=== PATIENT | male | born 1960 | race Caucasian/White ===

== ENCOUNTER → 2016-05-20 | Outpatient (CLI) | payer OTHER ==
[~2016-05-20] MED LIST: ACET-1175 PO; ALUMSUS2 PO; ASEN1SUB SL; CALC625T PO; CETI10TA10 PO; CHOL1000 PO; CHOL100010 PO; CLC100X PO; DEXTSYP41 PO; DIVA250T PO; DIVA500T3 PO; DOCU100C31 PO; EMOL-63 TOP; ERYOPO1 OP; ESCI1TAB10 PO; EZET10TA44 PO; HALO0.5T9 PO; HYDR2.5C37 TOP; LEVO50TA PO; LITH600C PO; LOPE-5 PO; LTH300C PO; METF-384 PO; MOML PO; MULTCHW PO; NEOMOIN76 TOP; OMEG10007 PO; PRLSR20 PO; RBTDMUDL5 PO; RISP2TAB3 PO; SPHSL5 PO; SPHSL5 SL; TRIA0.1C55 TOP; TRMCR515 TOP
[2016-05-20 10:14] LABS: COMPLETE YES; EOS % 2.3 %; HEMATOCRIT 42.2 % (42-52); IG% 0.4 %; LYMPH % 30.5 %; LYMPH ABS # 1.56 K/uL (1.2-3.4); MEAN CELL VOLUME 94.2 fL (80-100); MEAN CORPUSCULAR HEMOGLOBIN 31.7 pg (25-34); MEAN CORPUSCULAR HGB CONC 33.6 g/dl (32-36); MEAN PLATELET VOLUME 9.6 fL (7.4-10.4); MONO % 8.4 %; NEUT % 58.4 %; PLATELET COUNT 166 K/uL (130-400); RED BLOOD COUNT 4.48 M/uL (4.7-6.1); WHITE BLOOD COUNT 5.11 K/uL (4.8-10.8)
[2016-05-20 10:50] LABS: ALT/SGPT 22 U/L (12-78); BLOOD UREA NITROGEN 12 mg/dl (7-18); BUN/CREATININE RATIO 16.6 (10-20); CALCIUM 9.5 mg/dl (8.5-10.1); CARBON DIOXIDE 31 mmol/L (21-32); CHLORIDE 107 mmol/L (98-107); GLUCOSE 98 mg/dl (70-99); POTASSIUM 4.4 mmol/L (3.5-5.1); SODIUM 144 mmol/L (136-145)
[2016-05-20 11:01] LABS: ALB/GLOB RATIO 1.7 (0.9-2); ALKALINE PHOSPHATASE 77 U/L (45-117); AST/SGOT 10 U/L (15-37)
== END | disposition home or self-care (01) ==
LOC: C.LAB 09:36
PROVIDERS: ATTEND Psychiatry & Neurology Psychiatry
DX: F20.5 Residual schizophrenia (principal)

== ENCOUNTER → 2016-09-03 | Outpatient (CLI) | payer OTHER ==
[2016-09-03 10:13] LABS: COMPLETE YES; EOS % 2.5 %; HEMATOCRIT 44.5 % (42-52); IG% 0.2 %; LYMPH % 26.5 %; MEAN CELL VOLUME 95.7 fL (80-100); MEAN CORPUSCULAR HEMOGLOBIN 30.8 pg (25-34); MEAN CORPUSCULAR HGB CONC 32.1 g/dl (32-36); MEAN PLATELET VOLUME 9.8 fL (7.4-10.4); MONO % 6.6 %; NEUT % 64.2 %; PLATELET COUNT 171 K/uL (130-400); RED BLOOD COUNT 4.65 M/uL (4.7-6.1); WHITE BLOOD COUNT 5.28 K/uL (4.8-10.8)
[2016-09-03 10:44] LABS: ALT/SGPT 27 U/L (12-78); AST/SGOT 10 U/L (15-37); BLOOD UREA NITROGEN 19 mg/dl (7-18); BUN/CREATININE RATIO 26.4 (10-20); CALCIUM 9.4 mg/dl (8.5-10.1); CARBON DIOXIDE 32 mmol/L (21-32); CHLORIDE 109 mmol/L (98-107); GLUCOSE 101 mg/dl (70-99); POTASSIUM 4.2 mmol/L (3.5-5.1); SODIUM 145 mmol/L (136-145)
[2016-09-03 10:52] LABS: LITHIUM 0.4 mMOL/L (0.6-1.2)
[2016-09-03 10:54] LABS: ALB/GLOB RATIO 1.6 (0.9-2); ALKALINE PHOSPHATASE 83 U/L (45-117)
== END | disposition home or self-care (01) ==
LOC: C.LAB 09:11
PROVIDERS: ATTEND Physician Assistant
DX: Z51.81 Encounter for therapeutic drug level monitoring (principal); Z79.899 Other long term (current) drug therapy

== ENCOUNTER 2016-11-08 10:28 | Emergency (ER) | payer OTHER ==
[~2016-11-08] VITALS: Ht 177.8 cm; Wt 101.0 kg
[~2016-11-08 10:28] MED LIST changes: -CHOL1000 PO; -DOCU100C31 PO; -LTH300C PO; -RBTDMUDL5 PO; -SPHSL5 PO; -SPHSL5 SL; -TRMCR515 TOP
[2016-11-08 10:34] VITALS: TEMP 36.5; Ht 177.8 cm; Wt 101.0 kg
[2016-11-08] MEDS ORDERED: FAMOTIDINE 20MG/102 ML D5W IV STA (10:46)
[2016-11-08] MEDS ORDERED: SODIUM CHLORIDE 0.9% 1000ML 1,000 ML IV STA ×2 (10:46→14:40)
[2016-11-08] MEDS ORDERED: ALBUT/IPRATROP 3MG/0.5MG NEB 3 ML VIAL INH STA (10:46)
[2016-11-08] MEDS ORDERED: ONDANSETRON INJ 2 MG/ML 2 ML VIAL IV STA (10:46)
--- NOTE | 2016-11-08 10:56 | EMERGENCY ROOM VISIT NOTE ---
History Report prepared by Robel: Haleigh Armstrong Under the Supervision of: Dr. Saud Kirkland M.D. First contact with patient: 10:41 Chief Complaint: CARDIAC ASSESSMENT Stated Complaint: CHEST PAIN Nursing Triage Summary: pt here via [facility] from [facility]. pt was on a day trip there, lives at [facility] and is MR. pt c/o left chest/axilla pain, upper abd pains since last pm after eating spicy foods. pain with palpation. History of Present Illness The patient is a 55 year old male who presents to the Emergency Room with complaints of persistent left sided chest pain that began around 0930 today. He currently rates his discomfort as a 5/10 in severity. The patient reports that he was at the [employer] today for a day program. He states that he developed left sided chest pain and left shoulder pain. The patient states that he is feeling short of breath and nauseated. Per the patient's staff, the patient grabbed his chest today as he walked out of the bathroom. She states that she could hear the patient wheeze. The patient reports pain with urination and diarrhea for the past several weeks. He denies any constipation. The patient denies any cough or congestion. He states that he ate spicy food last evening, noting abdominal pain since last evening. Source of History: patient Onset: 0930 this morning Position: chest (left) Symptom Intensity: 5/10 Timing: other (persistent) Associated Symptoms: + SOB, + nausea, + abdominal pain, + diarrhea, + urinary symptoms, No cough Note: Associated Symptoms: left shoulder pain Review of Systems See HPI for pertinent positives and negatives. A total of ten systems were reviewed and were otherwise negative. Past Medical & Surgical Medical Problems: (1) Anxiety (2) DM2 (diabetes mellitus, type 2) (3) Elevated d-dimer (4) GERD (gastroesophageal reflux disease) (5) HLD (hyperlipidemia) (6) Hypothyroidism (7) Mental retardation (8) Schizophrenia (9) Tachycardia Surgical Problems: (1) Monitor teeth extracted Family History Patient reports no known family medical history. Social History Smoking Status: Never Smoker Alcohol Use: none Drug Use: none Marital Status: single Housing Status: assisted living Occupation Status: other Current/Historical Medications Scheduled Asenapine Maleate (Saphris), 10 MG PO HS Asenapine Maleate (Saphris), 5 MG SL QAM Calcium Polycarbophil (Fibercon), 1,250 MG PO DAILY Cholecalciferol (Vitamin D3), 1,000 INTER.UNIT PO DAILY Divalproex Sodium (Depakote Er), 1,750 MG PO HS Docusate Sodium (Docusate Sodium), 100 MG PO BID Escitalopram Oxalate (Lexapro), 20 MG PO DAILY Ezetimibe/Simvastatin (Vytorin 10MG/80MG), 1 TAB PO QPM Fish Oil (Cameron-3), 1 CAP PO TID Haloperidol (Haldol), 0.75 MG PO HS Levothyroxine Sodium (Synthroid), 50 MCG PO DAILY Harlem Carbonate (Harlem Carbonate), 600 MG PO HS Loperamide Hcl (Imodium A-D), 2 TABS PO UD Metformin Hcl (Glucophage), 1,000 MG PO BIDM Multiple Vitamins W/ Minerals (Centrum Silver), 1 TAB PO DAILY Omeprazole (Prilosec), 20 MG PO QPM Risperidone (Risperdal), 6 MG PO HS Triamcinolone Acet (Triamcinolone Acetonide), 1 APPLN TOP BID Scheduled PRN Acetaminophen (Tylenol), 650 MG PO Q6H PRN for Pain or Fever Alum & Mag Hydrox-Simethicone (Maalox Max Susp), 30 ML PO BID PRN for Upset Stomach/Vomiting Dextromethorphan-Guaifenesin (Robitussin-Dm Syrup), 2 TSP PO DIRECTED PRN for COUGH/COLD/CONGESTION Emollient (Eucerin), 1 APPL TOP DAILY PRN for PRN Hydrocortisone 2.5% (Rectal) (Anusol-Hc 2.5%), 1 APPLN TOP BID PRN for Hemorrhoids Magnesium Hydroxide (Milk Of Magnesia), 30 ML PO UD PRN for Constipation Neomycin-Bacitracin Zn-Polymyx (Triple Antibiotic), 1 APPLN TOP UD PRN for Scrapes/Abrasions Allergies Coded Allergies: Clozapine (Verified Allergy, Intermediate, UNKNOWN, 01/04/16) Povidone Iodine (Verified Allergy, Intermediate, UNKNOWN, 01/04/16) Benztropine (Verified Allergy, Unknown, CONTRAINDICATED PER MD, 01/04/16) Pseudoephedrine (Verified Allergy, Unknown, PER MD, MOTHER SAYS NKA , 01/04/16) Terfenadine (Verified Allergy, Unknown, PER , MOTHER SAYS JAELYN 01-02-03, 01/04/16) Physical Exam Vital Signs Date Time Temp Pulse Resp B/P (MAP) Pulse Ox O2 Delivery O2 Flow Rate FiO2 11/08/16 18:05 62 15 139/90 92 11/08/16 17:00 62 19 133/87 92 Room Air 11/08/16 15:49 64 17 142/86 94 Room Air 11/08/16 14:35 70 16 127/70 91 Room Air 11/08/16 13:00 72 16 116/70 92 Room Air 11/08/16 12:42 71 11/08/16 11:39 62 16 110/81 98 11/08/16 11:33 97 Room Air 11/08/16 11:33 94 Room Air 11/08/16 10:38 77 11/08/16 10:34 36.5 86 16 135/87 94 Room Air Physical Exam GENERAL: Awake, alert, well-appearing, in no distress HENT: Normocephalic, atraumatic. Dry mucous membranes. EYES: Normal conjunctiva. Sclera non-icteric. NECK: Supple. No nuchal rigidity. FROM. No JVD. RESPIRATORY: Clear to auscultation. CARDIAC: Regular rate, normal rhythm. Extremities warm and well perfused. Pulses equal. ABDOMEN: Soft, non-distended. Tenderness in left upper quadrant,. No rebound or guarding. No masses. RECTAL: Deferred. MUSCULOSKELETAL: Reproducible pain on palpation of his left lateral chest and left shoulder, no peritoneal signs, equal pulses around. The back is symmetrical on inspection without obvious abnormality. There is no CVA tenderness to palpation. No joint edema. LOWER EXTREMITIES: Calves are equal size bilaterally and non-tender. No edema. No discoloration. NEURO: Normal sensorium. No sensory or motor deficits noted. SKIN: No rash or jaundice noted. Medical Decision & Procedures ER Provider Diagnostic Interpretation: Radiology results as stated below per my review and radiologist interpretation: CHEST ONE VIEW PORTABLE CLINICAL HISTORY: CHEST PAIN dyspnea COMPARISON STUDY: No previous studies for comparison. FINDINGS: The bones soft tissues and hemidiaphragms are normal. The cardiomediastinal silhouette is normal. The lungs are clear. The pulmonary vasculature is normal. IMPRESSION: Negative chest. The above report was generated using voice recognition software. It may contain grammatical, syntax or spelling errors. Electronically signed by: Leon Bowens M.D. 11/08/2016 11:17 AM Dictated Date/Time: 11/08/2016 11:13 AM ABDOMEN AND PELVIS CT WITH IV CONTRAST CT DOSE: 975.25 mGy.cm HISTORY: epigastric/LUQ pain TECHNIQUE: Multiaxial CT images of the abdomen and pelvis were performed following the use of intravenous contrast. A dose lowering technique was utilized adhering to the principles of ALARA. COMPARISON STUDY: Abdomen and pelvis CT 12/29/2005. FINDINGS: Mild dependent changes seen at the lung bases. No pneumoperitoneum. No pneumatosis. No suspicious lytic or blastic osseous lesions. The liver, spleen, adrenal glands, and pancreas are unremarkable. Mild bilateral perinephric edema which is likely chronic. No renal or ureteral stones. No hydronephrosis. Bladder is mildly distended. No bladder wall thickening. A 5 mm hypodense lesion within the left kidney is too small to characterize. The right kidney enhances normally. There are 2 punctate calcifications at the anterior wall of the gallbladder. No gallbladder wall thickening. No retroperitoneal or mesenteric lymphadenopathy. Tiny fat-containing umbilical hernia. No bowel wall thickening or obstruction. Normal appendix. IMPRESSION: 1. No bowel wall thickening or obstruction. 2. Normal appendix. 3. No renal or ureteral stones. No hydronephrosis. 4. Mild bilateral perinephric edema remains unchanged. 5. Punctate calcifications within the anterior wall of the gallbladder. 6. Mildly distended bladder. No bladder wall thickening. Electronically signed by: Ishmael Atwood M.D. 11/08/2016 1:46 PM Dictated Date/Time: 11/08/2016 1:36 PM Laboratory Results 11/08/16 11:07 Red Blood Count 4.59, Mean Corpuscular Volume 96.7, Mean Corpuscular Hemoglobin 31.6, Mean Corpuscular Hemoglobin Concent 32.7, Mean Platelet Volume 10.1, Neutrophils (%) (Auto) 64.1, Lymphocytes (%) (Auto) 26.2, Monocytes (%) (Auto) 7.3, Eosinophils (%) (Auto) 2.2, Basophils (%) (Auto) 0.0, Neutrophils # (Auto) 3.25, Lymphocytes # (Auto) 1.33, Monocytes # (Auto) 0.37, Eosinophils # (Auto) 0.11, Basophils # (Auto) 0.00 11/08/16 11:07 Test 11/08/16 11:07 11/08/16 17:12 White Blood Count 5.07 K/uL (4.8-10.8) Red Blood Count 4.59 M/uL (4.7-6.1) Hemoglobin 14.5 g/dL (14.0-18.0) Hematocrit 44.4 % (42-52) Mean Corpuscular Volume 96.7 fL (80-100) Mean Corpuscular Hemoglobin 31.6 pg (25-34) Mean Corpuscular Hemoglobin Concent 32.7 g/dl (32-36) Platelet Count 165 K/uL (130-400) Mean Platelet Volume 10.1 fL (7.4-10.4) Neutrophils (%) (Auto) 64.1 % Lymphocytes (%) (Auto) 26.2 % Monocytes (%) (Auto) 7.3 % Eosinophils (%) (Auto) 2.2 % Basophils (%) (Auto) 0.0 % Neutrophils # (Auto) 3.25 K/uL (1.4-6.5) Lymphocytes # (Auto) 1.33 K/uL (1.2-3.4) Monocytes # (Auto) 0.37 K/uL (0.11-0.59) Eosinophils # (Auto) 0.11 K/uL (0-0.5) Basophils # (Auto) 0.00 K/uL (0-0.2) RDW Standard Deviation 45.7 fL (36.4-46.3) RDW Coefficient of Variation 12.9 % (11.5-14.5) Immature Granulocyte % (Auto) 0.2 % Immature Granulocyte # (Auto) 0.01 K/uL (0.00-0.02) D-Dimer < 190 ug/L FEU (0-500) Anion Gap 4.0 mmol/L (3-11) Est Creatinine Clear Calc Drug Dose 153.5 ml/min Estimated GFR () 126.9 Estimated GFR (Non- 109.5 BUN/Creatinine Ratio 15.3 (10-20) Calcium Level 9.6 mg/dl (8.5-10.1) Total Bilirubin 0.8 mg/dl (0.2-1) Direct Bilirubin 0.2 mg/dl (0-0.2) Aspartate Amino Transf (AST/SGOT) 11 U/L (15-37) Alanine Aminotransferase (ALT/SGPT) 24 U/L (12-78) Alkaline Phosphatase 75 U/L (45-117) Total Protein 6.2 gm/dl (6.4-8.2) Albumin 3.8 gm/dl (3.4-5.0) Lipase 89 U/L (73-393) Valproic Acid (Depakene) Level 76 mcg/ml (50-100) Harlem Level 0.4 mMOL/L (0.6-1.2) Lactic Acid Level 1.2 mmol/L (0.4-2.0) Troponin I < 0.015 ng/ml (0-0.045) Laboratory results reviewed by me Medications Administered Medications (Trade) Dose Ordered Sig/Ruddy Route Start Time Stop Time Status Last Admin Dose Admin Sodium Chloride 1,000 ml @ 999 mls/hr Q1H1M STAT IV 11/08/16 10:46 11/08/16 11:46 DC 11/08/16 11:33 999 MLS/HR Ondansetron HCl (Zofran Inj) 4 mg NOW STAT IV 11/08/16 10:46 11/08/16 10:52 DC 11/08/16 11:32 4 MG Famotidine (Pepcid 20mg/100 ml) 20 mg ONE STAT IV 11/08/16 10:46 11/08/16 10:52 DC 11/08/16 11:33 20 MG Albuterol/ Ipratropium (Duoneb) 3 ml NOW STAT INH 11/08/16 10:46 11/08/16 10:52 DC 11/08/16 11:33 3 ML Sodium Chloride 1,000 ml @ 999 mls/hr Q1H1M STAT IV 11/08/16 14:40 11/08/16 15:40 DC 11/08/16 15:47 999 MLS/HR Al Hydroxide/Mg Hydroxide (Maalox Susp) 30 ml STK-MED ONCE .ROUTE 11/08/16 15:40 11/08/16 15:41 DC 11/08/16 15:47 30 ML Lidocaine HCl (Viscous Lidocaine 2% Soln) 20 ml STK-MED ONCE .ROUTE 11/08/16 15:40 11/08/16 15:41 DC 11/08/16 15:47 20 ML ECG Rate (beats per minute): 70 Rhythm: normal sinus Findings: PVC (occasional), no acute ischemic change, other (normal axis) ED Course 1043: The patient was evaluated in room B6. A complete history and physical exam was performed. 1046: Ordered DuoNeb 3 ml INH, Famotidine 20 mg IV, Zofran Inj 4 mg IV, Sodium Chloride 1000 ml @ 999 mls/hr IV. Medical Decision Triage Nursing notes reviewed. The patient's presentation and history were concerning for Gastritis, cholecystitis, diverticulitis, ACS, pneumonia, PE, musculoskeletal strain. I reviewed the patient's past medical history, medications, and the nursing notes as described above. Patient is a 55-year-old gentleman with a past medical history of developmental delay [facility] with vague complaints of left chest pain and left upper abdominal pain that came on acutely [place]. Arrival patient is in no acute distress, afebrile with stable vital signs. Exam the patient has reproducible pain to the left chest wall as well as epigastrium and left upper quadrant. EKG unremarkable. Troponin negative. Lactate elevated at 2.5 however the setting of the patient appearing clinically dry. Labs unremarkable. CT scan of the patient's abdomen negative for acute process. Otherwise, d-dimer also negative making PE unlikely. Giiven IV fluid hydration , Pepcid, GI cocktail with resolution of symptoms suggesting likely gastritis. Repeat lactate and troponin pending. If troponin negative and lactate cleared DC with PCP follow-up. Repeat lactate after IV fluids cleared and within normal limits. Delta four- hour troponin negative as well. Findings and plan for follow-up reviewed with patient and social group worker. Agreeable and d/c'd per discharge instructions. Medication Reconcilliation Current Medication List: was personally reviewed by me Impression Primary Impression: Acute gastritis Additional Impression: Dehydration Scribe Attestation The scribe's documentation has been prepared under my direction and personally reviewed by me in its entirety. I confirm that the note above accurately reflects all work, treatment, procedures, and medical decision making performed by me. Departure Information Referrals Akil Thorne III, M.D. (PCP) Patient Instructions ED Dehydration, ED Gastritis, My [facility] Additional Instructions Please follow up with your primary care physician in the next 1-3 days for re- evaluation. You likely have gastritis and were mildly dehydrated. Otherwise, your exam, EKG, chest xray, CT scan, and lab results did not show signs of an emergent condition at this time. Drink plenty of fluids to ensure hydration. Continue your home medications as prescribed. Return to the emergency department for worsening symptoms as described in the accompanying instructions. Problem Qualifiers
--- NOTE | 2016-11-08 11:18 | DIAGNOSTIC IMAGING REPORT ---
CHEST ONE VIEW PORTABLE CLINICAL HISTORY: CHEST PAIN dyspnea COMPARISON STUDY: No previous studies for comparison. FINDINGS: The bones soft tissues and hemidiaphragms are normal. The cardiomediastinal silhouette is normal. The lungs are clear. The pulmonary vasculature is normal. IMPRESSION: Negative chest. The above report was generated using voice recognition software. It may contain grammatical, syntax or spelling errors. Electronically signed by: Leon Bowens M.D. 11/08/2016 11:17 AM Dictated Date/Time: 11/08/2016 11:13 AM
[2016-11-08 11:23] LABS: COMPLETE YES; EOS % 2.2 %; HEMATOCRIT 44.4 % (42-52); IG% 0.2 %; LYMPH % 26.2 %; LYMPH ABS # 1.33 K/uL (1.2-3.4); MEAN CELL VOLUME 96.7 fL (80-100); MEAN CORPUSCULAR HEMOGLOBIN 31.6 pg (25-34); MEAN CORPUSCULAR HGB CONC 32.7 g/dl (32-36); MEAN PLATELET VOLUME 10.1 fL (7.4-10.4); MONO % 7.3 %; NEUT % 64.1 %; PLATELET COUNT 165 K/uL (130-400); RED BLOOD COUNT 4.59 M/uL (4.7-6.1); WHITE BLOOD COUNT 5.07 K/uL (4.8-10.8)
[2016-11-08 11:33] VITALS: O2SAT 97
[2016-11-08] MEDS ORDERED: LTH300C PO (11:36)
[2016-11-08] MEDS ORDERED: CHOL1000 PO (11:36)
[2016-11-08] MEDS ORDERED: SPHSL5 SL (11:36)
[2016-11-08] MEDS ORDERED: SPHSL5 PO (11:36)
[2016-11-08] MEDS ORDERED: TRMCR515 TOP (11:36)
[2016-11-08] MEDS ORDERED: DOCU100C31 PO (11:36)
[2016-11-08] MEDS ORDERED: RBTDMUDL5 PO (11:36)
[2016-11-08 11:42] LABS: ALT/SGPT 24 U/L (12-78); BLOOD UREA NITROGEN 10 mg/dl (7-18); BUN/CREATININE RATIO 15.3 (10-20); CALCIUM 9.6 mg/dl (8.5-10.1); CARBON DIOXIDE 30 mmol/L (21-32); CHLORIDE 110 mmol/L (98-107); CREATININE 0.64 mg/dl (0.60-1.40); GLUCOSE 103 mg/dl (70-99); POTASSIUM 4.4 mmol/L (3.5-5.1); SODIUM 144 mmol/L (136-145)
[2016-11-08 11:46] LABS: ALKALINE PHOSPHATASE 75 U/L (45-117); AST/SGOT 11 U/L (15-37)
[2016-11-08 12:01] LABS: LITHIUM 0.4 mMOL/L (0.6-1.2)
[2016-11-08] MEDS ORDERED: OPTIRAY 320 IV PRN (13:15)
--- NOTE | 2016-11-08 13:48 | DIAGNOSTIC IMAGING REPORT ---
ABDOMEN AND PELVIS CT WITH IV CONTRAST CT DOSE: 975.25 mGy.cm HISTORY: epigastric/LUQ pain TECHNIQUE: Multiaxial CT images of the abdomen and pelvis were performed following the use of intravenous contrast. A dose lowering technique was utilized adhering to the principles of ALARA. COMPARISON STUDY: Abdomen and pelvis CT 12/29/2005. FINDINGS: Mild dependent changes seen at the lung bases. No pneumoperitoneum. No pneumatosis. No suspicious lytic or blastic osseous lesions. The liver, spleen, adrenal glands, and pancreas are unremarkable. Mild bilateral perinephric edema which is likely chronic. No renal or ureteral stones. No hydronephrosis. Bladder is mildly distended. No bladder wall thickening. A 5 mm hypodense lesion within the left kidney is too small to characterize. The right kidney enhances normally. There are 2 punctate calcifications at the anterior wall of the gallbladder. No gallbladder wall thickening. No retroperitoneal or mesenteric lymphadenopathy. Tiny fat-containing umbilical hernia. No bowel wall thickening or obstruction. Normal appendix. IMPRESSION: 1. No bowel wall thickening or obstruction. 2. Normal appendix. 3. No renal or ureteral stones. No hydronephrosis. 4. Mild bilateral perinephric edema remains unchanged. 5. Punctate calcifications within the anterior wall of the gallbladder. 6. Mildly distended bladder. No bladder wall thickening. Electronically signed by: Ishmael Atwood M.D. 11/08/2016 1:46 PM Dictated Date/Time: 11/08/2016 1:36 PM
[2016-11-08] MEDS ORDERED: GI COCKTAIL PO STA (14:53)
[2016-11-08] MEDS ORDERED: LIDOCAINE HCL 2% VISC SOLN 20 ML UDC ONE (15:40)
[2016-11-08] MEDS ORDERED: ALUMINUM/MAGNESIUM SUSP 30 ML UDC ONE (15:40)
[2016-11-08 18:05] VITALS: BP 139/90; PULSE 62; O2SAT 92
== END 2016-11-08 18:05 | disposition home or self-care (01) ==
LOC: EDBD 10:28 → C.EDB 10:28
DX: K29.00 Acute gastritis without bleeding (principal); E86.0 Dehydration; E78.5 Hyperlipidemia, unspecified; E11.9 Type 2 diabetes mellitus without complications; E03.9 Hypothyroidism, unspecified; K21.9 Gastro-esophageal reflux disease without esophagitis; F41.9 Anxiety disorder, unspecified; F20.9 Schizophrenia, unspecified; F79 Unspecified intellectual disabilities; Z79.84 Long term (current) use of oral hypoglycemic drugs; Z79.899 Other long term (current) drug therapy; Z88.8 Allergy status to other drugs, medicaments and biological substances

== ENCOUNTER → 2017-07-07 | Outpatient (CLI) | payer OTHER ==
[~2017-07-07] MED LIST changes: -ASEN1SUB SL; -CETI10TA10 PO; +CHOL1000 PO; -CHOL100010 PO; -CLC100X PO; -DEXTSYP41 PO; -DIVA250T PO; +DOCU100C31 PO; -ERYOPO1 OP; -LITH600C PO; +LTH300C PO; +RBTDMUDL5 PO; +SPHSL5 PO; +SPHSL5 SL; -TRIA0.1C55 TOP; +TRMCR515 TOP
[2017-07-07 10:45] LABS: ALBUMIN 3.7 gm/dl (3.4-5.0); ALT/SGPT 31 U/L (12-78); AST/SGOT 12 U/L (15-37); BLOOD UREA NITROGEN 11 mg/dl (7-18); CALCIUM 9.1 mg/dl (8.5-10.1); CARBON DIOXIDE 29 mmol/L (21-32); CHOLESTEROL 102 mg/dl (0-200); CREATININE 0.78 mg/dl (0.60-1.40); GLUCOSE 139 mg/dl (70-99); POTASSIUM 4.1 mmol/L (3.5-5.1); SODIUM 143 mmol/L (136-145)
[2017-07-07 10:55] LABS: ALKALINE PHOSPHATASE 70 U/L (45-117); LDL CHOLESTEROL CALCULATED 36 mg/dl; TOTAL PROTEIN 6.2 gm/dl (6.4-8.2)
== END | disposition home or self-care (01) ==
LOC: C.LAB 08:29
PROVIDERS: ATTEND Family Medicine
DX: E88.81 Metabolic syndrome and other insulin resistance (principal); E78.5 Hyperlipidemia, unspecified; E03.9 Hypothyroidism, unspecified

== ENCOUNTER → 2017-10-08 | Outpatient (CLI) | payer OTHER ==
[2017-10-08 10:51] LABS: ALBUMIN 3.9 gm/dl (3.4-5.0); ALKALINE PHOSPHATASE 78 U/L (45-117); ALT/SGPT 31 U/L (12-78); AST/SGOT 12 U/L (15-37); BLOOD UREA NITROGEN 10 mg/dl (7-18); CALCIUM 9.2 mg/dl (8.5-10.1); CARBON DIOXIDE 32 mmol/L (21-32); CHOLESTEROL 106 mg/dl (0-200); CREATININE 0.68 mg/dl (0.60-1.40); GLUCOSE 92 mg/dl (70-99); LDL CHOLESTEROL CALCULATED 37 mg/dl; SODIUM 140 mmol/L (136-145); TOTAL PROTEIN 6.7 gm/dl (6.4-8.2)
== END | disposition home or self-care (01) ==
LOC: C.LAB 08:23
PROVIDERS: ATTEND Family Medicine
DX: E03.9 Hypothyroidism, unspecified (principal); E88.81 Metabolic syndrome and other insulin resistance; E78.5 Hyperlipidemia, unspecified

== ENCOUNTER 2021-08-22 07:40 | Inpatient (IN) ==
[2021-08-22] MEDS ORDERED: VANCOMYCIN CONSULT ACTIVE PRN (07:52)
[2021-08-22] MEDS ORDERED: VANCOMYCIN HCL 2,000 MG in SODIUM CHLORIDE 0.9% 500 ML IV STA (07:52)
[2021-08-22] MEDS ORDERED: CEFEPIME 2,000 MG/20 ML VIAL IV STA (07:52)
--- NOTE | 2021-08-22 07:59 | Emergency Department Note ---
History of Present Illness General Chief complaint: Fever Stated complaint: FALL, BACK & AB PAIN Time Seen by Provider: 08/22/21 07:44 History of Present Illness 60-year-old male presents to the ED with a chief complaint of a fall at a local [facility]. The patient is a poor historian. He has history of mental disability. When asked if anything bothers him, he just states that he is hungry. He reportedly fell at breakfast at the nursing facility where he resides. History is otherwise unreliable per the patient. He was found to have a fever when he came in today. He was also tachycardic. The [facility] reported that he did not strike his head when he fell. Home Medications Medication Instructions Recorded Confirmed Type acetaminophen 325 mg tablet 650 mg PO QID PRN 05/05/19 08/22/21 History asenapine maleate 10 mg sublingual 10 mg SUBLINGUAL HS 05/05/19 08/22/21 History tablet (Saphris) asenapine maleate 5 mg sublingual 5 mg SUBLINGUAL QAM 05/05/19 08/22/21 History tablet (Saphris) atorvastatin 40 mg tablet 40 mg PO QPM 05/05/19 08/22/21 History calcium polycarbophil 625 mg 1,250 mg PO DAILY 05/05/19 08/22/21 History tablet (Fiber-Lax) cetirizine 10 mg capsule 10 mg PO QAM 05/05/19 08/22/21 History cholecalciferol (vitamin D3) 25 1,000 unit PO QAM 05/05/19 08/22/21 History mcg (1,000 unit) chewable tablet (Vitamin D3) divalproex 250 mg tablet,delayed 250 mg PO PM 05/05/19 08/22/21 History release (Depakote) divalproex 500 mg tablet,delayed 1,500 mg PO PM 05/05/19 08/22/21 History release (Depakote) docusate sodium 100 mg capsule 100 mg PO BID 05/05/19 08/22/21 History (Colace) erythromycin 5 mg/gram (0.5 %) eye 1 applic OPHTHALMIC (EYE) HS PRN 05/05/19 08/22/21 History ointment escitalopram oxalate 20 mg tablet 20 mg PO QAM 05/05/19 08/22/21 History fish,flax,primrose,borag 1 cap PO TID 05/05/19 08/22/21 History oils-om3,6,9 no5 400 mg-400 mg-200 mg capsule ([place] 3-6-9 Fatty Acids) hydrocortisone 2.5 % topical cream 1 applic TOPICAL BID PRN 05/05/19 08/22/21 History ibuprofen 400 mg tablet 400 mg PO Q6H PRN 05/05/19 08/22/21 History lanolin alcohols-mineral 1 applic TOPICAL DAILY PRN 05/05/19 08/22/21 History oil-w.petrolatum-ceresin topical cream (Eucerin) lithium carbonate 300 mg capsule 600 mg PO HS 05/05/19 08/22/21 History loperamide 2 mg capsule 2 mg PO Q3H PRN 05/05/19 08/22/21 History magnesium hydroxide 400 mg/5 mL 30 ml PO DAILY PRN 05/05/19 08/22/21 History oral suspension (Milk of Magnesia) metformin 1,000 mg tablet 1,000 mg PO BID 05/05/19 08/22/21 History multivitamin 1 tab PO QAM 05/05/19 08/22/21 History omeprazole magnesium 20 mg 20 mg PO PM 05/05/19 08/22/21 History tablet,delayed release (Prilosec OTC) polyethylene glycol 400 0.25 % eye 0.3 % OPHTHALMIC (EYE) QID PRN 05/05/19 08/22/21 History drops pramoxine 1 %-benzalkonium 1 spray TOPICAL DAILY PRN 05/05/19 08/22/21 History chloride 0.13 % topical spray (Neosporin [place]) risperidone 3 mg tablet (Risperdal) 6 mg PO HS 05/05/19 08/22/21 History triamcinolone acetonide 0.1 % 1 applic TOPICAL DAILY PRN 05/05/19 08/22/21 History topical cream haloperidol 1 mg tablet 1 mg PO DAILY 08/22/21 08/22/21 History levothyroxine 88 mcg tablet 88 mcg PO DAILY 08/22/21 08/22/21 History Allergies Allergy/AdvReac Type Severity Reaction Status Date / Time clozapine Allergy Intermediate UNKNOWN Verified 09/21/19 11:30 povidone-iodine Allergy Intermediate UNKNOWN Verified 09/21/19 11:30 benztropine Allergy Unknown CONTRAINDICATED Verified 09/21/19 11:30 PER MD pseudoephedrine Allergy Unknown PER MD Verified 09/21/19 11:30 soap [From Betadine] Allergy Unknown Unknown Verified 09/21/19 11:30 terfenadine Allergy Unknown PER MD Verified 09/21/19 11:30 Past Med/Surg History Medical History (Updated 08/22/21 @ 10:05 by Kishore Pineda DO) Cellulitis of leg Dermatitis Diabetes mellitus Dyslipidemia Esophageal reflux Hemorrhoid WITHOUT COMPLICATION Hx pulmonary embolism NO OTHER DETAILS PROVIDED Hypothyroidism Mental and behavioral problem in adult Metabolic syndrome Moderate intellectual disabilities Myopia Obesity (BMI 30.0-34.9) WILVER (obstructive sleep apnea) SEVERE> NO DEVICE PER RECORDS Schizophrenia Surgical History History of colonoscopy History of right cataract surgery History of tooth extraction WISDOM TEETH Family History Other Family history non-contributory Social History Smoking Status: Never smoker Second Hand Exposure: No; Hx Alcohol Use: No Hx Substance Use: No Preferred Language: Scottish Communication Ability: Impaired [employer] Field Supervisor Required: No Beliefs That Will Affect Care: None Current Living Situation: Other Current Living Situation Comment: Lives at [facility] Feels Safe at Home: Yes Assistive Devices: None Review of Systems Unobtainable due to cognitive status Physical Exam Vital Signs Vital Signs - 24 hr 08/22/21 07:49 08/22/21 07:50 08/22/21 07:53 Temperature 38.3 C H Temperature Source Oral Pulse Rate 132 H 128 H Pulse Rate [Right Finger] 131 H Pulse Rate from SpO2 Sensor Pulse Rhythm Regular Pulse Strength Normal Pulse Strength [Right Finger] Normal Respiratory Rate 21 36 H 24 Respiratory Effort / Characteristics Non-Labored Spontaneous Non-Labored Spontaneous Respiratory Depth Normal Respiratory Pattern Regular Blood Pressure 158/82 H Blood Pressure [Right Arm] 158/82 H Blood Pressure Mean 107 Blood Pressure Mean [Right Arm] 107 Blood Pressure Position Lying Blood Pressure Position [Right Arm] Lying Pulse Oximetry 92 93 Oxygen Delivery Method Nasal Cannula Nasal Cannula Oxygen Flow Rate 2 2 Sepsis Recent Fever Within 48 Hours Yes Sepsis New/Unexplained Change in Mental Status No Sepsis Action Taken by Nursing Physician Notified 08/22/21 08:00 08/22/21 08:10 08/22/21 08:19 Temperature 38.3 C H Temperature Source Oral Pulse Rate 133 H 125 H 127 H Pulse Rate [Right Finger] 127 H Pulse Rate from SpO2 Sensor 133 H 126 H 128 H Pulse Rhythm Regular Pulse Strength Pulse Strength [Right Finger] Normal Respiratory Rate 32 H 15 Respiratory Effort / Characteristics Non-Labored Spontaneous Respiratory Depth Normal Respiratory Pattern Regular Blood Pressure 141/96 H Blood Pressure [Right Arm] 141/96 H Blood Pressure Mean 111 Blood Pressure Mean [Right Arm] 111 Blood Pressure Position Blood Pressure Position [Right Arm] Lying Pulse Oximetry 94 94 92 Oxygen Delivery Method Nasal Cannula Oxygen Flow Rate 2 Sepsis Recent Fever Within 48 Hours Sepsis New/Unexplained Change in Mental Status Sepsis Action Taken by Nursing 08/22/21 08:20 08/22/21 08:23 08/22/21 08:30 Temperature Temperature Source Pulse Rate 129 H 125 H Pulse Rate [Right Finger] Pulse Rate from SpO2 Sensor 131 H 125 H Pulse Rhythm Pulse Strength Pulse Strength [Right Finger] Respiratory Rate 25 H 22 24 Respiratory Effort / Characteristics Non-Labored Spontaneous Non-Labored Spontaneous Respiratory Depth Respiratory Pattern Blood Pressure 139/97 Blood Pressure [Right Arm] Blood Pressure Mean 111 Blood Pressure Mean [Right Arm] Blood Pressure Position Blood Pressure Position [Right Arm] Pulse Oximetry 93 93 92 Oxygen Delivery Method Nasal Cannula Nasal Cannula Oxygen Flow Rate 2 2 Sepsis Recent Fever Within 48 Hours Sepsis New/Unexplained Change in Mental Status Sepsis Action Taken by Nursing 08/22/21 08:45 08/22/21 08:48 08/22/21 08:50 Temperature Temperature Source Pulse Rate 123 H 121 H Pulse Rate [Right Finger] 120 H Pulse Rate from SpO2 Sensor 122 H 123 H 118 H Pulse Rhythm Pulse Strength Pulse Strength [Right Finger] Normal Respiratory Rate 30 H 26 H Respiratory Effort / Characteristics Non-Labored Spontaneous Respiratory Depth Normal Respiratory Pattern Regular Blood Pressure 144/77 H Blood Pressure [Right Arm] 144/75 H Blood Pressure Mean 99 Blood Pressure Mean [Right Arm] 98 Blood Pressure Position Blood Pressure Position [Right Arm] Lying Pulse Oximetry 96 94 94 Oxygen Delivery Method Nasal Cannula Oxygen Flow Rate 2 Sepsis Recent Fever Within 48 Hours Sepsis New/Unexplained Change in Mental Status Sepsis Action Taken by Nursing 08/22/21 09:00 08/22/21 09:10 08/22/21 09:15 Temperature Temperature Source Pulse Rate 118 H 115 H 122 H Pulse Rate [Right Finger] 119 H 120 H Pulse Rate from SpO2 Sensor 118 H 116 H 122 H Pulse Rhythm Pulse Strength Pulse Strength [Right Finger] Normal Normal Respiratory Rate 29 H 27 H 22 Respiratory Effort / Characteristics Non-Labored Spontaneous Non-Labored Spontaneous Respiratory Depth Normal Normal Respiratory Pattern Regular Blood Pressure 145/76 H 159/89 H Blood Pressure [Right Arm] 145/76 H 151/89 H Blood Pressure Mean 99 112 Blood Pressure Mean [Right Arm] 99 109 Blood Pressure Position Blood Pressure Position [Right Arm] Lying Pulse Oximetry 93 95 96 Oxygen Delivery Method Nasal Cannula Nasal Cannula Oxygen Flow Rate 2 2 Sepsis Recent Fever Within 48 Hours Sepsis New/Unexplained Change in Mental Status Sepsis Action Taken by Nursing 08/22/21 09:20 08/22/21 09:30 08/22/21 09:46 Temperature Temperature Source Pulse Rate 131 H 121 H Pulse Rate [Right Finger] 120 H Pulse Rate from SpO2 Sensor 131 H 122 H Pulse Rhythm Pulse Strength Pulse Strength [Right Finger] Normal Respiratory Rate 29 H 24 22 Respiratory Effort / Characteristics Non-Labored Spontaneous Non-Labored Spontaneous Respiratory Depth Normal Respiratory Pattern Regular Blood Pressure 164/92 H Blood Pressure [Right Arm] 151/88 H Blood Pressure Mean 116 Blood Pressure Mean [Right Arm] 109 Blood Pressure Position Blood Pressure Position [Right Arm] Lying Pulse Oximetry 100 95 93 Oxygen Delivery Method Nasal Cannula Nasal Cannula Oxygen Flow Rate 2 2 Sepsis Recent Fever Within 48 Hours Sepsis New/Unexplained Change in Mental Status Sepsis Action Taken by Nursing 08/22/21 10:00 08/22/21 10:01 Temperature Temperature Source Pulse Rate Pulse Rate [Right Finger] 119 H Pulse Rate from SpO2 Sensor Pulse Rhythm Pulse Strength Pulse Strength [Right Finger] Normal Respiratory Rate 22 22 Respiratory Effort / Characteristics Non-Labored Spontaneous Non-Labored Spontaneous Respiratory Depth Normal Respiratory Pattern Regular Blood Pressure Blood Pressure [Right Arm] 145/84 H Blood Pressure Mean Blood Pressure Mean [Right Arm] 104 Blood Pressure Position Blood Pressure Position [Right Arm] Lying Pulse Oximetry 95 95 Oxygen Delivery Method Nasal Cannula Nasal Cannula Oxygen Flow Rate 2 2 Sepsis Recent Fever Within 48 Hours Sepsis New/Unexplained Change in Mental Status Sepsis Action Taken by Nursing CONSTITUTIONAL/VITAL SIGNS: Reviewed / noted above. GENERAL: Non-toxic in appearance. INTEGUMENTARY: Warm, dry, and [place]. HEAD: Normocephalic. No obvious trauma. EYES: without scleral icterus or trauma. ENT/OROPHARYNX: clear and moist. LYMPHADENOPATHY/NECK: Is supple without lymphadenopathy or meningismus. RESPIRATORY: Clear to auscultation bilaterally. No increased work of breathing. CARDIOVASCULAR: Tachycardic rate and regular rhythm. GI/ABDOMEN: Soft and mildly tender diffusely. No organomegaly or pulsatile mass. EXTREMITIES: Warm and well perfused. BACK: No CVA tenderness. NEUROLOGICAL: Intact without focal deficits. PSYCHIATRIC: normal affect. MUSCULOSKELETAL: Normally developed with good muscle tone. Of note, the patient admits to pain everywhere he is palpated and therefore his exam was relatively unreliable. TRIAGE NURSING DOCUMENTATION REVIEWED. Course Administered Medications Vancomycin HCl 2,000 mg/ (Sodium Chloride) 540 mls @ 200 mls/hr IV NOW STA Stop: 08/22/21 10:21 Last Admin: 08/22/21 08:55 Dose: 200 mls/hr Documented by: [id number] Discontinued Medications Sodium Chloride (Nss 1000ml) 1,000 mls @ 999 mls/hr IV .Q1H1M SHERRY Stop: 08/22/21 08:53 Last Infusion: 08/22/21 09:40 Dose: 0 mls/hr Documented by: [id number] Admin: 08/22/21 08:27 Dose: 999 mls/hr Documented by: [id number] Sodium Chloride (Nss 1000ml) 1,000 mls @ 999 mls/hr IV .Q1H1M SHERRY Stop: 08/22/21 09:59 Last Admin: 08/22/21 09:48 Dose: 999 mls/hr Documented by: [id number] Cefepime HCl (Maxipime) 2,000 mg in 20 mls @ 5 mls/min IV NOW STA; Protocol Stop: 08/22/21 07:55 Last Admin: 08/22/21 08:21 Dose: 5 mls/min Documented by: [id number] Critical Care Time Critical Care Time: Yes Total Critical Care Time: 30 I have personally spent 30 minutes of critical care time in the direct management of this patient. This includes bedside care, interpretation of diagnostic studies, and testing, discussion with consultants, patient, and family members, and other required patient management activities. This 30 minutes is in excess of all separately billable procedures. Medical Decision Making Differential Diagnosis Differential includes viral illness, influenza, streptococcal pharyngitis, meningitis, pneumonia, sinusitis, UTI, pyelonephritis, otitis media, sepsis, septic shock, bacteremia, intra-abdominal infection Medical Records Attestation: I reviewed the patient's medical records. Home Medications Current Medication List: was personally reviewed by me Laboratory Data Attestation: I reviewed the patient's lab results. Result diagrams: 08/22/21 07:53 08/22/21 07:53 Lab Results 08/22/21 08/22/21 08/22/21 Range/Units 07:53 07:53 07:53 WBC 5.25 (4.8-10.8) K/uL RBC 4.63 L (4.7-6.1) M/uL Hgb 15.4 (14.0-18.0) g/dL Hct 46.3 (42-52) % MCV 100.0 (80-100) fL MCH 33.3 (25-34) pg MCHC 33.3 (32-36) g/dL RDW Std Deviation 47.5 H (36.4-46.3) fL RDW Coeff of Jose 13.0 (11.5-14.5) % Plt Count 161 (130-400) K/uL MPV 10.0 (7.4-10.4) fL Immature Gran % (Auto) 0.2 % Neut % (Auto) 83.4 % Lymph % (Auto) 11.6 % [place] % (Auto) 4.4 % Eos % (Auto) 0.4 % Baso % (Auto) 0.0 % Neut # (Auto) 4.38 (1.4-6.5) K/uL Lymph # (Auto) 0.61 L (1.2-3.4) K/uL [place] # (Auto) 0.23 (0.11-0.59) K/uL Eos # (Auto) 0.02 (0-0.5) K/uL Baso # (Auto) 0.00 (0-0.2) K/uL Immature Gran # (Auto) 0.01 (0.00-0.02) K/uL PT 10.4 (9.0-12.0) Seconds INR 1.0 (0.9-1.1) APTT 20.7 L (21.0-31.0) Seconds PTT Ratio 0.8 Sodium 139 (136-145) mmol/L Potassium 4.8 (3.5-5.1) mmol/L Chloride 105 (98-107) mmol/L Carbon Dioxide 29 (21-32) mmol/L Anion Gap 5 (3-11) BUN 19 (6-23) mg/dl Creatinine 1.07 (0.6-1.4) mg/dl Est Cr Clr Drug Dosing 79.6 ml/min Est GFR ( Amer) 86.4 ml/min Est GFR (Non-Af Amer) 74.5 ml/min BUN/Creatinine Ratio 17.8 (10-20) Glucose 136 H (70-99(Fasting)) mg/dl Lactate (0.4-2.0) mmol/L Calcium 10.2 H (8.5-10.1) mg/dl Magnesium 1.9 (1.7-2.4) mg/dl Total Bilirubin 0.9 (0.2-1.0) mg/dl AST 24 (13-39) U/L ALT 34 (7-52) U/L Alkaline Phosphatase 75 (34-104) U/L Troponin I High Sens 11.8 (0-20) pg/ml Total Protein 6.7 (6.0-8.3) gm/dl Albumin 4.2 (3.4-5.0) gm/dl Globulin 2.5 (2.5-4.0) gm/dl Albumin/Globulin Ratio 1.7 (0.9-2) Urine Color Urine Appearance (Clear) Urine pH (4.5-7.5) Ur Specific [place] (1.000-1.030) Urine Protein (Negative) Urine Glucose (UA) (Negative) Urine Ketones (Negative) Urine Blood (Negative) Urine Nitrite (Negative) Urine Bilirubin (Negative) Urine Urobilinogen (Negative) Ur Leukocyte Esterase (Negative) SARS-CoV-2 (PCR) (Negative) Influenza Type A (PCR) (Neg) Influenza Type B (PCR) (Neg) RSV (RT-PCR) (Neg) 08/22/21 08/22/21 08/22/21 Range/Units 08:10 08:47 09:20 WBC (4.8-10.8) K/uL RBC (4.7-6.1) M/uL Hgb (14.0-18.0) g/dL Hct (42-52) % MCV (80-100) fL MCH (25-34) pg MCHC (32-36) g/dL RDW Std Deviation (36.4-46.3) fL RDW Coeff of Jose (11.5-14.5) % Plt Count (130-400) K/uL MPV (7.4-10.4) fL Immature Gran % (Auto) % Neut % (Auto) % Lymph % (Auto) % [place] % (Auto) % Eos % (Auto) % Baso % (Auto) % Neut # (Auto) (1.4-6.5) K/uL Lymph # (Auto) (1.2-3.4) K/uL [place] # (Auto) (0.11-0.59) K/uL Eos # (Auto) (0-0.5) K/uL Baso # (Auto) (0-0.2) K/uL Immature Gran # (Auto) (0.00-0.02) K/uL PT (9.0-12.0) Seconds INR (0.9-1.1) APTT (21.0-31.0) Seconds PTT Ratio Sodium (136-145) mmol/L Potassium (3.5-5.1) mmol/L Chloride (98-107) mmol/L Carbon Dioxide (21-32) mmol/L Anion Gap (3-11) BUN (6-23) mg/dl Creatinine (0.6-1.4) mg/dl Est Cr Clr Drug Dosing ml/min Est GFR ( Amer) ml/min Est GFR (Non-Af Amer) ml/min BUN/Creatinine Ratio (10-20) Glucose (70-99(Fasting)) mg/dl Lactate 1.3 (0.4-2.0) mmol/L Calcium (8.5-10.1) mg/dl Magnesium (1.7-2.4) mg/dl Total Bilirubin (0.2-1.0) mg/dl AST (13-39) U/L ALT (7-52) U/L Alkaline Phosphatase (34-104) U/L Troponin I High Sens (0-20) pg/ml Total Protein (6.0-8.3) gm/dl Albumin (3.4-5.0) gm/dl Globulin (2.5-4.0) gm/dl Albumin/Globulin Ratio (0.9-2) Urine Color Yellow Urine Appearance Clear (Clear) Urine pH 8.0 H (4.5-7.5) Ur Specific [place] 1.014 (1.000-1.030) Urine Protein Negative (Negative) Urine Glucose (UA) Negative (Negative) Urine Ketones Negative (Negative) Urine Blood Negative (Negative) Urine Nitrite Negative (Negative) Urine Bilirubin Negative (Negative) Urine Urobilinogen Negative (Negative) Ur Leukocyte Esterase Negative (Negative) SARS-CoV-2 (PCR) POSITIVE A* (Negative) Influenza Type A (PCR) Negative (Neg) Influenza Type B (PCR) Negative (Neg) RSV (RT-PCR) Negative (Neg) Imaging Data Radiologist's Impression: Chest X-Ray 08/22/21 07:53 SINGLE VIEW CHEST CLINICAL HISTORY: Sepsis. FINDINGS: An AP, portable, upright chest radiograph is compared to study dated 11/08/2016 and correlated with chest CT dated 06/15/2015. The cardiomediastinal silhouette is unremarkable noting atherosclerotic calcification of the thoracic aorta. Dependent opacities are seen at both lung bases. No large pleural effusion or pneumothorax is seen. The bony thorax is grossly intact. IMPRESSION: Bibasilar opacities likely represent atelectasis. Clinical correlation will be required. ACT 112: Negative or not required by law. Electronically signed by: Magan Dejesus M.D. 08/22/2021 8:24 AM Abdomen/Pelvis CT 08/22/21 07:59 CT SCAN OF THE CHEST, ABDOMEN, AND PELVIS WITHOUT IV CONTRAST CLINICAL HISTORY: Fall. Atypical chest pain. Generalized abdominal pain. Back pain. COMPARISON STUDY: Chest CT dated 06/15/2015. Abdominal CT dated 11/08/2016. TECHNIQUE: Unenhanced CT scan of the chest, abdomen, and pelvis was performed from the thoracic inlet to the proximal femora. Images are reviewed in the axial, sagittal, and coronal planes. IV contrast was not administered for this examination. Note that the examinations were performed in suboptimal fashion without IV contrast. A dose lowering technique was utilized adhering to the principles of ALARA. CT DOSE: 676.17 mGy.cm FINDINGS: CHEST: Thyroid: Imaged portions of the thyroid gland are normal in size and attenuation. Thoracic aorta: There is mild atherosclerotic calcification of the thoracic aorta, which is normal in caliber and demonstrates standard 3-vessel arch anatomy. Heart: The heart is normal in size and without pericardial effusion. There are coronary artery calcifications. Lungs and pleural spaces: Evaluation of the lung parenchyma is degraded by motion artifact. There is no airspace consolidation typical for pneumonia or pleural effusion. Secretions are noted within the trachea. No pneumothorax is seen. Mediastinum: There is no mediastinal hematoma or lymphadenopathy. Ze[place]: Not well assessed but IV contrast. Axillae: There is no axillary lymphadenopathy. Bony thorax: The bony thorax appears intact. No lytic or blastic lesions are identified. ABDOMEN AND PELVIS: Liver: The unenhanced liver is enlarged, measuring 20.8 cm in length. The liver is otherwise normal in contour and attenuation. There is no intrahepatic biliary ductal dilatation. Gallbladder: Unremarkable. Spleen: The spleen is mildly enlarged measuring 13.4 cm in length. Pancreas: Unremarkable. Adrenal glands: Unremarkable. Kidneys: The unenhanced kidneys are normal in size and without hydronephrosis. No renal calculi are identified. There is no evidence of contour deforming mass lesion. Abdominal vasculature: The abdominal aorta is normal in course and caliber noting mild atherosclerotic calcification. Bowel: There is no bowel obstruction. [id number] fecal retention is seen throughout the colon. The appendix is well-visualized and normal. Peritoneum: There is no intraperitoneal free air or abdominal ascites. There is a fat-containing umbilical hernia. Lymphadenopathy: None. Pelvic viscera: The prostate gland is enlarged and heterogeneous. The bladder wall appears thickened and trabeculated suggesting chronic outlet obstruction. Skeletal structures: The lumbosacral spine, bony pelvis, and proximal femora appear intact. There is mild lumbosacral spondylosis. No lytic or blastic lesions are seen. IMPRESSION: 1. Suboptimal examinations without IV contrast. 2. There is no acute posttraumatic intrathoracic abnormality. 3. There is no airspace consolidation, pleural effusion, or pneumothorax. 4. There is no evidence of solid organ injury in the abdomen or pelvis on this unenhanced examination. 5. No acute infectious or inflammatory findings are seen in the abdomen or pelvis. 6. Mild hepatosplenomegaly. 7. Additional findings as above. ACT 112: Negative or not required by law. Electronically signed by: Magan Dejesus M.D. 08/22/2021 9:[address] 08/22/21 07:59 CT SCAN OF THE CHEST, ABDOMEN, AND PELVIS WITHOUT IV CONTRAST CLINICAL HISTORY: Fall. Atypical chest pain. Generalized abdominal pain. Back pain. COMPARISON STUDY: Chest CT dated 06/15/2015. Abdominal CT dated 11/08/2016. TECHNIQUE: Unenhanced CT scan of the chest, abdomen, and pelvis was performed from the thoracic inlet to the proximal femora. Images are reviewed in the axial, sagittal, and coronal planes. IV contrast was not administered for this examination. Note that the examinations were performed in suboptimal fashion without IV contrast. A dose lowering technique was utilized adhering to the principles of ALARA. CT DOSE: 676.17 mGy.cm FINDINGS: CHEST: Thyroid: Imaged portions of the thyroid gland are normal in size and attenuation. Thoracic aorta: There is mild atherosclerotic calcification of the thoracic aorta, which is normal in caliber and demonstrates standard 3-vessel arch anatomy. Heart: The heart is normal in size and without pericardial effusion. There are coronary artery calcifications. Lungs and pleural spaces: Evaluation of the lung parenchyma is degraded by motion artifact. There is no airspace consolidation typical for pneumonia or pleural effusion. Secretions are noted within the trachea. No pneumothorax is seen. Mediastinum: There is no mediastinal hematoma or lymphadenopathy. Zeina: Not well assessed but IV contrast. Axillae: There is no axillary lymphadenopathy. Bony thorax: The bony thorax appears intact. No lytic or blastic lesions are identified. ABDOMEN AND PELVIS: Liver: The unenhanced liver is enlarged, measuring 20.8 cm in length. The liver is otherwise normal in contour and attenuation. There is no intrahepatic biliary ductal dilatation. Gallbladder: Unremarkable. Spleen: The spleen is mildly enlarged measuring 13.4 cm in length. Pancreas: Unremarkable. Adrenal glands: Unremarkable. Kidneys: The unenhanced kidneys are normal in size and without hydronephrosis. No renal calculi are identified. There is no evidence of contour deforming mass lesion. Abdominal vasculature: The abdominal aorta is normal in course and caliber noting mild atherosclerotic calcification. Bowel: There is no bowel obstruction. [id number] fecal retention is seen throughout the colon. The appendix is well-visualized and normal. Peritoneum: There is no intraperitoneal free air or abdominal ascites. There is a fat-containing umbilical hernia. Lymphadenopathy: None. Pelvic viscera: The prostate gland is enlarged and heterogeneous. The bladder wall appears thickened and trabeculated suggesting chronic outlet obstruction. Skeletal structures: The lumbosacral spine, bony pelvis, and proximal femora appear intact. There is mild lumbosacral spondylosis. No lytic or blastic lesions are seen. IMPRESSION: 1. Suboptimal examinations without IV contrast. 2. There is no acute posttraumatic intrathoracic abnormality. 3. There is no airspace consolidation, pleural effusion, or pneumothorax. 4. There is no evidence of solid organ injury in the abdomen or pelvis on this unenhanced examination. 5. No acute infectious or inflammatory findings are seen in the abdomen or pelvis. 6. Mild hepatosplenomegaly. 7. Additional findings as above. ACT 112: Negative or not required by law. Electronically signed by: Magan Dejesus M.D. 08/22/2021 9:00 AM ECG Data Attestation: I personally reviewed and interpreted this ECG as follows: Additional Comments: Lead EKG: Per my interpretation shows a sinus tachycardia rate of 130. No ST elevation. No PVCs. Normal QTC. MDM Narrative 60-year-old male presents from local nursing facility with a fever and tachycardia and after a minor fall. History of diabetes, mental disability and schizophrenia. Poor historian. EKG shows a sinus tach at a rate of 130. CBC and chemistry panel was unremarkable. Troponin was negative. Chest x-ray was negative for acute disease. CT scan of the abdomen and pelvis was negative for acute disease. Urine did not show infection. COVID test was positive. The patient was treated with 30 cc/kg of IV fluids. He was empirically given some IV cefepime. He was also empirically given IV vancomycin. The patient will be seen by the hospitalist for further inpatient evaluation and care. Impression & Plan Sepsis, COVID-19 Discharge Plan Visit Data Chief Complaint: Fever Stated Complaint: FALL, BACK & AB PAIN ED Provider: Kishore Pineda Discharge Problem: Sepsis, COVID-19 Patient Disposition: Being Evaluated by Hospitalist Forms Stand Alone Forms: My [facility] [place] [employer] Prescriptions Prescriptions: No Action atorvastatin 40 mg Tablet 40 mg PO QPM RF: 0 triamcinolone acetonide 0.1 % Cream 1 applic TOPICAL DAILY PRN (Reason: Rash) RF: 0 metformin 1,000 mg Tablet 1,000 mg PO BID RF: 0 calcium polycarbophil [Fiber-Lax] 625 mg Tablet 1,250 mg PO DAILY RF: 0 docusate sodium [Colace] 100 mg Capsule 100 mg PO BID RF: 0 hydrocortisone 2.5 % Cream 1 applic TOPICAL BID PRN (Reason: Itching) RF: 0 omeprazole magnesium [Prilosec OTC] 20 mg Tablet,Delayed Release (Dr/Ec) 20 mg PO PM RF: 0 multivitamin Tablet 1 tab PO QAM RF: 0 acetaminophen 325 mg Tablet 650 mg PO QID PRN (Reason: Pain) RF: 0 divalproex [Depakote] 250 mg Tablet,Delayed Release (Dr/Ec) 250 mg PO PM RF: 0 loperamide 2 mg Capsule 2 mg PO Q3H PRN (Reason: Loose Stool) RF: 0 divalproex [Depakote] 500 mg Tablet,Delayed Release (Dr/Ec) 1,500 mg PO PM RF: 0 risperidone [Risperdal] 3 mg Tablet 6 mg PO HS RF: 0 magnesium hydroxide [Milk of Magnesia] 400 mg/5 mL Suspension 30 ml PO DAILY PRN (Reason: Heartburn) RF: 0 lithium carbonate 300 mg Capsule 600 mg PO HS RF: 0 erythromycin 5 mg/gram (0.5 %) Ointment 1 applic OPHTHALMIC (EYE) HS PRN (Reason: eye infection) RF: 0 ibuprofen 400 mg Tablet 400 mg PO Q6H PRN (Reason: Pain) RF: 0 escitalopram oxalate 20 mg Tablet 20 mg PO QAM RF: 0 Eucerin Cream 1 applic TOPICAL DAILY PRN (Reason: Dry Skin) RF: 0 asenapine maleate [Saphris] 5 mg Tablet, Sublingual 5 mg SUBLINGUAL QAM RF: 0 asenapine maleate [Saphris] 10 mg Tablet, Sublingual 10 mg SUBLINGUAL HS RF: 0 cholecalciferol (vitamin D3) [Vitamin D3] 25 mcg (1,000 unit) Tablet,Chewable 1,000 unit PO QAM RF: 0 cetirizine 10 mg Capsule 10 mg PO QAM RF: 0 [place] 3-6-9 Fatty Acids 400-400-200 mg Capsule 1 cap PO TID RF: 0 Neosporin [place] 1-0.13 % [place],Non-Aerosol 1 spray TOPICAL DAILY PRN (Reason: Rash) RF: 0 polyethylene glycol 400 0.25 % Drops 0.3 % OPHTHALMIC (EYE) QID PRN (Reason: Dry Eye(S)) RF: 0 haloperidol 1 mg tablet 1 mg PO DAILY RF: 0 levothyroxine 88 mcg tablet 88 mcg PO DAILY RF: 0 Referrals Referrals: Akil Thorne MD [Primary Care Provider] -
[2021-08-22] MEDS ORDERED: SODIUM CHLORIDE 0.9% 1000ML 1,000 ML IV SCH ×2 (08:00→09:00)
--- NOTE | 2021-08-22 08:26 | XRay Report ---
SINGLE VIEW CHEST CLINICAL HISTORY: Sepsis. FINDINGS: An AP, portable, upright chest radiograph is compared to study dated 11/08/2016 and correlat ed with chest CT dated 06/15/2015. The cardiomediastinal silhouette is unremarkable noting atheroscler otic calcification of the thoracic aorta. Dependent opacities are seen at both lung bases. No large p leural effusion or pneumothorax is seen. The bony thorax is grossly intact. IMPRESSION: Bibasilar opacities likely represent atelectasis. Clinical correlation will be required. ACT 112: Negative or not required by law. Electronically signed by: Magan Dejesus M.D. 08/22/2021 8:24 AM
[2021-08-22 08:32] LABS: Eosinophils # (auto) 0.02 K/uL (0-0.5); Eosinophils % (auto) 0.4 %; Hematocrit (blood only) 46.3 % (42-52); Hemoglobin 15.4 g/dL (14.0-18.0); Immature Granulocytes # (auto) 0.01 K/uL (0.00-0.02); Immature Granulocytes % (auto) 0.2 %; Lymphocytes # (auto) 0.61 K/uL (1.2-3.4); Lymphocytes % (auto) 11.6 %; Mean Corpuscular Hemoglobin 33.3 pg (25-34); Mean Corpuscular Hgb Conc 33.3 g/dL (32-36); Monocytes # (auto) 0.23 K/uL (0.11-0.59); Monocytes % (auto) 4.4 %; Neutrophils # (auto) 4.38 K/uL (1.4-6.5); Neutrophils % (auto) 83.4 %; Platelet Count 161 K/uL (130-400); RDW Standard Deviation 47.5 fL (36.4-46.3); Red Blood Count 4.63 M/uL (4.7-6.1); White Blood Count 5.25 K/uL (4.8-10.8)
[2021-08-22 08:46] LABS: Partial Thromboplastin Ratio 0.8; Partial Thromboplastin Time 20.7 Seconds (21.0-31.0); Prothrombin Time 10.4 Seconds (9.0-12.0)
[2021-08-22 08:49] LABS: Albumin Globulin Ratio 1.7 (0.9-2); Albumin Level 4.2 gm/dl (3.4-5.0); BUN Creatinine Ratio 17.8 (10-20); Bilirubin,Total 0.9 mg/dl (0.2-1.0); Calcium 10.2 mg/dl (8.5-10.1); Creatinine Clr Calc Pharmacy 79.6 ml/min; Est GFR (African American) 86.4 ml/min; Est GFR (Non-African American) 74.5 ml/min; Globulin 2.5 gm/dl (2.5-4.0); Magnesium 1.9 mg/dl (1.7-2.4); Potassium 4.8 mmol/L (3.5-5.1); Total Protein 6.7 gm/dl (6.0-8.3)
[2021-08-22 08:55] LABS: Troponin I High Sensitivity 11.8 pg/ml (0-20)
--- NOTE | 2021-08-22 09:02 | CT Scan Report ---
CT SCAN OF THE CHEST, ABDOMEN, AND PELVIS WITHOUT IV CONTRAST CLINICAL HISTORY: Fall. Atypical chest pain. Generalized abdominal pain. Back pain. COMPARISON STUDY: Chest CT dated 06/15/2015. Abdominal CT dated 11/08/2016. TECHNIQUE: Unenhanced CT scan of the chest, abdomen, and pelvis was performed from the thoracic inlet to the proximal femora. Images are reviewed in the axial, sagittal, and coronal planes. IV contrast was not administered for this examination. Note that the examinations were performed in [facility] without IV contrast. A dose lowering technique was utilized adhering to the principles of GENIR Ruthy. CT DOSE: 676.17 mGy.cm FINDINGS: CHEST: Thyroid: Imaged portions of the thyroid gland are normal in size and attenuation. Thoracic aorta: There is mild atherosclerotic calcification of the thoracic aorta, which is normal in caliber and demonstrates standard 3-vessel arch anatomy. Heart: The heart is normal in size and without pericardial effusion. There are coronary artery calcif ications. Lungs and pleural spaces: Evaluation of the lung parenchyma is degraded by motion artifact. There is no airspace consolidation typical for pneumonia or pleural effusion. Secretions are noted within the trachea. No pneumothorax is seen. Mediastinum: There is no mediastinal hematoma or lymphadenopathy. Zeina: Not well assessed but IV contrast. Axillae: There is no axillary lymphadenopathy. Bony thorax: The bony thorax appears intact. No lytic or blastic lesions are identified. ABDOMEN AND PELVIS: Liver: The unenhanced liver is enlarged, measuring 20.8 cm in length. The liver is otherwise normal i n contour and attenuation. There is no intrahepatic biliary ductal dilatation. Gallbladder: Unremarkable. Spleen: The spleen is mildly enlarged measuring 13.4 cm in length. Pancreas: Unremarkable. Adrenal glands: Unremarkable. Kidneys: The unenhanced kidneys are normal in size and without hydronephrosis. No renal calculi are i dentified. There is no evidence of contour deforming mass lesion. Abdominal vasculature: The abdominal aorta is normal in course and caliber noting mild atheroscleroti c calcification. Bowel: There is no bowel obstruction. [id number] fecal retention is seen throughout the colon. The appendix is well-visualized and normal. Peritoneum: There is no intraperitoneal free air or abdominal ascites. There is a fat-containing umbi lical hernia. Lymphadenopathy: None. Pelvic viscera: The prostate gland is enlarged and heterogeneous. The bladder wall appears thickened and trabeculated suggesting chronic outlet obstruction. Skeletal structures: The lumbosacral spine, bony pelvis, and proximal femora appear intact. There is mild lumbosacral spondylosis. No lytic or blastic lesions are seen. IMPRESSION: 1. Suboptimal examinations without IV contrast. 2. There is no acute posttraumatic intrathoracic abnormality. 3. There is no airspace consolidation, pleural effusion, or pneumothorax. 4. There is no evidence of solid organ injury in the abdomen or pelvis on this unenhanced examination . 5. No acute infectious or inflammatory findings are seen in the abdomen or pelvis. 6. Mild hepatosplenomegaly. 7. Additional findings as above. ACT 112: Negative or not required by law. Electronically signed by: Magan Dejesus M.D. 08/22/2021 9:00 AM
[2021-08-22 09:32] LABS: Appearance Urine Clear (Clear); Bilirubin Urine Negative (Negative); Blood Urine Negative (Negative); Color Urine Yellow; Glucose Urine UA Negative (Negative); Ketones Urine Negative (Negative); Leukocyte Esterase Urine Negative (Negative); Nitrite Urine Negative (Negative); Protein Urine Negative (Negative); Specific Gravity Urine 1.014 (1.000-1.030); Urobilinogen Urine Negative (Negative)
[2021-08-22 09:36] LABS: Influenza A virus by PCR Negative (Neg); Influenza B virus by PCR Negative (Neg); RSV by PCR Negative (Neg)
[2021-08-22 09:44] LABS: SARS CoV2 RNA(COVID-19) InHosp POSITIVE (Negative)
[2021-08-22] MEDS ORDERED: SODIUM CHLORIDE 0.9% 1000ML 500 ML IV SCH (10:00)
[2021-08-22] MEDS ORDERED: ACETAMINOPHEN 1,000 MG/100 ML VIAL IV STA (10:01)
--- NOTE | 2021-08-22 10:08 | Electrocardiogram Report ---
Test Reason : Blood Pressure : / mmHG Vent. Rate : 130 BPM Atrial Rate : 130 BPM P-R Int : 126 ms QRS Dur : 086 ms QT Int : 310 ms P-R-T Axes : 043 112 065 degrees QTc Int : 456 ms Poor data quality, interpretation may be adversely affected Sinus tachycardia Right axis deviation Abnormal ECG When compared with ECG of 07-SEP-2019 10:53, Vent. rate has increased BY 78 BPM Confirmed by Alexander Yen ([id number]) on 08/22/2021 10:08:14 AM Referred By: Confirmed By:Alexander Yen
--- NOTE | 2021-08-22 10:39 | History & Physical Report ---
Date of Service August 22, 2021 Assessment & Plan (1) COVID-19: (2) Sepsis: Plan: - COVID-19 positive - pt is vaccinated and boosted - Procalcitonin pending - was given dose of vanc in the ER, can stop antibiotics if negative procal. - Lymphocytes 0.61, neutrophils 4.38 - CXR reviewed: showing bibasilar opacities, concern for pneumonia - may consider repeating CXR tomorrow morning to see if more obvious on imaging - O2 sats 95% on 2 L, pt does not require O2 at baseline - WBC 5.25 - Consider decadron 6 mg IV daily. Currently does not meet criteria for remdesivir. - Tachycardic with HR in 130s, improved to 110s with 2.5 L of fluids - Febrile with tmax 38.3 (3) Mental retardation: (4) Schizophrenia: Plan: - Hx of such, continue on home medications including Saphris, depakote, haldol, lithium (5) GERD (gastroesophageal reflux disease): Plan: - Continue omeprazole (6) Hypothyroidism: Plan: - Cont levothyroxine 88 mcg daily - Check TSH and free T4 (7) HLD (hyperlipidemia): Plan: - Check lipid panel and A1C with am labs, pt is no longer on metformin - BMI of 25 DVT ppx: teds, heparin subq q8h CODE: Full - will discuss with sister pending her call back, left a voicemail this morning. Await return call back Dispo: From long-term, likely to be discharged within 2 days pending improvement. History of Present Illness Chief Complaint: Fever, fall Primary Care Provider: Akil Thorne MD This is a 60 yo M with PMhx of schitzophrenia, intellectual disability, GERD, HLD, hypothyroidism. Patient was exposed on Friday by another resident with COVID, in a long-term supported by skills where he resides. The patient was his normal self yesterday and Friday. Pt was saying some off the wall things, but staff was concerned that this was a minor flare of his schitzo and therefore staff did not think this was out of the normal, but was more behavioral in nature. He then later was unable to stand up easily and was having difficulty walking this morning, and then fell from standing. Denies any LOC or injury to the head. Normally he knows where he is, and is able to ask for basic things he needs. Caregiver thinks he doesn't seem like himself because she has known him since May 2020. Pt has not had prior to admission, but was 99 this morning. Pt has developed a cough today, had a runny nose, no sputum production. Denies any abdominal complaints, no nausea, vomiting. Pt reported his stomach fell this morning after he fell, there were concerns that he was partially blocked with constipation and this happens often - however nothing was seen on imaging to suggest this in the ER. He is on daily medications for constipation. Pt is more sleepy compared to normal, he had gotten up a few times last night to use the restroom which is normal, but he is very tired today. He took medications this morning after initially refusing and then changing his mind. He is asking for [employer] and a sweet tea while I'm on the phone with his caregiver. Pt is vaccinated and boosted for COVID, however is positive here on admission. He is tachycardic with HR in the 130s which is down into the 110s with 2.5 L NSS. Pt is found to have a fever of 38.3. Allergies Allergy/AdvReac Type Severity Reaction Status Date / Time clozapine Allergy Intermediate UNKNOWN Verified 09/21/19 11:30 povidone-iodine Allergy Intermediate UNKNOWN Verified 09/21/19 11:30 benztropine Allergy Unknown CONTRAINDICATED Verified 09/21/19 11:30 PER MD pseudoephedrine Allergy Unknown PER MD Verified 09/21/19 11:30 soap [From Betadine] Allergy Unknown Unknown Verified 09/21/19 11:30 terfenadine Allergy Unknown PER MD Verified 09/21/19 11:30 Home Medications Medication Instructions Recorded Confirmed Type acetaminophen 325 mg tablet 650 mg PO QID PRN 05/05/19 08/22/21 History asenapine maleate 10 mg sublingual 10 mg SUBLINGUAL HS 05/05/19 08/22/21 History tablet (Saphris) asenapine maleate 5 mg sublingual 5 mg SUBLINGUAL QAM 05/05/19 08/22/21 History tablet (Saphris) atorvastatin 40 mg tablet 40 mg PO QPM 05/05/19 08/22/21 History calcium polycarbophil 625 mg 1,250 mg PO DAILY 05/05/19 08/22/21 History tablet (Fiber-Lax) cetirizine 10 mg capsule 10 mg PO QAM 05/05/19 08/22/21 History cholecalciferol (vitamin D3) 25 1,000 unit PO QAM 05/05/19 08/22/21 History mcg (1,000 unit) chewable tablet (Vitamin D3) divalproex 250 mg tablet,delayed 250 mg PO HS 05/05/19 08/22/21 History release (Depakote) divalproex 500 mg tablet,delayed 1,500 mg PO PM 05/05/19 08/22/21 History release (Depakote) docusate sodium 100 mg capsule 100 mg PO BID 05/05/19 08/22/21 History (Colace) erythromycin 5 mg/gram (0.5 %) eye 1 applic OPHTHALMIC (EYE) HS PRN 05/05/19 08/22/21 History ointment escitalopram oxalate 20 mg tablet 20 mg PO QAM 05/05/19 08/22/21 History fish,flax,primrose,borag 1 cap PO TID 05/05/19 08/22/21 History oils-om3,6,9 no5 400 mg-400 mg-200 mg capsule (Merkel 3-6-9 Fatty Acids) hydrocortisone 2.5 % topical cream 1 applic TOPICAL BID PRN 05/05/19 08/22/21 History ibuprofen 400 mg tablet 400 mg PO Q6H PRN 05/05/19 08/22/21 History lanolin alcohols-mineral 1 applic TOPICAL DAILY PRN 05/05/19 08/22/21 History oil-w.petrolatum-ceresin topical cream (Eucerin) lithium carbonate 300 mg capsule 600 mg PO HS 05/05/19 08/22/21 History loperamide 2 mg capsule 2 mg PO Q3H PRN 05/05/19 08/22/21 History magnesium hydroxide 400 mg/5 mL 30 ml PO DAILY PRN 05/05/19 08/22/21 History oral suspension (Milk of Magnesia) multivitamin 1 tab PO QAM 05/05/19 08/22/21 History omeprazole magnesium 20 mg 20 mg PO PM 05/05/19 08/22/21 History tablet,delayed release (Prilosec OTC) polyethylene glycol 400 0.25 % eye 0.3 % OPHTHALMIC (EYE) QID PRN 05/05/19 08/22/21 History drops pramoxine 1 %-benzalkonium 1 spray TOPICAL DAILY PRN 05/05/19 08/22/21 History chloride 0.13 % topical spray (Neosporin [place] To Go) risperidone 3 mg tablet (Risperdal) 6 mg PO HS 05/05/19 08/22/21 History triamcinolone acetonide 0.1 % 1 applic TOPICAL DAILY PRN 05/05/19 08/22/21 History topical cream haloperidol 1 mg tablet 1 mg PO DAILY 08/22/21 08/22/21 History levothyroxine 88 mcg tablet 88 mcg PO DAILY 08/22/21 08/22/21 History Past Med/Surg History Medical History (Updated 08/22/21 @ 10:05 by Kishore Pineda DO) Cellulitis of leg Dermatitis Diabetes mellitus Dyslipidemia Esophageal reflux Hemorrhoid WITHOUT COMPLICATION Hx pulmonary embolism NO OTHER DETAILS PROVIDED Hypothyroidism Mental and behavioral problem in adult Metabolic syndrome Moderate intellectual disabilities Myopia Obesity (BMI 30.0-34.9) WILVER (obstructive sleep apnea) SEVERE> NO DEVICE PER RECORDS Schizophrenia Surgical History History of colonoscopy History of right cataract surgery History of tooth extraction WISDOM TEETH Family History Other Family history non-contributory Social History Smoking Status: Never smoker Second Hand Exposure: No; Hx Alcohol Use: No Hx Substance Use: No Preferred Language: Luxembourger Communication Ability: Impaired Cellular Equipment Installer Required: No Beliefs That Will Affect Care: None Current Living Situation: Other Current Living Situation Comment: Lives at [facility] Feels Safe at Home: Yes Assistive Devices: None Review of Systems Review of Systems: Constitutional: + fever, no sweats or chills, sleepy Eyes: No diplopia, no worsening or blurred vision ENT: normal hearing, no trouble swallowing Respiratory: +cough, no sputum, no dyspnea at rest or on exertion Cardiovascular: No chest pain, tightness or palpitations Abdomen: As per HPI, No pain, nausea, vomiting, diarrhea or constipation Musculoskeletal: No joint pain, calf pain, swelling Neurologic: No weakness, numbness/tingling, or balance problems Psychiatric: No anxiety or depression Skin: No rash or itch Physical Exam Physical Exam: Please refer to attending addendum as I did not see the patient in person due to being COVID-19 positive. Results & Data Results & Data ([facility]) Vital Signs (Past 12 Hours) Vital Signs Temp Pulse Pulse Resp BP BP Pulse Ox 08/22/21 10:01 119 H 22 145/84 H 95 08/22/21 10:00 22 95 08/22/21 09:46 120 H 22 151/88 H 93 08/22/21 09:30 121 H 24 164/92 H 95 08/22/21 09:20 131 H 29 H 100 08/22/21 09:15 122 H 120 H 22 159/89 H 151/89 H 96 08/22/21 09:10 115 H 27 H 95 08/22/21 09:00 118 H 119 H 29 H 145/76 H 145/76 H 93 08/22/21 08:50 121 H 120 H 26 H 144/75 H 94 08/22/21 08:48 123 H 30 H 144/77 H 94 08/22/21 08:45 96 08/22/21 08:30 125 H 24 139/97 92 08/22/21 08:23 22 93 08/22/21 08:20 129 H 25 H 93 08/22/21 08:19 38.3 C H 127 H 127 H 15 141/96 H 141/96 H 92 08/22/21 08:10 125 H 32 H 94 08/22/21 08:00 133 H 94 08/22/21 07:53 24 93 08/22/21 07:50 128 H 36 H 08/22/21 07:49 38.3 C H 132 H 131 H 21 158/82 H 158/82 H 92 Laboratory Results 08/22/21 08:10 Aerobic Blood Culture - Pending Blood Anaerobic Blood Culture - Pending 08/22/21 07:53 Aerobic Blood Culture - Pending Blood Anaerobic Blood Culture - Pending 08/22/21 08/22/21 08/22/21 09:20 08:47 08:10 WBC RBC Hgb Hct MCV MCH MCHC RDW Std Deviation RDW Coeff of Jose Plt Count MPV Immature Gran % (Auto) Neut % (Auto) Lymph % (Auto) Tyler % (Auto) Eos % (Auto) Baso % (Auto) Neut # (Auto) Lymph # (Auto) Tyler # (Auto) Eos # (Auto) Baso # (Auto) Immature Gran # (Auto) PT INR APTT PTT Ratio Sodium Potassium Chloride Carbon Dioxide Anion Gap BUN Creatinine Est Cr Clr Drug Dosing Est GFR ( Amer) Est GFR (Non-Af Amer) BUN/Creatinine Ratio Glucose Lactate 1.3 Calcium Magnesium Total Bilirubin AST ALT Alkaline Phosphatase Troponin I High Sens Total Protein Albumin Globulin Albumin/Globulin Ratio Urine Color Yellow Urine Appearance Clear Urine pH 8.0 H Ur Specific [place] 1.014 Urine Protein Negative Urine Glucose (UA) Negative Urine Ketones Negative Urine Blood Negative Urine Nitrite Negative Urine Bilirubin Negative Urine Urobilinogen Negative Ur Leukocyte Esterase Negative SARS-CoV-2 (PCR) POSITIVE A* Influenza Type A (PCR) Negative Influenza Type B (PCR) Negative RSV (RT-PCR) Negative 08/22/21 08/22/21 08/22/21 07:53 07:53 07:53 WBC 5.25 RBC 4.63 L Hgb 15.4 Hct 46.3 MCV 100.0 MCH 33.3 MCHC 33.3 RDW Std Deviation 47.5 H RDW Coeff of Jose 13.0 Plt Count 161 MPV 10.0 Immature Gran % (Auto) 0.2 Neut % (Auto) 83.4 Lymph % (Auto) 11.6 Tyler % (Auto) 4.4 Eos % (Auto) 0.4 Baso % (Auto) 0.0 Neut # (Auto) 4.38 Lymph # (Auto) 0.61 L Tyler # (Auto) 0.23 Eos # (Auto) 0.02 Baso # (Auto) 0.00 Immature Gran # (Auto) 0.01 PT 10.4 INR 1.0 APTT 20.7 L PTT Ratio 0.8 Sodium 139 Potassium 4.8 Chloride 105 Carbon Dioxide 29 Anion Gap 5 BUN 19 Creatinine 1.07 Est Cr Clr Drug Dosing 79.6 Est GFR ( Amer) 86.4 Est GFR (Non-Af Amer) 74.5 BUN/Creatinine Ratio 17.8 Glucose 136 H Lactate Calcium 10.2 H Magnesium 1.9 Total Bilirubin 0.9 AST 24 ALT 34 Alkaline Phosphatase 75 Troponin I High Sens 11.8 Total Protein 6.7 Albumin 4.2 Globulin 2.5 Albumin/Globulin Ratio 1.7 Urine Color Urine Appearance Urine pH Ur Specific [place] Urine Protein Urine Glucose (UA) Urine Ketones Urine Blood Urine Nitrite Urine Bilirubin Urine Urobilinogen Ur Leukocyte Esterase SARS-CoV-2 (PCR) Influenza Type A (PCR) Influenza Type B (PCR) RSV (RT-PCR) Diagnostic Findings Chest X-Ray 08/22/21 07:53 SINGLE VIEW CHEST CLINICAL HISTORY: Sepsis. FINDINGS: An AP, portable, upright chest radiograph is compared to study dated 11/08/2016 and correlated with chest CT dated 06/15/2015. The cardiomediastinal silhouette is unremarkable noting atherosclerotic calcification of the thoracic aorta. Dependent opacities are seen at both lung bases. No large pleural effusion or pneumothorax is seen. The bony thorax is grossly intact. IMPRESSION: Bibasilar opacities likely represent atelectasis. Clinical correlation will be required. ACT 112: Negative or not required by law. Electronically signed by: Magan Dejesus M.D. 08/22/2021 8:24 AM Abdomen/Pelvis CT 08/22/21 07:59 CT SCAN OF THE CHEST, ABDOMEN, AND PELVIS WITHOUT IV CONTRAST CLINICAL HISTORY: Fall. Atypical chest pain. Generalized abdominal pain. Back pain. COMPARISON STUDY: Chest CT dated 06/15/2015. Abdominal CT dated 11/08/2016. TECHNIQUE: Unenhanced CT scan of the chest, abdomen, and pelvis was performed from the thoracic inlet to the proximal femora. Images are reviewed in the axial, sagittal, and coronal planes. IV contrast was not administered for this examination. Note that the examinations were performed in suboptimal fashion without IV contrast. A dose lowering technique was utilized adhering to the principles of ALARA. CT DOSE: 676.17 mGy.cm FINDINGS: CHEST: Thyroid: Imaged portions of the thyroid gland are normal in size and attenuation. Thoracic aorta: There is mild atherosclerotic calcification of the thoracic ao rta, which is normal in caliber and demonstrates standard 3-vessel arch anatomy. Heart: The heart is normal in size and without pericardial effusion. There are coronary artery calcifications. Lungs and pleural spaces: Evaluation of the lung parenchyma is degraded by motion artifact. There is no airspace consolidation typical for pneumonia or pleural effusion. Secretions are noted within the trachea. No pneumothorax is seen. Mediastinum: There is no mediastinal hematoma or lymphadenopathy. Zeina: Not well assessed but IV contrast. Axillae: There is no axillary lymphadenopathy. Bony thorax: The bony thorax appears intact. No lytic or blastic lesions are identified. ABDOMEN AND PELVIS: Liver: The unenhanced liver is enlarged, measuring 20.8 cm in length. The liver is otherwise normal in contour and attenuation. There is no intrahepatic biliary ductal dilatation. Gallbladder: Unremarkable. Spleen: The spleen is mildly enlarged measuring 13.4 cm in length. Pancreas: Unremarkable. Adrenal glands: Unremarkable. Kidneys: The unenhanced kidneys are normal in size and without hydronephrosis. No renal calculi are identified. There is no evidence of contour deforming mass lesion. Abdominal vasculature: The abdominal aorta is normal in course and caliber noting mild atherosclerotic calcification. Bowel: There is no bowel obstruction. [id number] fecal retention is seen throughout the colon. The appendix is well-visualized and normal. Peritoneum: There is no intraperitoneal free air or abdominal ascites. There is a fat-containing umbilical hernia. Lymphadenopathy: None. Pelvic viscera: The prostate gland is enlarged and heterogeneous. The bladder wall appears thickened and trabeculated suggesting chronic outlet obstruction. Skeletal structures: The lumbosacral spine, bony pelvis, and proximal femora appear intact. There is mild lumbosacral spondylosis. No lytic or blastic lesions are seen. IMPRESSION: 1. Suboptimal examinations without IV contrast. 2. There is no acute posttraumatic intrathoracic abnormality. 3. There is no airspace consolidation, pleural effusion, or pneumothorax. 4. There is no evidence of solid organ injury in the abdomen or pelvis on this unenhanced examination. 5. No acute infectious or inflammatory findings are seen in the abdomen or pelvis. 6. Mild hepatosplenomegaly. 7. Additional findings as above. ACT 112: Negative or not required by law. Electronically signed by: Magan Dejesus M.D. 08/22/2021 9:[address] 08/22/21 07:59 CT SCAN OF THE CHEST, ABDOMEN, AND PELVIS WITHOUT IV CONTRAST CLINICAL HISTORY: Fall. Atypical chest pain. Generalized abdominal pain. Back pain. COMPARISON STUDY: Chest CT dated 06/15/2015. Abdominal CT dated 11/08/2016. TECHNIQUE: Unenhanced CT scan of the chest, abdomen, and pelvis was performed from the thoracic inlet to the proximal femora. Images are reviewed in the axial, sagittal, and coronal planes. IV contrast was not administered for this examination. Note that the examinations were performed in suboptimal fashion without IV contrast. A dose lowering technique was utilized adhering to the p rinciples of [facility]. CT DOSE: 676.17 mGy.cm FINDINGS: CHEST: Thyroid: Imaged portions of the thyroid gland are normal in size and attenuation. Thoracic aorta: There is mild atherosclerotic calcification of the thoracic aorta, which is normal in caliber and demonstrates standard 3-vessel arch anatomy. Heart: The heart is normal in size and without pericardial effusion. There are coronary artery calcifications. Lungs and pleural spaces: Evaluation of the lung parenchyma is degraded by motion artifact. There is no airspace consolidation typical for pneumonia or pleural effusion. Secretions are noted within the trachea. No pneumothorax is seen. Mediastinum: There is no mediastinal hematoma or lymphadenopathy. Zeina: Not well assessed but IV contrast. Axillae: There is no axillary lymphadenopathy. Bony thorax: The bony thorax appears intact. No lytic or blastic lesions are identified. ABDOMEN AND PELVIS: Liver: The unenhanced liver is enlarged, measuring 20.8 cm in length. The liver is otherwise normal in contour and attenuation. There is no intrahepatic biliary ductal dilatation. Gallbladder: Unremarkable. Spleen: The spleen is mildly enlarged measuring 13.4 cm in length. Pancreas: Unremarkable. Adrenal glands: Unremarkable. Kidneys: The unenhanced kidneys are normal in size and without hydronephrosis. No renal calculi are identified. There is no evidence of contour deforming mass lesion. Abdominal vasculature: The abdominal aorta is normal in course and caliber noting mild atherosclerotic calcification. Bowel: There is no bowel obstruction. [id number] fecal retention is seen throughout the colon. The appendix is well-visualized and normal. Peritoneum: There is no intraperitoneal free air or abdominal ascites. There is a fat-containing umbilical hernia. Lymphadenopathy: None. Pelvic viscera: The prostate gland is enlarged and heterogeneous. The bladder wall appears thickened and trabeculated suggesting chronic outlet obstruction. Skeletal structures: The lumbosacral spine, bony pelvis, and proximal femora appear intact. There is mild lumbosacral spondylosis. No lytic or blastic lesions are seen. IMPRESSION: 1. Suboptimal examinations without IV contrast. 2. There is no acute posttraumatic intrathoracic abnormality. 3. There is no airspace consolidation, pleural effusion, or pneumothorax. 4. There is no evidence of solid organ injury in the abdomen or pelvis on this unenhanced examination. 5. No acute infectious or inflammatory findings are seen in the abdomen or pelvis. 6. Mild hepatosplenomegaly. 7. Additional findings as above. ACT 112: Negative or not required by law. Electronically signed by: Magan Dejesus M.D. 08/22/2021 9:00 AM Code Status & VTE Plan Code Status Full code- discussed with the caregiver - deferred to sister, Vikki Cruz but was unable to reach her via phone. Will await call back. Supervising Physician Co-Signing Physician Notes I saw this patient with the physician furniture removalist's assistant, I participated in the history, physical, review of systems, and physical exam. I reviewed the medications with the patient and the physician furniture removalist's assistant and helped reconcile the medications. I helped take a detailed family and social history as well. I formulated the assessment and plan personally with the physician furniture removalist's assistant and went over it with the patient. ROS-Offers no reliable history Physical Exam Gen-AAO x 1, NAD, febrile Head-NCAT, EOMI, PERRLA, Anicteric Sclera, No Posterior Pharyngeal Erythema Neck-Supple, No JVD, No Thyromegaly, No Masses, No LAD, No Bruits Lungs-Clear to Auscultation Bilaterally, No Rales, No Rhonchi, No Wheezing, No Crepitus Chest-No S4, +S1, +S2, No S3, No Murmurs, No Rubs, No Gallops, No Ectopy Abdomen-Soft, Bowel Sounds Present, Non Tender, Non Distended, No Hepatomegaly, No Splenomegaly, No Palpable Masses, No Rebound, No Rigidity, No Guarding Musculoskeletal-Full Range of Motion Bilaterally, No CVAT Extremities-No Cyanosis, No Clubbing, No Edema Nuero-Cranial Nerves II-XII grossly intact, Motor WNL, DTRs WNL, Strength WNL, Non Focal Psych-Pleasant with
[2021-08-22] MEDS ORDERED: ONDANSETRON INJ 2 MG/ML 2 ML VIAL IV PRN (13:27)
[2021-08-22] MEDS ORDERED: ACETAMINOPHEN 325 MG TAB PO PRN (13:27)
[2021-08-22] MEDS ORDERED: ALBUTEROL HFA 8 GM INHALER INH SCH (13:27)
[2021-08-22] MEDS ORDERED: MAGNESIUM HYDROXIDE SUSP 30 ML UDC PO PRN (13:27)
[2021-08-22] MEDS ORDERED: LOPERAMIDE HCL 2 MG CAP PO PRN (13:27)
[2021-08-22] MEDS ORDERED: ALBUTEROL HFA 8 GM INHALER INH PRN (14:19)
[2021-08-22] MEDS: HEPARIN SOD 5,000 UNIT/0.5 ML VIAL SQ SCH ×2 (14:23→20:57)
[2021-08-22] MEDS: BENZONATATE 100 MG CAPSULE PO SCH ×2 (14:24→21:04)
[2021-08-22] MEDS: OMEGA-3 (PURIFIED FISH OIL) 1 GM CAP PO SCH ×2 (14:24→21:02)
[2021-08-22] MEDS: dexAMETHasone 6 MG in SYRINGE 0 ML IV SCH (14:31)
[2021-08-22] MEDS: ALBUTEROL HFA 8 GM INHALER INH SCH (20:01)
[2021-08-22] MEDS: DOCUSATE SODIUM 100 MG CAP PO SCH (20:58)
[2021-08-22] MEDS: PANTOprazole 40 MG TAB PO SCH (20:58)
[2021-08-22] MEDS: LITHIUM CARBONATE 300 MG TAB PO SCH (21:00)
[2021-08-22] MEDS: DIVALPROEX DELAY RELEASE 500 MG TAB PO SCH (21:01)
[2021-08-22] MEDS: DIVALPROEX DELAY RELEASE 250 MG TABEC PO SCH (21:01)
[2021-08-22] MEDS: guaiFENesin 600 MG TABCR PO SCH (21:02)
[2021-08-22] MEDS: risperiDONE 3 MG TABLET PO SCH (21:03)
[2021-08-22] MEDS: ATORVASTATIN 40 MG TAB PO SCH (21:04)
[2021-08-23] MEDS: HEPARIN SOD 5,000 UNIT/0.5 ML VIAL SQ SCH ×3 (04:55→22:45)
[2021-08-23] MEDS: LEVOTHYROXINE SODIUM 88 MCG TABLET PO SCH (04:55)
[2021-08-23] MEDS: ALBUTEROL HFA 8 GM INHALER INH SCH ×4 (07:24→19:31)
[2021-08-23 07:49] LABS: Hematocrit (blood only) 42.1 % (42-52); Hemoglobin 13.9 g/dL (14.0-18.0); Mean Corpuscular Hemoglobin 33.7 pg (25-34); Mean Corpuscular Volume 101.9 fL (80-100); Mean Platelet Volume 9.6 fL (7.4-10.4); Platelet Count 141 K/uL (130-400); RDW Coefficient of Variation 13.2 % (11.5-14.5); RDW Standard Deviation 49.7 fL (36.4-46.3); Red Blood Count 4.13 M/uL (4.7-6.1); White Blood Count 5.52 K/uL (4.8-10.8)
[2021-08-23 08:07] LABS: Albumin Globulin Ratio 1.5 (0.9-2); Albumin Level 3.7 gm/dl (3.4-5.0); BUN Creatinine Ratio 14.1 (10-20); Bilirubin,Total 0.9 mg/dl (0.2-1.0); Chol HDL Ratio 2.7 (0-5); Est GFR (African American) 94.9 ml/min; Est GFR (Non-African American) 81.9 ml/min; Globulin 2.4 gm/dl (2.5-4.0); Magnesium 1.9 mg/dl (1.7-2.4); Potassium 4.2 mmol/L (3.5-5.1); Total Protein 6.1 gm/dl (6.0-8.3)
[2021-08-23 08:44] LABS: Estimated Average Glucose 111 mg/dl; Hemoglobin A1C 5.5 % (4.5-5.6)
[2021-08-23] MEDS: BENZONATATE 100 MG CAPSULE PO SCH ×3 (08:59→20:04)
[2021-08-23] MEDS: CALCIUM POLYCARBOPHIL 625MG TAB PO SCH (09:00)
[2021-08-23] MEDS: CHOLECALCIFEROL 1,000 UNITS 25 MCG TAB PO SCH (09:00)
[2021-08-23] MEDS: CETIRIZINE HCL 10 MG TABLET PO SCH (09:00)
[2021-08-23] MEDS: OMEGA-3 (PURIFIED FISH OIL) 1 GM CAP PO SCH ×3 (09:01→20:04)
[2021-08-23] MEDS: ESCITALOPRAM OXALATE 20 MG TAB PO SCH (09:01)
[2021-08-23] MEDS: DOCUSATE SODIUM 100 MG CAP PO SCH ×2 (09:01→20:05)
[2021-08-23] MEDS: guaiFENesin 600 MG TABCR PO SCH ×2 (09:02→20:04)
[2021-08-23] MEDS: MULTIVITAMIN TAB PO SCH (09:02)
[2021-08-23] MEDS: haloperidoL 1 MG TAB PO SCH (09:02)
--- NOTE | 2021-08-23 09:14 | Electrocardiogram Report ---
Test Reason : Blood Pressure : / mmHG Vent. Rate : 100 BPM Atrial Rate : 100 BPM P-R Int : 134 ms QRS Dur : 094 ms QT Int : 344 ms P-R-T Axes : 014 -15 048 degrees QTc Int : 443 ms Normal sinus rhythm Normal ECG When compared with ECG of 22-AUG-2021 07:47, HR has decreased by 30 bpm Confirmed by Alexander Yen ([id number]) on 08/23/2021 9:13:46 AM Referred By: REFERRED SELF Confirmed By:Alexander Yen
[2021-08-23] MEDS: dexAMETHasone 6 MG in SYRINGE 0 ML IV SCH (09:25)
--- NOTE | 2021-08-23 14:08 | Hospitalist Progress Note ---
Date of Service August 23, 2021 Assessment & Plan (1) COVID-19: Plan: (1) COVID-19 virus infection: (2) Sepsis POA: Respiratory rate, temperature, pulse elevated at presentation. Lactate WNL. Received a dose of vancomycin and IV fluids in the ED. - COVID-19 positive - pt is vaccinated and boosted - Per sister bonifacio, pt has been in nursing home since age 12, not able to carry logical conversation and not oriented at baseline mostly. DNR/DNI per her. - Procalcitonin negative at presentation, BNP pending - Admitting CTAP and CT chest: No concern of airspace consolidation in the lungs, no evidence of solid organ injury in abdomen or pelvis. - Not on oxygen at baseline, patient requiring 2 L on and off, wean down oxygen as tolerated. - Continue with Decadron 08/23, temperature getting better controlled, monitor off of antibiotic. - Incentive spirometer (3) Mental retardation: (4) Schizophrenia: - Hx of such, continue on home medications including Saphris, depakote, haldol, lithium #. Other chronic medical conditions: GERD, hypothyroidism, HLD Continue with/resume home meds as and when appropriate. Patient is no longer on metformin. A1c this admission 5.5. #. DVT prophylaxis: heparin subcu CODE: DNR/DNI Dispo: From nursing home, likely to be discharged within 1-2 days if not deteriorating respiratorywise. 08/23: Talked with patient's Sister Bonifacio over the phone, updated her about patient's current status, answered all questions, discussed about CODE STATUS. Admission and Anticipated Discharge Date Admission Date: August 22, 2021 Subjective Patient seen and examined at bedside as a follow-up of COVID-19 virus infection and likely sepsis POA. Patient was lying in bed, on room air, NAD, alert and oriented x1, reports some sore throat, denies other pain or discomfort, ROS N/A due to cognition status. Upon chart review, temperature is getting better controlled. Per RN, no acute events overnight, patient is eating okay and moving bowels okay. Physical Exam Physical Exam: GENERAL: Alert and oriented x1. NAD, on RA. HEENT: No pallor, no icterus. Pupils equal, round and reactive to light. Oral mucosa moist. NECK: No JVD, no neck masses. HEART: S1 and S2 heard. Regular rate and rhythm. No murmur, no gallop. RESPIRATORY SYSTEM: Normal AP diameter. No accessory muscle use. No wheezing, no crackles. ABDOMEN: Soft, bowel sounds present, nontender, no distention. CENTRAL NERVOUS SYSTEM: No facial droop. Speech is clear. Obeys simple commands. Moves extremities. EXTREMITIES: No edema, no erythema seen. Results & Data Results & Data ([facility]) Vital Signs (Past 12 Hours) Vital Signs Temp Pulse Resp BP Pulse Ox 08/23/21 11:05 89 18 92 08/23/21 07:25 102 H 18 92 08/23/21 06:33 36.5 C 112 H 18 152/86 H 93 08/23/21 04:00 37.3 C 102 H 20 138/87 90
[2021-08-23 17:15] LABS: A calco-baum cmplx NotReported Not Detected (NotDetected); Bact fragilis Not Reported Not Detected (NotDetected); C auris Not Reported Not Detected (NotDetected); Calbicans Not Reported Not Detected (NotDetected); Candida glabrata Not Reported Not Detected (NotDetected); Candida krusei Not Reported Not Detected (NotDetected); Cneoformans/gatti Not Reported Not Detected (NotDetected); Cparapsilosis Not Reported Not Detected (NotDetected); Ctropicalis Not Reported Not Detected (NotDetected); E cloacae compx Not Reported Not Detected (NotDetected); Efaecalis Not Reported Not Detected (NotDetected); Efaecium Not Reported Not Detected (NotDetected); Enterobacterales Not Reported Not Detected (NotDetected); Escherichia coli Not Reported Not Detected (NotDetected); H influenzae Not Reported Not Detected (NotDetected); K aerogenes Not Reported Not Detected (NotDetected); Koxytoca Not Reported Not Detected (NotDetected); Kpneumoniae grp Not Reported Not Detected (NotDetected); Lmonocyt Not Reported Not Detected (NotDetected); N meningitidis Not Reported Not Detected (NotDetected); P aeruginosa Not Reported Not Detected (NotDetected); Proteus spp Not Reported Not Detected (NotDetected); Salmonella spp Not Reported Not Detected (NotDetected); Smarcescens Not Reported Not Detected (NotDetected); Staph lugdunensis Not Reported Not Detected (NotDetected); Staph spp. Not Reported DETECTED (NotDetected); Staphaureus Not Reported Not Detected (NotDetected); Staphepi Not Reported Not Detected (NotDetected); Stenmaltophilia Not Reported Not Detected (NotDetected); Strep agal(GrpB) Not Reported Not Detected (NotDetected); Strep pneum Not Reported Not Detected (NotDetected); Strep pyog (GrpA) Not Reported Not Detected (NotDetected); Strep spp Not Reported Not Detected (NotDetected)
[2021-08-23 17:35] LABS: Staphylococcus spp. DETECTED (NotDetected)
[2021-08-23] MEDS ORDERED: VANCOMYCIN CONSULT ACTIVE PRN (17:59)
[2021-08-23] MEDS ORDERED: VANCOMYCIN HCL 2,000 MG in SODIUM CHLORIDE 0.9% 500 ML IV ONE (18:15)
--- NOTE | 2021-08-23 18:53 | Pharmacy Report ---
Pharmacy PK ABX Note - Date of Service August 23, 2021 - Assessment and Plan Assessment 60 year old M receiving Vancomycin for treatment of possible bacteremia. * PMHx significant for T2DM. * 1/4 bottles from blood cultures growing gram positive cocci in clusters. * BCID2 panel shows Staph spp detected but no further identification so believe 24 hours of Vancomycin is acceptable in the case of a coag negative staph that is beta-lactam resistant. Plan Vancomycin * Loading dose: 2000 mg IV x 1 * Maintenance dose: 1000 mg IV every 12 hours * Regimen is predicted to achieve target AUC/VANDANA of 400-600 mg/L.hr * No level ordered as vancomycin can likely be discontinued tomorrow Pharmacy will continue to follow and will adjust dose/frequency as necessary. Thank you. Pharmacy has transitioned to AUC monitoring for vancomycin. AUC/VANDANA is the preferred PK/PD target and is associated with decreased risk of nephrotoxicity compared to traditional trough targets.
[2021-08-23] MEDS: LITHIUM CARBONATE 300 MG TAB PO SCH (20:03)
[2021-08-23] MEDS: PANTOprazole 40 MG TAB PO SCH (20:03)
[2021-08-23] MEDS: DIVALPROEX DELAY RELEASE 500 MG TAB PO SCH (20:04)
[2021-08-23] MEDS: ATORVASTATIN 40 MG TAB PO SCH (20:04)
[2021-08-23] MEDS: DIVALPROEX DELAY RELEASE 250 MG TABEC PO SCH (20:05)
[2021-08-23] MEDS: risperiDONE 3 MG TABLET PO SCH (20:05)
[2021-08-24] MEDS: HEPARIN SOD 5,000 UNIT/0.5 ML VIAL SQ SCH ×3 (06:04→22:04)
[2021-08-24] MEDS: LEVOTHYROXINE SODIUM 88 MCG TABLET PO SCH (06:04)
[2021-08-24 06:45] LABS: Hemoglobin 13.1 g/dL (14.0-18.0); Mean Corpuscular Hgb Conc 32.8 g/dL (32-36); Mean Corpuscular Volume 100.8 fL (80-100); Mean Platelet Volume 9.8 fL (7.4-10.4); Platelet Count 145 K/uL (130-400); RDW Standard Deviation 48.6 fL (36.4-46.3); Red Blood Count 3.97 M/uL (4.7-6.1); White Blood Count 4.82 K/uL (4.8-10.8)
[2021-08-24 07:17] LABS: Albumin Globulin Ratio 1.5 (0.9-2); Albumin Level 3.4 gm/dl (3.4-5.0); Bilirubin,Total 0.7 mg/dl (0.2-1.0); Calcium 8.8 mg/dl (8.5-10.1); Creatinine Clr Calc Pharmacy 96.8 ml/min; Est GFR (African American) 107.5 ml/min; Est GFR (Non-African American) 92.7 ml/min; Globulin 2.3 gm/dl (2.5-4.0); Potassium 4.6 mmol/L (3.5-5.1); Total Protein 5.7 gm/dl (6.0-8.3)
[2021-08-24] MEDS: ALBUTEROL HFA 8 GM INHALER INH SCH ×4 (07:26→19:41)
[2021-08-24] MEDS ORDERED: VANCOMYCIN HCL 1,000 MG in SODIUM CHLORIDE 0.9% 250 ML IV SCH (08:00)
[2021-08-24] MEDS: CETIRIZINE HCL 10 MG TABLET PO SCH (09:18)
[2021-08-24] MEDS: ESCITALOPRAM OXALATE 20 MG TAB PO SCH (09:18)
[2021-08-24] MEDS: dexAMETHasone 6 MG in SYRINGE 0 ML IV SCH (09:18)
[2021-08-24] MEDS: CHOLECALCIFEROL 1,000 UNITS 25 MCG TAB PO SCH (09:18)
[2021-08-24] MEDS: guaiFENesin 600 MG TABCR PO SCH ×2 (09:18→22:00)
[2021-08-24] MEDS: CALCIUM POLYCARBOPHIL 625MG TAB PO SCH (09:18)
[2021-08-24] MEDS: MULTIVITAMIN TAB PO SCH (09:18)
[2021-08-24] MEDS: haloperidoL 1 MG TAB PO SCH (09:18)
[2021-08-24] MEDS: BENZONATATE 100 MG CAPSULE PO SCH ×3 (09:18→21:58)
[2021-08-24] MEDS: DOCUSATE SODIUM 100 MG CAP PO SCH ×2 (09:18→22:00)
[2021-08-24] MEDS: OMEGA-3 (PURIFIED FISH OIL) 1 GM CAP PO SCH ×3 (09:18→22:01)
--- NOTE | 2021-08-24 17:02 | Hospitalist Progress Note ---
Date of Service August 24, 2021 Assessment & Plan (1) COVID-19: Plan: (1) COVID-19 virus infection: (2) Sepsis POA: Respiratory rate, temperature, pulse elevated at presentation. Lactate WNL. Received a dose of vancomycin and IV fluids in the ED. - COVID-19 positive - pt is vaccinated and boosted - Per sister bonifacio, pt has been in long-term since age 12, not able to carry logical conversation and not oriented at baseline mostly. DNR/DNI per her. - Procalcitonin negative at presentation, BNP pending - Admitting CTAP and CT chest: No concern of airspace consolidation in the lungs, no evidence of solid organ injury in abdomen or pelvis. - Not on oxygen at baseline, patient requiring 2 L on and off, wean down oxygen as tolerated. - Continue with Decadron 08/23, afebrile, monitor off of antibiotic. - Incentive spirometer - Admitting blood culture initially concern for GPC bacteremia, hence on vancomycin, later deemed contaminant. (3) Mental retardation: (4) Schizophrenia: - Hx of such, continue on home medications including Saphris, depakote, haldol, lithium #. Other chronic medical conditions: GERD, hypothyroidism, HLD Continue with/resume home meds as and when appropriate. Patient is no longer on metformin. A1c this admission 5.5. #. DVT prophylaxis: heparin subcu CODE: DNR/DNI Dispo: From long-term, likely to be discharged latoya if not deteriorating respiratory cruz. 08/23: Talked with patient's Sister Bonifacio over the phone, updated her about patient's current status, answered all questions, discussed about CODE STATUS. Admission and Anticipated Discharge Date Admission Date: August 22, 2021 Subjective Patient seen and examined at bedside as a follow-up of COVID-19 virus infection and likely sepsis POA. Patient was lying in bed, on room air, NAD, alert and oriented x1, denies pain or discomfort, ROS N/A due to cognition status. Afebrile last 1 day. Per RN, no acute events overnight, patient is eating okay and moving bowels okay. Physical Exam Physical Exam: GENERAL: Alert and oriented x1. NAD, on RA. HEENT: No pallor, no icterus. Pupils equal, round and reactive to light. Oral mucosa moist. NECK: No JVD, no neck masses. HEART: S1 and S2 heard. Regular rate and rhythm. No murmur, no gallop. RESPIRATORY SYSTEM: Normal AP diameter. No accessory muscle use. No wheezing, no crackles. ABDOMEN: Soft, bowel sounds present, nontender, no distention. CENTRAL NERVOUS SYSTEM: No facial droop. Speech is clear. Obeys simple commands. Moves extremities. EXTREMITIES: No edema, no erythema seen. Results & Data Results & Data ([facility]) Vital Signs (Past 12 Hours) Vital Signs Temp Pulse Pulse Resp BP Pulse Ox 08/24/21 15:14 80 20 92 08/24/21 12:14 36.9 C 79 16 124/78 93 08/24/21 09:31 134/82 08/24/21 08:00 59 L 08/24/21 07:37 70 20 94
[2021-08-24] MEDS: DIVALPROEX DELAY RELEASE 250 MG TABEC PO SCH (21:58)
[2021-08-24] MEDS: ATORVASTATIN 40 MG TAB PO SCH (21:59)
[2021-08-24] MEDS: DIVALPROEX DELAY RELEASE 500 MG TAB PO SCH (21:59)
[2021-08-24] MEDS: LITHIUM CARBONATE 300 MG TAB PO SCH (22:01)
[2021-08-24] MEDS: risperiDONE 3 MG TABLET PO SCH (22:02)
[2021-08-24] MEDS: PANTOprazole 40 MG TAB PO SCH (22:03)
[2021-08-25] MEDS: HEPARIN SOD 5,000 UNIT/0.5 ML VIAL SQ SCH ×2 (05:33→13:02)
[2021-08-25] MEDS: LEVOTHYROXINE SODIUM 88 MCG TABLET PO SCH (05:34)
[2021-08-25 06:38] LABS: Hematocrit (blood only) 41.6 % (42-52); Hemoglobin 13.5 g/dL (14.0-18.0); Mean Corpuscular Hemoglobin 32.6 pg (25-34); Mean Corpuscular Hgb Conc 32.5 g/dL (32-36); Mean Corpuscular Volume 100.5 fL (80-100); Mean Platelet Volume 9.9 fL (7.4-10.4); Platelet Count 136 K/uL (130-400); RDW Coefficient of Variation 12.8 % (11.5-14.5); RDW Standard Deviation 46.9 fL (36.4-46.3); Red Blood Count 4.14 M/uL (4.7-6.1); White Blood Count 4.49 K/uL (4.8-10.8)
[2021-08-25 07:11] LABS: BUN Creatinine Ratio 15.9 (10-20); Calcium 8.9 mg/dl (8.5-10.1); Creatinine Clr Calc Pharmacy 103.8 ml/min; Est GFR (African American) 110.6 ml/min; Est GFR (Non-African American) 95.4 ml/min; Magnesium 1.8 mg/dl (1.7-2.4); Potassium 3.5 mmol/L (3.5-5.1)
[2021-08-25] MEDS: OMEGA-3 (PURIFIED FISH OIL) 1 GM CAP PO SCH ×2 (07:32→13:02)
[2021-08-25] MEDS: CALCIUM POLYCARBOPHIL 625MG TAB PO SCH (07:32)
[2021-08-25] MEDS: CHOLECALCIFEROL 1,000 UNITS 25 MCG TAB PO SCH (07:32)
[2021-08-25] MEDS: MULTIVITAMIN TAB PO SCH (07:33)
[2021-08-25] MEDS: ESCITALOPRAM OXALATE 20 MG TAB PO SCH (07:33)
[2021-08-25] MEDS: haloperidoL 1 MG TAB PO SCH (07:33)
[2021-08-25] MEDS: guaiFENesin 600 MG TABCR PO SCH (07:33)
[2021-08-25] MEDS: CETIRIZINE HCL 10 MG TABLET PO SCH (07:33)
[2021-08-25] MEDS: dexAMETHasone 6 MG in SYRINGE 0 ML IV SCH (07:34)
[2021-08-25] MEDS: DOCUSATE SODIUM 100 MG CAP PO SCH (07:34)
[2021-08-25] MEDS: BENZONATATE 100 MG CAPSULE PO SCH ×2 (07:34→13:02)
[2021-08-25] MEDS ORDERED: POTASSIUM CHLORIDE CRTAB 20 MEQ TABCR PO STA (07:53)
--- NOTE | 2021-08-25 12:00 | Discharge Summary ---
Date of Service August 25, 2021 Admission HPI Per Admitting Provider This is a 60 yo M with PMhx of schitzophrenia, intellectual disability, GERD, HLD, hypothyroidism. Patient was exposed on Friday by another resident with COVID, in a halfway supported by skills where he resides. The patient was his normal self yesterday and Friday. Pt was saying some off the wall things, but staff was concerned that this was a minor flare of his schitzo and therefore staff did not think this was out of the normal, but was more behavioral in nature. He then later was unable to stand up easily and was having difficulty walking this morning, and then fell from standing. Denies any LOC or injury to the head. Normally he knows where he is, and is able to ask for basic things he needs. Caregiver thinks he doesn't seem like himself because she has known him since May 2020. Pt has not had prior to admission, but was 99 this morning. Pt has developed a cough today, had a runny nose, no sputum production. Denies any abdominal complaints, no nausea, vomiting. Pt reported his stomach fell this morning after he fell, there were concerns that he was partially blocked with constipation and this happens often - however nothing was seen on imaging to suggest this in the ER. He is on daily medications for constipation. Pt is more sleepy compared to normal, he had gotten up a few times last night to use the restroom which is normal, but he is very tired today. He took medications this morning after initially refusing and then changing his mind. He is asking for [employer] and a sweet tea while I'm on the phone with his caregiver. Pt is vaccinated and boosted for COVID, however is positive here on admission. He is tachycardic with HR in the 130s which is down into the 110s with 2.5 L NSS. Pt is found to have a fever of 38.3. Admission Exam Per Admitting Provider Gen-AAO x 1, NAD, febrile Head-NCAT, EOMI, PERRLA, Anicteric Sclera, No Posterior Pharyngeal Erythema Neck-Supple, No JVD, No Thyromegaly, No Masses, No LAD, No Bruits Lungs-Clear to Auscultation Bilaterally, No Rales, No Rhonchi, No Wheezing, No Crepitus Chest-No S4, +S1, +S2, No S3, No Murmurs, No Rubs, No Gallops, No Ectopy Abdomen-Soft, Bowel Sounds Present, Non Tender, Non Distended, No Hepatomegaly, No Splenomegaly, No Palpable Masses, No Rebound, No Rigidity, No Guarding Musculoskeletal-Full Range of Motion Bilaterally, No CVAT Extremities-No Cyanosis, No Clubbing, No Edema Nuero-Cranial Nerves II-XII grossly intact, Motor WNL, DTRs WNL, Strength WNL, Non Focal Psych-Pleasant with MR Principal Diagnosis COVID-19 virus infection History of schizophrenia custodial resident Discharge Exam GENERAL: Alert and oriented x1. NAD, on RA. HEENT: No pallor, no icterus. Pupils equal, round and reactive to light. Oral mucosa moist. NECK: No JVD, no neck masses. HEART: S1 and S2 heard. Regular rate and rhythm. No murmur, no gallop. RESPIRATORY SYSTEM: Normal AP diameter. No accessory muscle use. No wheezing, no crackles. ABDOMEN: Soft, bowel sounds present, nontender, no distention. CENTRAL NERVOUS SYSTEM: No facial droop. Speech is clear. Obeys simple commands. Moves extremities. EXTREMITIES: No edema, no erythema seen. Discharge Data Allergies Allergy/AdvReac Type Severity Reaction Status Date / Time clozapine Allergy Intermediate UNKNOWN Verified 09/21/19 11:30 povidone-iodine Allergy Intermediate UNKNOWN Verified 09/21/19 11:30 benztropine Allergy Unknown CONTRAINDICATED Verified 09/21/19 11:30 PER MD pseudoephedrine Allergy Unknown PER MD Verified 09/21/19 11:30 soap [From Betadine] Allergy Unknown Unknown Verified 09/21/19 11:30 terfenadine Allergy Unknown PER MD Verified 09/21/19 11:30 Ordered Studies 08/22/21 07:59 CT abd pelvis wo con Stat CT chest diagnostic wo con Stat Hospital Course (1) COVID-19: 60 yo M was managed for the following: (1) COVID-19 virus infection: (2) Sepsis POA: Respiratory rate, temperature, pulse elevated at presentation. Lactate WNL. - COVID-19 positive - pt is vaccinated and boosted. Started having symptoms few days before arrival - Per sister bonifacio, pt has been in halfway since age 12, not able to carry logical conversation and not oriented at baseline mostly. DNR/DNI per her. - Procalcitonin negative at presentation, BNP pending - Admitting CTAP and CT chest: No concern of airspace consolidation in the john gs, no evidence of solid organ injury in abdomen or pelvis. -Patient on room air, hemodynamically stable. Continue incentive spirometer for few days after discharge. - Admitting blood culture initially concern for GPC bacteremia, hence received vancomycin, later deemed contaminant. (3) Mental retardation: (4) Schizophrenia: - Hx of such, continue on home medications including Saphris, depakote, haldol, lithium #. Other chronic medical conditions: GERD, hypothyroidism, HLD Continue with/resume home meds as and when appropriate. Patient is no longer on metformin. A1c this admission 5.5. CODE: DNR/DNI Patient being discharged to halfway with following instruction at the point of discharge: Follow-up with your primary care physician within a week time. Get your blood work CBC and CMP done in a week time. Have the results forwarded to your primary care physician. Keep wearing mask around other people for 5 more days. Take your medications as prescribed. Total Time Total Time Spent Total Time Spent (In Minutes): 35 Discharge Plan Discharge Items Patient Disposition: Personal Detention Reason For Visit: COVID 19 Discharge Diagnosis: COVID-19 virus infection History of schizophrenia custodial resident Activity: Resume your previous activity Non-emergency contact: Primary Care Provider Call non-emergency contact if: you have any medication questions, your symptoms worsen and your temperature is above 101 Follow-up/Referrals: Akil Thorne MD [Primary Care Provider] - Diet: Heart Healthy Addtl Attending Provider Instructions: Follow-up with your primary care physician within a week time. Get your blood work CBC and CMP done in a week time. Have the results forwarded to your primary care physician. Keep wearing mask around other people for 5 more days. Take your medications as prescribed. Pending Studies at Discharge: Yes (08/22 final blood culture result) Stand-Alone Forms: [employer], Smoking Cessation Skilled Items Patient informed of condition?: Yes DNR: Yes Discharge Level of Care: Other Communicable Disease: Yes Discharge Prognosis: Stable Lines: None Urinary Catheter: No Medications and DC Order Prescriptions: Continued atorvastatin 40 mg Tablet 40 mg PO QPM RF: 0 triamcinolone acetonide 0.1 % Cream 1 applic TOPICAL DAILY PRN (Reason: Rash) RF: 0 calcium polycarbophil [Fiber-Lax] 625 mg Tablet 1,250 mg PO DAILY RF: 0 docusate sodium [Colace] 100 mg Capsule 100 mg PO BID RF: 0 hydrocortisone 2.5 % Cream 1 applic TOPICAL BID PRN (Reason: Itching) RF: 0 omeprazole magnesium [Prilosec OTC] 20 mg Tablet,Delayed Release (Dr/Ec) 20 mg PO PM RF: 0 multivitamin Tablet 1 tab PO QAM RF: 0 acetaminophen 325 mg Tablet 650 mg PO QID PRN (Reason: Pain) RF: 0 divalproex [Depakote] 250 mg Tablet,Delayed Release (Dr/Ec) 250 mg PO HS RF: 0 loperamide 2 mg Capsule 2 mg PO Q3H PRN (Reason: Loose Stool) RF: 0 divalproex [Depakote] 500 mg Tablet,Delayed Release (Dr/Ec) 1,500 mg PO PM RF: 0 risperidone [Risperdal] 3 mg Tablet 6 mg PO HS RF: 0 magnesium hydroxide [Milk of Magnesia] 400 mg/5 mL Suspension 30 ml PO DAILY PRN (Reason: Heartburn) RF: 0 lithium carbonate 300 mg Capsule 600 mg PO HS RF: 0 erythromycin 5 mg/gram (0.5 %) Ointment 1 applic OPHTHALMIC (EYE) HS PRN (Reason: eye infection) RF: 0 ibuprofen 400 mg Tablet 400 mg PO Q6H PRN (Reason: Pain) RF: 0 escitalopram oxalate 20 mg Tablet 20 mg PO QAM RF: 0 Eucerin Cream 1 applic TOPICAL DAILY PRN (Reason: Dry Skin) RF: 0 asenapine maleate [Saphris] 5 mg Tablet, Sublingual 5 mg SUBLINGUAL QAM RF: 0 asenapine maleate [Saphris] 10 mg Tablet, Sublingual 10 mg SUBLINGUAL HS RF: 0 cholecalciferol (vitamin D3) [Vitamin D3] 25 mcg (1,000 unit) Tablet,Chewable 1,000 unit PO QAM RF: 0 cetirizine 10 mg Capsule 10 mg PO QAM RF: 0 [place] 3-6-9 Fatty Acids 400-400-200 mg Capsule 1 cap PO TID RF: 0 Neosporin [place] 1-0.13 % [place],Non-Aerosol 1 spray TOPICAL DAILY PRN (Reason: Rash) RF: 0 polyethylene glycol 400 0.25 % Drops 0.3 % OPHTHALMIC (EYE) QID PRN (Reason: Dry Eye(S)) RF: 0 haloperidol 1 mg tablet 1 mg PO DAILY RF: 0 levothyroxine 88 mcg tablet 88 mcg PO DAILY RF: 0 Discharge Orders: Discharge Order (Routine); Ordered 08/25/21 Ordered By: Bryan Becerra Admission Data Admit Date/Time: 08/22/21 10:47 Attending Provider: Bryan Becerra Admit Provider: Jb Bishop Primary Care Provider: Akil Thorne
== END 2021-08-25 18:23 | disposition home or self-care (01) | DRG 871 ==
LOC: ED 07:40 → 2N 10:47 → SUATTDRO 10:47 → 2N 12:47

== ENCOUNTER 2022-01-16 13:04 | Inpatient (IN) ==
[2022-01-16] MEDS ORDERED: ONDANSETRON INJ 2 MG/ML 2 ML VIAL IV STA (13:28)
[2022-01-16] MEDS ORDERED: ACETAMINOPHEN 1,000 MG/100 ML VIAL IV STA (13:28)
--- NOTE | 2022-01-16 13:31 | Emergency Department Note ---
Impression & Plan Influenza A, Hypoxia, Sepsis ED Provider Note Name: JOELLEN CANADA Age: 61 Sex: M Arrives Via: Walk-In Informant: Patient (poor historian), [facility] ED Provider: Juan J Yousif MD Chief Complaint: Illness Impression: As per impressions above Medical Decision Makin-year-old gentleman with intellectual disability arrives from [facility] to a facility worsening weakness fevers fatigue. He arrives tachycardic hypoxic and febrile. Septic work-up initiated blood cultures lactic acid and given some fluids empirically. Labs are somewhat concerning and thus he was initially given empiric antibiotics ceftriaxone and azithromycin. Fortunately proca lcitonin looks okay. He was given some IV fluids. He is not persistently hypotensive nor is lactic acid significantly elevated. He was given 4 mg IV Zofran as well. His flu a testing ended up being positive and he was given Tamiflu p.o. In the setting of hypoxia will need hospitalization and ho spitalist in to evaluate further. Triage/Nursing Notes reviewed by Me Differentials:Viral syndrome, otitis, pharyngitis, pneumonia, influenza, meningitis, urinary tract infection, sepsis, bacteremia, as well as other pathologies. Vital Signs: reviewed and remarkable for fever tacky hypoxia Interventions: See Below Labs:Reviewed, see on chart Imaging:Bilateral congestion without lobar infiltrate on chest x-ray Consults:Hospitalist Plan: Disposition: Hospitalization Condition: Fair History of Present Illness:61-year-old gentleman with a history of dmii, hlp, hypothyroid, schizophrenia and intellectual disability amongst multiple other comorbidities arrives for evaluation of worsening illness. Patient was fine yesterday and was at his daily skills activities. This morning worsening fatigue, cough, runny nose. This afternoon noted to be quite altered and on interested in activities. Noticed to be tachycardic, febrile and having some breathing difficulty. Brought to the ER for further evaluation. Patient states he does not feel good. He denies any vomiting but may note that he has some nausea. He has no abdominal pain, back pain, headache or other complaints. No medications prior to arrival. Any exertion makes worse rest and laying back makes him feel better. Sick contacts but is daily around other people. ROS: See above HPI for pertinent positives & negatives. A total of 10 systems reviewed and were otherwise negative. Past Medical History:See Below Past Surgical History:See Below Family History:See Below Social History:See Below Home Medications:See Below Allergies:See Below Vitals:Blood Pressure: 152/87, Pulse 134, RR 26, T 38.6C, O2 92% on RA Physical Exam: GENERAL: Patient is ill appearing and in moderate distress. EYES: No scleral icterus, unremarkable pupils. ENT: Mucous membranes moist, +++ nasal congestion. NECK: No masses appreciated, nomeningismus, trachea is midline. RESPIRATORY: Moderate dyspnea with diffuse crackles and junky lung sounds throughout CARDIOVASCULAR: Tachy.No murmurs, rubs, gallops appreciated. GASTROINTESTINAL: Abdomen soft, non-tender, no peritonitis.Bowel sounds positive.No masses appreciated. BACK: No midline tenderness, no CVA tenderness EXTREMITIES: Normal motion all extremities, no cyanosis, no edema. NEUROLOGIC: Tired, responds in simple single word answers, no acute motor or sensory deficits, no focal weakness, cranial nerves grossly intact. SKIN: No rash, no jaundice, no diaphoresis. GCS: 15 ED Course: Times/Reassessments: Patient does appear much better after some IV fluids Tylenol and Zofran. He is breathing has improved and he is much more interactive. Juan J Yousif MD Past Med/Surg History Medical History (Updated 01/17/22 @ 15:44 by Juan J Yousif MD) Cellulitis of leg Dermatitis Diabetes mellitus Dyslipidemia Esophageal reflux Hemorrhoid WITHOUT COMPLICATION Hx pulmonary embolism NO OTHER DETAILS PROVIDED Hypothyroidism Mental and behavioral problem in adult Metabolic syndrome Moderate intellectual disabilities Myopia Obesity (BMI 30.0-34.9) WILVER (obstructive sleep apnea) SEVERE> NO DEVICE PER RECORDS Schizophrenia Surgical History History of colonoscopy History of right cataract surgery History of tooth extraction WISDOM TEETH Family History Other Family history non-contributory Social History Smoking Status: Unknown if ever smoked Second Hand Exposure: No; Do You Dip or Chew Tobacco: No; Tobacco Cessation Education Requested by Patient: No Hx Alcohol Use: No Hx Substance Use: No Preferred Language: German Communication Ability: Effective Barrel Cap Setter Required: No Beliefs That Will Affect Care: None marital status: Single Current Living Situation: Boarding Home Current Living Situation Comment: Lives at [facility] Other Information That Helps Us Care for You: No Feels Safe at Home: Yes Safety Concerns: Feels Safe At This Time Assistive Devices: None Allergies Allergies Allergy/AdvReac Type Severity Reaction Status Date / Time clozapine Allergy Intermediate UNKNOWN Verified 01/16/22 16:50 povidone-iodine Allergy Intermediate UNKNOWN Verified 01/16/22 16:50 benztropine Allergy Unknown CONTRAINDICATED Verified 01/16/22 16:50 PER MD Beta-Adrenergic Agents Allergy Unknown ON SKILLS Verified 01/16/22 16:50 MED LIST Iodinated Contrast Media Allergy Unknown ON SKILLS Verified 01/16/22 16:50 MED LIST iodine Allergy Unknown ON SKILLS Verified 01/16/22 16:50 MED LIST pseudoephedrine Allergy Unknown PER MD Verified 01/16/22 16:50 soap [From Betadine] Allergy Unknown Unknown Verified 01/16/22 16:50 terfenadine Allergy Unknown PER MD Verified 01/16/22 16:50 valproic acid Allergy Unknown ON SKILLS Verified 01/16/22 16:50 MED LIST SYMPATHOMIMETIC AGENTS Allergy Unknown ON SKILLS Uncoded 01/16/22 16:50 MED LIST Home Meds Home Medications Medication Instructions Recorded Confirmed acetaminophen 325 mg tablet 650 mg PO Q6H PRN Pain 05/05/19 01/16/22 asenapine maleate 10 mg sublingual 10 mg sublingual HS 05/05/19 01/16/22 tablet (Saphris) asenapine maleate 5 mg sublingual 5 mg sublingual QAM 05/05/19 01/16/22 tablet (Saphris) atorvastatin 40 mg tablet 40 mg PO QAM 05/05/19 01/16/22 calcium polycarbophil 625 mg 1,250 mg PO DAILY 05/05/19 01/16/22 tablet (Fiber-Lax) cholecalciferol (vitamin D3) 25 1,000 unit PO QAM 05/05/19 01/16/22 mcg (1,000 unit) chewable tablet (Vitamin D3) divalproex 250 mg tablet,delayed 250 mg PO HS 05/05/19 01/16/22 release (Depakote) divalproex 500 mg tablet,delayed 1,500 mg PO HS 05/05/19 01/16/22 release (Depakote) docusate sodium 100 mg capsule 100 mg PO BID 05/05/19 01/16/22 (Colace) erythromycin 5 mg/gram (0.5 %) eye 1 applic ophthalmic (eye) HS PRN 05/05/19 01/16/22 ointment eye infection escitalopram oxalate 20 mg tablet 20 mg PO QAM 05/05/19 01/16/22 lanolin alcohols-mineral 1 applic topical DAILY PRN Dry Skin 05/05/19 01/16/22 oil-w.petrolatum-ceresin topical cream (Eucerin topical cream) lithium carbonate 300 mg capsule 600 mg PO HS 05/05/19 01/16/22 loperamide 2 mg capsule 2 mg PO Q3H PRN Loose Stool 05/05/19 01/16/22 magnesium hydroxide 400 mg/5 mL 30 ml PO DAILY PRN Heartburn 05/05/19 01/16/22 oral suspension (Milk of Magnesia) omeprazole magnesium 20 mg 20 mg PO PM 05/05/19 01/16/22 tablet,delayed release (Prilosec OTC) risperidone 3 mg tablet (Risperdal) 6 mg PO HS 05/05/19 01/16/22 triamcinolone acetonide 0.1 % 1 applic topical DAILY PRN Rash 05/05/19 01/16/22 topical cream haloperidol 1 mg tablet 1 mg PO HS 08/22/21 01/16/22 levothyroxine 88 mcg tablet 88 mcg PO DAILY 08/22/21 01/16/22 aluminum-mag hydroxide-simethicone 15 ml PO BID PRN UPSET 01/16/22 01/16/22 400 mg-400 mg-40 mg/5 mL oral susp STOMACH/VOMITING (Antacid-Simethicone) dextromethorphan-guaifenesin 10 10 ml PO TID PRN Cough 01/16/22 01/16/22 mg-100 mg/5 mL oral liquid (Tussin DM) haloperidol 0.5 mg tablet 0.5 mg PO DAILY 01/16/22 01/16/22 levocetirizine 5 mg tablet (Xyzal) 2.5 mg PO PM 01/16/22 01/16/22 multivitamin-ferrous 1 tab PO DAILY 01/16/22 01/16/22 fumarate-folic acid 18 mg-400 mcg tablet (Certavite-Antioxidant) olopatadine 0.2 % eye drops 1 drp OPB BID PRN Eye Irritation 01/16/22 01/16/22 omega-3 fatty acids 1,000 mg 1,000 mg PO TID 01/16/22 01/16/22 capsule propylene glycol 0.6 % eye drops 1 drp OPB QID PRN Dry Eyes 01/16/22 01/16/22 (Systane Balance) Results & Data (ED) Vital Signs Vital Signs - 24 hr 01/16/22 15:50 Pulse Rate [Apical] 110 H Pulse Rhythm [Apical] Regular Pulse Strength [Apical] Normal Respiratory Rate 20 Respiratory Effort / Characteristics Non-Labored Spontaneous Respiratory Depth Normal Blood Pressure [Right Arm] 126/70 Blood Pressure Mean [Right Arm] 88 Pulse Oximetry 93 Oxygen Delivery Method Nasal Cannula Oxygen Flow Rate 2 Laboratory Data Result diagrams: 01/17/22 06:01 01/17/22 06:01 Lab Results 01/16/22 01/16/22 01/16/22 Range/Units 13:35 13:35 13:35 WBC 5.17 (4.8-10.8) K/ul RBC 4.60 L (4.63-6.08) M/uL Hgb 15.1 (14.0-18.0) g/dl Hct 44.3 (40.1-51.0) % MCV 96.3 (80.0-100.0) fL MCH 32.8 (25.0-34.0) pg MCHC 34.1 (32.0-36.0) g/dL RDW Std Deviation 44.0 (36.4-46.3) fL RDW Coeff of Jose 12.4 (11.5-14.5) % Plt Count 146 (130-400) K/uL MPV 9.9 (9.4-12.4) fL Immature Gran % (Auto) 0.4 % Neut % (Auto) 83.9 % Lymph % (Auto) 5.0 % [place] % (Auto) 10.3 % Eos % (Auto) 0.2 % Baso % (Auto) 0.2 % Neut # (Auto) 4.34 (1.4-6.5) K/uL Lymph # (Auto) 0.26 L (1.2-3.4) K/uL [place] # (Auto) 0.53 (0.24-0.82) K/uL Eos # (Auto) 0.01 (0-0.50) K/uL Baso # (Auto) 0.01 (0-0.2) K/uL Immature Gran # (Auto) 0.02 (0.00-0.02) K/uL Sodium 138 (136-145) mmol/L Potassium 4.7 (3.5-5.1) mmol/L Chloride 104 (98-107) mmol/L Carbon Dioxide 29 (21-32) mmol/L Anion Gap 5 (3-11) BUN 18 (6-23) mg/dl Creatinine 1.04 (0.6-1.4) mg/dl Est Cr Clr Drug Dosing Not Reportable Est GFR ( Amer) 88.8 ml/min Est GFR (Non-Af Amer) 76.6 ml/min BUN/Creatinine Ratio 17.3 (10-20) Glucose 109 H (70-99(Fasting)) mg/dl Lactate 1.1 (0.4-2.0) mmol/L Calcium 9.7 (8.5-10.1) mg/dl Magnesium 1.8 (1.7-2.4) mg/dl Total Bilirubin 1.1 H (0.2-1.0) mg/dl Direct Bilirubin 0.2 (0-0.2) mg/dl AST 27 (13-39) U/L ALT 28 (7-52) U/L Alkaline Phosphatase 87 (34-104) U/L Troponin I High Sens 4.1 D (0-20) pg/ml Total Protein 6.7 (6.0-8.3) gm/dl Albumin 4.2 (3.4-5.0) gm/dl Procalcitonin (0-0.5) ng/ml SARS-CoV-2 (PCR) (Negative) Influenza Type A (PCR) (Neg) Influenza Type B (PCR) (Neg) RSV (RT-PCR) (Neg) 01/16/22 01/16/22 Range/Units 13:35 13:35 WBC (4.8-10.8) K/ul RBC (4.63-6.08) M/uL Hgb (14.0-18.0) g/dl Hct (40.1-51.0) % MCV (80.0-100.0) fL MCH (25.0-34.0) pg MCHC (32.0-36.0) g/dL RDW Std Deviation (36.4-46.3) fL RDW Coeff of Jose (11.5-14.5) % Plt Count (130-400) K/uL MPV (9.4-12.4) fL Immature Gran % (Auto) % Neut % (Auto) % Lymph % (Auto) % [place] % (Auto) % Eos % (Auto) % Baso % (Auto) % Neut # (Auto) (1.4-6.5) K/uL Lymph # (Auto) (1.2-3.4) K/uL [place] # (Auto) (0.24-0.82) K/uL Eos # (Auto) (0-0.50) K/uL Baso # (Auto) (0-0.2) K/uL Immature Gran # (Auto) (0.00-0.02) K/uL Sodium (136-145) mmol/L Potassium (3.5-5.1) mmol/L Chloride (98-107) mmol/L Carbon Dioxide (21-32) mmol/L Anion Gap (3-11) BUN (6-23) mg/dl Creatinine (0.6-1.4) mg/dl Est Cr Clr Drug Dosing Est GFR ( Amer) ml/min Est GFR (Non-Af Amer) ml/min BUN/Creatinine Ratio (10-20) Glucose (70-99(Fasting)) mg/dl Lactate (0.4-2.0) mmol/L Calcium (8.5-10.1) mg/dl Magnesium (1.7-2.4) mg/dl Total Bilirubin (0.2-1.0) mg/dl Direct Bilirubin (0-0.2) mg/dl AST (13-39) U/L ALT (7-52) U/L Alkaline Phosphatase (34-104) U/L Troponin I High Sens (0-20) pg/ml Total Protein (6.0-8.3) gm/dl Albumin (3.4-5.0) gm/dl Procalcitonin < 0.05 (0-0.5) ng/ml SARS-CoV-2 (PCR) NEGATIVE (Negative) Influenza Type A (PCR) Positive A* (Neg) Influenza Type B (PCR) Negative (Neg) RSV (RT-PCR) Negative (Neg) Administered Medications Atorvastatin Calcium (Atorvastatin 40 Mg Tab) 40 mg PO QAM SHERRY Stop: 02/16/22 08:59 Last Admin: 01/17/22 07:43 Dose: 40 mg Documented By: RLB Calcium Polycarbophil (Calcium Polycarbophil 625mg Tab) 1,250 mg PO DAILY SHERRY Stop: 02/16/22 08:59 Last Admin: 01/17/22 07:43 Dose: 1,250 mg Documented By: RLJuvenal Cetirizine HCl (Cetirizine Hcl 10 Mg Tablet) 10 mg PO PM SHERRY Stop: 02/15/22 20:59 Last Admin: 01/16/22 21:32 Dose: 10 mg Documented By: HARRY Divalproex Sodium (Divalproex Delay Release 250 Mg Tabec) 250 mg PO HS [facility] Stop: 02/15/22 20:59 Last Admin: 01/16/22 21:32 Dose: 250 mg Documented By: HARRY Divalproex Sodium (Divalproex Delay Release 500 Mg Tab) 1,500 mg PO HS [facility] Stop: 02/15/22 20:59 Last Admin: 01/16/22 21:32 Dose: 1,500 mg Documented By: HARRY Docusate Sodium (Docusate Sodium 100 Mg Cap) 100 mg PO BID [facility] Stop: 02/15/22 20:59 Last Admin: 01/17/22 07:42 Dose: 100 mg Documented By: RLJuvenal Admin: 01/16/22 21:32 Dose: 100 mg Documented By: HARRY Doxycycline Hyclate (Doxycycline Hyclate 100 Mg Cap) 100 mg PO BID SHERRY Stop: 01/23/22 20:59 Last Admin: 01/17/22 07:42 Dose: 100 mg Documented By: Admin: 01/16/22 21:32 Dose: 100 mg Documented By: HARRY Enoxaparin Sodium (Enoxaparin Inj 40 Mg/0.4 Ml Syr) 40 mg SQ Q24H SHERRY Stop: 02/15/22 20:59 Last Admin: 01/16/22 21:29 Dose: 40 mg Documented By: HARRY Escitalopram Oxalate (Escitalopram Oxalate 20 Mg Tab) 20 mg PO QAM SHERRY Stop: 02/16/22 08:59 Last Admin: 01/17/22 07:41 Dose: 20 mg Documented By: YASMIN Haloperidol (Haloperidol 0.5 Mg Tab) 0.5 mg PO DAILY [facility] Stop: 02/16/22 08:59 Last Admin: 01/17/22 07:41 Dose: 0.5 mg Documented By: YASMIN Haloperidol (Haloperidol 1 Mg Tab) 1 mg PO HS [facility] Stop: 02/15/22 20:59 Last Admin: 01/16/22 21:33 Dose: 1 mg Documented By: HARRY [place] Carbonate ([place] Carbonate 300 Mg Tab) 600 mg PO HS [facility] Stop: 02/15/22 20:59 Last Admin: 01/16/22 21:31 Dose: 600 mg Documented By: HARRY Miscellaneous (Order Awaiting Action - Asenapine Maleate [Saphris] 5 Mg Tablet, Sublingual) 1 each N/A QS [facility] Stop: 02/16/22 00:00 Last Admin: 01/17/22 07:41 Dose: Not Given Documented By: Admin: 01/17/22 01:04 Dose: Not Given Documented By: HARRY Vargas (Order Awaiting Action - Asenapine Maleate [Saphris] 10 Mg Tablet, Sublingual) 1 each N/A QS [facility] Stop: 02/15/22 20:59 Last Admin: 01/17/22 07:41 Dose: Not Given Documented By: Admin: 01/17/22 01:04 Dose: Not Given Documented By: Admin: 01/16/22 21:33 Dose: Not Given Documented By: HARRY Oseltamivir Phosphate (Oseltamivir Phosphate 75 Mg Cap) 75 mg PO BID [facility]; Protocol Stop: 01/21/22 20:59 Last Admin: 01/17/22 07:42 Dose: 75 mg Documented By: Admin: 01/16/22 21:31 Dose: 75 mg Documented By: HARRY Pantoprazole Sodium (Pantoprazole 40 Mg Tab) 40 mg PO DAILY@1600 [facility] Stop: 02/15/22 20:59 Last Admin: 01/16/22 21:34 Dose: 40 mg Documented By: HARRY Risperidone (Risperidone 3 Mg Tablet) 6 mg PO HS [facility] Stop: 02/15/22 20:59 Last Admin: 01/16/22 21:33 Dose: 6 mg Documented By: HARRY Vitamin D (Cholecalciferol 1,000 Units 25 Mcg Tab) 1,000 units PO QAM SHERRY Stop: 02/16/22 08:59 Last Admin: 01/17/22 07:42 Dose: 1,000 units Documented By: YASMIN Discontinued Medications Sodium Chloride (Nss 1000ml) 1,000 mls @ 999 mls/hr IV .Q1H1M SHERRY Stop: 01/16/22 15:30 Last Infusion: 01/16/22 14:54 Dose: 0 mls/hr Documented By: Admin: 01/16/22 13:50 Dose: 999 mls/hr Documented By: Infusion: 01/16/22 13:50 Dose: 999 mls/hr Documented By: Admin: 01/16/22 13:44 Dose: 999 mls/hr Documented By: MARYANN Acetaminophen (Ofirmev) 1,000 mg in 100 mls @ 400 mls/hr IV NOW STA Stop: 01/16/22 13:42 Last Infusion: 01/16/22 14:02 Dose: 0 mls/hr Documented By: Admin: 01/16/22 13:44 Dose: 400 mls/hr Documented By: MARYANN Ceftriaxone Sodium (Rocephin) 2,000 mg in 70 mls @ 140 mls/hr IV NOW STA Stop: 01/16/22 15:25 Last Infusion: 01/16/22 15:51 Dose: 0 mls/hr Documented By: Admin: 01/16/22 15:12 Dose: 140 mls/hr Documented By: MARYANN Azithromycin 500 mg/ Dextrose 255 mls @ 125 mls/hr IV ONE ONE Stop: 01/16/22 16:58 Last Infusion: 01/16/22 18:01 Dose: 0 mls/hr Documented By: Admin: 01/16/22 15:51 Dose: 125 mls/hr Documented By: KYLE Sodium Chloride (Nss 1000ml) 1,000 mls @ 100 mls/hr IV .Q10H SHERRY Stop: 01/17/22 15:23 Last Infusion: 01/17/22 14:07 Dose: 0 mls/hr Documented By: Admin: 01/17/22 05:33 Dose: 100 mls/hr Documented By: Infusion: 01/17/22 05:33 Dose: 100 mls/hr Documented By: Admin: 01/16/22 19:45 Dose: 100 mls/hr Documented By: GROVER Levothyroxine Sodium (Levothyroxine Sodium 88 Mcg Tablet) 88 mcg PO DAILY SHERRY Stop: 02/16/22 08:59 Last Admin: 01/17/22 07:44 Dose: 88 mcg Documented By: YASMIN Ondansetron HCl (Ondansetron Inj 2 Mg/Ml 2 Ml Vial) 4 mg IV NOW STA Stop: 01/16/22 13:29 Last Admin: 01/16/22 13:44 Dose: 4 mg Documented By: MARYANN Oseltamivir Phosphate (Oseltamivir Phosphate 75 Mg Cap) 75 mg PO NOW STA; Protocol Stop: 01/16/22 14:58 Last Admin: 01/16/22 15:12 Dose: 75 mg Documented By: MARYANN Discharge Plan Visit Data Chief Complaint: Illness Stated Complaint: CHEST PAIN, WEAKNESS, FEVER ED Provider: Juan J Yousif Discharge Problem: Influenza A, Hypoxia, Sepsis Patient Disposition: Admitted As Inpatient Discharge Instructions Interventions: ED Discharge Assessment Last Done: 01/16/22 20:19
[2022-01-16] MEDS: SODIUM CHLORIDE 0.9% 1000ML 1,000 ML IV SCH ×3 (13:44→19:45)
[2022-01-16 13:53] LABS: Basophils # (auto) 0.01 K/uL (0-0.2); Basophils % (auto) 0.2 %; Eosinophils # (auto) 0.01 K/uL (0-0.50); Eosinophils % (auto) 0.2 %; Hematocrit (blood only) 44.3 % (40.1-51.0); Hemoglobin 15.1 g/dl (14.0-18.0); Immature Granulocytes # (auto) 0.02 K/uL (0.00-0.02); Immature Granulocytes % (auto) 0.4 %; Lymphocytes # (auto) 0.26 K/uL (1.2-3.4); Mean Corpuscular Hemoglobin 32.8 pg (25.0-34.0); Mean Corpuscular Hgb Conc 34.1 g/dL (32.0-36.0); Mean Corpuscular Volume 96.3 fL (80.0-100.0); Mean Platelet Volume 9.9 fL (9.4-12.4); Monocytes # (auto) 0.53 K/uL (0.24-0.82); Monocytes % (auto) 10.3 %; Neutrophils # (auto) 4.34 K/uL (1.4-6.5); Neutrophils % (auto) 83.9 %; Platelet Count 146 K/uL (130-400); RDW Coefficient of Variation 12.4 % (11.5-14.5); White Blood Count 5.17 K/ul (4.8-10.8)
[2022-01-16 14:12] LABS: Alanine Aminotransferase 28 U/L (7-52); Albumin Level 4.2 gm/dl (3.4-5.0); Alkaline Phosphatase 87 U/L (34-104); Anion Gap 5 (3-11); Aspartate Aminotransferase 27 U/L (13-39); BUN Creatinine Ratio 17.3 (10-20); Bilirubin Direct 0.2 mg/dl (0-0.2); Bilirubin,Total 1.1 mg/dl (0.2-1.0); Blood Urea Nitrogen 18 mg/dl (6-23); Calcium 9.7 mg/dl (8.5-10.1); Carbon Dioxide 29 mmol/L (21-32); Chloride 104 mmol/L (98-107); Est GFR (African American) 88.8 ml/min; Est GFR (Non-African American) 76.6 ml/min; Glucose 109 mg/dl (70-99(Fasting)); Magnesium 1.8 mg/dl (1.7-2.4); Potassium 4.7 mmol/L (3.5-5.1); Sodium 138 mmol/L (136-145); Total Protein 6.7 gm/dl (6.0-8.3)
[2022-01-16 14:16] LABS: Troponin I High Sensitivity 4.1 pg/ml (0-20)
[2022-01-16 14:49] LABS: Influenza B virus by PCR Negative (Neg); RSV by PCR Negative (Neg); SARS CoV2 RNA(COVID-19) Ceph NEGATIVE (Negative)
[2022-01-16] MEDS ORDERED: cefTRIAXone SODIUM 2,000 MG/70 ML BAG IV STA (14:56)
[2022-01-16] MEDS ORDERED: AZITHROMYCIN 500 MG in DEXTROSE 5% 250 ML IV ONE (14:56)
[2022-01-16] MEDS ORDERED: OSELTAMIVIR PHOSPHATE 75 MG CAP PO STA (14:57)
[2022-01-16 14:58] LABS: Influenza A virus by PCR Positive (Neg)
--- NOTE | 2022-01-16 15:05 | XRay Report ---
XR chest 1V portable HISTORY: 61 years-old Male Sepsis acute sepsis COMPARISON: Chest radiograph 08/22/2021 TECHNIQUE: AP view of the chest FINDINGS: Cardiac silhouette is upper limits of normal in size. Mild asymmetric right hilar prominence. Reticul ar nodular opacities with ill-defined right basilar predominant airspace opacities. No pneumothorax o r large pleural effusion. Degenerative changes of the shoulders and spine. IMPRESSION: Reticulonodular opacities with bibasilar densities. Findings are suspicious for an infect ious or inflammatory pneumonitis. ACT 112: Negative or not required by law. The above report was generated using voice recognition software. It may contain grammatical, syntax o r spelling errors. Electronically signed by: Ki Fan M.D. 01/16/2022 3:04 PM
--- NOTE | 2022-01-16 16:01 | History & Physical Report ---
Date of Service January 16, 2022 Assessment & Plan (1) Influenza A: (2) Hypoxia: Plan: Possible Pneumonia Patient is 61 y/o M with PMH intellectual disability, schizophrenia, GERD, HLD, hypothyroidism presented to ER with c/o chills, rigors today. In ER T: 38.6C, P: 145, R:22, BP: 162/77, reported to drop down to 87% on RA up to 98% on 2L via NC No leukocytosis, negative procalcitonin, lactate WNL. + Influenza A PCR, negative RSV and COVID-19 PCR CXR: Reticulonodular opacities with bibasilar densities. Findings are suspicious for an infectious or inflammatory pneumonitis In ER given Tamiflu, Rocephin, azithromycin Droplet precautions Tamiflu Rocephin, doxycycline IVF Xopenex prn CBC, BMP in am (3) Mental retardation: (4) Schizophrenia: Plan: Continue divalproex, escitalopram, haloperidol, risperidone, Saphris, lithium (5) Hypothyroidism: Plan: Continue levothyroxine (6) HLD (hyperlipidemia): Plan: Continue atorvastatin (7) GERD (gastroesophageal reflux disease): Plan: Continue PPI DVT Prophylaxis Lovenox SQ DNR/DNI as per prior discussion with pt's sister Follows with Dr Thorne for routine care Pt was seen and care coordinated with Dr Guadarrama. See addendum History of Present Illness Chief Complaint: SOB Primary Care Provider: Akil Thorne MD Patient is 61 y/o M with PMH intellectual disability, schizophrenia, GERD, HLD, hypothyroidism presented to ER with c/o chills. History is obtained from patient and patient's caregiver secondary to intellectual disability. Lives at [facility]. Patient states today he feels like his heart is racing and he has a cough. Caregiver states patient was in normal health yesterday and this morning. Reports he went to day camp today and there he started with chills, rigors, tactile fever. Also noted dry cough. Patient's only other complaint currently is that he feels hungry. Denies chest pain, abdominal pain, vomiting. Caregiver, staff has not noticed any vomiting, diarrhea. Denies known ill contacts. Patient states that his "roommate sneezed on him and he also thinks he may have caught a virus from a girl." In ER found to have influenza A. Allergies Allergy/AdvReac Type Severity Reaction Status Date / Time clozapine Allergy Intermediate UNKNOWN Verified 01/16/22 16:50 povidone-iodine Allergy Intermediate UNKNOWN Verified 01/16/22 16:50 benztropine Allergy Unknown CONTRAINDICATED Verified 01/16/22 16:50 PER MD Beta-Adrenergic Agents Allergy Unknown ON SKILLS Verified 01/16/22 16:50 MED LIST Iodinated Contrast Media Allergy Unknown ON [facility] Verified 01/16/22 16:50 MED LIST iodine Allergy Unknown ON [facility] Verified 01/16/22 16:50 MED LIST pseudoephedrine Allergy Unknown PER MD Verified 01/16/22 16:50 soap [From Betadine] Allergy Unknown Unknown Verified 01/16/22 16:50 terfenadine Allergy Unknown PER MD Verified 01/16/22 16:50 valproic acid Allergy Unknown ON [facility]ILL[facility] Verified 01/16/22 16:50 MED LIST SYMPATHOMIMETIC AGENTS Allergy Unknown ON [facility] Uncoded 01/16/22 16:50 MED LIST Home Medications Medication Instructions Recorded Confirmed Type acetaminophen 325 mg tablet 650 mg PO Q6H PRN Pain 05/05/19 01/16/22 History asenapine maleate 10 mg sublingual 10 mg sublingual HS 05/05/19 01/16/22 History tablet (Saphris) asenapine maleate 5 mg sublingual 5 mg sublingual QAM 05/05/19 01/16/22 History tablet (Saphris) atorvastatin 40 mg tablet 40 mg PO QAM 05/05/19 01/16/22 History calcium polycarbophil 625 mg 1,250 mg PO DAILY 05/05/19 01/16/22 History tablet (Fiber-Lax) cholecalciferol (vitamin D3) 25 1,000 unit PO QAM 05/05/19 01/16/22 History mcg (1,000 unit) chewable tablet (Vitamin D3) divalproex 250 mg tablet,delayed 250 mg PO HS 05/05/19 01/16/22 History release (Depakote) divalproex 500 mg tablet,delayed 1,500 mg PO HS 05/05/19 01/16/22 History release (Depakote) docusate sodium 100 mg capsule 100 mg PO BID 05/05/19 01/16/22 History (Colace) erythromycin 5 mg/gram (0.5 %) eye 1 applic ophthalmic (eye) HS PRN 05/05/19 01/16/22 History ointment eye infection escitalopram oxalate 20 mg tablet 20 mg PO QAM 05/05/19 01/16/22 History lanolin alcohols-mineral 1 applic topical DAILY PRN Dry Skin 05/05/19 01/16/22 History oil-w.petrolatum-ceresin topical cream (Eucerin topical cream) lithium carbonate 300 mg capsule 600 mg PO HS 05/05/19 01/16/22 History loperamide 2 mg capsule 2 mg PO Q3H PRN Loose Stool 05/05/19 01/16/22 History magnesium hydroxide 400 mg/5 mL 30 ml PO DAILY PRN Heartburn 05/05/19 01/16/22 History oral suspension (Milk of Magnesia) omeprazole magnesium 20 mg 20 mg PO PM 05/05/19 01/16/22 History tablet,delayed release (Prilosec OTC) risperidone 3 mg tablet (Risperdal) 6 mg PO HS 05/05/19 01/16/22 History triamcinolone acetonide 0.1 % 1 applic topical DAILY PRN Rash 05/05/19 01/16/22 History topical cream haloperidol 1 mg tablet 1 mg PO HS 08/22/21 01/16/22 History levothyroxine 88 mcg tablet 88 mcg PO DAILY 08/22/21 01/16/22 History aluminum-mag hydroxide-simethicone 15 ml PO BID PRN UPSET 01/16/22 01/16/22 History 400 mg-400 mg-40 mg/5 mL oral susp STOMACH/VOMITING (Antacid-Simethicone) dextromethorphan-guaifenesin 10 10 ml PO TID PRN Cough 01/16/22 01/16/22 History mg-100 mg/5 mL oral liquid (Tussin DM) haloperidol 0.5 mg tablet 0.5 mg PO DAILY 01/16/22 01/16/22 History levocetirizine 5 mg tablet (Xyzal) 2.5 mg PO PM 01/16/22 01/16/22 History multivitamin-ferrous 1 tab PO DAILY 01/16/22 01/16/22 History fumarate-folic acid 18 mg-400 mcg tablet (Certavite-Antioxidant) olopatadine 0.2 % eye drops 1 drp OPB BID PRN Eye Irritation 01/16/22 01/16/22 History omega-3 fatty acids 1,000 mg 1,000 mg PO TID 01/16/22 01/16/22 History capsule propylene glycol 0.6 % eye drops 1 drp OPB QID PRN Dry Eyes 01/16/22 01/16/22 History (Systane Balance) Past Med/Surg History Medical History (Updated 01/16/22 @ 18:26 by Celi Zhou PA-C) Cellulitis of leg Dermatitis Diabetes mellitus Dyslipidemia Esophageal reflux Hemorrhoid WITHOUT COMPLICATION Hx pulmonary embolism NO OTHER DETAILS PROVIDED Hypothyroidism Mental and behavioral problem in adult Metabolic syndrome Moderate intellectual disabilities Myopia Obesity (BMI 30.0-34.9) WILVER (obstructive sleep apnea) SEVERE> NO DEVICE PER RECORDS Schizophrenia Surgical History History of colonoscopy History of right cataract surgery History of tooth extraction WISDOM TEETH Family History Other Family history non-contributory Social History Smoking Status: Unknown if ever smoked Second Hand Exposure: No; Do You Dip or Chew Tobacco: No; Tobacco Cessation Education Requested by Patient: No Hx Alcohol Use: No Hx Substance Use: No Preferred Language: [place]ese Communication Ability: Effective Matrix Bath Operator Required: No Beliefs That Will Affect Care: None Current Living Situation: [facility] Current Living Situation Comment: Lives at [facility] Other Information That Helps Us Care for You: No Feels Safe at Home: Yes Safety Concerns: Feels Safe At This Time Assistive Devices: None Review of Systems Review of Systems: Unobtainable due to cognitive status Physical Exam Physical Exam: General: no acute distress, WDWN Head: normocephalic, atraumatic Eyes: PERRL, EOM's intact, conjunctiva non-injected, anicteric ENT: normal inspection external ears, nose, mucous membranes dry Neck: supple, trachea midline Lungs: no respiratory distress on current 2L via NC, sats 96%, diminished breath sounds, poor inspiratory effort, slight rales at bilateral bases CV: regular rhythm, +tachycardia, rate 112, no pretibial edema Abd: normal BS, soft, non-tender Ext: no cyanosis, no calf tenderness Neuro: Alert, oriented to person and place, no focal deficits noted, cooperative Skin: warm, dry Results & Data Results & Data ([facility]) Vital Signs (Past 12 Hours) Vital Signs Temp Pulse Pulse Resp BP BP Pulse Ox 01/16/22 15:50 110 H 20 126/70 93 01/16/22 15:00 87 L 01/16/22 15:14 115 H 20 123/84 98 01/16/22 13:47 123 H 26 H 148/80 H 92 01/16/22 13:24 134 H 26 H 152/87 H 92 01/16/22 13:09 38.6 C H 145 H 22 162/77 H 94 O2 Del Method O2 Flow Rate 01/16/22 15:50 Room Air 01/16/22 15:00 Room Air 01/16/22 15:14 Nasal Cannula 2 01/16/22 13:47 Room Air 01/16/22 13:24 Room Air 01/16/22 13:09 Room Air Laboratory Results Short CBC 01/16/22 Range/Units 13:35 WBC 5.17 (4.8-10.8) K/ul Hgb 15.1 (14.0-18.0) g/dl Hct 44.3 (40.1-51.0) % Plt Count 146 (130-400) K/uL BMP 01/16/22 13:35 Sodium 138 Potassium 4.7 Chloride 104 Carbon Dioxide 29 BUN 18 Creatinine 1.04 Glucose 109 H Calcium 9.7 Liver Function 01/16/22 Range/Units 13:35 Total Bilirubin 1.1 H (0.2-1.0) mg/dl Direct Bilirubin 0.2 (0-0.2) mg/dl AST 27 (13-39) U/L ALT 28 (7-52) U/L Alkaline Phosphatase 87 (34-104) U/L Albumin 4.2 (3.4-5.0) gm/dl Diagnostic Findings Chest X-Ray 01/16/22 13:28 XR chest 1V portable HISTORY: 61 years-old Male Sepsis acute sepsis COMPARISON: Chest radiograph 08/22/2021 TECHNIQUE: AP view of the chest FINDINGS: Cardiac silhouette is upper limits of normal in size. Mild asymmetric right hilar prominence. Reticular nodular opacities with ill-defined right basilar predominant airspace opacities. No pneumothorax or large pleural effusion. Degenerative changes of the shoulders and spine. IMPRESSION: Reticulonodular opacities with bibasilar densities. Findings are suspicious for an infectious or inflammatory pneumonitis. ACT 112: Negative or not required by law. The above report was generated using voice recognition software. It may contain grammatical, syntax or spelling errors. Electronically signed by: Ki Fan M.D. 01/16/2022 3:04 PM Supervising Physician Co-Signing Physician Notes Patient is a 61-year-old male with intellectual disability, schizophrenia and other medical problems presents with history of chills, palpitations, fever, rigors. Patient is a poor historian. History is also obtained from caregiver. Please review HPI for complete details of presentation. Patient is found to be hypoxic while in ED.Blood work and imaging studies reviewed. Procalcitonin normal. Serological studies positive for influenza A. Chest x-ray showed reticulonodular opacities with bibasilar densities.Blood cultures obtained. EKG showed sinus tachycardia with nonspecific ST changes. On exam patient is obese, no apparent distress, normocephalic atraumatic, EOMI, decreased breath sounds, clear to auscultation, S1-S2, no murmur, tachycardia, no pedal edema, abdomen soft, distended, nontender, normal bowel sounds, alert, awake, oriented to person and place, slow to respond, grossly no focal deficits. Patient is admitted for management of influenza A infection, hypoxia. Suspected pneumonitis. Empirically started on antibiotics, also started on Tamiflu. Nebs as needed. Continue supplemental oxygen to keep saturations above 92%. I personally reviewed the record. Patient is interviewed and examined at bedside. Patient's care is coordinated with Celi Zhou PA-C. Please refer to the documentation above for details of patient's presentation and for discussion of other issues.
[2022-01-16 19:00] LABS: Appearance Urine Clear (Clear); Bilirubin Urine Negative (Negative); Blood Urine Negative (Negative); Color Urine Yellow; Glucose Urine UA Negative (Negative); Ketones Urine Negative (Negative); Leukocyte Esterase Urine Negative (Negative); Nitrite Urine Negative (Negative); Protein Urine Negative (Negative); Specific Gravity Urine 1.006 (1.000-1.030); Urobilinogen Urine Negative (Negative); pH Urine 6.5 (4.5-7.5)
[2022-01-16] MEDS ORDERED: LEVALBUTEROL 1.25MG/0.5ML NEB NEB PRN (19:24)
[2022-01-16] MEDS ORDERED: MAGNESIUM HYDROXIDE SUSP 30 ML UDC PO PRN (19:24)
[2022-01-16] MEDS ORDERED: ONDANSETRON INJ 2 MG/ML 2 ML VIAL IV PRN (19:24)
[2022-01-16] MEDS ORDERED: LOPERAMIDE HCL 2 MG CAP PO PRN (19:24)
[2022-01-16] MEDS ORDERED: POLYETHYLENE (MIRALAX) 17 GM PACK PO PRN (19:24)
[2022-01-16] MEDS ORDERED: EUCERIN CR 120 GM JAR EXT PRN (20:44)
[2022-01-16] MEDS: ENOXAPARIN INJ 40 MG/0.4 ML SYR SQ SCH (21:29)
[2022-01-16] MEDS: OSELTAMIVIR PHOSPHATE 75 MG CAP PO SCH (21:31)
[2022-01-16] MEDS: LITHIUM CARBONATE 300 MG TAB PO SCH (21:31)
[2022-01-16] MEDS: DOCUSATE SODIUM 100 MG CAP PO SCH (21:32)
[2022-01-16] MEDS: DOXYCYCLINE HYCLATE 100 MG CAP PO SCH (21:32)
[2022-01-16] MEDS: CETIRIZINE HCL 10 MG TABLET PO SCH (21:32)
[2022-01-16] MEDS: DIVALPROEX DELAY RELEASE 250 MG TABEC PO SCH (21:32)
[2022-01-16] MEDS: DIVALPROEX DELAY RELEASE 500 MG TAB PO SCH (21:32)
[2022-01-16] MEDS: risperiDONE 3 MG TABLET PO SCH (21:33)
[2022-01-16] MEDS: haloperidoL 1 MG TAB PO SCH (21:33)
[2022-01-16] MEDS: PANTOprazole 40 MG TAB PO SCH (21:34)
[2022-01-17] MEDS: SODIUM CHLORIDE 0.9% 1000ML 1,000 ML IV SCH (05:33)
[2022-01-17 06:38] LABS: Hematocrit (blood only) 39.9 % (40.1-51.0); Hemoglobin 12.9 g/dl (14.0-18.0); Mean Corpuscular Hemoglobin 32.4 pg (25.0-34.0); Mean Corpuscular Hgb Conc 32.3 g/dL (32.0-36.0); Mean Corpuscular Volume 100.3 fL (80.0-100.0); Mean Platelet Volume 9.7 fL (9.4-12.4); Platelet Count 119 K/uL (130-400); RDW Coefficient of Variation 12.7 % (11.5-14.5); RDW Standard Deviation 47.3 fL (36.4-46.3); Red Blood Count 3.98 M/uL (4.63-6.08); White Blood Count 5.27 K/ul (4.8-10.8)
[2022-01-17 07:01] LABS: BUN Creatinine Ratio 14.1 (10-20); Calcium 8.4 mg/dl (8.5-10.1); Creatinine Clr Calc Pharmacy 103.5 ml/min; Est GFR (African American) 112.1 ml/min; Est GFR (Non-African American) 96.7 ml/min; Potassium 4.3 mmol/L (3.5-5.1)
--- NOTE | 2022-01-17 07:16 | Electrocardiogram Report ---
Test Reason : Blood Pressure : / mmHG Vent. Rate : 131 BPM Atrial Rate : 131 BPM P-R Int : 136 ms QRS Dur : 080 ms QT Int : 302 ms P-R-T Axes : 048 017 056 degrees QTc Int : 445 ms Sinus tachycardia When compared with ECG of 23-AUG-2021 04:45, No significant change was found Confirmed by Sae St ([id number]) on 01/17/2022 7:15:52 AM Referred By: REFERRED SELF Confirmed By:Sae St
[2022-01-17] MEDS: ESCITALOPRAM OXALATE 20 MG TAB PO SCH (07:41)
[2022-01-17] MEDS: haloperidoL 0.5 MG TAB PO SCH (07:41)
[2022-01-17] MEDS: CHOLECALCIFEROL 1,000 UNITS 25 MCG TAB PO SCH (07:42)
[2022-01-17] MEDS: DOCUSATE SODIUM 100 MG CAP PO SCH ×2 (07:42→20:18)
[2022-01-17] MEDS: OSELTAMIVIR PHOSPHATE 75 MG CAP PO SCH ×2 (07:42→20:19)
[2022-01-17] MEDS: DOXYCYCLINE HYCLATE 100 MG CAP PO SCH ×2 (07:42→20:19)
[2022-01-17] MEDS: ATORVASTATIN 40 MG TAB PO SCH (07:43)
[2022-01-17] MEDS: CALCIUM POLYCARBOPHIL 625MG TAB PO SCH (07:43)
[2022-01-17] MEDS ORDERED: LEVOTHYROXINE SODIUM 88 MCG TABLET PO SCH (09:00)
--- NOTE | 2022-01-17 12:01 | Hospitalist Progress Note ---
Date of Service January 17, 2022 Assessment & Plan (1) Influenza A: (2) Hypoxia: Plan: Pneumonia 61 y/o M with PMH intellectual disability, schizophrenia, GERD, HLD, hypothyroidism presented to ER with c/o chills, rigors In ER T: 38.6C, P: 145, R:22, BP: 162/77, reported to drop down to 87% on RA up to 98% on 2L via NC No leukocytosis, negative procalcitonin, lactate WNL. + Influenza A PCR, negative RSV and COVID-19 PCR CXR: Reticulonodular opacities with bibasilar densities. Findings are suspicious for an infectious or inflammatory pneumonitis Droplet precautions Continue tamiflu Currently on ceftriaxone, doxycycline Stop IVF Continue supportive are Wean off oxygen (3) Mental retardation: (4) Schizophrenia: Plan: Continue divalproex, escitalopram, haloperidol, risperidone, Saphris, lithium (5) Hypothyroidism: Plan: Continue levothyroxine (6) HLD (hyperlipidemia): Plan: Continue atorvastatin (7) GERD (gastroesophageal reflux disease): Plan: Continue PPI DVT Prophylaxis Lovenox SQ DNR/DNI Follows with Dr Thorne for routine care Per who spoke with sister today, at baseline patient ambulates without assistive devices, has shuffle step and drags feet, needs some assistance with bathing and dressing Will get PT/OT eval Admission and Anticipated Discharge Date Admission Date: January 16, 2022 Subjective Patient seen and examined He is alert and oriented to person and place Knows its Day. ROS is limited due to intellectual disability. Was able to answer 'yes' to having cough only. Answered 'no' or mumbled some incomprehensible response to other ROS Physical Exam Constitutional: + well hydrated; no acute distress Appears weak Eyes: PERRL, conjunctivae normal, anicteric sclerae Respiratory: normal respiratory effort; no respiratory distress Auscultation: + diminished lung sounds On nasal cannula Cardiovascular: Rate/Rhythm: regular rate and regular rhythm S1 S2 Gastrointestinal (Abdomen): normal bowel sounds, soft, nontender, no hepatosplenomegaly Musculoskeletal: No pedal edema Neurologic: PERRL, EOMI, accommodation nl, no face palsy, no dysarthria Results & Data Results & Data ([facility]) Vital Signs (Past 12 Hours) Vital Signs Temp Pulse Resp BP Pulse Ox O2 Del Method O2 Flow Rate 01/17/22 07:00 Nasal Cannula 2 01/17/22 08:55 36.5 C 84 16 143/73 H 95 Room Air 1 01/17/22 07:54 36.8 C 113 H 18 149/89 H 93 Nasal Cannula 2 Laboratory Results Abnormal lab results 01/16/22 01/16/22 01/17/22 Range/Units 13:35 13:35 06:01 RBC 3.98 L (4.63-6.08) M/uL Hgb 12.9 L (14.0-18.0) g/dl Hct 39.9 L (40.1-51.0) % MCV 100.3 H (80.0-100.0) fL RDW Std Deviation 47.3 H (36.4-46.3) fL Plt Count 119 L (130-400) K/uL Chloride (98-107) mmol/L Anion Gap (3-11) Glucose 109 H (70-99(Fasting)) mg/dl Calcium (8.5-10.1) mg/dl Total Bilirubin 1.1 H (0.2-1.0) mg/dl Influenza Type A (PCR) Positive A* (Neg) 01/17/22 Range/Units 06:01 RBC (4.63-6.08) M/uL Hgb (14.0-18.0) g/dl Hct (40.1-51.0) % MCV (80.0-100.0) fL RDW Std Deviation (36.4-46.3) fL Plt Count (130-400) K/uL Chloride 108 H (98-107) mmol/L Anion Gap 2 L (3-11) Glucose 101 H (70-99(Fasting)) mg/dl Calcium 8.4 L (8.5-10.1) mg/dl Total Bilirubin (0.2-1.0) mg/dl Influenza Type A (PCR) (Neg)
[2022-01-17] MEDS: PANTOprazole 40 MG TAB PO SCH (16:11)
[2022-01-17] MEDS: cefTRIAXone SODIUM 2,000 MG in DEXTROSE 5% 50 ML IV SCH (17:16)
[2022-01-17] MEDS: ACETAMINOPHEN 325 MG TAB PO PRN (17:16)
[2022-01-17] MEDS: risperiDONE 3 MG TABLET PO SCH (20:17)
[2022-01-17] MEDS: haloperidoL 1 MG TAB PO SCH (20:18)
[2022-01-17] MEDS: LITHIUM CARBONATE 300 MG TAB PO SCH (20:19)
[2022-01-17] MEDS: DIVALPROEX DELAY RELEASE 500 MG TAB PO SCH (20:19)
[2022-01-17] MEDS: DIVALPROEX DELAY RELEASE 250 MG TABEC PO SCH (20:19)
[2022-01-17] MEDS: CETIRIZINE HCL 10 MG TABLET PO SCH (20:20)
[2022-01-17] MEDS: ENOXAPARIN INJ 40 MG/0.4 ML SYR SQ SCH (20:20)
[2022-01-18] MEDS: LEVOTHYROXINE SODIUM 88 MCG TABLET PO SCH (05:41)
[2022-01-18 07:23] LABS: Hematocrit (blood only) 38.5 % (40.1-51.0); Hemoglobin 12.4 g/dl (14.0-18.0); Mean Corpuscular Hemoglobin 32.4 pg (25.0-34.0); Mean Corpuscular Hgb Conc 32.2 g/dL (32.0-36.0); Mean Corpuscular Volume 100.5 fL (80.0-100.0); Mean Platelet Volume 9.8 fL (9.4-12.4); Platelet Count 119 K/uL (130-400); RDW Coefficient of Variation 12.9 % (11.5-14.5); RDW Standard Deviation 47.8 fL (36.4-46.3); Red Blood Count 3.83 M/uL (4.63-6.08); White Blood Count 7.67 K/ul (4.8-10.8)
[2022-01-18 07:47] LABS: BUN Creatinine Ratio 15.8 (10-20); Calcium 8.8 mg/dl (8.5-10.1); Creatinine Clr Calc Pharmacy 79.9 ml/min; Est GFR (Non-African American) 79.3 ml/min; Potassium 4.3 mmol/L (3.5-5.1)
[2022-01-18] MEDS: OSELTAMIVIR PHOSPHATE 75 MG CAP PO SCH ×2 (08:14→20:32)
[2022-01-18] MEDS: DOCUSATE SODIUM 100 MG CAP PO SCH ×2 (08:14→20:33)
[2022-01-18] MEDS: CHOLECALCIFEROL 1,000 UNITS 25 MCG TAB PO SCH (08:15)
[2022-01-18] MEDS: ESCITALOPRAM OXALATE 20 MG TAB PO SCH (08:15)
[2022-01-18] MEDS: CALCIUM POLYCARBOPHIL 625MG TAB PO SCH (08:15)
[2022-01-18] MEDS: DOXYCYCLINE HYCLATE 100 MG CAP PO SCH ×2 (08:15→20:33)
[2022-01-18] MEDS: ATORVASTATIN 40 MG TAB PO SCH (08:15)
[2022-01-18] MEDS: haloperidoL 0.5 MG TAB PO SCH (08:15)
--- NOTE | 2022-01-18 12:11 | Hospitalist Progress Note ---
Date of Service January 18, 2022 Assessment & Plan (1) Influenza A: (2) Hypoxia: Plan: Pneumonia 61 y/o M with PMH intellectual disability, schizophrenia, GERD, HLD, hypothyroidism presented to ER with c/o chills, rigors In ER T: 38.6C, P: 145, R:22, BP: 162/77, reported to drop down to 87% on RA up to 98% on 2L via NC No leukocytosis, negative procalcitonin, lactate WNL. + Influenza A PCR, negative RSV and COVID-19 PCR CXR: Reticulonodular opacities with bibasilar densities. Findings are suspicious for an infectious or inflammatory pneumonitis Droplet precautions Continue tamiflu Currently on ceftriaxone, doxycycline Now off oxygen Continue supportive are Was febrile yesterday evening. Will continue current treatment (3) Intellectual disability: (4) Schizophrenia: Plan: Continue divalproex, escitalopram, haloperidol, risperidone, Saphris, lithium (5) Hypothyroidism: Plan: Continue levothyroxine (6) HLD (hyperlipidemia): Plan: Continue atorvastatin (7) GERD (gastroesophageal reflux disease): Plan: Continue PPI DVT Prophylaxis Lovenox SQ DNR/DNI Follows with Dr Thorne for routine care Awaiting PT/OT eval Admission and Anticipated Discharge Date Admission Date: January 16, 2022 Subjective Patient seen and examined Awake, alert and oriented to person and place sitting in bed Currently on room air. Acknowledges cough and weakness. Denied chest pain, shortness of breath Denied nausea, vomiting, abd pain, diarrhea Physical Exam Constitutional: + well hydrated; no acute distress Eyes: PERRL, conjunctivae normal, anicteric sclerae ENMT: external ear and nose normal, oropharynx normal Respiratory: normal respiratory effort; no respiratory distress Auscultation: + diminished lung sounds Cardiovascular: Rate/Rhythm: regular rate and regular rhythm S1 S2 Gastrointestinal (Abdomen): normal bowel sounds, soft, nontender, no hepatosplenomegaly Musculoskeletal: No pedal edema Neurologic: PERRL, EOMI, accommodation nl, no face palsy, no dysarthria Results & Data Results & Data ([facility]) Vital Signs (Past 12 Hours) Vital Signs Temp Pulse Resp BP Pulse Ox O2 Del Method O2 Flow Rate 01/18/22 09:00 Nasal Cannula 2 01/18/22 07:32 36.8 C 62 16 122/76 92 Nasal Cannula 1 Laboratory Results Abnormal lab results 01/18/22 01/18/22 Range/Units 06:48 06:48 RBC 3.83 L (4.63-6.08) M/uL Hgb 12.4 L (14.0-18.0) g/dl Hct 38.5 L (40.1-51.0) % MCV 100.5 H (80.0-100.0) fL RDW Std Deviation 47.8 H (36.4-46.3) fL Plt Count 119 L (130-400) K/uL Glucose 160 H (70-99(Fasting)) mg/dl
[2022-01-18] MEDS: cefTRIAXone SODIUM 2,000 MG in DEXTROSE 5% 50 ML IV SCH (14:41)
[2022-01-18] MEDS: PANTOprazole 40 MG TAB PO SCH (16:44)
[2022-01-18] MEDS: ACETAMINOPHEN 325 MG TAB PO PRN (20:00)
[2022-01-18] MEDS: risperiDONE 3 MG TABLET PO SCH (20:32)
[2022-01-18] MEDS: haloperidoL 1 MG TAB PO SCH (20:32)
[2022-01-18] MEDS: DIVALPROEX DELAY RELEASE 500 MG TAB PO SCH (20:32)
[2022-01-18] MEDS: CETIRIZINE HCL 10 MG TABLET PO SCH (20:32)
[2022-01-18] MEDS: LITHIUM CARBONATE 300 MG TAB PO SCH (20:32)
[2022-01-18] MEDS: DIVALPROEX DELAY RELEASE 250 MG TABEC PO SCH (20:32)
[2022-01-18] MEDS: ENOXAPARIN INJ 40 MG/0.4 ML SYR SQ SCH (20:33)
[2022-01-19] MEDS: LEVOTHYROXINE SODIUM 88 MCG TABLET PO SCH (06:00)
[2022-01-19 06:05] LABS: Hematocrit (blood only) 38.5 % (40.1-51.0); Hemoglobin 12.3 g/dl (14.0-18.0); Mean Corpuscular Hemoglobin 32.1 pg (25.0-34.0); Mean Corpuscular Hgb Conc 31.9 g/dL (32.0-36.0); Mean Corpuscular Volume 100.5 fL (80.0-100.0); Mean Platelet Volume 10.2 fL (9.4-12.4); Platelet Count 119 K/uL (130-400); RDW Coefficient of Variation 12.4 % (11.5-14.5); RDW Standard Deviation 46.5 fL (36.4-46.3); Red Blood Count 3.83 M/uL (4.63-6.08)
[2022-01-19 06:30] LABS: BUN Creatinine Ratio 21.2 (10-20); Calcium 8.9 mg/dl (8.5-10.1); Est GFR (African American) 108.2 ml/min; Est GFR (Non-African American) 93.4 ml/min; Potassium 4.6 mmol/L (3.5-5.1)
[2022-01-19] MEDS: CALCIUM POLYCARBOPHIL 625MG TAB PO SCH (08:53)
[2022-01-19] MEDS: OSELTAMIVIR PHOSPHATE 75 MG CAP PO SCH (08:53)
[2022-01-19] MEDS: haloperidoL 0.5 MG TAB PO SCH (08:53)
[2022-01-19] MEDS: ATORVASTATIN 40 MG TAB PO SCH (08:53)
[2022-01-19] MEDS: DOCUSATE SODIUM 100 MG CAP PO SCH (08:53)
[2022-01-19] MEDS: CHOLECALCIFEROL 1,000 UNITS 25 MCG TAB PO SCH (08:56)
[2022-01-19] MEDS: ESCITALOPRAM OXALATE 20 MG TAB PO SCH (08:56)
[2022-01-19] MEDS: DOXYCYCLINE HYCLATE 100 MG CAP PO SCH (08:56)
--- NOTE | 2022-01-19 12:53 | Discharge Summary ---
Discharge Summary Date of Service January 19, 2022 Notes For Next Care Provider Follow up recovery Medication Changes From Visit Discharged on tamiflu and doxycycline to complete treatment Admission HPI Per Admitting Provider Patient is 61 y/o M with PMH intellectual disability, schizophrenia, GERD, HLD, hypothyroidism presented to ER with c/o chills. History is obtained from patient and patient's caregiver secondary to intellectual disability. Lives [facility]. Patient states today he feels like his heart is racing and he has a cough. Caregiver states patient was in normal health yesterday and this morning. Reports he went to day camp today and there he started with chills, rigors, tactile fever. Also noted dry cough. Patient's only other complaint currently is that he feels hungry. Denies chest pain, abdominal pain, vomiting. Caregiver, staff has not noticed any vomiting, diarrhea. Denies known ill contacts. Patient states that his "roommate sneezed on him and he also thinks he may have caught a virus from a girl." In ER found to have influenza A. Admission Exam Per Admitting Provider General: no acute distress, WDWN Head: normocephalic, atraumatic Eyes: PERRL, EOM's intact, conjunctiva non-injected, anicteric ENT: normal inspection external ears, nose, mucous membranes dry Neck: supple, trachea midline Lungs: no respiratory distress on current 2L via NC, sats 96%, diminished breath sounds, poor inspiratory effort, slight rales at bilateral bases CV: regular rhythm, +tachycardia, rate 112, no pretibial edema Abd: normal BS, soft, non-tender Ext: no cyanosis, no calf tenderness Neuro: Alert, oriented to person and place, no focal deficits noted, cooperative Skin: warm, dry Principal Dx & Hospital Course #1 = Principal Diagnosis (1) Influenza A: (2) Hypoxia: Pneumonia 61 y/o M with PMH intellectual disability, schizophrenia, GERD, HLD, hypothyroidism presented to ER with c/o chills, rigors, cough In ER T: 38.6C, P: 145, R:22, BP: 162/77, reported to drop down to 87% on RA up to 98% on 2L via NC No leukocytosis, negative procalcitonin, lactate WNL. + Influenza A PCR, negative RSV and COVID-19 PCR CXR: Reticulonodular opacities with bibasilar densities. Findings are suspicious for an infectious or inflammatory pneumonitis Patient was started on tamiflu and IV antibiotics for flu and pneumonia Has been afebrile for over 24h Discharged on 2 more days of tamiflu and doxycycline to complete treatment. He required oxygen initially. This was successfully weaned off. Currently on room air (3) Intellectual disability: (4) Schizophrenia: Continue divalproex, escitalopram, haloperidol, risperidone, Saphris, lithium (5) Hypothyroidism: Continue levothyroxine (6) HLD (hyperlipidemia): Continue atorvastatin (7) GERD (gastroesophageal reflux disease): Continue PPI Discharge Exam Constitutional + well hydrated; no acute distress Eyes PERRL, conjunctivae normal, anicteric sclerae ENMT external ear and nose normal, oropharynx normal Respiratory normal respiratory effort; no respiratory distress Auscultation: + diminished lung sounds Cardiovascular Rate/Rhythm: regular rate and regular rhythm S1 S2 Gastrointestinal (Abdomen) normal bowel sounds, soft, nontender, no hepatosplenomegaly Musculoskeletal No pedal edema Neurologic PERRL, EOMI, accommodation nl, no face palsy, no dysarthria Alert and oriented to person and place Updated Medication List Medication Instructions Recorded Confirmed Type acetaminophen 325 mg tablet 650 mg PO Q6H PRN Pain 05/05/19 01/16/22 History asenapine maleate 10 mg sublingual 10 mg sublingual HS 05/05/19 01/16/22 History tablet (Saphris) asenapine maleate 5 mg sublingual 5 mg sublingual QAM 05/05/19 01/16/22 History tablet (Saphris) atorvastatin 40 mg tablet 40 mg PO QAM 05/05/19 01/16/22 History calcium polycarbophil 625 mg 1,250 mg PO DAILY 05/05/19 01/16/22 History tablet (Fiber-Lax) cholecalciferol (vitamin D3) 25 1,000 unit PO QAM 05/05/19 01/16/22 History mcg (1,000 unit) chewable tablet (Vitamin D3) divalproex 250 mg tablet,delayed 250 mg PO HS 05/05/19 01/16/22 History release (Depakote) divalproex 500 mg tablet,delayed 1,500 mg PO HS 05/05/19 01/16/22 History release (Depakote) docusate sodium 100 mg capsule 100 mg PO BID 05/05/19 01/16/22 History (Colace) erythromycin 5 mg/gram (0.5 %) eye 1 applic ophthalmic (eye) HS PRN 05/05/19 01/16/22 History ointment eye infection escitalopram oxalate 20 mg tablet 20 mg PO QAM 05/05/19 01/16/22 History lanolin alcohols-mineral 1 applic topical DAILY PRN Dry Skin 05/05/19 01/16/22 History oil-w.petrolatum-ceresin topical cream (Eucerin topical cream) lithium carbonate 300 mg capsule 600 mg PO HS 05/05/19 01/16/22 History loperamide 2 mg capsule 2 mg PO Q3H PRN Loose Stool 05/05/19 01/16/22 History magnesium hydroxide 400 mg/5 mL 30 ml PO DAILY PRN Heartburn 05/05/19 01/16/22 History oral suspension (Milk of Magnesia) omeprazole magnesium 20 mg 20 mg PO PM 05/05/19 01/16/22 History tablet,delayed release (Prilosec OTC) risperidone 3 mg tablet (Risperdal) 6 mg PO HS 05/05/19 01/16/22 History triamcinolone acetonide 0.1 % 1 applic topical DAILY PRN Rash 05/05/19 01/16/22 History topical cream haloperidol 1 mg tablet 1 mg PO HS 08/22/21 01/16/22 History levothyroxine 88 mcg tablet 88 mcg PO DAILY 08/22/21 01/16/22 History aluminum-mag hydroxide-simethicone 15 ml PO BID PRN UPSET 01/16/22 01/16/22 History 400 mg-400 mg-40 mg/5 mL oral susp STOMACH/VOMITING (Antacid-Simethicone) dextromethorphan-guaifenesin 10 10 ml PO TID PRN Cough 01/16/22 01/16/22 History mg-100 mg/5 mL oral liquid (Tussin DM) haloperidol 0.5 mg tablet 0.5 mg PO DAILY 01/16/22 01/16/22 History levocetirizine 5 mg tablet (Xyzal) 2.5 mg PO PM 01/16/22 01/16/22 History multivitamin-ferrous 1 tab PO DAILY 01/16/22 01/16/22 History fumarate-folic acid 18 mg-400 mcg tablet (Certavite-Antioxidant) olopatadine 0.2 % eye drops 1 drp OPB BID PRN Eye Irritation 01/16/22 01/16/22 History omega-3 fatty acids 1,000 mg 1,000 mg PO TID 01/16/22 01/16/22 History capsule propylene glycol 0.6 % eye drops 1 drp OPB QID PRN Dry Eyes 01/16/22 01/16/22 History (Systane Balance) doxycycline hyclate 100 mg capsule 100 mg PO BID 2 days #4 caps 01/19/22 Rx oseltamivir 75 mg capsule (Tamiflu) 75 mg PO BID 2 days #4 caps 01/19/22 Rx Hospital Stay Data Consultations 01/16/22 15:21 ED Decision to Admit Stat Pending Results Patient Have Any Pending Studies at Discharge: No Discharge Instructions Given to Patient (Per Discharging Provider) Mr Ervin Lee were brought to the hospital due to fever and cough. You were evaluated and treated for pneumonia and flu. You required oxygen briefly. Your symptoms are improving. You are being [facility] the [facility] to complete remaining days of tamiflu and antibiotics. It was a pleasure taking care of you. Total Time Total Time Spent Total Time Spent (In Minutes): 45 Total Time Includes: Examination of the Patient, Discharge Planning and Medication Reconciliation
== END 2022-01-19 15:30 | disposition home or self-care (01) | DRG 195 ==
LOC: ED 13:04 → SUATTDRO 16:10 → EDINP 16:10 → 3W 20:19

== ENCOUNTER 2023-02-07 09:52 | Inpatient (IN) ==
--- NOTE | 2023-02-07 10:56 | Emergency Department Note ---
Impression & Plan COVID-19, Generalized weakness, Acute hypoxemic respiratory failure ED Provider Note HISTORY OF PRESENT ILLNESS: Patient is a 62-year-old male presenting with shortness of breath and weakness. Patient is a poor historian secondary to his intellectual disabilities. History was obtained via EMS from the staff at his skilled facility. Patient was diagnosed with COVID yesterday. Staff at the facility are concerned that the patient is significantly weaker today than he normally is. Difficulties with him getting up and around like he normally does. He seemed more short of breath today and pulse ox at the facility showed his saturations were in the 80s. Patient does not normally require any oxygen at baseline. Patient is not on any anticoagulation. ROS: as above PHYSICAL EXAM: Constitutional: Patient appears in no acute distress. HENT: Head: Normocephalic and atraumatic. Eyes: EOMI, PERRL Mouth/Throat: Mucous membranes moist. Neck: Trachea midline. Neck supple. Cardiovascular: RRR, No murmurs, rubs or gallops. Intact distal pulses. Pulmonary/Chest: No respiratory distress. Breath sounds clear and equal bilaterally. No wheezes or rales. Abdominal: Abdomen soft, no tenderness, rebound or guarding. Musculoskeletal: No edema, tenderness or deformity noted. Skin: Warm and dry. No rash, erythema, pallor or cyanosis Psychiatric: Appropriate mood and affect for situation. Neurological: Alert and keenly responsive. CN II-XII grossly intact, moving all extremities equally and fully. MDM: - Vitals signs showed hypoxia to 88%. Patient was placed on 2 L nasal cannula. - History obtained via EMS, given patient's intellectual disability. Patient presents with shortness of breath and weakness. Patient reportedly was too weak to get up and go out around at his skilled facility today. His facility noted he was more short of breath and took his vitals and his saturations were in the 80s. He is not requiring oxygen at baseline. He was just diagnosed with COVID yesterday. - Chronic conditions affecting care: HLD; HTN; hypothyroidism; hx of PE; DM-2; intellectual disability - Differential diagnoses include, but are not limited to: UTI; pneumonia; viral syndrome; electrolyte abnormality; dehydration; ACS - Order placed for continuous cardiac monitoring. At this time, monitor showed rate of 90 bpm with regular rhythm, per my interpretation. - External medical records reviewed. EMS run sheet was reviewed. Patient was hypoxic on arrival and started on supplemental oxygen as well. - EKG interpreted by myself showed normal sinus rhythm. Rate 100 bpm. QTc 362. No acute ischemic changes. Noted to have an incomplete RBBB. - Laboratory workup interpreted by myself showed slight leukopenia (WBC 4.64); stable electrolytes; normal troponin - CXR negative for pneumonia, per my interpretation - Given patient's new oxygen requirement and weakness in setting of viral COVID infection, will admit to hospitalist service. - Discussion was had with healthcare prof about patient's case and need for admission - Hospitalist consulted for admission - Patient admitted to [facility] hospitalist service for further evaluation and management. ASSESSMENT AND PLAN: Diagnosis: COVID-19; weakness; acute hypoxic respiratory failure Plan: admit Past Med/Surg History Medical History (Updated 02/07/23 @ 12:07 by Debbie Menchaca MD) Esophageal reflux Myopia Moderate intellectual disabilities Diabetes mellitus Hx pulmonary embolism NO OTHER DETAILS PROVIDED Hypothyroidism Metabolic syndrome WILVER (obstructive sleep apnea) SEVERE> NO DEVICE PER RECORDS Dermatitis Cellulitis of leg Obesity (BMI 30.0-34.9) Dyslipidemia Schizophrenia Mental and behavioral problem in adult Hemorrhoid WITHOUT COMPLICATION Surgical History History of right cataract surgery History of tooth extraction WISDOM TEETH History of colonoscopy Family History Other Family history non-contributory Social History Smoking Status: Never smoker Second Hand Exposure: No; Do You Dip or Chew Tobacco: No; Hx Alcohol Use: No Hx Substance Use: No Preferred Language: [place]agu[place] Communication Ability: Effective Communication Ability Comment: sister to sign (verbal consent) through phone day of procedure Emt P Required: No Beliefs That Will Affect Care: None marital status: Single Current Living Situation: Boarding Home Current Living Situation Comment: Lives at [facility] Feels Safe at Home: Yes Assistive Devices: None Allergies Allergies Allergy/AdvReac Type Severity Reaction Status Date / Time clozapine Allergy Intermediate [facility] Verified 02/07/23 12:02 MED LIST benztropine Allergy Unknown CONTRAINDICATED Verified 03/22/22 18:10 PER MD Beta-Adrenergic Agents Allergy Unknown [facility] Verified 02/07/23 12:01 MED LIST Iodinated Contrast Media Allergy Unknown [facility] Verified 02/07/23 12:01 MED LIST iodine Allergy Unknown [facility] Verified 02/07/23 12:01 MED LIST povidone-iodine Allergy Unknown [facility] Verified 02/07/23 12:02 MED LIST pseudoephedrine Allergy Unknown PER MD Verified 02/07/23 12:01 soap [From Betadine] Allergy Unknown [facility] Verified 02/07/23 12:02 MED LIST terfenadine Allergy Unknown PER MD Verified 02/07/23 12:01 valproic acid Allergy Unknown [facility] Verified 02/07/23 12:01 MED LIST SYMPATHOMIMETIC AGENTS Allergy Unknown [facility] Uncoded 02/07/23 12:01 MED LIST Home Meds Home Medications Medication Instructions Recorded Confirmed acetaminophen 325 mg tablet 650 mg PO Q6H PRN Pain 05/05/19 03/22/22 atorvastatin 40 mg tablet 40 mg PO QAM 05/05/19 03/22/22 calcium polycarbophil 625 mg 1,250 mg PO DAILY 05/05/19 03/22/22 tablet (Fiber-Lax) cholecalciferol (vitamin D3) 25 1,000 unit PO QAM 05/05/19 03/22/22 mcg (1,000 unit) chewable tablet (Vitamin D3) divalproex 250 mg tablet,delayed 250 mg PO HS 05/05/19 03/22/22 release (Depakote) divalproex 500 mg tablet,delayed 1,500 mg PO HS 05/05/19 03/22/22 release (Depakote) docusate sodium 100 mg capsule 100 mg PO BID 05/05/19 03/22/22 (Colace) erythromycin 5 mg/gram (0.5 %) eye 1 applic ophthalmic (eye) HS PRN 05/05/19 03/22/22 ointment eye infection escitalopram oxalate 20 mg tablet 20 mg PO QAM 05/05/19 03/22/22 lanolin alcohols-mineral 1 applic topical DAILY PRN Dry Skin 05/05/19 03/22/22 oil-w.petrolatum-ceresin topical cream (Eucerin topical cream) lithium carbonate 300 mg capsule 600 mg PO HS 05/05/19 03/22/22 magnesium hydroxide 400 mg/5 mL 30 ml PO DAILY PRN Heartburn 05/05/19 03/22/22 oral suspension (Milk of Magnesia) omeprazole magnesium 20 mg 20 mg PO PM 05/05/19 03/22/22 tablet,delayed release (Prilosec OTC) risperidone 3 mg tablet (Risperdal) 6 mg PO HS 05/05/19 03/22/22 haloperidol 1 mg tablet 1 mg PO HS 08/22/21 03/22/22 levothyroxine 88 mcg tablet 88 mcg PO DAILY 08/22/21 03/22/22 aluminum-mag hydroxide-simethicone 15 ml PO BID PRN UPSET 01/16/22 03/22/22 400 mg-400 mg-40 mg/5 mL oral susp STOMACH/VOMITING (Antacid-Simethicone) dextromethorphan-guaifenesin 10 10 ml PO TID PRN Cough 01/16/22 03/22/22 mg-100 mg/5 mL oral liquid (Tussin DM) haloperidol 0.5 mg tablet 0.5 mg PO QAM 01/16/22 03/22/22 levocetirizine 5 mg tablet (Xyzal) 2.5 mg PO PM 01/16/22 03/22/22 multivitamin-ferrous 1 tab PO DAILY 01/16/22 03/22/22 fumarate-folic acid 18 mg-400 mcg tablet (Certavite-Antioxidant) olopatadine 0.2 % eye drops 1 drp OPB BID PRN Eye Irritation 01/16/22 03/22/22 omega-3 fatty acids 1,000 mg 1,000 mg PO TID 01/16/22 03/22/22 capsule propylene glycol 0.6 % eye drops 1 drp OPB QID PRN Dry Eyes 01/16/22 03/22/22 (Systane Balance) asenapine maleate 10 mg sublingual 10 mg sublingual HS 03/22/22 03/22/22 tablet (Saphris) asenapine maleate 5 mg sublingual 5 mg sublingual QAM 03/22/22 03/22/22 tablet (Saphris) metformin 500 mg tablet,extended 1,000 mg PO QDB 03/22/22 03/22/22 release 24 hr Results & Data (ED) Vital Signs Vital Signs - 24 hr 02/07/23 10:10 02/07/23 11:48 Temperature 36.7 C Temperature Source Temporal Artery Scan Pulse Rate 101 H 90 Pulse Rhythm Regular Pulse Strength Normal Respiratory Rate 20 Respiratory Effort / Characteristics Non-Labored Spontaneous Respiratory Depth Normal Respiratory Pattern Regular Blood Pressure 122/82 Blood Pressure Mean 95 Blood Pressure Position Sitting Pulse Oximetry 91 Oxygen Delivery Method Room Air Sepsis Recent Fever Within 48 Hours No Sepsis New/Unexplained Change in Mental Status No Sepsis Action Taken by Nursing No Action Required Laboratory Data 02/07/23 10:00 02/07/23 10:00 Lab Results 02/07/23 Range/Units 10:00 WBC 4.64 L (4.8-10.8) K/ul RBC 4.70 (4.70-6.10) M/uL Hgb 15.2 (14.0-18.0) g/dl Hct 45.8 (42.0-52.0) % MCV 97.4 (80.0-100.0) fL MCH 32.3 (25.0-34.0) pg MCHC 33.2 (32.0-36.0) g/dL RDW Std Deviation 46.6 H (36.4-46.3) fL RDW Coeff of Jose 12.9 (11.5-14.5) % Plt Count 138 (130-400) K/uL MPV 10.0 (9.4-12.4) fL Immature Gran % (Auto) 0.4 % Neut % (Auto) 73.1 % Lymph % (Auto) 14.4 % [place] % (Auto) 12.1 % Eos % (Auto) 0.0 % Baso % (Auto) 0.0 % Neut # (Auto) 3.39 (1.40-6.50) K/uL Lymph # (Auto) 0.67 L (1.20-3.40) K/uL [place] # (Auto) 0.56 (0.11-0.59) K/uL Eos # (Auto) 0.00 (0.00-0.50) K/uL Baso # (Auto) 0.00 (0.00-0.20) K/uL Immature Gran # (Auto) 0.02 (0.01-0.20) K/uL Sodium 142 (136-145) mmol/L Potassium 4.1 (3.5-5.1) mmol/L Chloride 109 H (98-107) mmol/L Carbon Dioxide 27 (21-32) mmol/L Anion Gap 6 (3-11) BUN 8 (6-23) mg/dl Creatinine 0.85 (0.6-1.4) mg/dl Est Cr Clr Drug Dosing Not Reportable Est GFR ( Amer) 107.5 ml/min Est GFR (Non-Af Amer) 92.7 ml/min BUN/Creatinine Ratio 9.4 L (10-20) Glucose 127 H (70-99(Fasting)) mg/dl Calcium 9.8 (8.6-10.3) mg/dl Total Bilirubin 1.0 (0.2-1.0) mg/dl AST 15 (13-39) U/L ALT 18 (7-52) U/L Alkaline Phosphatase 65 (34-104) U/L Troponin I High Sens 4.6 (0-20) pg/ml Total Protein 6.3 (6.0-8.3) gm/dl Albumin 3.9 (3.4-5.0) gm/dl Globulin 2.4 L (2.5-4.0) gm/dl Albumin/Globulin Ratio 1.6 (0.9-2) Imaging Data Radiologist's Impression: Chest X-Ray 02/07/23 10:53 SINGLE VIEW CHEST CLINICAL HISTORY: Dyspnea FINDINGS: An AP, portable, upright chest radiograph is compared to study dated 02/06/2023 and correlated with chest CT dated 08/22/2021. The patient's head partially obscures the apices. The heart is mildly enlarged. The pulmonary vasculature is noncongested. Chronic interstitial thickening is similar to previous. There is bibasilar scarring/atelectasis. No airspace consolidation or large pleural effusion is identified. No pneumothorax is seen. The skeletal structures are osteopenic. The bony thorax is grossly intact. IMPRESSION: Cardiomegaly with no active disease in the chest. ACT 112: Negative or not required by law. Electronically signed by: Magan Dejesus M.D. 02/07/2023 11:30 AM Discharge Plan Visit Data Chief Complaint: Illness Stated Complaint: SOB, COVID + ED Provider: Debbie Menchaca Discharge Problem: COVID-19, Generalized weakness, Acute hypoxemic respiratory failure Forms Stand Alone Forms: My [facility] Prescriptions Prescriptions: No Action atorvastatin 40 mg Tablet 40 mg PO QAM calcium polycarbophil [Fiber-Lax] 625 mg Tablet 1,250 mg PO DAILY docusate sodium [Colace] 100 mg Capsule 100 mg PO BID omeprazole magnesium [Prilosec OTC] 20 mg Tablet,Delayed Release (Dr/Ec) 20 mg PO PM Rx Instructions: TAKES AT 1600 acetaminophen 325 mg Tablet 650 mg PO Q6H MDD 3 GRAMS/24 HOURS PRN (Reason: Pain) divalproex [Depakote] 250 mg Tablet,Delayed Release (Dr/Ec) 250 mg PO HS Rx Instructions: WITH THREE 500MG TABS FOR TOTAL OF 1750MG divalproex [Depakote] 500 mg Tablet,Delayed Release (Dr/Ec) 1,500 mg PO HS Rx Instructions: TAKE WITH 250MG DOSE FOR TOTAL OF 1750MG risperidone [Risperdal] 3 mg Tablet 6 mg PO HS magnesium hydroxide [Milk of Magnesia] 400 mg/5 mL Suspension 30 ml PO DAILY PRN (Reason: Heartburn) lithium carbonate 300 mg Capsule 600 mg PO HS erythromycin 5 mg/gram (0.5 %) Ointment 1 applic OPHTHALMIC (EYE) HS PRN (Reason: eye infection) escitalopram oxalate 20 mg Tablet 20 mg PO QAM Eucerin Cream 1 applic TOPICAL DAILY PRN (Reason: Dry Skin) cholecalciferol (vitamin D3) [Vitamin D3] 25 mcg (1,000 unit) Tablet,Chewable 1,000 unit PO QAM haloperidol 1 mg tablet 1 mg PO HS levothyroxine 88 mcg tablet 88 mcg PO DAILY haloperidol 0.5 mg Tablet 0.5 mg PO QAM omega-3 fatty acids 1,000 mg Capsule 1,000 mg PO TID dextromethorphan-guaifenesin [Tussin DM] 10-100 mg/5 mL Liquid 10 ml PO TID PRN (Reason: Cough) alum-mag hydroxide-simeth [Antacid-Simethicone] 400-400-40 mg/5 mL Suspension 15 ml PO BID PRN (Reason: UPSET STOMACH/VOMITING) olopatadine 0.2 % Drops 1 drp OPB BID PRN (Reason: Eye Irritation) levocetirizine [Xyzal] 5 mg Tablet 2.5 mg PO PM Certavite-Antioxidant 18-400 mg-mcg Tablet 1 tab PO DAILY Systane Balance 0.6 % Drops 1 drp OPB QID PRN (Reason: Dry Eyes) metformin 500 mg tablet extended release 24 hr 1,000 mg PO QDB asenapine maleate [Saphris] 5 mg tablet, sublingual 5 mg SUBLINGUAL QAM asenapine maleate [Saphris] 10 mg tablet, sublingual 10 mg SUBLINGUAL HS Referrals Referrals: Akil Thorne MD [Primary Care Provider] -
[2023-02-07 11:27] LABS: Hematocrit (blood only) 45.8 % (42.0-52.0); Hemoglobin 15.2 g/dl (14.0-18.0); Immature Granulocytes # (auto) 0.02 K/uL (0.01-0.20); Immature Granulocytes % (auto) 0.4 %; Lymphocytes # (auto) 0.67 K/uL (1.20-3.40); Lymphocytes % (auto) 14.4 %; Mean Corpuscular Hemoglobin 32.3 pg (25.0-34.0); Mean Corpuscular Hgb Conc 33.2 g/dL (32.0-36.0); Mean Corpuscular Volume 97.4 fL (80.0-100.0); Monocytes # (auto) 0.56 K/uL (0.11-0.59); Monocytes % (auto) 12.1 %; Neutrophils # (auto) 3.39 K/uL (1.40-6.50); Neutrophils % (auto) 73.1 %; Platelet Count 138 K/uL (130-400); RDW Coefficient of Variation 12.9 % (11.5-14.5); RDW Standard Deviation 46.6 fL (36.4-46.3); White Blood Count 4.64 K/ul (4.8-10.8)
--- NOTE | 2023-02-07 11:31 | XRay Report ---
SINGLE VIEW CHEST CLINICAL HISTORY: Dyspnea FINDINGS: An AP, portable, upright chest radiograph is compared to study dated 02/06/2023 and correla marti with chest CT dated 08/22/2021. The patient's head partially obscures the apices. The heart is mil dly enlarged. The pulmonary vasculature is noncongested. Chronic interstitial thickening is similar t o previous. There is bibasilar scarring/atelectasis. No airspace consolidation or large pleural effus ion is identified. No pneumothorax is seen. The skeletal structures are osteopenic. The bony thorax i s grossly intact. IMPRESSION: Cardiomegaly with no active disease in the chest. ACT 112: Negative or not required by law. Electronically signed by: Magan Dejesus M.D. 02/07/2023 11:30 AM
[2023-02-07 11:37] LABS: Alanine Aminotransferase 18 U/L (7-52); Albumin Globulin Ratio 1.6 (0.9-2); Albumin Level 3.9 gm/dl (3.4-5.0); Alkaline Phosphatase 65 U/L (34-104); Anion Gap 6 (3-11); Aspartate Aminotransferase 15 U/L (13-39); BUN Creatinine Ratio 9.4 (10-20); Blood Urea Nitrogen 8 mg/dl (6-23); Calcium 9.8 mg/dl (8.6-10.3); Carbon Dioxide 27 mmol/L (21-32); Chloride 109 mmol/L (98-107); Est GFR (African American) 107.5 ml/min; Est GFR (Non-African American) 92.7 ml/min; Globulin 2.4 gm/dl (2.5-4.0); Glucose 127 mg/dl (70-99(Fasting)); Potassium 4.1 mmol/L (3.5-5.1); Sodium 142 mmol/L (136-145); Total Protein 6.3 gm/dl (6.0-8.3)
[2023-02-07 11:40] LABS: Troponin I High Sensitivity 4.6 pg/ml (0-20)
[2023-02-07] MEDS ORDERED: DEXAMETHASONE SOD INJ 4 MG/ML VIAL IV STA (12:19)
--- NOTE | 2023-02-07 14:03 | History & Physical Report ---
Date of Service February 07, 2023 Assessment & Plan (1) Hypoxia: (2) COVID-19: (3) Intellectual disability: (4) Generalized weakness: (5) Schizophrenia: (6) DM2 (diabetes mellitus, type 2): Plan Patient is a 62-year-old male who has a significant past medical history of in tellectual disability, T2DM, schizophrenia, GERD, hyperlipidemia, hypothyroidism who presents to ED with known COVID-19 infection for the past 3 days and increased generalized weakness. Hypoxia COVID-19 Admit to medical telemetry Continue supplemental oxygen as needed IV remdesivir per protocol IV dexamethasone 6 mg daily As needed nebulizers and antitussives Supportive care, covid precautions CBC, BMP, Mag in a.m. T2DM Last A1c 5.6 On metformin, hold metformin and obtain A1c today Suspect BSG to run high in setting of dexamethasone use Placed on novolog protocol, may need additional coverage if patient becomes hyperglycemic Schizophrenia Intellectual disability supportive care continue home meds Generalized weakness PT/OT HLD chronic, stable continue statin Hypothyroidism chronic, stable continue levothyroxine DVTppx: SQ Lovenox DNR/DNI - discussed with aide from facility at bedside Dispo: admit to med tele, pt/ot Pt was seen and examined in collaboration with Dr. Elise, please see addendum A total of 82 was spent coordinating, documenting, and providing care for this patient excluding time spent in the performance of separately billed services. This included personally viewing all current laboratories and imaging studies, medication reconciliation, outpatient chart review, and discussion with specialists. History of Present Illness Chief Complaint: Weakness x 3 days. Known COVID 19. Primary Care Provider: Akil Thorne MD Patient is a 62-year-old male who has a significant past medical history of intellectual disability, T2DM, schizophrenia, GERD, hyperlipidemia, hypothyroidism who presents to ED with known COVID-19 infection for the past 3 d ays and increased generalized weakness. 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 Patient is a poor historian otherwise history unreliable from him. Symptoms started approximately 3 days ago with sinus congestion and feeling unwell. Overall decreased appetite but he is he is still drinking fluids. Every time he gets a viral infection he gets very weak. He was hospitalized for influenza and COVID in the past. Typically he has unsteady gait at baseline but when staff was walking with him this morning he was very, "wobbly," and there was concern he was going to fall. He was seen and evaluated in the ED yesterday however he was not hypoxic, was not requiring any oxygen and therefore was not admitted. He did test positive for COVID-19 yesterday. Unfortunately staff knew he would return, but did not expect it to be that soon. In ED patient was hemodynamically stable although he was hypoxic on arrival at 88% requiring 2 L of supplemental oxygen. Per staff at bedside his oxygen was 88 and 90% at the facility. He has been taking his medications. In ED patient's CBC, CMP and troponin were reviewed. Otherwise unremarkable except mild hyperglycemia at 127. His chest x-ray was negative for acute abnormality. He was saturating normally on supplemental oxygen. Allergies Allergy/AdvReac Type Severity Reaction Status Date / Time clozapine Allergy Intermediate ON SKILLS Verified 02/07/23 12:02 MED LIST benztropine Allergy Unknown CONTRAINDICATED Verified 03/22/22 18:10 PER MD Beta-Adrenergic Agents Allergy Unknown ON SKILLS Verified 02/07/23 12:01 MED LIST Iodinated Contrast Media Allergy Unknown ON SKILLS Verified 02/07/23 12:01 MED LIST iodine Allergy Unknown ON SKILLS Verified 02/07/23 12:01 MED LIST povidone-iodine Allergy Unknown ON SKILLS Verified 02/07/23 12:02 MED LIST pseudoephedrine Allergy Unknown PER MD Verified 02/07/23 12:01 soap [From Betadine] Allergy Unknown ON SKILLS Verified 02/07/23 12:02 MED LIST terfenadine Allergy Unknown PER MD Verified 02/07/23 12:01 valproic acid Allergy Unknown ON SKILLS Verified 02/07/23 12:01 MED LIST SYMPATHOMIMETIC AGENTS Allergy Unknown ON SKILLS Uncoded 02/07/23 12:01 MED LIST Home Medications Medication Instructions Recorded Confirmed Type acetaminophen 325 mg tablet 650 mg PO Q6H PRN Pain 05/05/19 02/07/23 History atorvastatin 40 mg tablet 40 mg PO QAM 05/05/19 02/07/23 History calcium polycarbophil 625 mg 1,250 mg PO DAILY 05/05/19 02/07/23 History tablet (Fiber-Lax) cholecalciferol (vitamin D3) 25 1,000 unit PO QAM 05/05/19 02/07/23 History mcg (1,000 unit) chewable tablet (Vitamin D3) divalproex 250 mg tablet,delayed 250 mg PO HS 05/05/19 02/07/23 History release (Depakote) divalproex 500 mg tablet,delayed 1,500 mg PO HS 05/05/19 02/07/23 History release (Depakote) docusate sodium 100 mg capsule 100 mg PO BID 05/05/19 02/07/23 History (Colace) erythromycin 5 mg/gram (0.5 %) eye 1 applic ophthalmic (eye) HS PRN 05/05/19 02/07/23 History ointment eye infection escitalopram oxalate 20 mg tablet 20 mg PO QAM 05/05/19 02/07/23 History lithium carbonate 300 mg capsule 600 mg PO HS 05/05/19 02/07/23 History magnesium hydroxide 400 mg/5 mL 30 ml PO DAILY PRN Constipation 05/05/19 02/07/23 History oral suspension (Milk of Magnesia) omeprazole magnesium 20 mg 20 mg PO PM 05/05/19 02/07/23 History tablet,delayed release (Prilosec OTC) risperidone 3 mg tablet (Risperdal) 6 mg PO HS 05/05/19 02/07/23 History haloperidol 1 mg tablet 1 mg PO HS 08/22/21 02/07/23 History levothyroxine 88 mcg tablet 88 mcg PO DAILY 08/22/21 02/07/23 History dextromethorphan-guaifenesin 10 10 ml PO TID PRN Cough 01/16/22 02/07/23 History mg-100 mg/5 mL oral liquid (Tussin DM) haloperidol 0.5 mg tablet 0.5 mg PO QAM 01/16/22 02/07/23 History levocetirizine 5 mg tablet (Xyzal) 2.5 mg PO PM 01/16/22 02/07/23 History multivitamin-ferrous 1 tab PO DAILY 01/16/22 02/07/23 History fumarate-folic acid 18 mg-400 mcg tablet (Certavite-Antioxidant) olopatadine 0.2 % eye drops 1 drp OPB BID PRN Eye Irritation 01/16/22 02/07/23 History omega-3 fatty acids 1,000 mg 1,000 mg PO TID 01/16/22 02/07/23 History capsule propylene glycol 0.6 % eye drops 1 drp OPB QID PRN Dry Eyes 01/16/22 02/07/23 History (Systane Balance) asenapine maleate 10 mg sublingual 10 mg sublingual HS 03/22/22 02/07/23 History tablet (Saphris) asenapine maleate 5 mg sublingual 5 mg sublingual QAM 03/22/22 02/07/23 History tablet (Saphris) metformin 500 mg tablet,extended 1,000 mg PO QDB 03/22/22 02/07/23 History release 24 hr aluminum-mag hydroxide-simethicone 10 ml PO BID PRN UPSET 02/07/23 02/07/23 History 200 mg-200 mg-20 mg/5 mL oral susp STOMACH/VOMITING (Antacid Anti-Gas) emollient combination no.41 (Gold 1 ea topical QAM 02/07/23 02/07/23 History [facility] topical liquid) loperamide 2 mg capsule (Imodium 4 mg PO DIRECTED PRN Diarrhea 02/07/23 02/07/23 History A-D) polyethylene glycol 3350 17 17 g PO DAILY 02/07/23 02/07/23 History gram/dose oral powder (Miralax) Past Med/Surg History Medical History Esophageal reflux Myopia Moderate intellectual disabilities Diabetes mellitus Hx pulmonary embolism NO OTHER DETAILS PROVIDED Hypothyroidism Metabolic syndrome WILVER (obstructive sleep apnea) SEVERE> NO DEVICE PER RECORDS Dermatitis Cellulitis of leg Obesity (BMI 30.0-34.9) Dyslipidemia Schizophrenia Mental and behavioral problem in adult Hemorrhoid WITHOUT COMPLICATION Surgical History History of right cataract surgery History of tooth extraction WISDOM TEETH History of colonoscopy Family History Other Family history non-contributory Social History Smoking Status: Never smoker Second Hand Exposure: No; Do You Dip or Chew Tobacco: No; Hx Alcohol Use: No Hx Substance Use: No Preferred Language: Iraqi Communication Ability: Effective Communication Ability Comment: sister to sign (verbal consent) through phone day of procedure Ingredient Mixer Required: No Beliefs That Will Affect Care: None marital status: Single Current Living Situation: Boarding Home Current Living Situation Comment: Lives at [facility] Other Information That Helps Us Care for You: No Feels Safe at Home: Yes Safety Concerns: Feels Safe At This Time Assistive Devices: None Review of Systems Review of Systems: Unobtainable due to cognitive status Physical Exam Physical Exam: Constitutional: WD/WN, Intellectual disability, vitals as above, NAD, sitting up in bed, pleasant Head: Normocephalic, Atraumatic Eyes: PERRL, conjunctivae normal, anicteric sclerae ENMT: external ear and nose normal, oropharynx normal Neck: trachea midline, no thyromegaly normal visual inspection Respiratory: normal respiratory effort, lungs clear to auscultation, no wheeze, rales, rhonchi. Normal insp/exp effort, no accessory muscle use Cardiovascular: RRR, no murmur, no edema Vessels: no JVD or carotid bruit Chest: normal inspection of chest Abdomen: obese abd, normal bowel sounds, soft, nontender, no hepatosplenomegaly Musculoskeletal: no cyanosis or clubbing, AROM x 4 Skin: no rashes, warm and dry normal turgor Neurologic: PERRL, EOMI, accommodation nl, no face palsy, no dysarthria CN's II-XI intact bilaterally and moves all extremities Psychiatric: A+Ox3, euthymic affect Lymphatic: no cervical or axillary lymphadenopathy : deferred Results & Data Results & Data Vital Signs (Past 12 Hours) Vital Signs Temp Pulse Pulse Resp BP BP Pulse Ox 02/07/23 11:55 79 18 135/79 94 02/07/23 11:48 90 02/07/23 10:10 36.7 C 101 H 20 122/82 91 O2 Del Method O2 Flow Rate 02/07/23 11:55 Nasal Cannula 2 02/07/23 11:48 02/07/23 10:10 Room Air Laboratory Results I have independently reviewed and interpreted patient's admitting labs including CBC, CMP, and troponin. Diagnostic Findings Chest X-Ray 02/07/23 10:53 SINGLE VIEW CHEST CLINICAL HISTORY: Dyspnea FINDINGS: An AP, portable, upright chest radiograph is compared to study dated 02/06/2023 and correlated with chest CT dated 08/22/2021. The patient's head partially obscures the apices. The heart is mildly enlarged. The pulmonary vasculature is noncongested. Chronic interstitial thickening is similar to previous. There is bibasilar scarring/atelectasis. No airspace consolidation or large pleural effusion is identified. No pneumothorax is seen. The skeletal structures are osteopenic. The bony thorax is grossly intact. IMPRESSION: Cardiomegaly with no active disease in the chest. ACT 112: Negative or not required by law. Electronically signed by: Magan Dejesus M.D. 02/07/2023 11:30 AM ECG Additional Comments: I have independently reviewed and interpreted patient's admitting EKG which revealed: NSR, 100, incomplete RBBB COVID-19 Results Results COVID-19 Adm Lab Results: RBC 4.70 M/uL (4.70-6.10) 02/07/23 WBC 4.64 K/ul (4.8-10.8) L 02/07/23 Hgb 15.2 g/dl (14.0-18.0) 02/07/23 Hct 45.8 % (42.0-52.0) 02/07/23 Plt Count 138 K/uL (130-400) 02/07/23 Neutrophils (%) (Auto) 73.1 % 02/07/23 Lymphocytes (%) (Auto) 14.4 % 02/07/23 Monocytes # (Auto) 0.56 K/uL (0.11-0.59) 02/07/23 Eosinophils # (Auto) 0.00 K/uL (0.00-0.50) 02/07/23 Immature Granulocyte % (Auto) 0.4 % 02/07/23 Neutrophils # (Auto) 3.39 K/uL (1.40-6.50) 02/07/23 Lymphocytes # (Auto) 0.67 K/uL (1.20-3.40) L 02/07/23 Monocytes # (Auto) 0.56 K/uL (0.11-0.59) 02/07/23 Eosinophils # (Auto) 0.00 K/uL (0.00-0.50) 02/07/23 Basophils # (Auto) 0.00 K/uL (0.00-0.20) 02/07/23 Immature Granulocyte # (Auto) 0.02 K/uL (0.01-0.20) 3 Na 142 mmol/L (136-145) 02/07/23 K 4.1 mmol/L (3.5-5.1) 02/07/23 Cl 109 mmol/L (98-107) H 02/07/23 CO2 27 mmol/L (21-32) 02/07/23 Anion Gap 6 (3-11) 02/07/23 BUN 8 mg/dl (6-23) 02/07/23 Creatinine 0.85 mg/dl (0.6-1.4) 02/07/23 BUN/Creatinine Ratio 9.4 (10-20) L 02/07/23 Glucose Level 127 mg/dl (70-99(Fasting)) H 02/07/23 Ca 9.8 mg/dl (8.6-10.3) 02/07/23 Total Bilirubin 1.0 mg/dl (0.2-1.0) 02/07/23 AST/SGOT 15 U/L (13-39) 02/07/23 ALT/SGPT 18 U/L (7-52) 02/07/23 Alkaline Phosphatase 65 U/L (34-104) 02/07/23 Total Protein 6.3 gm/dl (6.0-8.3) 02/07/23 Albumin 3.9 gm/dl (3.4-5.0) 02/07/23 Globulin 2.4 gm/dl (2.5-4.0) L 02/07/23 Albumin/Globulin Ratio 1.6 (0.9-2) 02/07/23 Chest X-Ray 02/07/23 Code Status & VTE Plan Code Status FULL CODE VTE Prophylaxis Plan VTE Prophylaxis will be ordered: Yes Supervising Physician Co-Signing Physician Notes Care coordinated with Laila Rogers PA-C. Agree with above note. Patient seen and examined. Please refer to her notes for full details. Vital signs reviewed. Physical exam: General exam: Alert and awake . Not in acute distress. CVS: S1 and S2 heard, regular rate and rhythm, no murmurs. RS: Clear to auscultation, no wheezing or crackles. ABD: Soft, bowel sounds present, nontender, no distention. MANAGER RISK MANAGEMENT: alet and awake, obeys commands, moves extremities. EXT: No edema, no erythema. Labs: Reviewed. Assessment and plan: 62Y M with medical history significant for intellectual disability, diabetes, schizophrenia presents with the COVID infection. Past 3 days and increased weakness and is requiring oxygen. COVID Hypoxia Requiring oxygen IV remdesivir with with follow-up labs IV Decadron COVID precautions Close monitor History of schizophrenia Home medications Other diagnosis and plan of care as per Laila Rogers PA-C. . Jose ford MD.
[2023-02-07] MEDS ORDERED: ALBUTEROL 0.083% NEBU SOLN 3 ML VIAL NEB PRN (14:51)
[2023-02-07] MEDS ORDERED: ONDANSETRON INJ 2 MG/ML 2 ML VIAL IV PRN (14:51)
[2023-02-07] MEDS ORDERED: ALUMINUM/MAGNESIUM SUSP 30 ML UDC PO PRN (14:51)
[2023-02-07] MEDS ORDERED: CARBOHYDRATES FOR HYPOGLYCEMIA PO PRN (14:51)
[2023-02-07] MEDS ORDERED: GLUCOSE 40% GEL 15 GM TUBE PO PRN (14:51)
[2023-02-07] MEDS ORDERED: GLUCAGON FOR INJ 1 MG VIAL SQ PRN (14:51)
[2023-02-07] MEDS ORDERED: DEXTROSE 50% 50 ML SYRINGE IV PRN (14:51)
[2023-02-07] MEDS ORDERED: MAGNESIUM HYDROXIDE SUSP 30 ML UDC PO PRN (14:51)
[2023-02-07] MEDS ORDERED: ACETAMINOPHEN 325 MG TAB PO PRN (14:51)
[2023-02-07] MEDS ORDERED: POLYETHYLENE (MIRALAX) 17 GM PACK PO PRN (14:51)
[2023-02-07] MEDS ORDERED: guaiFENesin 600 MG TABCR PO PRN (14:51)
[2023-02-07] MEDS ORDERED: GLUCOSE 10 TAB/TUBE PO PRN (14:51)
[2023-02-07] MEDS ORDERED: REMDESIVIR 200 MG in SODIUM CHLORIDE 0.9% 210 ML IV STA (14:56)
[2023-02-07] MEDS: Patient's HEIGHT &/or WEIGHT Needed SCH ×2 (15:56→20:41)
[2023-02-07] MEDS: PANTOprazole 40 MG TAB PO SCH (15:57)
[2023-02-07] MEDS: INSULIN ASPART PER UNIT CHARGE SC SCH ×2 (18:06→20:25)
[2023-02-07] MEDS: ASENAPINE 10 MG SL SCH (20:28)
[2023-02-07] MEDS: CETIRIZINE HCL 10 MG TABLET PO SCH (20:29)
[2023-02-07] MEDS: DIVALPROEX DELAY RELEASE 250 MG TABEC PO SCH (20:29)
[2023-02-07] MEDS: LITHIUM CARBONATE 300 MG TAB PO SCH (20:29)
[2023-02-07] MEDS: DIVALPROEX DELAY RELEASE 500 MG TAB PO SCH (20:29)
[2023-02-07] MEDS: risperiDONE 3 MG TABLET PO SCH (20:29)
[2023-02-07] MEDS: DOCUSATE SODIUM 100 MG CAP PO SCH (20:29)
[2023-02-07] MEDS: OMEGA-3 (PURIFIED FISH OIL) 1 GM CAP PO SCH (20:29)
[2023-02-07] MEDS: haloperidoL 1 MG TAB PO SCH (20:30)
[2023-02-07] MEDS: ENOXAPARIN INJ 40 MG/0.4 ML SYR SQ SCH (20:31)
[2023-02-08 05:40] LABS: Hematocrit (blood only) 40.3 % (42.0-52.0); Immature Granulocytes # (auto) 0.02 K/uL (0.01-0.20); Immature Granulocytes % (auto) 0.4 %; Lymphocytes # (auto) 1.37 K/uL (1.20-3.40); Lymphocytes % (auto) 28.1 %; Mean Corpuscular Hemoglobin 32.3 pg (25.0-34.0); Mean Corpuscular Hgb Conc 32.3 g/dL (32.0-36.0); Mean Corpuscular Volume 100.2 fL (80.0-100.0); Mean Platelet Volume 9.9 fL (9.4-12.4); Monocytes # (auto) 0.48 K/uL (0.11-0.59); Monocytes % (auto) 9.9 %; Neutrophils % (auto) 61.6 %; Platelet Count 140 K/uL (130-400); RDW Coefficient of Variation 12.9 % (11.5-14.5); RDW Standard Deviation 48.1 fL (36.4-46.3); Red Blood Count 4.02 M/uL (4.70-6.10); White Blood Count 4.87 K/ul (4.8-10.8)
[2023-02-08 05:56] LABS: Albumin Globulin Ratio 1.7 (0.9-2); Albumin Level 3.4 gm/dl (3.4-5.0); BUN Creatinine Ratio 13.7 (10-20); Bilirubin,Total 0.7 mg/dl (0.2-1.0); Calcium 8.9 mg/dl (8.6-10.3); Creatinine Clr Calc Pharmacy 87.4 ml/min; Est GFR (African American) 98.3 ml/min; Est GFR (Non-African American) 84.9 ml/min; Magnesium 1.9 mg/dl (1.7-2.4); Potassium 4.3 mmol/L (3.5-5.1); Total Protein 5.4 gm/dl (6.0-8.3)
[2023-02-08] MEDS: LEVOTHYROXINE SODIUM 88 MCG TABLET PO SCH (06:19)
[2023-02-08 07:17] LABS: Estimated Average Glucose 111 mg/dl; Hemoglobin A1C 5.5 % (4.5-5.6)
--- NOTE | 2023-02-08 07:41 | Electrocardiogram Report ---
Test Reason : Blood Pressure : / mmHG Vent. Rate : 100 BPM Atrial Rate : 100 BPM P-R Int : 150 ms QRS Dur : 098 ms QT Int : 362 ms P-R-T Axes : 038 -66 033 degrees QTc Int : 466 ms Poor data quality, interpretation may be adversely affected Normal sinus rhythm Incomplete right bundle branch block Left anterior fascicular block Abnormal ECG When compared with ECG of 06-FEB-2023 12:52, No significant change was found Confirmed by Ryan Leigh ([id number]) on 02/08/2023 7:41:16 AM Referred By: REFERRED SELF Confirmed By:Ryan Leigh
[2023-02-08] MEDS ORDERED: dexAMETHasone 6 MG in SYRINGE 0 ML IV SCH (09:00)
[2023-02-08] MEDS: INSULIN ASPART PER UNIT CHARGE SC SCH ×4 (10:14→21:06)
[2023-02-08] MEDS: haloperidoL 0.5 MG TAB PO SCH (10:15)
[2023-02-08] MEDS: ASENAPINE 5 MG SL SCH (10:16)
[2023-02-08] MEDS: ESCITALOPRAM OXALATE 20 MG TAB PO SCH (10:17)
[2023-02-08] MEDS: CEROVITE ADV FORMULA TAB PO SCH (10:17)
[2023-02-08] MEDS: CHOLECALCIFEROL 1,000 UNITS 25 MCG TAB PO SCH (10:17)
[2023-02-08] MEDS: CALCIUM POLYCARBOPHIL 625MG TAB PO SCH (10:17)
[2023-02-08] MEDS: ATORVASTATIN 40 MG TAB PO SCH (10:17)
[2023-02-08] MEDS: OMEGA-3 (PURIFIED FISH OIL) 1 GM CAP PO SCH ×3 (10:18→21:12)
[2023-02-08] MEDS: DOCUSATE SODIUM 100 MG CAP PO SCH ×2 (10:18→23:23)
[2023-02-08] MEDS: POLYETHYLENE (MIRALAX) 17 GM PACK PO SCH (10:18)
[2023-02-08] MEDS: REMDESIVIR 100 MG in SODIUM CHLORIDE 0.9% 230 ML IV SCH (13:20)
--- NOTE | 2023-02-08 15:15 | Hospitalist Progress Note ---
Date of Service February 08, 2023 Assessment & Plan (1) Hypoxia: (2) COVID-19: (3) Intellectual disability: (4) Generalized weakness: (5) Schizophrenia: (6) DM2 (diabetes mellitus, type 2): Plan per admitting service notes with addendum: Patient is a 62-year-old male who has a significant past medical history of intellectual disability, T2DM, schizophrenia, GERD, hyperlipidemia, hypothyroidism who presents to ED with known COVID-19 infection for the past 3 days and increased generalized weakness. Hypoxia COVID-19 Admit to medical telemetry Continue supplemental oxygen as needed IV remdesivir per protocol IV dexamethasone 6 mg daily As needed nebulizers and antitussives Supportive care, covid precautions CBC, BMP, Mag in a.m. 02/08 On room air, not in distress Chest x-ray: No pneumonia Clinically improving Continue remdesivir plus Decadron day #2 Continue supportive care Will try to encourage using incentive spirometry and flutter valve Lovenox subcutaneous for DVT prophylaxis T2DM Last A1c 5.6 On metformin, hold metformin and obtain A1c today Suspect BSG to run high in setting of dexamethasone use Placed on novolog protocol, may need additional coverage if patient becomes hyperglycemic 02/08 A1c 5.5 BSG 86-126 On insulin sliding scale Schizophrenia Intellectual disability supportive care continue home meds Generalized weakness PT/OT HLD chronic, stable continue statin Hypothyroidism chronic, stable continue levothyroxine DVTppx: SQ Lovenox DNR/DNI - discussed with aide from facility at bedside Dispo: Anticipate return to facility when medically stable Admission and Anticipated Discharge Date Admission Date: February 07, 2023 Subjective Follow-up for COVID-19 infection, etc. Seen sitting up in bed, comfortable, in good spirits On room air, not in distress States he feels better today Denies cough, shortness of breath, chest pain No abdominal pain, diarrhea, nausea vomiting No other symptoms Review of Systems Review of Systems: all noted and negative except for above Physical Exam Physical Exam: General-awake and alert, not in distress, speaks in sentences with no effort or accessory muscle use Eyes- anicteric Neck- no JVD Lungs- clear breath sounds bilaterally, no rales/wheezes Heart- normal rate, regular rhythm; no murmurs Abdomen- normal bowel sounds, nondistended, soft, nontender Extremities- no pretibial edema, no calf tenderness Neuro- alert; no new gross focal neurologic deficits Skin- warm & dry Results & Data Results & Data Vital Signs (Past 12 Hours) Vital Signs Temp Pulse Pulse Resp BP Pulse Ox O2 Del Method 02/08/23 12:44 36.4 C L 72 18 141/83 H 90 Room Air 02/08/23 08:43 36.3 C L 56 L 18 116/79 94 Room Air 02/08/23 07:54 48 L 02/08/23 04:30 36.3 C L 49 L 12 115/76 91 Room Air all noted and reviewed including below
[2023-02-08] MEDS: PANTOprazole 40 MG TAB PO SCH (16:21)
[2023-02-08] MEDS: ASENAPINE 10 MG SL SCH (21:05)
[2023-02-08] MEDS: risperiDONE 3 MG TABLET PO SCH (21:08)
[2023-02-08] MEDS: LITHIUM CARBONATE 300 MG TAB PO SCH (21:08)
[2023-02-08] MEDS: haloperidoL 1 MG TAB PO SCH (21:11)
[2023-02-08] MEDS: ENOXAPARIN INJ 40 MG/0.4 ML SYR SQ SCH (21:12)
[2023-02-08] MEDS: DIVALPROEX DELAY RELEASE 500 MG TAB PO SCH (21:13)
[2023-02-08] MEDS: DIVALPROEX DELAY RELEASE 250 MG TABEC PO SCH (21:13)
[2023-02-08] MEDS: CETIRIZINE HCL 10 MG TABLET PO SCH (21:16)
[2023-02-09] MEDS: LEVOTHYROXINE SODIUM 88 MCG TABLET PO SCH (05:30)
[2023-02-09 05:54] LABS: Albumin Globulin Ratio 1.7 (0.9-2); Albumin Level 3.5 gm/dl (3.4-5.0); BUN Creatinine Ratio 21.4 (10-20); Bilirubin,Total 0.6 mg/dl (0.2-1.0); Calcium 9.2 mg/dl (8.6-10.3); Creatinine Clr Calc Pharmacy 98.8 ml/min; Est GFR (Non-African American) 93.2 ml/min; Globulin 2.1 gm/dl (2.5-4.0); Potassium 3.7 mmol/L (3.5-5.1); Total Protein 5.6 gm/dl (6.0-8.3)
[2023-02-09] MEDS: POLYETHYLENE (MIRALAX) 17 GM PACK PO SCH (10:14)
[2023-02-09] MEDS: ATORVASTATIN 40 MG TAB PO SCH (10:15)
[2023-02-09] MEDS: ESCITALOPRAM OXALATE 20 MG TAB PO SCH (10:15)
[2023-02-09] MEDS: CHOLECALCIFEROL 1,000 UNITS 25 MCG TAB PO SCH (10:15)
[2023-02-09] MEDS: OMEGA-3 (PURIFIED FISH OIL) 1 GM CAP PO SCH ×3 (10:16→22:02)
[2023-02-09] MEDS: CALCIUM POLYCARBOPHIL 625MG TAB PO SCH (10:17)
[2023-02-09] MEDS: CEROVITE ADV FORMULA TAB PO SCH (10:17)
[2023-02-09] MEDS: haloperidoL 0.5 MG TAB PO SCH (10:17)
[2023-02-09] MEDS: ASENAPINE 5 MG SL SCH (10:18)
[2023-02-09] MEDS: DOCUSATE SODIUM 100 MG CAP PO SCH ×2 (10:20→22:07)
[2023-02-09] MEDS: INSULIN ASPART PER UNIT CHARGE SC SCH ×4 (10:25→21:32)
[2023-02-09] MEDS: REMDESIVIR 100 MG in SODIUM CHLORIDE 0.9% 230 ML IV SCH (13:17)
--- NOTE | 2023-02-09 15:03 | Hospitalist Progress Note ---
Date of Service February 09, 2023 Assessment & Plan (1) Hypoxia: (2) COVID-19: (3) Intellectual disability: (4) Generalized weakness: (5) Schizophrenia: (6) DM2 (diabetes mellitus, type 2): Plan per admitting service notes with addendum: Patient is a 62-year-old male who has a significant past medical history of intellectual disability, T2DM, schizophrenia, GERD, hyperlipidemia, hypothyroidism who presents to ED with known COVID-19 infection for the past 3 days and increased generalized weakness. Hypoxia COVID-19 Admit to medical telemetry Continue supplemental oxygen as needed IV remdesivir per protocol IV dexamethasone 6 mg daily As needed nebulizers and antitussives Supportive care, covid precautions CBC, BMP, Mag in a.m. 02/08 On room air, not in distress Chest x-ray: No pneumonia Clinically improving Continue remdesivir plus Decadron day #2 Continue supportive care Will try to encourage using incentive spirometry and flutter valve Lovenox subcutaneous for DVT prophylaxis 02/09 Remained stable On room air, O2 sats more than 90% Patient reports he is improving Stop Decadron as patient's hypoxia has resolved Continue remdesivir day #3 Continue supportive care Possible discharge tomorrow T2DM Last A1c 5.6 On metformin, hold metformin and obtain A1c today Suspect BSG to run high in setting of dexamethasone use Placed on novolog protocol, may need additional coverage if patient becomes hyperglycemic A1c 5.5 BSG 80s On insulin sliding scale Schizophrenia Intellectual disability supportive care continue home meds Generalized weakness PT/OT HLD chronic, stable continue statin Hypothyroidism chronic, stable continue levothyroxine DVTppx: SQ Lovenox DNR/DNI - discussed with aide from facility at bedside Dispo: Anticipate return to facility when medically stable, likely tomorrow Admission and Anticipated Discharge Date Admission Date: February 07, 2023 Subjective Follow-up for COVID-19 infection, etc. Seen sitting up in bed, comfortable, not in distress Smiling, in good spirits States he feels better Denies cough, shortness of breath, chest pain, dizziness Appetite is good No other issues per research physiologist of Systems Review of Systems: all noted and negative except for above Physical Exam Physical Exam: General-alert, not in distress, speaks in sentences with no effort or accessory muscle use Eyes- anicteric Neck- no JVD Lungs- clear breath sounds bilaterally, no crackles, rhonchi, wheezing Heart- normal rate, regular rhythm; no murmurs Abdomen- normal bowel sounds, nondistended, soft, nontender Extremities- no pretibial edema, no calf tenderness Neuro- alert, no new gross focal neurologic deficits Skin- warm & dry Results & Data Results & Data Vital Signs (Past 12 Hours) Vital Signs Temp Pulse Pulse Pulse Resp BP Pulse Ox 02/09/23 08:00 37 C 66 18 164/90 H 96 02/09/23 08:00 52 L 02/09/23 03:29 36.4 C L 55 L 18 144/84 H 97 O2 Del Method 02/09/23 08:00 Room Air 02/09/23 08:00 02/09/23 03:29 Room Air all noted and reviewed including below
[2023-02-09] MEDS: PANTOprazole 40 MG TAB PO SCH (17:00)
[2023-02-09] MEDS: CETIRIZINE HCL 10 MG TABLET PO SCH (21:57)
[2023-02-09] MEDS: DIVALPROEX DELAY RELEASE 250 MG TABEC PO SCH (21:58)
[2023-02-09] MEDS: DIVALPROEX DELAY RELEASE 500 MG TAB PO SCH (21:58)
[2023-02-09] MEDS: risperiDONE 3 MG TABLET PO SCH (21:59)
[2023-02-09] MEDS: ENOXAPARIN INJ 40 MG/0.4 ML SYR SQ SCH (22:01)
[2023-02-09] MEDS: LITHIUM CARBONATE 300 MG TAB PO SCH (22:03)
[2023-02-09] MEDS: haloperidoL 1 MG TAB PO SCH (22:03)
[2023-02-09] MEDS: ASENAPINE 10 MG SL SCH (22:04)
[2023-02-10] MEDS: LEVOTHYROXINE SODIUM 88 MCG TABLET PO SCH (05:58)
[2023-02-10 06:45] LABS: Albumin Globulin Ratio 1.7 (0.9-2); Albumin Level 3.3 gm/dl (3.4-5.0); BUN Creatinine Ratio 14.6 (10-20); Bilirubin,Total 0.7 mg/dl (0.2-1.0); Calcium 8.7 mg/dl (8.6-10.3); Creatinine Clr Calc Pharmacy 67.5 ml/min; Est GFR (Non-African American) 62.1 ml/min; Total Protein 5.3 gm/dl (6.0-8.3)
[2023-02-10] MEDS: INSULIN ASPART PER UNIT CHARGE SC SCH ×2 (08:46→12:36)
[2023-02-10] MEDS: ATORVASTATIN 40 MG TAB PO SCH (09:44)
[2023-02-10] MEDS: CALCIUM POLYCARBOPHIL 625MG TAB PO SCH (09:44)
[2023-02-10] MEDS: CHOLECALCIFEROL 1,000 UNITS 25 MCG TAB PO SCH (09:44)
[2023-02-10] MEDS: OMEGA-3 (PURIFIED FISH OIL) 1 GM CAP PO SCH ×2 (09:45→13:00)
[2023-02-10] MEDS: haloperidoL 0.5 MG TAB PO SCH (09:45)
[2023-02-10] MEDS: POLYETHYLENE (MIRALAX) 17 GM PACK PO SCH (09:46)
[2023-02-10] MEDS: ASENAPINE 5 MG SL SCH (09:47)
[2023-02-10] MEDS: ESCITALOPRAM OXALATE 20 MG TAB PO SCH (09:47)
[2023-02-10] MEDS: CEROVITE ADV FORMULA TAB PO SCH (09:47)
[2023-02-10] MEDS: DOCUSATE SODIUM 100 MG CAP PO SCH (10:01)
--- NOTE | 2023-02-10 10:09 | Hospitalist Progress Note ---
Date of Service February 10, 2023 Assessment & Plan (1) Hypoxia: (2) COVID-19: (3) Intellectual disability: (4) Generalized weakness: (5) Schizophrenia: (6) DM2 (diabetes mellitus, type 2): Plan per admitting service notes with addendum: Patient is a 62-year-old male who has a significant past medical history of intellectual disability, T2DM, schizophrenia, GERD, hyperlipidemia, hypothyroidism who presents to ED with known COVID-19 infection for the past 3 days and increased generalized weakness. Hypoxia COVID-19 Admit to medical telemetry Continue supplemental oxygen as needed IV remdesivir per protocol IV dexamethasone 6 mg daily As needed nebulizers and antitussives Supportive care, covid precautions CBC, BMP, Mag in a.m. 02/08 On room air, not in distress Chest x-ray: No pneumonia Clinically improving Continue remdesivir plus Decadron day #2 Continue supportive care Will try to encourage using incentive spirometry and flutter valve Lovenox subcutaneous for DVT prophylaxis 02/09 Remained stable On room air, O2 sats more than 90% Patient reports he is improving Stop Decadron as patient's hypoxia has resolved Continue remdesivir day #3 Continue supportive care Possible discharge tomorrow 02/10 stable overall on room air, clinically improved on Remdesivir Day #4 reports L LE discomfort check Doppler US BL to r/o DVT if negative, patient can be discharged T2DM Last A1c 5.6 usually on Metformin A1c 5.5 BSG 98 On insulin sliding scale Schizophrenia Intellectual disability supportive care continue home meds Generalized weakness PT/OT HLD chronic, stable continue statin Hypothyroidism chronic, stable continue levothyroxine DVTppx: SQ Lovenox DNR/DNI - discussed with aide from facility at bedside Dispo: Anticipate return to facility when medically stable, today if doppler US negative for DVT Admission and Anticipated Discharge Date Admission Date: February 07, 2023 Subjective ff up for COVID 19 infection, etc seen resting in bed, comfortable in good spirits, smiling states he feels fine overall "better" patient states no shortness of breath, chest pain, cough reports some mild L lower leg discomfort no other symptoms Review of Systems Review of Systems: all noted and negative except for above Physical Exam Physical Exam: General-awake, alert, not in distress, speaks in sentences with no effort or accessory muscle use Eyes- anicteric Neck- no JVD Lungs- clear breath sounds bilaterally, no rales/wheezes Heart- normal rate, regular rhythm; no murmurs Abdomen- normal bowel sounds, nondistended, soft, nontender Extremities- mild pretibial edema, no warmth/tenderness, no calf tenderness Neuro- alert, oriented x 3; no gross focal neurologic deficits Skin- warm & dry Results & Data Results & Data Vital Signs (Past 12 Hours) Vital Signs Temp Pulse Pulse Resp BP Pulse Ox O2 Del Method 02/10/23 08:24 36.7 C 57 L 17 139/83 94 Room Air 02/10/23 02:48 36.7 C 85 16 144/74 H 97 Room Air 02/09/23 23:20 70 all noted and reviewed including below
--- NOTE | 2023-02-10 12:06 | Ultrasound Report ---
BILATERAL LOWER EXTREMITY VENOUS DOPPLER CLINICAL HISTORY: edema, pain, r/o dvt COMPARISON STUDY: Bilateral lower extremity venous Doppler ultrasound June 13, 2015. TECHNIQUE: Sonography of the deep venous system of the bilateral lower extremities was performed. Co mpression and augmentation were evaluated. FINDINGS: The bilateral common femoral, superficial femoral and popliteal veins were compressible. A ugmentation was normal. Flow was shown within the deep calf vessels. IMPRESSION: No evidence of deep venous thrombus within the bilateral lower extremities. ACT 112: Negative or not required by law. Electronically signed by: Leandro Quevedo M.D. 02/10/2023 12:04 PM
[2023-02-10] MEDS: REMDESIVIR 100 MG in SODIUM CHLORIDE 0.9% 230 ML IV SCH (12:54)
--- NOTE | 2023-02-10 12:57 | Discharge Summary ---
Discharge Summary Date of Service February 10, 2023 Notes For Next Care Provider Medication Changes From Visit NONE Admission HPI Per Admitting Provider Patient is a 62-year-old male who has a significant past medical history of intellectual disability, T2DM, schizophrenia, GERD, hyperlipidemia, hypothyroidism who presents to ED with known COVID-19 infection for the past 3 days and increased generalized weakness. 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 Patient is a poor historian otherwise history unreliable from him. Symptoms started approximately 3 days ago with sinus congestion and feeling unwell. Overall decreased appetite but he is he is still drinking fluids. Every time he gets a viral infection he gets very weak. He was hospitalized for influenza and COVID in the past. Typically he has unsteady gait at baseline but when staff was walking with him this morning he was very, "wobbly," and there was concern he was going to fall. He was seen and evaluated in the ED yesterday however he was not hypoxic, was not requiring any oxygen and therefore was not admitted. He did test positive for COVID-19 yesterday. Unfortunately staff knew he would return, but did not expect it to be that soon. In ED patient was hemodynamically stable although he was hypoxic on arrival at 88% requiring 2 L of supplemental oxygen. Per staff at bedside his oxygen was 88 and 90% at the facility. He has been taking his medications. In ED patient's CBC, CMP and troponin were reviewed. Otherwise unremarkable except mild hyperglycemia at 127. His chest x-ray was negative for acute abnormality. He was saturating normally on supplemental oxygen. Admission Exam Per Admitting Provider Constitutional: WD/WN, Intellectual disability, vitals as above, NAD, sitting up in bed, pleasant Head: Normocephalic, Atraumatic Eyes: PERRL, conjunctivae normal, anicteric sclerae ENMT: external ear and nose normal, oropharynx normal Neck: trachea midline, no thyromegaly normal visual inspection Respiratory: normal respiratory effort, lungs clear to auscultation, no wheeze, rales, rhonchi. Normal insp/exp effort, no accessory muscle use Cardiovascular: RRR, no murmur, no edema Vessels: no JVD or carotid bruit Chest: normal inspection of chest Abdomen: obese abd, normal bowel sounds, soft, nontender, no hepatosplenomegaly Musculoskeletal: no cyanosis or clubbing, AROM x 4 Skin: no rashes, warm and dry normal turgor Neurologic: PERRL, EOMI, accommodation nl, no face palsy, no dysarthria CN's II-XI intact bilaterally and moves all extremities Psychiatric: A+Ox3, euthymic affect Lymphatic: no cervical or axillary lymphadenopathy : deferred Principal Dx & Hospital Course #1 = Principal Diagnosis (1) Hypoxia: (2) COVID-19: (3) Intellectual disability: (4) Generalized weakness: (5) Schizophrenia: (6) DM2 (diabetes mellitus, type 2): Plan per admitting service notes with addendum: Patient is a 62-year-old male who has a significant past medical history of intellectual disability, T2DM, schizophrenia, GERD, hyperlipidemia, hypothyroidism who presents to ED with known COVID-19 infection for the past 3 days and increased generalized weakness. Hypoxia COVID-19 patient admitted with hypoxia IV remdesivir per protocol IV dexamethasone 6 mg daily As needed nebulizers and antitussives Supportive care, covid precautions remained On room air, not in distress Chest x-ray: No pneumonia Clinically improved weaned off O2 supplement received 4 days of Remdesivir stable overall on room air, clinically improved continue isolation for 3 days ff up with PCP in 1 week T2DM Last A1c 5.6 resume Metformin Schizophrenia Intellectual disability supportive care continue home meds Generalized weakness PT/OT HLD chronic, stable continue statin Hypothyroidism chronic, stable continue levothyroxine DVTppx: SQ Lovenox DNR/DNI - discussed with aide from facility at bedside Dispo: d/c home today PCP ff up in 1 week Discharge Exam General-awake, alert, not in distress, speaks in sentences with no effort or accessory muscle use Eyes- anicteric Neck- no JVD Lungs- clear breath sounds bilaterally, no rales/wheezes Heart- normal rate, regular rhythm; no murmurs Abdomen- normal bowel sounds, nondistended, soft, nontender Extremities- mild pretibial edema, no warmth/tenderness, no calf tenderness Neuro- alert, oriented x 3; no gross focal neurologic deficits Skin- warm & dry Updated Medication List Medication Instructions Recorded Confirmed Type acetaminophen 325 mg tablet 650 mg PO Q6H PRN Pain 05/05/19 02/07/23 History atorvastatin 40 mg tablet 40 mg PO QAM 05/05/19 02/07/23 History calcium polycarbophil 625 mg 1,250 mg PO DAILY 05/05/19 02/07/23 History tablet (Fiber-Lax) cholecalciferol (vitamin D3) 25 1,000 unit PO QAM 05/05/19 02/07/23 History mcg (1,000 unit) chewable tablet (Vitamin D3) divalproex 250 mg tablet,delayed 250 mg PO HS 05/05/19 02/07/23 History release (Depakote) divalproex 500 mg tablet,delayed 1,500 mg PO HS 05/05/19 02/07/23 History release (Depakote) docusate sodium 100 mg capsule 100 mg PO BID 05/05/19 02/07/23 History (Colace) erythromycin 5 mg/gram (0.5 %) eye 1 applic ophthalmic (eye) HS PRN 05/05/19 02/07/23 History ointment eye infection escitalopram oxalate 20 mg tablet 20 mg PO QAM 05/05/19 02/07/23 History lithium carbonate 300 mg capsule 600 mg PO HS 05/05/19 02/07/23 History magnesium hydroxide 400 mg/5 mL 30 ml PO DAILY PRN Constipation 05/05/19 02/07/23 History oral suspension (Milk of Magnesia) omeprazole magnesium 20 mg 20 mg PO PM 05/05/19 02/07/23 History tablet,delayed release (Prilosec OTC) risperidone 3 mg tablet (Risperdal) 6 mg PO HS 05/05/19 02/07/23 History haloperidol 1 mg tablet 1 mg PO HS 08/22/21 02/07/23 History levothyroxine 88 mcg tablet 88 mcg PO DAILY 08/22/21 02/07/23 History dextromethorphan-guaifenesin 10 10 ml PO TID PRN Cough 01/16/22 02/07/23 History mg-100 mg/5 mL oral liquid (Tussin DM) haloperidol 0.5 mg tablet 0.5 mg PO QAM 01/16/22 02/07/23 History levocetirizine 5 mg tablet (Xyzal) 2.5 mg PO PM 01/16/22 02/07/23 History multivitamin-ferrous 1 tab PO DAILY 01/16/22 02/07/23 History fumarate-folic acid 18 mg-400 mcg tablet (Certavite-Antioxidant) olopatadine 0.2 % eye drops 1 drp OPB BID PRN Eye Irritation 01/16/22 02/07/23 History omega-3 fatty acids 1,000 mg 1,000 mg PO TID 01/16/22 02/07/23 History capsule propylene glycol 0.6 % eye drops 1 drp OPB QID PRN Dry Eyes 01/16/22 02/07/23 History (Systane Balance) asenapine maleate 10 mg sublingual 10 mg sublingual HS 03/22/22 02/07/23 History tablet (Saphris) asenapine maleate 5 mg sublingual 5 mg sublingual QAM 03/22/22 02/07/23 History tablet (Saphris) metformin 500 mg tablet,extended 1,000 mg PO QDB 03/22/22 02/07/23 History release 24 hr aluminum-mag hydroxide-simethicone 10 ml PO BID PRN UPSET 02/07/23 02/07/23 History 200 mg-200 mg-20 mg/5 mL oral susp STOMACH/VOMITING (Antacid Anti-Gas) emollient combination no.41 (Gold 1 ea topical QAM 02/07/23 02/07/23 History Anderson Ultimate Healing topical liquid) loperamide 2 mg capsule (Imodium 4 mg PO DIRECTED PRN Diarrhea 02/07/23 02/07/23 History A-D) polyethylene glycol 3350 17 17 g PO DAILY 02/07/23 02/07/23 History gram/dose oral powder (Miralax) Hospital Stay Data Consultations 02/07/23 11:53 ED Decision to Admit Stat Diagnostic Imagining Performed Laboratory Results WBC 4.87 K/ul (4.8-10.8) 02/08/23 05:02 RBC 4.02 M/uL (4.70-6.10) L 02/08/23 05:02 Hgb 13.0 g/dl (14.0-18.0) L 02/08/23 05:02 Hct 40.3 % (42.0-52.0) L 02/08/23 05:02 MCV 100.2 fL (80.0-100.0) H 02/08/23 05:02 MCH 32.3 pg (25.0-34.0) 02/08/23 05:02 MCHC 32.3 g/dL (32.0-36.0) 02/08/23 05:02 RDW Std Deviation 48.1 fL (36.4-46.3) H 02/08/23 05:02 RDW Coeff of Jose 12.9 % (11.5-14.5) 02/08/23 05:02 Plt Count 140 K/uL (130-400) 02/08/23 05:02 MPV 9.9 fL (9.4-12.4) 02/08/23 05:02 Immature Gran % (Auto) 0.4 % 02/08/23 05:02 Neut % (Auto) 61.6 % 02/08/23 05:02 Lymph % (Auto) 28.1 % 02/08/23 05:02 Wright % (Auto) 9.9 % 02/08/23 05:02 Eos % (Auto) 0.0 % 02/08/23 05:02 Baso % (Auto) 0.0 % 02/08/23 05:02 Neut # (Auto) 3.00 K/uL (1.40-6.50) 02/08/23 05:02 Lymph # (Auto) 1.37 K/uL (1.20-3.40) 02/08/23 05:02 Wright # (Auto) 0.48 K/uL (0.11-0.59) 02/08/23 05:02 Eos # (Auto) 0.00 K/uL (0.00-0.50) 02/08/23 05:02 Baso # (Auto) 0.00 K/uL (0.00-0.20) 02/08/23 05:02 Immature Gran # (Auto) 0.02 K/uL (0.01-0.20) 02/08/23 05:02 Sodium 142 mmol/L (136-145) 02/10/23 05:54 Potassium 4.0 mmol/L (3.5-5.1) 02/10/23 05:54 Chloride 107 mmol/L (98-107) 02/10/23 05:54 Carbon Dioxide 31 mmol/L (21-32) 02/10/23 05:54 Anion Gap 4 (3-11) 02/10/23 05:54 BUN 18 mg/dl (6-23) 02/10/23 05:54 Creatinine 1.23 mg/dl (0.6-1.4) D 02/10/23 05:54 Est Cr Clr Drug Dosing 67.5 ml/min 02/10/23 05:54 Est GFR ( Amer) 72.0 ml/min 02/10/23 05:54 Est GFR (Non-Af Amer) 62.1 ml/min 02/10/23 05:54 BUN/Creatinine Ratio 14.6 (10-20) 02/10/23 05:54 Glucose 86 mg/dl (70-99(Fasting)) 02/10/23 05:54 POC Glucose 127 mg/dl (70-99) H 02/10/23 12:14 Estimat Average Glucose 111 mg/dl 02/08/23 05:02 Hemoglobin A1c 5.5 % (4.5-5.6) 02/08/23 05:02 Calcium 8.7 mg/dl (8.6-10.3) 02/10/23 05:54 Magnesium 1.9 mg/dl (1.7-2.4) 02/08/23 05:02 Total Bilirubin 0.7 mg/dl (0.2-1.0) 02/10/23 05:54 AST 13 U/L (13-39) 02/10/23 05:54 ALT 13 U/L (7-52) 02/10/23 05:54 Alkaline Phosphatase 54 U/L (34-104) 02/10/23 05:54 Troponin I High Sens 4.6 pg/ml (0-20) 02/07/23 10:00 Total Protein 5.3 gm/dl (6.0-8.3) L 02/10/23 05:54 Albumin 3.3 gm/dl (3.4-5.0) L 02/10/23 05:54 Globulin 2.0 gm/dl (2.5-4.0) L 02/10/23 05:54 Albumin/Globulin Ratio 1.7 (0.9-2) 02/10/23 05:54 Nasal Screen MRSA (PCR) Negative (Negative) 02/08/23 00:18 Impressions Chest X-Ray 02/07/23 10:53 SINGLE VIEW CHEST CLINICAL HISTORY: Dyspnea FINDINGS: An AP, portable, upright chest radiograph is compared to study dated 02/06/2023 and correlated with chest CT dated 08/22/2021. The patient's head partially obscures the apices. The heart is mildly enlarged. The pulmonary vasculature is noncongested. Chronic interstitial thickening is similar to previous. There is bibasilar scarring/atelectasis. No airspace consolidation or large pleural effusion is identified. No pneumothorax is seen. The skeletal structures are osteopenic. The bony thorax is grossly intact. IMPRESSION: Cardiomegaly with no active disease in the chest. ACT 112: Negative or not required by law. Electronically signed by: Magan Dejesus M.D. 02/07/2023 11:30 AM Venous Doppler Study 02/10/23 09:22 BILATERAL LOWER EXTREMITY VENOUS DOPPLER CLINICAL HISTORY: edema, pain, r/o dvt COMPARISON STUDY: Bilateral lower extremity venous Doppler ultrasound June 13, 2015. TECHNIQUE: Sonography of the deep venous system of the bilateral lower extremities was performed. Compression and augmentation were evaluated. FINDINGS: The bilateral common femoral, superficial femoral and popliteal veins were compressible. Augmentation was normal. Flow was shown within the deep calf vessels. IMPRESSION: No evidence of deep venous thrombus within the bilateral lower extremities. ACT 112: Negative or not required by law. Electronically signed by: Leandro Quevedo M.D. 02/10/2023 12:04 PM 02/10/23 09:22 US venous doppler LE BI Stat Pending Results Patient Have Any Pending Studies at Discharge: No Discharge Instructions Given to Patient (Per Discharging Provider) CONTINUE ISOLATION FOR ANOTHER 3 DAYS. AMBULATE FREQUENTLY. PLEASE CALL YOUR PRIMARY CARE PHYSICIAN OR RETURN TO THE ER IF WITH WORSENING OF SYMPTOMS, INCLUDING COUGH, SHORTNESS OF BREATH, FEVER/CHILLS, WEAKNESS, ETC FOLLOW UP WITH PRIMARY CARE PHYSICIAN IN 1 WEEK. Home Isolation COVID-19 Instructions The following information about Home Isolation is from the CDC Website: https://www.cdc.gov/coronavirus/2019-ncov/hcp/chvbjqup-oumamos-uuqxop.html Stay home except to get medical care People who are mildly ill with COVID-19 are able to isolate at home during their illness. You should restrict activities outside your home, except for getting medical care. Do not go to work, school, or public areas. Avoid using public transportation, ride-sharing, or taxis. Separate yourself from other people and animals in your home People: As much as possible, you should stay in a specific room and away from other people in your home. Also, you should use a separate bathroom, if available. Animals: You should restrict contact with pets and other animals while you are sick with COVID-19, just like you would around other people. Although there have not been reports of pets or other animals becoming sick with COVID-19, it is still recommended that people sick with COVID-19 limit contact with animals until more information is known about the virus. When possible, have another member of your household care for your animals while you are sick. If you are sick with COVID-19, avoid contact with your pet, including petting, snuggling, being kissed or licked, and sharing food. If you must care for your pet or be around animals while you are sick, wash your hands before and after you interact with pets and wear a face mask. Call ahead before visiting your doctor If you have a medical appointment, call the healthcare provider and tell them that you have or may have COVID-19. This will help the healthcare providers office take steps to keep other people from getting infected or exposed. Wear a face mask You should wear a face mask when you are around other people (e.g., sharing a room or vehicle) or pets and before you enter a healthcare providers office. If you are not able to wear a face mask (for example, because it causes trouble breathing), then people who live with you should not stay in the same room with you, or they should wear a face mask if they enter your room. Cover your coughs and sneezes Cover your mouth and nose with a tissue when you cough or sneeze. Throw used tissues in a lined trash can. Immediately wash your hands with soap and water for at least 20 seconds or, if soap and water are not available, clean your hands with an alcohol-based hand heel sprayer first that contains at least 60% alcohol. Clean your hands often Wash your hands often with soap and water for at least 20 seconds, especially after blowing your nose, coughing, or sneezing; going to the bathroom; and before eating or preparing food. If soap and water are not readily available, use an alcohol-based hand heel sprayer first with at least 60% alcohol, covering all surfaces of your hands and rubbing them together until they feel dry. Soap and water are the best option if hands are visibly dirty. Avoid touching your eyes, nose, and mouth with unwashed hands. Avoid sharing personal household items You should not share dishes, drinking glasses, cups, eating utensils, towels, or bedding with other people or pets in your home. After using these items, they should be washed thoroughly with soap and water. Clean all high-touch surfaces everyday High touch surfaces include counters, tabletops, doorknobs, bathroom fixtures, toilets, phones, keyboards, tablets, and bedside tables. Also, clean any surfaces that may have blood, stool, or body fluids on them. Use a household cleaning spray or wipe, according to the label instructions. Labels contain instructions for safe and effective use of the cleaning product including precautions you should take when applying the product, such as wearing gloves and making sure you have good ventilation during use of the product. Monitor your symptoms Seek prompt medical attention if your illness is worsening (e.g., difficulty breathing).Beforeseeking care, call your healthcare provider and tell them that you have, or are being evaluated for, COVID-19. Put on a face mask before you enter the facility. These steps will help the healthcare providers office to keep other people in the office or waiting room from getting infected or exposed. Ask your healthcare provider to call the local or state health department. Persons who are placed under active monitoring or facilitated self- monitoring should follow instructions provided by their local health department or occupational health professionals, as appropriate. When working with your local health department check their available hours. If you have a medical emergency and need to call 911, notify the dispatch personnel that you have, or are being evaluated for COVID-19. If possible, put on a face mask before emergency medical services arrive. Discontinuing home isolation Patients with confirmed COVID-19 should remain under home isolation precautions until the risk of secondary transmission to others is thought to be low. The decision to discontinue home isolation precautions should be made on a [id number] basis, in consultation with healthcare providers and state and local health departments. Total Time Total Time Spent Total Time Spent (In Minutes): >30 minutes
== END 2023-02-10 14:55 | disposition home or self-care (01) | DRG 179 ==
LOC: ED 09:52 → EDINP 12:18 → SUATTDRO 12:18 → 4W 22:26

== ENCOUNTER 2024-05-26 09:54 | Observation (INO) ==
--- NOTE | 2024-05-26 10:37 | Emergency Department Note ---
Impression & Plan Weakness, Ambulatory dysfunction, Balance problem, Elevated troponin ED Provider Note NAME: JOELLEN CANADA AGE: 63 SEX: M : 1960 ARRIVES VIA: Walk-In INFORMANT: [Staff worker] ED PROVIDER(S): [Magan Damon MD] CHIEF COMPLAINT: Weakness, unstable HISTORY OF PRESENT ILLNESS: The patient is a 63-year-old male with intellectual disability. He is part of skills. For the last 3, maybe 4 days, he has been unsteady and has to hold onto things to get around. No fall. There has been no cough or congestion, no fever, no vomiting or diarrhea. The patient did see the family doctors office for this unsteadiness, lab work and urine testing was reportedly okay. As the symptoms were persisting, he was sent for evaluation. PMHx/PSHx/Social Hx: See Below PHYSICAL EXAM: GENERAL: Patient is in no acute distress. HEENT: No acute trauma, normocephalic atraumatic, mucous membranes moist, no nasal congestion. NECK: No stridor, no adenopathy, no meningismus, trachea is midline. LUNGS: Clear to auscultation bilaterally, no wheeze, no rhonchi, breath sounds equal. HEART: Without murmurs gallops or rubs, regular rate and rhythm. ABDOMEN: Soft, nontender, no peritonitis. EXTREMITIES: No cyanosis, full range of motion of all the joints without pain or difficulty. Mild bilateral pedal edema. NEUROLOGIC: Awake and alert, intellectual disability noted, no acute motor deficit. Moves all extremities equally. SKIN: No jaundice, no diaphoresis. DIFFERENTIAL DIAGNOSIS: Medication reaction, dehydration, viral illness, UTI, stroke, intracranial bleeding, electrolyte imbalance, anemia, among others. EMERGENCY DEPARTMENT PROCEDURES: MEDICAL DECISION MAKING: There is no leukocytosis or concerning anemia. There is a normal platelet count. VBG does not show acidosis or CO2 retention. There is no renal failure or significant electrolyte abnormality. No concerning liver enzyme elevation. The patient appeared to be in a euthyroid state. Ammonia level was not elevated. ECG showed a normal sinus rhythm, no dysrhythmia. Cardiac enzyme testing x 1 was slightly elevated. This troponin elevation could be secondary to cardiac injury or potentially just mismatch. Urinalysis showed some potential dehydration, no infection. Valproic acid and lithium levels were within the therapeutic range. COVID, influenza and RSV test were negative. Chest x-ray did not show pneumonia or CHF. Brain CT showed no acute bleed or mass effect. The patient was given IV saline, 1 L. After the saline hydration was infused, an ambulation trial was performed--he was quite off balance and almost fell a few times. He could not walk without holding onto someone. At this point, I do think the patient requires a hospital stay. The cause for his balance issues and difficulty ambulating is unclear. Certainly, stroke is a consideration however, he is not a TNK candidate as his symptoms have been present for days. Vertigo is a consideration as well. Hospitalization, further workup is warranted. I did speak with the patient's staff worker. I did speak with case management, the on-call hospitalist was consulted. Prior/Outside records/notes reviewed: None ECG per my interpretation: Indication was weakness. The ECG shows a normal sinus rhythm with a rate of 66. There is some baseline artifact. There is an incomplete right bundle branch block. There is no ST elevation, no PVCs, the QTc is 438. Continuous Cardiac Monitoring per my interpretation: An order was placed for continuous cardiac monitoring. The monitor shows a rate of 71 with normal sinus rhythm. Imaging/x-ray results per my interpretation: Chest x-ray does not show free air, pneumonia or CHF. Chronic Medical/Social conditions affecting care: Intellectual disability Care/Management discussed with: Case management, the on-call hospitalist Level of care consideration(s): After review of the information above and other included data: --I believe the patient requires escalation of care to admission DISPOSITION: Admission Past Med/Surg History Problem List (Updated 05/26/24 @ 17:38 by Magan Damon MD) Elevated troponin (Acute) Balance problem (Acute) Ambulatory dysfunction (Acute) Weakness (Acute) Unsteady gait Dizziness Acute hypoxemic respiratory failure (Acute) Generalized weakness (Acute) COVID-19 (Acute) Intellectual disability Hypoxia (Acute) Influenza A (Acute) Sepsis (Acute) COVID-19 (Acute) Schizophrenia (Chronic) Anxiety (Chronic) Tachycardia Elevated d-dimer Mental retardation (Chronic) GERD (gastroesophageal reflux disease) (Chronic) Hypothyroidism (Chronic) HLD (hyperlipidemia) (Chronic) DM2 (diabetes mellitus, type 2) (Chronic) [place] teeth extracted (Chronic) Choking episode (Acute) Encounter for pre-operative examination Medical History (Updated 05/26/24 @ 17:38 by Magan Damon MD) Esophageal reflux Myopia Moderate intellectual disabilities Diabetes mellitus Hx pulmonary embolism NO OTHER DETAILS PROVIDED Hypothyroidism Metabolic syndrome WILVER (obstructive sleep apnea) SEVERE> NO DEVICE PER RECORDS Dermatitis Cellulitis of leg Obesity (BMI 30.0-34.9) Dyslipidemia Schizophrenia Mental and behavioral problem in adult Hemorrhoid WITHOUT COMPLICATION Surgical History History of right cataract surgery History of tooth extraction WISDOM TEETH History of colonoscopy Family History Other Family history non-contributory Social History Smoking Status: Never smoker Second Hand Exposure: No; Do You Dip or Chew Tobacco: No; Hx Alcohol Use: No Hx Substance Use: No Preferred Language: Bulgarian Communication Ability: Effective Communication Ability Comment: sister to sign (verbal consent) through phone day of procedure Process Control Specialist Required: No Beliefs That Will Affect Care: None marital status: Single Current Living Situation: Boarding Home Current Living Situation Comment: Lives [facility] Feels Safe at Home: Yes Assistive Devices: None Allergies Allergies Allergy/AdvReac Type Severity Reaction Status Date / Time clozapine Allergy Intermediate ON SKILLS Verified 02/07/23 12:02 MED LIST benztropine Allergy Unknown CONTRAINDICATED Verified 03/22/22 18:10 PER MD Beta-Adrenergic Agents Allergy Unknown ON SKILLS Verified 05/26/24 14:18 MED LIST Iodinated Contrast Media Allergy Unknown ON SKILLS Verified 05/26/24 14:18 MED LIST iodine Allergy Unknown ON SKILLS Verified 05/26/24 14:18 MED LIST povidone-iodine Allergy Unknown ON SKILLS Verified 05/26/24 14:18 MED LIST pseudoephedrine Allergy Unknown PER MD Verified 05/26/24 14:18 soap [From Betadine] Allergy Unknown ON SKILLS Verified 05/26/24 14:18 MED LIST terfenadine Allergy Unknown PER MD Verified 02/07/23 12:01 valproic acid Allergy Unknown ON SKILLS Verified 05/26/24 14:18 MED LIST SYMPATHOMIMETIC AGENTS Allergy Unknown ON SKILLS Uncoded 05/26/24 14:18 MED LIST Home Meds Home Medications Medication Instructions Recorded Confirmed acetaminophen 325 mg tablet 650 mg PO Q6H PRN Pain 05/05/19 05/26/24 atorvastatin 40 mg tablet 40 mg PO QAM 05/05/19 05/26/24 calcium polycarbophil 625 mg 1,250 mg PO DAILY 05/05/19 05/26/24 tablet (Fiber-Lax) cholecalciferol (vitamin D3) 25 1,000 unit PO QAM 05/05/19 05/26/24 mcg (1,000 unit) chewable tablet (Vitamin D3) divalproex 250 mg tablet,delayed 250 mg PO HS 05/05/19 05/26/24 release (Depakote) divalproex 500 mg tablet,delayed 1,500 mg PO HS 05/05/19 05/26/24 release (Depakote) docusate sodium 100 mg capsule 100 mg PO BID 05/05/19 05/26/24 (Colace) escitalopram oxalate 20 mg tablet 20 mg PO QAM 05/05/19 05/26/24 lithium carbonate 300 mg capsule 600 mg PO HS 05/05/19 05/26/24 magnesium hydroxide 400 mg/5 mL 30 ml PO DAILY PRN Constipation 05/05/19 05/26/24 oral suspension (Milk of Magnesia) omeprazole magnesium 20 mg 20 mg PO PM 05/05/19 05/26/24 tablet,delayed release (Prilosec OTC) risperidone 3 mg tablet (Risperdal) 6 mg PO HS 05/05/19 05/26/24 haloperidol 1 mg tablet 1 mg PO HS 08/22/21 05/26/24 levothyroxine 88 mcg tablet 88 mcg PO QAM 08/22/21 05/26/24 dextromethorphan-guaifenesin 10 5 ml PO TID PRN Cough 01/16/22 05/26/24 mg-100 mg/5 mL oral liquid (Tussin DM) haloperidol 0.5 mg tablet 0.5 mg PO QAM 01/16/22 05/26/24 levocetirizine 5 mg tablet (Xyzal) 2.5 mg PO PM 01/16/22 05/26/24 multivitamin-ferrous 1 tab PO QAM 01/16/22 05/26/24 fumarate-folic acid 18 mg-400 mcg tablet (Certavite-Antioxidant) olopatadine 0.2 % eye drops 1 drp OPB BID PRN Eye Irritation 01/16/22 05/26/24 omega-3 fatty acids 1,000 mg 1,000 mg PO TID 01/16/22 05/26/24 capsule propylene glycol 0.6 % eye drops 1 drp OPB QID PRN Dry Eyes 01/16/22 05/26/24 (Systane Balance) asenapine maleate 10 mg sublingual 10 mg sublingual HS 03/22/22 05/26/24 tablet (Saphris) asenapine maleate 5 mg sublingual 5 mg sublingual QAM 03/22/22 05/26/24 tablet (Saphris) metformin 500 mg tablet,extended 1,000 mg PO QDB 03/22/22 05/26/24 release 24 hr aluminum-mag hydroxide-simethicone 15 ml PO BID PRN UPSET 02/07/23 05/26/24 200 mg-200 mg-20 mg/5 mL oral susp STOMACH/VOMITING (Antacid Anti-Gas) polyethylene glycol 3350 17 17 g PO QAM 02/07/23 05/26/24 gram/dose oral powder (Miralax) amoxicillin 500 mg capsule 500 mg PO TID 05/26/24 05/26/24 emollient combination no.31 (Gold 1 ea topical QAM 05/26/24 05/26/24 Anderson Ultimate topical liquid) Results & Data (ED) Vital Signs Vital Signs - 24 hr 05/26/24 09:58 05/26/24 11:51 05/26/24 11:57 Temperature 36.7 C Temperature Source Temporal Artery Scan Pulse Rate 71 Pulse Rate [Apical] 58 L Respiratory Rate 14 18 Blood Pressure 118/76 Blood Pressure [Right Arm] 136/70 Blood Pressure Mean 90 Blood Pressure Mean [Right Arm] 92 Pulse Oximetry 97 92 93 Oxygen Delivery Method Room Air Room Air Room Air Sepsis New/Unexplained Change in Mental Status No Sepsis Action Taken by Nursing No Action Required 05/26/24 12:30 Temperature Temperature Source Pulse Rate 61 Pulse Rate [Apical] Respiratory Rate Blood Pressure Blood Pressure [Right Arm] Blood Pressure Mean Blood Pressure Mean [Right Arm] Pulse Oximetry Oxygen Delivery Method Sepsis New/Unexplained Change in Mental Status Sepsis Action Taken by Usp Medications Current Medication List: was personally reviewed by me Laboratory Data Attestation: I reviewed the patient's lab results. 05/26/24 10:23 05/26/24 10:23 Lab Results 05/26/24 05/26/24 05/26/24 Range/Units 10:23 10:38 10:59 WBC 5.49 (4.8-10.8) K/ul RBC 4.47 L (4.70-6.10) M/uL Hgb 14.6 (14.0-18.0) g/dl Hct 44.8 (42.0-52.0) % MCV 100.2 H (80.0-100.0) fL MCH 32.7 (25.0-34.0) pg MCHC 32.6 (32.0-36.0) g/dL RDW Std Deviation 45.6 (36.4-46.3) fL RDW Coeff of Jose 12.3 (11.5-14.5) % Plt Count 159 (130-400) K/uL MPV 9.7 (9.4-12.4) fL Immature Gran % (Auto) 0.4 % Neut % (Auto) 69.0 % Lymph % (Auto) 20.6 % [place] % (Auto) 8.0 % Eos % (Auto) 1.8 % Baso % (Auto) 0.2 % Neut # (Auto) 3.79 (1.40-6.50) K/uL Lymph # (Auto) 1.13 L (1.20-3.40) K/uL [place] # (Auto) 0.44 (0.11-0.59) K/uL Eos # (Auto) 0.10 (0.00-0.50) K/uL Baso # (Auto) 0.01 (0.00-0.20) K/uL Immature Gran # (Auto) 0.02 (0.01-0.20) K/uL VBG pH 7.40 (7.36-7.41) VBG pCO2 45 (38-50) mmHg VBG pO2 44 mmHg VBG HCO3 28 mmol/L VBG O2 Saturation 75.8 % VBG Base Excess 2.5 mEq/L Sodium 141 (136-145) mmol/L Potassium 4.4 (3.5-5.1) mmol/L Chloride 107 (98-107) mmol/L Carbon Dioxide 33 H (21-32) mmol/L Anion Gap 1 L (3-11) BUN 16 (6-23) mg/dl Creatinine 0.91 (0.6-1.4) mg/dl Est Cr Clr Drug Dosing Not Reportable eGFR 94.12 BUN/Creatinine Ratio 17.6 (10-20) Glucose 97 (70-99(Fasting)) mg/dl Calcium 9.7 (8.6-10.3) mg/dl Magnesium 1.9 (1.7-2.4) mg/dl Total Bilirubin 1.0 (0.2-1.0) mg/dl AST 20 (13-39) U/L ALT 28 (7-52) U/L Alkaline Phosphatase 66 (34-104) U/L Ammonia 30.0 (18-72) umol/L Troponin I High Sens 24.9 H (0-20) pg/ml Total Protein 6.2 (6.0-8.3) gm/dl Albumin 3.9 (3.4-5.0) gm/dl Globulin 2.3 L (2.5-4.0) gm/dl Albumin/Globulin Ratio 1.7 (0.9-2) TSH 3.920 (0.300-4.500) uIu/ml Valproic Acid 71 (50-100) mcg/ml [place] 0.6 (0.6-1.2) mmol/L SARS-CoV-2 (PCR) NEGATIVE (Negative) Influenza Type A (PCR) Negative (Neg) Influenza Type B (PCR) Negative (Neg) RSV (RT-PCR) Negative (Neg) 05/26/24 Range/Units 12:14 WBC (4.8-10.8) K/ul RBC (4.70-6.10) M/uL Hgb (14.0-18.0) g/dl Hct (42.0-52.0) % MCV (80.0-100.0) fL MCH (25.0-34.0) pg MCHC (32.0-36.0) g/dL RDW Std Deviation (36.4-46.3) fL RDW Coeff of Jose (11.5-14.5) % Plt Count (130-400) K/uL MPV (9.4-12.4) fL Immature Gran % (Auto) % Neut % (Auto) % Lymph % (Auto) % [place] % (Auto) % Eos % (Auto) % Baso % (Auto) % Neut # (Auto) (1.40-6.50) K/uL Lymph # (Auto) (1.20-3.40) K/uL [place] # (Auto) (0.11-0.59) K/uL Eos # (Auto) (0.00-0.50) K/uL Baso # (Auto) (0.00-0.20) K/uL Immature Gran # (Auto) (0.01-0.20) K/uL VBG pH (7.36-7.41) VBG pCO2 (38-50) mmHg VBG pO2 mmHg VBG HCO3 mmol/L VBG O2 Saturation % VBG Base Excess mEq/L Sodium (136-145) mmol/L Potassium (3.5-5.1) mmol/L Chloride (98-107) mmol/L Carbon Dioxide (21-32) mmol/L Anion Gap (3-11) BUN (6-23) mg/dl Creatinine (0.6-1.4) mg/dl Est Cr Clr Drug Dosing eGFR BUN/Creatinine Ratio (10-20) Glucose (70-99(Fasting)) mg/dl Calcium (8.6-10.3) mg/dl Magnesium (1.7-2.4) mg/dl Total Bilirubin (0.2-1.0) mg/dl AST (13-39) U/L ALT (7-52) U/L Alkaline Phosphatase (34-104) U/L Ammonia (18-72) umol/L Troponin I High Sens 21.0 H (0-20) pg/ml Total Protein (6.0-8.3) gm/dl Albumin (3.4-5.0) gm/dl Globulin (2.5-4.0) gm/dl Albumin/Globulin Ratio (0.9-2) TSH (0.300-4.500) uIu/ml Valproic Acid (50-100) mcg/ml [place] (0.6-1.2) mmol/L SARS-CoV-2 (PCR) (Negative) Influenza Type A (PCR) (Neg) Influenza Type B (PCR) (Neg) RSV (RT-PCR) (Neg) Administered Medications Discontinued Medications Sodium Chloride (Nss) 500 mls @ 999 mls/hr IV .Q31M ONE Stop: 05/26/24 10:41 Last Infusion: 05/26/24 11:52 Dose: Infused Documented By: Admin: 05/26/24 10:41 Dose: 999 mls/hr Documented By: PERCY Sodium Chloride (Nss) 500 mls @ 999 mls/hr IV .Q31M ONE Stop: 05/26/24 12:17 Last Infusion: 05/26/24 12:30 Dose: Infused Documented By: Admin: 05/26/24 11:51 Dose: 999 mls/hr Documented By: SAMEER Meclizine HCl (Meclizine Hcl 25 Mg Tab) 25 mg PO NOW STA Stop: 05/26/24 14:15 Last Admin: 05/26/24 14:30 Dose: 25 mg Documented By: [facility] Imaging Data Radiologist's Impression: Chest X-Ray 05/26/24 10:11 XR chest 1V portable CLINICAL HISTORY: weakness COMPARISON STUDY: Chest CT August 22, 2021. Chest radiograph February 07, 2023. FINDINGS: Lung volumes are mildly diminished. This is unchanged. No pneumothorax or pleural effusion is present. There is no consolidation or evidence for pulmonary edema. IMPRESSION: No acute cardiopulmonary findings. No change in appearance of the chest. ACT 112: Negative or not required by law. Electronically signed by: Leandro Quevedo M.D. 05/26/2024 11:[address] 05/26/24 10:11 CT head/brain wo con CLINICAL HISTORY: weak. TECHNIQUE: Multiple axial CT images of the head were obtained without contrast. Sagittal and coronal reconstructions were done. A dose lowering technique was utilized adhering to the principles of ALARA. CT DOSE: 625.8 mGy.cm COMPARISON: None FINDINGS: There is no intra-axial or extra-axial fluid collection, hemorrhage, or mass. There is a generalized atrophy with some focal prominence of the atrophy in the left frontal temporal region which may be developmental. There is no midline shift. There are dystrophic calcifications in the basal ganglia. The bone windows are negative. IMPRESSION: No acute intracranial process. Atrophy is noted. Slight asymmetric prominence of the sulci in the left frontotemporal region could represent a developmental anomaly or evidence of an old vascular insult. ACT 112: Negative or not required by law. The above report was generated using voice recognition software. It may contain grammatical, syntax or spelling errors. Electronically signed by: Catarina Herrera M.D. 05/26/2024 11:00 AM Discharge Plan Visit Data Chief Complaint: Dizziness Stated Complaint: UNSTEADY ED Provider: Magan Damon Discharge Problem: Weakness, Ambulatory dysfunction, Balance problem, Elevated troponin Patient Disposition: Admitted As Inpatient Condition: Fair Discharge Instructions Interventions: ED Discharge Assessment Last Done: 05/26/24 14:57
[2024-05-26] MEDS: SODIUM CHLORIDE 0.9% 500 ML IV ONE ×2 (10:41→11:51)
[2024-05-26 10:49] LABS: Base Excess VBG 2.5 mEq/L; HCO3 VBG 28 mmol/L; Oxygen Saturation VBG 75.8 %; PCO2 VBG 45 mmHg (38-50); PO2 VBG 44 mmHg
[2024-05-26 10:49] LABS: Basophils # (auto) 0.01 K/uL (0.00-0.20); Basophils % (auto) 0.2 %; Eosinophils % (auto) 1.8 %; Hematocrit (blood only) 44.8 % (42.0-52.0); Hemoglobin 14.6 g/dl (14.0-18.0); Immature Granulocytes # (auto) 0.02 K/uL (0.01-0.20); Immature Granulocytes % (auto) 0.4 %; Lymphocytes # (auto) 1.13 K/uL (1.20-3.40); Lymphocytes % (auto) 20.6 %; Mean Corpuscular Hemoglobin 32.7 pg (25.0-34.0); Mean Corpuscular Hgb Conc 32.6 g/dL (32.0-36.0); Mean Corpuscular Volume 100.2 fL (80.0-100.0); Mean Platelet Volume 9.7 fL (9.4-12.4); Monocytes # (auto) 0.44 K/uL (0.11-0.59); Neutrophils # (auto) 3.79 K/uL (1.40-6.50); Platelet Count 159 K/uL (130-400); RDW Coefficient of Variation 12.3 % (11.5-14.5); RDW Standard Deviation 45.6 fL (36.4-46.3); Red Blood Count 4.47 M/uL (4.70-6.10); White Blood Count 5.49 K/ul (4.8-10.8)
--- NOTE | 2024-05-26 11:01 | CT Scan Report ---
CT head/brain wo con CLINICAL HISTORY: weak. TECHNIQUE: Multiple axial CT images of the head were obtained without contrast. Sagittal and coronal reconstructions were done. A dose lowering technique was utilized adhering to the principles of VARSHA Bliss. CT DOSE: 625.8 mGy.cm COMPARISON: None FINDINGS: There is no intra-axial or extra-axial fluid collection, hemorrhage, or mass. There is a ge neralized atrophy with some focal prominence of the atrophy in the left frontal temporal region which may be developmental. There is no midline shift. There are dystrophic calcifications in the basal ga nglia. The bone windows are negative. IMPRESSION: No acute intracranial process. Atrophy is noted. Slight asymmetric prominence of the sulc i in the left frontotemporal region could represent a developmental anomaly or evidence of an old vas cular insult. ACT 112: Negative or not required by law. The above report was generated using voice recognition software. It may contain grammatical, syntax o r spelling errors. Electronically signed by: Catarina Herrera M.D. 05/26/2024 11:00 AM
--- NOTE | 2024-05-26 11:21 | XRay Report ---
XR chest 1V portable CLINICAL HISTORY: weakness COMPARISON STUDY: Chest CT August 22, 2021. Chest radiograph February 07, 2023. FINDINGS: Lung volumes are mildly diminished. This is unchanged. No pneumothorax or pleural effusion is present. There is no consolidation or evidence for pulmonary edema. IMPRESSION: No acute cardiopulmonary findings. No change in appearance of the chest. ACT 112: Negative or not required by law. Electronically signed by: Leandro Quevedo M.D. 05/26/2024 11:20 AM
[2024-05-26 11:38] LABS: Albumin Level 3.9 gm/dl (3.4-5.0); Anion Gap 1 (3-11); Calcium 9.7 mg/dl (8.6-10.3); Carbon Dioxide 33 mmol/L (21-32); Chloride 107 mmol/L (98-107); Magnesium 1.9 mg/dl (1.7-2.4); Potassium 4.4 mmol/L (3.5-5.1); Sodium 141 mmol/L (136-145)
[2024-05-26 11:42] LABS: Lithium 0.6 mmol/L (0.6-1.2)
[2024-05-26 11:44] LABS: Alanine Aminotransferase 28 U/L (7-52); Albumin Globulin Ratio 1.7 (0.9-2); Alkaline Phosphatase 66 U/L (34-104); Aspartate Aminotransferase 20 U/L (13-39); BUN Creatinine Ratio 17.6 (10-20); Blood Urea Nitrogen 16 mg/dl (6-23); Globulin 2.3 gm/dl (2.5-4.0); Glucose 97 mg/dl (70-99(Fasting)); Total Protein 6.2 gm/dl (6.0-8.3)
[2024-05-26 11:49] LABS: Troponin I High Sensitivity 24.9 pg/ml (0-20)
[2024-05-26 11:50] LABS: Influenza A virus by PCR Negative (Neg); Influenza B virus by PCR Negative (Neg); RSV by PCR Negative (Neg); SARS CoV2 RNA(COVID-19) Ceph NEGATIVE (Negative)
[2024-05-26 12:12] LABS: Appearance Urine Clear (Clear); Bilirubin Urine Negative (Negative); Blood Urine Negative (Negative); Color Urine Yellow; Glucose Urine UA Negative (Negative); Ketones Urine Trace (Negative); Leukocyte Esterase Urine Negative (Negative); Nitrite Urine Negative (Negative); Protein Urine Negative (Negative); Specific Gravity Urine 1.011 (1.000-1.030); Urobilinogen Urine Negative (Negative)
--- NOTE | 2024-05-26 13:42 | History & Physical Report ---
Date of Service May 26, 2024 Assessment & Plan (1) Dizziness: (2) Unsteady gait: (3) Intellectual disability: (4) DM2 (diabetes mellitus, type 2): (5) Schizophrenia: Plan This is a 63-year-old male who has significant past medical history of intellectual disability and resides at [facility], Schizophrenia, T2DM, history of PE, HLD, hypothyroidism, WILVER and dementia who presents to ED secondary to unsteadiness. #Dizziness #Unsteady Gait #Ambulatory dysfunction admit to med tele under obs given pt hx of I.D. obtaining pertinent hx is difficult Lab work up mostly unremarkable, except mild elevation in trop at 24. 2hr trop already downtrending and pt w/o cp/ischemic ecg changes very possible pt could be experiencing BPPV, doubt vestibular neuritis given last of recent resp ill obtain MRI brain r/o stroke Meclizine 25mg TID, PT/OT consider vestibular PT if MRI negative may need rehab consult neuro for additional input #Intellectual disability #Schizophrenia mood stable continue depakote, haldol and lithium all med levels w/in range #Impacted Cerumen add ear wax softening gtts bid #T2DM well controlled on 1g metformin daily a1c 2 days ago was 5.5 place on diabetic diet and monitor FBS #WILVER: unable to tolerate Cpap #Hypothyroidism: continue levothyroxine DVT ppx: SQ Lovenox FULL CODE PCP: Fadumo Dispo: admit to med tele under obs Pt was seen and examined in collaboration with Dr. Streeter, please see addendum I spent a total of 60 minutes coordinating, documenting and providing care for this patient excluding time spent in the performance of separately billed services or time spent by another provider/QHP. History of Present Illness Chief Complaint: Dizziness x 2-3 days. Primary Care Provider: Akil Thorne MD This is a 63-year-old male who has significant past medical history of intellectual disability and resides at [facility], Schizophrenia, T2DM, history of PE, HLD, hypothyroidism, WILVER and dementia who presents to ED secondary to unsteadiness. History obtained from patient and care provider at bedside. Outpatient chart review was also performed. Caregiver at bedside states over the last 2 days he has been very unsteady. He has had to hold onto surroundings to prevent him from falling. Typically he is very active and is able to ambulate without assist device. Patient history is slightly unreliable per caregiver. When asking patient how he is feeling he does describe being, "dizzy and on a boat." Caregiver denies any recent illness and states that everybody in their facility has been relatively healthy. He denies any recent upper respiratory infections. He denies any focal weakness, slurred speech, change in hearing or vision. Denies fever, chills, sweats, presyncope, chest pain, nausea, vomiting or abdominal pain. Caregiver states patient has a very good appetite. He is moving bowels and passing urine without difficulty. He was seen and evaluated in clinic yesterday due to similar symptoms. His outpatient lab work was personally reviewed and interpreted by myself and his CBC, A1c, CMP, B12, lithium, Depakote and urinalysis was completely unremarkable. His respiratory viral panel was also negative. Due to persistent symptoms and concern for patient's safety he was brought to ED for further evaluation. In ED again patient's lab workup was completely unremarkable except for a mildly elevated troponin at 24.9. His 2-hour troponin already down trended to 21.0. He received IV fluids in the ED. He underwent a CT head which revealed light asymmetric prominence of the sulci in the left frontotemporal region could represent a developmental anomaly or evidence of an old vascular insult. Allergies Allergy/AdvReac Type Severity Reaction Status Date / Time clozapine Allergy Intermediate ON SKILLS Verified 02/07/23 12:02 MED LIST benztropine Allergy Unknown CONTRAINDICATED Verified 03/22/22 18:10 PER MD Beta-Adrenergic Agents Allergy Unknown ON SKILLS Verified 05/26/24 14:18 MED LIST Iodinated Contrast Media Allergy Unknown ON SKILLS Verified 05/26/24 14:18 MED LIST iodine Allergy Unknown ON SKILLS Verified 05/26/24 14:18 MED LIST povidone-iodine Allergy Unknown ON SKILLS Verified 05/26/24 14:18 MED LIST pseudoephedrine Allergy Unknown PER MD Verified 05/26/24 14:18 soap [From Betadine] Allergy Unknown ON SKILLS Verified 05/26/24 14:18 MED LIST terfenadine Allergy Unknown PER MD Verified 02/07/23 12:01 valproic acid Allergy Unknown ON SKILLS Verified 05/26/24 14:18 MED LIST SYMPATHOMIMETIC AGENTS Allergy Unknown ON SKILLS Uncoded 05/26/24 14:18 MED LIST Home Medications Medication Instructions Recorded Confirmed Type acetaminophen 325 mg tablet 650 mg PO Q6H PRN Pain 05/05/19 05/26/24 History atorvastatin 40 mg tablet 40 mg PO QAM 05/05/19 05/26/24 History calcium polycarbophil 625 mg 1,250 mg PO DAILY 05/05/19 05/26/24 History tablet (Fiber-Lax) cholecalciferol (vitamin D3) 25 1,000 unit PO QAM 05/05/19 05/26/24 History mcg (1,000 unit) chewable tablet (Vitamin D3) divalproex 250 mg tablet,delayed 250 mg PO HS 05/05/19 05/26/24 History release (Depakote) divalproex 500 mg tablet,delayed 1,500 mg PO HS 05/05/19 05/26/24 History release (Depakote) docusate sodium 100 mg capsule 100 mg PO BID 05/05/19 05/26/24 History (Colace) escitalopram oxalate 20 mg tablet 20 mg PO QAM 05/05/19 05/26/24 History lithium carbonate 300 mg capsule 600 mg PO HS 05/05/19 05/26/24 History magnesium hydroxide 400 mg/5 mL 30 ml PO DAILY PRN Constipation 05/05/1904/20 History oral suspension (Milk of Magnesia) omeprazole magnesium 20 mg 20 mg PO PM 05/05/19 05/26/24 History tablet,delayed release (Prilosec OTC) risperidone 3 mg tablet (Risperdal) 6 mg PO HS 05/05/19 05/26/24 History haloperidol 1 mg tablet 1 mg PO HS 08/22/21 05/26/24 History levothyroxine 88 mcg tablet 88 mcg PO QAM 08/22/21 05/26/24 History dextromethorphan-guaifenesin 10 5 ml PO TID PRN Cough 01/16/22 05/26/24 History mg-100 mg/5 mL oral liquid (Tussin DM) haloperidol 0.5 mg tablet 0.5 mg PO QAM 01/16/22 05/26/24 History levocetirizine 5 mg tablet (Xyzal) 2.5 mg PO PM 01/16/22 05/26/24 History multivitamin-ferrous 1 tab PO QAM 01/16/22 05/26/24 History fumarate-folic acid 18 mg-400 mcg tablet (Certavite-Antioxidant) olopatadine 0.2 % eye drops 1 drp OPB BID PRN Eye Irritation 01/16/22 05/26/24 History omega-3 fatty acids 1,000 mg 1,000 mg PO TID 01/16/22 05/26/24 History capsule propylene glycol 0.6 % eye drops 1 drp OPB QID PRN Dry Eyes 01/16/22 05/26/24 History (Systane Balance) asenapine maleate 10 mg sublingual 10 mg sublingual HS 03/22/22 05/26/24 History tablet (Saphris) asenapine maleate 5 mg sublingual 5 mg sublingual QAM 03/22/22 05/26/24 History tablet (Saphris) metformin 500 mg tablet,extended 1,000 mg PO QDB 03/22/22 05/26/24 History release 24 hr aluminum-mag hydroxide-simethicone 15 ml PO BID PRN UPSET 02/07/23 05/26/24 History 200 mg-200 mg-20 mg/5 mL oral susp STOMACH/VOMITING (Antacid Anti-Gas) polyethylene glycol 3350 17 17 g PO QAM 02/07/23 05/26/24 History gram/dose oral powder (Miralax) amoxicillin 500 mg capsule 500 mg PO TID 05/26/24 05/26/24 History emollient combination no.31 (Gold 1 ea topical QAM 05/26/24 05/26/24 History Anderson Ultimate topical liquid) Past Med/Surg History Problem List (Updated 05/26/24 @ 17:38 by Magan Damon MD) Elevated troponin (Acute) Balance problem (Acute) Ambulatory dysfunction (Acute) Weakness (Acute) Unsteady gait Dizziness Acute hypoxemic respiratory failure (Acute) Generalized weakness (Acute) COVID-19 (Acute) Intellectual disability Hypoxia (Acute) Influenza A (Acute) Sepsis (Acute) COVID-19 (Acute) Schizophrenia (Chronic) Anxiety (Chronic) Tachycardia Elevated d-dimer Mental retardation (Chronic) GERD (gastroesophageal reflux disease) (Chronic) Hypothyroidism (Chronic) HLD (hyperlipidemia) (Chronic) DM2 (diabetes mellitus, type 2) (Chronic) Inlet teeth extracted (Chronic) Choking episode (Acute) Encounter for pre-operative examination Medical History (Updated 05/26/24 @ 17:38 by Magan Damon MD) Esophageal reflux Myopia Moderate intellectual disabilities Diabetes mellitus Hx pulmonary embolism NO OTHER DETAILS PROVIDED Hypothyroidism Metabolic syndrome WILVER (obstructive sleep apnea) SEVERE> NO DEVICE PER RECORDS Dermatitis Cellulitis of leg Obesity (BMI 30.0-34.9) Dyslipidemia Schizophrenia Mental and behavioral problem in adult Hemorrhoid WITHOUT COMPLICATION Surgical History History of right cataract surgery History of tooth extraction WISDOM TEETH History of colonoscopy Family History Other Family history non-contributory Social History Smoking Status: Never smoker Second Hand Exposure: No; Do You Dip or Chew Tobacco: No; Hx Alcohol Use: No Hx Substance Use: No Preferred Language: Surinamese Communication Ability: Unable Communication Ability Comment: sister to sign (verbal consent) through phone day of procedure Powder Core Tester Required: No Beliefs That Will Affect Care: None marital status: Single Current Living Situation: Boarding Home Current Living Situation Comment: Lives at [facility] Other Information That Helps Us Care for You: No Feels Safe at Home: Yes Safety Concerns: Feels Safe At This Time Assistive Devices: None Review of Systems Review of Systems: All systems reviewed & are unremarkable except as noted in HPI & below Physical Exam Physical Exam: Constitutional: WD/WN, vitals as above, NAD, sitting up in bed, pleasant, answers questions appropriately Head: Normocephalic, Atraumatic Eyes: PERRL, conjunctivae normal, anicteric sclerae ENMT: external ear and nose normal, EAC impacted with cerumen b/l, oropharynx normal Neck: trachea midline, no thyromegaly normal visual inspection Respiratory: normal respiratory effort, lungs clear to auscultation, no wheeze, rales, rhonchi. Normal insp/exp effort, no accessory muscle use Cardiovascular: RRR, no murmur, no edema Vessels: no JVD or carotid bruit Chest: normal inspection of chest Abdomen: normal bowel sounds, soft, nontender, no hepatosplenomegaly Musculoskeletal: no cyanosis or clubbing, extremities motor strength 5/5 Skin: no rashes, warm and dry normal turgor Neurologic: PERRL, EOMI, accommodation nl, no face palsy, no dysarthria CN's II-XI intact bilaterally and moves all extremities Psychiatric: A+Ox3, euthymic affect Lymphatic: no cervical or axillary lymphadenopathy : deferred Results & Data Results & Data Vital Signs (Past 12 Hours) Vital Signs Temp Pulse Pulse Resp BP BP Pulse Ox 05/26/24 12:30 61 05/26/24 11:57 93 05/26/24 11:51 58 L 18 136/70 92 05/26/24 09:58 36.7 C 71 14 118/76 97 O2 Del Method 05/26/24 12:30 05/26/24 11:57 Room Air 05/26/24 11:51 Room Air 05/26/24 09:58 Room Air Laboratory Results I have independently reviewed and interpreted patient's admitting labs including CBC, CMP,vbg, mag and troponin. Diagnostic Findings Chest X-Ray 05/26/24 10:11 XR chest 1V portable CLINICAL HISTORY: weakness COMPARISON STUDY: Chest CT August 22, 2021. Chest radiograph February 07, 2023. FINDINGS: Lung volumes are mildly diminished. This is unchanged. No pneumothorax or pleural effusion is present. There is no consolidation or evidence for pulmonary edema. IMPRESSION: No acute cardiopulmonary findings. No change in appearance of the chest. ACT 112: Negative or not required by law. Electronically signed by: Leandro Quevedo M.D. 05/26/2024 11:[address] 05/26/24 10:11 CT head/brain wo con CLINICAL HISTORY: weak. TECHNIQUE: Multiple axial CT images of the head were obtained without contrast. Sagittal and coronal reconstructions were done. A dose lowering technique was utilized adhering to the principles of ALARA. CT DOSE: 625.8 mGy.cm COMPARISON: None FINDINGS: There is no intra-axial or extra-axial fluid collection, hemorrhage, or mass. There is a generalized atrophy with some focal prominence of the atrophy in the left frontal temporal region which may be developmental. There is no midline shift. There are dystrophic calcifications in the basal ganglia. The bone windows are negative. IMPRESSION: No acute intracranial process. Atrophy is noted. Slight asymmetric prominence of the sulci in the left frontotemporal region could represent a developmental anomaly or evidence of an old vascular insult. ACT 112: Negative or not required by law. The above report was generated using voice recognition software. It may contain grammatical, syntax or spelling errors. Electronically signed by: Catarina Herrera M.D. 05/26/2024 11:00 AM Medications Administered Medication List Discontinued Medications Sodium Chloride (Nss) 500 mls @ 999 mls/hr IV .Q31M ONE Stop: 05/26/24 10:41 Last Infusion: 05/26/24 11:52 Dose: Infused Documented By: Admin: 05/26/24 10:41 Dose: 999 mls/hr Documented By: PERCY Sodium Chloride (Nss) 500 mls @ 999 mls/hr IV .Q31M ONE Stop: 05/26/24 12:17 Last Infusion: 05/26/24 12:30 Dose: Infused Documented By: Admin: 05/26/24 11:51 Dose: 999 mls/hr Documented By: SAMEER ECG Additional Comments: I have independently reviewed and interpreted patient's admitting EKG which revealed: 66, NSR, inc RBBB, qtc 438ms, no st or t wave change COVID-19 Results Results COVID-19 Adm Lab Results: RBC 4.47 M/uL (4.70-6.10) L 05/26/24 WBC 5.49 K/ul (4.8-10.8) 05/26/24 Hgb 14.6 g/dl (14.0-18.0) 05/26/24 Hct 44.8 % (42.0-52.0) 05/26/24 Plt Count 159 K/uL (130-400) 05/26/24 Neutrophils (%) (Auto) 69.0 % 05/26/24 Lymphocytes (%) (Auto) 20.6 % 05/26/24 Monocytes # (Auto) 0.44 K/uL (0.11-0.59) 05/26/24 Eosinophils # (Auto) 0.10 K/uL (0.00-0.50) 05/26/24 Immature Granulocyte % (Auto) 0.4 % 05/26/24 Neutrophils # (Auto) 3.79 K/uL (1.40-6.50) 05/26/24 Lymphocytes # (Auto) 1.13 K/uL (1.20-3.40) L 05/26/24 Monocytes # (Auto) 0.44 K/uL (0.11-0.59) 05/26/24 Eosinophils # (Auto) 0.10 K/uL (0.00-0.50) 05/26/24 Basophils # (Auto) 0.01 K/uL (0.00-0.20) 05/26/24 Na 141 mmol/L (136-145) 05/26/24 K 4.4 mmol/L (3.5-5.1) 05/26/24 Cl 107 mmol/L (98-107) 05/26/24 CO2 33 mmol/L (21-32) H 05/26/24 Anion Gap 1 (3-11) L 05/26/24 BUN 16 mg/dl (6-23) 05/26/24 Creatinine 0.91 mg/dl (0.6-1.4) 05/26/24 BUN/Creatinine Ratio 17.6 (10-20) 05/26/24 Glucose Level 97 mg/dl (70-99(Fasting)) 05/26/24 Ca 9.7 mg/dl (8.6-10.3) 05/26/24 Total Bilirubin 1.0 mg/dl (0.2-1.0) 05/26/24 AST/SGOT 20 U/L (13-39) 05/26/24 ALT/SGPT 28 U/L (7-52) 05/26/24 Alkaline Phosphatase 66 U/L (34-104) 05/26/24 Total Protein 6.2 gm/dl (6.0-8.3) 05/26/24 Albumin 3.9 gm/dl (3.4-5.0) 05/26/24 Globulin 2.3 gm/dl (2.5-4.0) L 05/26/24 Albumin/Globulin Ratio 1.7 (0.9-2) 05/26/24 COVID-19 PCR NEGATIVE (Negative) 05/26/24 Influenza Virus Type A (PCR) Negative (Neg) 05/26/24 Influenza Virus Type B (PCR) Negative (Neg) 05/26/24 Chest X-Ray 05/26/24 Code Status & VTE Plan Code Status FULL CODE VTE Prophylaxis Plan VTE Prophylaxis will be ordered: Yes Supervising Physician Co-Signing Physician Notes Pt was seen and examined by myself, Loree Streeter MD on the day of service. Care was coordinated with Laila Rogers PA-C. 63yoM presenting from facility with concern for unsteady gait for the past 3 days. Pt resting comfortably in bed, neuro exam minus gait grossly unremarkable. Stroke rule out, MRI brain Symptomatic rx with prn meclizine Neuro consult for further recs PT/OT Otherwise as above. I spent a total [id number] coordinating, documenting, and providing care for this patient excluding time spent in the performance of separately billed services
--- NOTE | 2024-05-26 13:55 | Electrocardiogram Report ---
Test Reason : Blood Pressure : */* mmHG Vent. Rate : 66 BPM Atrial Rate : 66 BPM P-R Int : 150 ms QRS Dur : 108 ms QT Int : 418 ms P-R-T Axes : 67 15 28 degrees QTcB Int : 438 ms Normal sinus rhythm Incomplete right bundle branch block Borderline ECG When compared with ECG of 07-Feb-2023 09:59, Vent. rate has decreased by 34 bpm Left anterior fascicular block is no longer Present Confirmed by Alexander Yen ([id number]) on 05/26/2024 1:54:41 PM Referred By: REFERRED SELF Confirmed By: Alexander Yen
[2024-05-26] MEDS: MECLIZINE HCL 25 MG TAB PO STA (14:30)
[2024-05-26] MEDS ORDERED: ACETAMINOPHEN 325 MG TAB PO PRN (15:19)
[2024-05-26] MEDS ORDERED: ONDANSETRON INJ 2 MG/ML 2 ML VIAL IV PRN (15:19)
[2024-05-26] MEDS ORDERED: POLYETHYLENE (MIRALAX) 17 GM PACK PO PRN (15:19)
[2024-05-26] MEDS: DOCUSATE SODIUM 100 MG CAP PO SCH (20:48)
[2024-05-26] MEDS: risperiDONE 2 MG TABLET PO SCH (20:49)
[2024-05-26] MEDS: DIVALPROEX DELAY RELEASE 250 MG TABEC PO SCH (20:50)
[2024-05-26] MEDS: DIVALPROEX DELAY RELEASE 500 MG TAB PO SCH (20:50)
[2024-05-26] MEDS: CETIRIZINE HCL 10 MG TABLET PO SCH (20:51)
[2024-05-26] MEDS: PANTOprazole 40 MG TAB PO SCH (20:51)
[2024-05-26] MEDS: LITHIUM CARBONATE 300 MG TAB PO SCH (20:52)
[2024-05-26] MEDS: ENOXAPARIN INJ 40 MG/0.4 ML SYR SQ SCH (20:52)
[2024-05-26] MEDS: CARBAMIDE PEROXIDE 6.5% 15 ML BTL OT SCH (20:53)
[2024-05-26] MEDS: AMOXICILLIN 500 MG CAP PO SCH (20:53)
[2024-05-26] MEDS: MECLIZINE HCL 25 MG TAB PO SCH (20:53)
[2024-05-26] MEDS: haloperidoL 1 MG TAB PO SCH (20:54)
[2024-05-26] MEDS ORDERED: ASENAPINE MALEATE 10 MG SL SCH (21:00)
[2024-05-26] MEDS: GADOBUTROL 65ML VIAL IV ONE (21:44)
--- NOTE | 2024-05-27 00:24 | Magnetic Resonance Report ---
Exam(s): MRI HEAD W/WO Contrast IV Amt: 8mL Gadavist EXAM: MR Head Without and With Intravenous Contrast CLINICAL HISTORY: Reason for exam: r/o cva. spec post given dizziness. TECHNIQUE: Magnetic resonance images of the head/brain without and with intravenous contrast in multiple planes. CONTRAST: Patient received 8mL Gadavist of IV contrast COMPARISON: Prior head CT from May 26, 2024. FINDINGS: Brain: Minimal nonspecific white matter changes.. No mass. No hemorrhage. No acute infarct. The flow voids at the base of the brain are intact. No evidence of abnormal enhancement. The dural venous sinuses are patent. Ventricles: Unremarkable. No ventriculomegaly. Bones/joints: Unremarkable. No acute fracture. Sinuses: Chronic ethmoid sinusitis. No acute sinusitis. Mastoid air cells: Unremarkable as visualized. No mastoid effusion. Orbits: Bilateral lens replacements. IMPRESSION: No evidence of acute intracranial pathology. Electronically signed by: Sridevi Hernandez MD 05/27/24 00:24 AM
[2024-05-27] MEDS: LEVOTHYROXINE SODIUM 88 MCG TABLET PO SCH (06:02)
--- OUTSIDE RECORDS SUMMARY | 2024-05-27 07:11 | External Medical Summary ---
Author Name Unknown Address Unknown Organization [id number]:[facility] [place] [address] Laboratory Report Ordering Provider Test Date Status CJMOHIT 05/24/2024 12:54:12 Final Observation Date Value Abnormality Reference (Units ) Status Magnesium 05/24/2024 12:54:12 2.1 1.5-2.6 (m g/dL) Final Performing Location [facility] [place] [place] [address]
--- OUTSIDE RECORDS SUMMARY | 2024-05-27 07:11 | External Medical Summary | Summary of Care ---
Author Name Unknown Organization [facility] Address [address] [place] [address] Phone [phone] Care Team Providers Care Clinical Practice Consultant Name Role Phone Fadumo CASILLAS MD, Akil Soriano Primary Care Provider [phone] Reason for Visit * Reason Onset Date Comments Health Maintenance 05/17/2024 Encounter Details Date Type Department Care Team (Late st Contact Info) Description 05/17/2024 Telephone Family Practice [facility] [address] [facility] [place] [address] Akil Thorne III, MD [address] [place] [address] Health Maintenance Allergies Active Allergy Reactions Criticality Noted Date Comments Povidone Iodine Low 08/06/2023 Clozapine Unknown 11/29/2020 Benztropine Unknown 11/29/2020 Povidone Iodine Unknown 04/14/2000 Pseudoephedrine Unknown 04/14/2000 Terfenadine Unknown 04/14/2000 documented as of this encounter (statuses as of 05/17/2024) Medications ACETAMINOPHEN 325 MG PO TABS take two tablets by mouth every 4 hours as needed 09/06/19 12 Active NEOSPORIN BRADLEY TO GO 1 % EX OINT for scrapes and abrasions Active SAPHRIS 10 MG SL SUBL dissolve 1 tab under tongue at bedtime Active SAPHRIS 5 MG SL SUBL dissolve 1 tab under tongue in am Active lithium carbonate (ESKALITH) 300 MG CapsuleIndications: in evening Take 2 Capsules by mouth at bedtime. 06/04/19 15 Active risperiDONE 3 MG Oral Tablet Take 2 Tablets by mouth every night at bedtime. Active Escitalopram Oxalate 20 MG Oral Tablet Take 1 Tablet by mouth in the morning. Active Polyethyl Glycol-Propyl Glycol (SYSTANE) 0.4-0.3 % ophthalmic solution Instill 1 Drop into both eyes 4 times a day as needed for Dry eyes. 1 Bottle 5 12/22/19 16 Active Divalproex Sodium ER 250 MG Oral Tablet Extended Release 24 Hour (DEPAKOTE ER) In addition to (3) 500mg tablets to total 1750 mg 12/27/19 20 Active Divalproex Sodium ER 500 MG Oral Tablet Extended Release 24 Hour (DEPAKOTE ER) 3 tablets at bedtime in addition to 250mg to total 1750 mg 12/29/19 20 Active Haloperidol 1 MG Oral Tablet (HALDOL) at bedtime. 12/27/19 20 Active Hydrocortisone (Perianal) 2.5 % External Cream (Anusol-HC) Administer into the rectum 2 times a day. 28 g 3 10/04/19 21 Active QC Fish Oil 1000 MG Oral CapsuleIndications: Mixed dyslipidemia TAKE 1 CAPSULE BY MOUTH THREE TIMES DAILY *LOWER CHOLESTEROL* 84 Capsule 5 04/06/19 22 Active MEDICAL INSTRUCTIONSIndicat ions:Cerumen impaction Ok to administer Debrox ear drops daily for 5 days in both ears as directed once a month to prevent cerumen impaction in ears. 1 Each 08/21/19 22 Active guaiFENesin-DM 100-10 MG/5ML Oral Syrup (Robitussin DM)Indications:2 teaspoons by mouth as needed Take by mouth 5 mL as needed in the morning AND 5 mL as needed at noon AND 5 mL as needed in the evening for Cough. 120 mL 08/27/19 22 Active Haloperidol 0.5 MG Oral Tablet (Haldol) Take 1 Tablet by mouth every morning. 10/30/19 22 Active Triple Antibiotic External Ointment APPLY TOPICALLY TWICE DAILY NEEDED FOR SCRAPES OR ABRASIONS 28.35 Each 5 01/31/20 22 Active Hydrocortisone (Perianal) 2.5 % External Cream (Anusol-HC)Indicati ons:Hemorrhoids, external without complications Administer into the rectum 2 times a day. For one week 28 g 05/26/19 23 Active Gold Anderson Ultimate External LotionIndications:X erosis cutis Apply to skin daily as previously 155 g 2 09/25/19 23 Active White Petrolatum External OintmentIndications :Wound of skin Apply to biopsy lesions two times a day for 1 week 30 g 04/17/19 24 Active Olopatadine HCl 0.2 % Ophthalmic Solution (Pataday) Instill 1 Drop into both eyes in the morning. Active Dqixowc-Zgkmmcny-Bl methicone 200-200-20 MG/5ML Oral Suspension (Alum & Mag Hydroxide-Simeth) Take by mouth every 6 hours as needed for Indigestion. Active Loperamide HCl 2 MG Oral Capsule (Imodium A-D) Take 1 Capsule by mouth 4 times a day as needed for Diarrhea. Active metFORMIN HCl ER 500 MG Oral Tablet Extended Release 24 Hour (Glucophage XR)Indications:Type 2 diabetes mellitus with hemoglobin A1c goal of less than 7.0% (HCC) TAKE 2 TABLETS (1000MG) BY MOUTH ONCE DAILY WITH BREAKFAST FOR DM 56 Tablet 5 12/12/19 24 Active Levothyroxine Sodium 88 MCG Oral Tablet (Levoxyl)Indication s:Acquired hypothyroidism TAKE ONE TABLET BY MOUTH DAILY *HYPOTHYROIDISM* 28 Tablet 11 01/06/20 24 Active Fiber-Lax 625 MG Oral Tablet (Calcium Polycarbophil) TAKE 2 TABLETS BY MOUTH DAILY WITH 8OZ OF WATER*CONSTIPATI ON* 56 Tablet 4 01/07/20 24 Active Docusate Sodium 100 MG Oral Capsule (Colace)Indications :Hemorrhoids, external without complications TAKE 1 CAPSULE BY MOUTH TWICE DAILY FOR CONSTIPATION 56 Capsule 4 01/07/20 24 Active D3-1000 25 MCG (1000 UT) Oral Capsule (Cholecalciferol) TAKE ONE CAPSULE BY MOUTH DAILY (SUPPLEMENT) 28 Capsule 4 01/30/20 24 Active Omeprazole 20 MG Oral Capsule Delayed Release (PriLOSEC) TAKE ONE CAP BY MOUTH DAILY 1HR BEFORE EVENING MEAL*C/O UPSET STOMACHE* 28 Capsule 4 02/28/19 25 Active Levocetirizine Dihydrochloride 5 MG Oral TabletIndications:A llergic rhinitis, unspecified seasonality, unspecified trigger TAKE 1/2 TABLET (2.5 MG) BY MOUTH EVERY EVENING *ANTIHISTAMINE* 14 Tablet 4 02/28/19 25 Active Magnesium Hydroxide 400 MG/5ML Oral Suspension (Milk of Magnesia) TAKE 30ML BY MOUTH ONCE DAILY NEEDED FOR CONSTIPATION 473 mL 4 03/23/19 25 Active Polyethylene Glycol 3350 17 GM/SCOOP Oral Powder (Miralax) MIX 1 CAPFUL (17GM) WITH 8OZ OF WATER OR JUICE AND DRINK ONCE DAILY IN THE MORNING FOR CONSTIPATION 510 g 4 03/22/19 25 Active CertaVite/Antioxida nts Oral TabletIndications:M ixed dyslipidemia TAKE 1 TABLET BY MOUTH DAILY (SUPPLEMENT) 30 Tablet 4 03/26/19 25 Active Atorvastatin Calcium 40 MG Oral Tablet (Lipitor) TAKE 1 TABLET BY MOUTH ONCE DAILY FOR CHLOESTROL 28 Tablet 4 04/23/19 25 Active documented as of this encounter (statuses as of 05/17/2024) Active Problems Problem Noted Date Diagnosed Date Pre-operative exam 08/20/2023 History of colonic polyps 08/20/2023 History of nonmelanoma skin cancer 04/12/2022 Overview (05/08/2022): 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, SCCIS L frontal scalp 2020, s/p curettage Senile dementia, uncomplicated 04/25/2021 Type 2 diabetes mellitus with diabetic dermatiti s 04/13/2020 Diabetes mellitus without complication 8 Type 2 diabetes mellitus wit h hemoglobin A1c goal of less than 7.0% 10/23/2017 History of pulmonary embolism 10/30/2016 Acquired hypothyroidism 11/13/2015 Metabolic syndrome 07/25/2014 Severe obstructive sleep apnea 07/15/2014 Overview (09/01/2014): 09/01/14 -- APAP 10-16 cwp (new device 07/25/14) 2008 PSG -- AHI 44.4 DHC Dermatitis 03/20/2010 OBESITY, BMI 30-34 (SEE ACTUAL BMI) 05/18/2009 Overview (05/18/2009): Per Obesity Taxonomy Dyslipidemia, goal LDL below 100 02/06/2009 Overview (02/06/2009): Per Lipid Taxonomy. Hemorrhoids, external without complications 02/25 MOD MENTAL RETARDATION SIMPLE SCHIZOPHREN-CHR documented as of this encounter (statuses as of 05/17/2024) Resolved Problems Problem Noted Date Diagnosed Date Resolved Date Type 2 diabetes mellitus wit h hemoglobin A1c goal of less than 7.0% 11/06/2010 07/25/2014 Overview (06/20/2015): ICD-10 update of inactive term Cellulitis of leg 03/20/2010 01/28/2022 ADVANCE DIRECTIVE INFORMATION 10/17/2004 12/29/2023 Overview (10/17/2004): No, Advance Directive brochure offered , patient declined. METABOLIC SYNDROME 03/09/2004 2 HYPOTHYROIDISM NOS 12/08/2001 6 Mixed dyslipidemia 07/28/2000 9 Overview (02/06/2009): Per Lipid Taxonomy. OBESITY, UNSPECIFIED 010 Overview (05/18/2009): Per Obesity Taxonomy documented as of this encounter (statuses as of 05/17/2024) Immunizations Name Administration Dates Next Due COVID-19 mRNA, LNP-s, No Pre serve, 2-Dose Series (EthosGen) 01/10/2021,04/20/2020,03/30/2020 H1N1 2009 Influenza, IM 12/30/2008 Hepatitis B, 20+ yrs 06/11/1995 PPD 10/30/2022,,10/23/2018,2016,11/25/2014,06/08/2013,12/09/2011,0 04/11/2010,03/30/2008,12/17/2007, 007 Pneumococcal Conjugate Vacci ne, 20-valent ([id number]) 02/28/2022 RSV Vac., Recomb, Adjuvant, PF,0.5 Ml (Arexvy) 04/06/2024 Seasonal Influenza Vac., MDV , IM, 0.5 mL (Fluzone) 12/03/2013,12/08/2012,11/12/2011,2010,12/26/2009,12/26/2009,12/20/2008,1 04/19/2007,12/11/2006,12/11/2005 Seasonal Influenza, PF, 6 M & above, IM , (FluLaval or Fluzone) 10/30/2022,01/28/2022,11/29/2020,2018,12/17/2017,12/03/2016 Seasonal Influenza, Quadriva lent, No Preserve, IM 12/07/2019,11/13/2015,11/25/2014 Seasonal Influenza, Trivalen t, (IIV3), PF, (Fluzone) 11/04/2023 TDAP (age 10 and older)(Boostrix) 11/13/2015 TDAP, Age 7 and older, IM (Adacel) 08/29/2006 Zoster Vaccine Recombinant (Shingrix) 03/02/2020 ,12/07/2019 documented as of this encounter Social History Tobacco Use Types Packs/Day Years Used Date Smoking Tobacco: Former Cigarettes Q uit: 03/05/1997 Smokeless Tobacco: Never Alcohol Use Standard Drinks/Week Comments No 0 (1 standard drink = 0.6 oz pur e alcohol) PHQ-2 Answer Date Recorded PHQ Adult Total Score 0 04/06/2024 Sex and Gender Information Value Date Recorded Sex Assigned at Not on file Legal Sex Male 5:03 AM EST Gender Identity Not on file Sexual Orientation Not on file Occupation Industry Job Start Date Job End Date disability Not on file Not on file Not on file documented as of this encounter Miscellaneous Notes * Telephone Encounter - Caty Swanson [place] - 05/17/2024 8:01 AM EDT Care Gaps Comprehensive Care Outreach Last Office/Telemedicine Visit: 04/06/2024 (in office), 09/08/2023 (telemedicine) Next Office Visit: 10/04/2024 Hemoglobin AIC Results: Lab Results Component Value Date/Time HEMOGLOBIN A1C - [facility] 5.3 11/04/2023 12:47 PM HEMOGLOBIN A1C - [facility] 5.4 05/02/2023 08:07 AM HEMOGLOBIN A1C - [facility] 5.6 05/29/2022 02:11 PM HEMOGLOBIN A1C - [facility] 5.2 10/11/2019 09:06 AM HEMOGLOBIN A1C - [facility] 5.4 04/14/2019 10:56 AM HEMOGLOBIN A1C - [facility] 5.2 10/23/2018 10:43 AM BP Readings from Last 1 Encounters: 04/06/24 120/76 Reviewed Health Maintenance below: Health Maintenance Topic Date Due COVID-19 Vaccine ( season) 2023 B-12 05/01/2024 HbA1c 05/03/2024 Albumin/Creatinine Ratio 11/03/2024 Diabetic Foot Exam 11/03/2024 GFR 11/03/2024 TSH 11/03/2024 Diabetic Eye Exam 12/09/2024 Labs already ordered Care Gap Outreach Action Taken: Outreach not indicated documented in this encounter Plan of Treatment Upcoming Encounters Date Type Department Care Team (Late st Contact Info) Description 05/26/2024 12:20 PM EDT Office Visit Dermatology [facility] [place] [address] [place] [address] Sharona Castro PA-C [facility] [place] [address] [address] 10/04/2024 9:00 AM EDT Office Visit [facility] [address] [place] [address] Marlyn Gómez PA-C [address] [place] [address] 11/05/2024 12:00 PM EDT Office Visit [facility] [address] [place] [address] Akil Thorne III, MD [address] [facility] [place] [address] Scheduled Procedures Name Priority Associated Diagnoses Date/Ti me COLONOSCOPY FLEXIBLE PROXIMA L DIAGNOSTIC Recall History of colonic polyps Health Maintenance Due Date Last Done Comments Cologuard 12/27/2004 Fecal Occult Blood Test 12/27/2004 Sigmoidoscopy 12/27/2004 COVID-19 Vaccine ( season) 2023 01/02/2023, 01/10/2021, 04/20/2020, Additional history exists B-12 05/01/2024 05/02/2023, 2 , 01/24/2021, Additional history exists HbA1c 05/03/2024 11/04/2023, 03/0 09/2023, 10/29/2022, Additional history exists Albumin/Creatinine Ratio 11/03/2024 024, 10/29/2022, 11/08/2021, Additional history exists Diabetic Foot Exam 11/03/2024 11/04/2023, 1 , 04/26/2019, Additional history exists GFR 11/03/2024 11/04/2023, 03/0 09/2023, 10/29/2022, Additional history exists TSH 11/03/2024 11/04/2023, 06/24, 01/28/2022, Additional history exists Diabetic Eye Exam 12/09/2024 12/10/2023, , 10/09/2022, Additional history exists Depression Screening 04/06/2025 04/06/2024 DTap/Tdap Vaccines (3 - Td or Tdap) 11/12/2025 11/13/2015, 08/29/2006, 09/24/1996, Additional history exists Colonoscopy 08/26/2026 08/27/2023, 07/0 04/2023, 04/02/2022, Additional history exists Colorectal Cancer Screening 08/26/2026 Lipid Panel 11/03/2028 11/04/2023, 03/0 09/2023, 07/05/2022, Additional history exists Hepatitis B Vaccine Completed 06/11/1995, 01/11/1995, 12/11/1994, Additional history exists Zoster Vaccines Completed 03/02/2020, 12/07/2019 Pneumococcal Vaccine: 50+ Years Completed 02/28/2022, 01/22/2005 RETIRED - COLONOSCOPY-ANNUAL AGES 18-100 Discontinued 08/27/2023, 08/27/2023, 04/02/2022, Additional history exists RETIRED - COLONOSCOPY-EVERY 5 YRS AGES 18-100 Discontinued 08/27/2023, 08/27/2023, 04/02/2022, Additional history exists Influenza Vaccine (FLU shot) Completed 11/04/2023, 10/30/2022, 01/28/2022, Additional history exists HPV (Gardasil) Vaccine Aged Out No lo nger eligible based on patient's age to complete this topic MENINGOCOCCAL (MENACTRA/MENVEO) Aged Out No longer eligible based on patient's age to complete this topic Meningitis B Vaccine (Bexsero/Trumemba) Aged Out No longer eligible based on patient's age to complete this topic documented as of this encounter Medical Devices Not on filedocumented as of this encounter Care Teams Clinical Practice Consultant Relationship Specialty Start Date End Date Akil Thorne III, MD [address] [place] [address] PCP - General 05/24/02 documented as of this encounter
--- OUTSIDE RECORDS SUMMARY | 2024-05-27 07:11 | External Medical Summary ---
Author Name Unknown Address Unknown Organization [id number]:[facility] [place] - [address] [facility] [address] Laboratory Report Ordering Provider Test Date Status MOHIT CORONA 05/24/2024 12:34:36 Final Observation Date Value Abnormality Reference (Units) Status Bacteria identified in Specimen by Culture 05/24/2024 12:34:36 No significant growth Final Test: Culture, Urine, Quanti tative
Specimen Source: Urine, Clean Catch
Specimen Type: Urine
Specimen Date: 05/24/2024 1234
Result Date: 05/25/2024 1123
Result Status: Final result
Resulting Lab: [facility] [place]
[address]
[facility] [address]

CULTURE

No significant growth

null Performing Location [facility] [place] - [address] [facility] [address]
--- OUTSIDE RECORDS SUMMARY | 2024-05-27 07:11 | External Medical Summary ---
Author Name Unknown Address Unknown Organization [id number]:[facility] [place] [address] Laboratory Report Ordering Provider Test Date Status MOHIT CORONA 05/24/2024 12:34:36 Final Observation Date Value Abnormality Reference (Units ) Status Color of Urine by Auto 05/24/2024 12:34:36 Yellow Light Yellow, Yellow, Dark Yellow Final Clarity, Urine 05/24/2024 12:34:36 Clear Clear Final Glucose [Mass/volume] in Urine by Automated test strip 05/24/2024 12:34:36 Negative Negative (mg/dL) Final Bilirubin.total [Presence] in Urine by Automated test strip 05/24/2024 12:34:36 Negative Negative Final Ketones [Mass/volume] in Urine by Automated test strip 05/24/2024 12:34:36 Negative Negative (mg/dL) Final Specific gravity, Urine 05/24/2024 12:34:36 1.015 1.003-1.030 Final Hemoglobin [Presence] in Urine by Automated test strip 05/24/2024 12:34:36 Negative Negative Final pH, Urine 05/24/2024 12:34:36 7.0 5.0-7.5 (Units) Final Protein [Mass/volume] in Urine by Automated test strip 05/24/2024 12:34:36 Negative Negative (mg/dL) Final Urobilinogen [Mass/volume] in Urine by Automated test strip 05/24/2024 12:34:36 1.0 0.2, 1.0 (mg/dL) Final Nitrite [Presence] in Urine by Automated test strip 05/24/2024 12:34:36 Negative Negative Final Leukocyte esterase [Presence] in Urine by Automated test strip 05/24/2024 12:34:36 Negative Negative Final Annotation Comment 05/24/2024 12:34:36 Final Screen negative - Microscopi c not performed. Performing Location [facility] [place] [address]
--- OUTSIDE RECORDS SUMMARY | 2024-05-27 07:11 | External Medical Summary ---
Author Name Unknown Address Unknown Organization [id number]:[facility] [place] [address] Laboratory Report Ordering Provider Test Date Status MOHIT CORONA 05/24/2024 12:54:12 Final Observation Date Value Abnormality Reference (Units ) Status WBC, Total 05/24/2024 12:54:12 5.23 4.00-10.8 0 (K/uL) Final RBC 05/24/2024 12:54:12 4.44 4.50-5.25 (M/uL) Final Hemoglobin 05/24/2024 12:54:12 14.6 14.0-16.8 (g/dL) Final HCT 05/24/2024 12:54:12 45.5 40.0-48.4 (%) Final MCV 05/24/2024 12:54:12 102.5 82.0-99.5 (fL) Final MCH 05/24/2024 12:54:12 32.9 27.0-34.0 (pg) Final MCHC 05/24/2024 12:54:12 32.1 32.0-36.0 (g/dL) Final RDW 05/24/2024 12:54:12 12.6 11.5-15.5 (%) Final Platelets 05/24/2024 12:54:12 154 140-400 (K /uL) Final MPV 05/24/2024 12:54:12 9.8 6.6-11.1 ( fL) Final Performing Location [facility] [place] [address]
--- OUTSIDE RECORDS SUMMARY | 2024-05-27 07:11 | External Medical Summary ---
Author Name Unknown Address Unknown Organization [id number]:[facility] [place] [facility] [address] [facility] [address] Laboratory Report Ordering Provider Test Date Status MOHIT CORONA 05/24/2024 12:34:36 Final Observation Date Value Abnormality Reference (Units ) Status Adenovirus DNA [Presence] in Nasopharynx by MIGUEL with non-probe detection 05/24/2024 12:34:36 Negative Negative Final Human coronavirus 229E RNA [Presence] in Nasopharynx by MIGUEL with non-probe detection 05/24/2024 12:34:36 Negative Negative Final Human coronavirus HKU1 RNA [Presence] in Nasopharynx by MIGUEL with non-probe detection 05/24/2024 12:34:36 Negative Negative Final Human coronavirus NL63 RNA [Presence] in Nasopharynx by MIGUEL with non-probe detection 05/24/2024 12:34:36 Negative Negative Final Human coronavirus OC43 RNA [Presence] in Nasopharynx by MIGUEL with non-probe detection 05/24/2024 12:34:36 Negative Negative Final SARS-CoV-2 (COVID-19) RNA [Presence] in Nasopharynx by MIGUEL with non-probe detection 05/24/2024 12:34:36 Negative Negative Final Human metapneumovirus RNA [Presence] in Nasopharynx by MIGUEL with non-probe detection 05/24/2024 12:34:36 Negative Negative Final Rhinovirus+Enterovirus RNA [Presence] in Nasopharynx by MIGUEL with non-probe detection 05/24/2024 12:34:36 Negative Negative Final Influenza virus A RNA [Presence] in Nasopharynx by MIGUEL with non-probe detection 05/24/2024 12:34:36 Negative Negative Final Influenza virus B RNA [Presence] in Nasopharynx by MIGUEL with non-probe detection 05/24/2024 12:34:36 Negative Negative Final Parainfluenza virus 1 RNA [Presence] in Nasopharynx by MIGUEL with non-probe detection 05/24/2024 12:34:36 Negative Negative Final Parainfluenza virus 2 RNA [Presence] in Nasopharynx by MIGUEL with non-probe detection 05/24/2024 12:34:36 Negative Negative Final Parainfluenza virus 3 RNA [Presence] in Nasopharynx by MIGUEL with non-probe detection 05/24/2024 12:34:36 Negative Negative Final Parainfluenza virus 4 RNA [Presence] in Nasopharynx by MIGUEL with non-probe detection 05/24/2024 12:34:36 Negative Negative Final Respiratory syncytial virus RNA [Presence] in Nasopharynx by MIGUEL with non-probe detection 05/24/2024 12:34:36 Negative Negative Final Bordetella pertussis.pertussis toxin promoter region [Presence] in Nasopharynx by MIGUEL with non-probe detection 05/24/2024 12:34:36 Negative Negative Final Chlamydophila pneumoniae DNA [Presence] in Nasopharynx by MIGUEL with non-probe detection 05/24/2024 12:34:36 Negative Negative Final Mycoplasma pneumoniae DNA [Presence] in Nasopharynx by MIGUEL with non-probe detection 05/24/2024 12:34:36 Negative Negative Final Bordetella parapertussis [id number] DNA [Presence] in Nasopharynx by MIGUEL with non-probe detection 05/24/2024 12:34:36 Negative Negative Final The primers that detect Rhin ovirus may cross react with some Enterorviruses. The validation of bronchial specimens, tracheal aspirates, and throats for this assay was developed and performance characteristics determined by [employer]. �The validation of alternate specimen types has not been cleared or approved by the U.S. Food and Drug Administration (FDA). �It has been determined that such clearance or approval is not necessary. Performing Location LABORATORY [facility] [place] - [address] [facility] [place] [facility] [address]
--- OUTSIDE RECORDS SUMMARY | 2024-05-27 07:11 | External Medical Summary ---
Author Name Unknown Address Unknown Organization [id number]:[facility] - [address] [place] [address] Laboratory Report Ordering Provider Test Date Status MOHIT CORONA 05/24/2024 12:54:12 Final Observation Date Value Abnormality Reference (Units ) Status Valproic Acid, level 05/24/2024 12:54:12 50 50-100 (ug/mL) Final Performing Location [facility] - [address] [place] [address]
--- OUTSIDE RECORDS SUMMARY | 2024-05-27 07:11 | External Medical Summary ---
Author Name Unknown Address Unknown Organization [id number]:[facility]ATORY [facility] [place] - [address] [place] [address] Laboratory Report Ordering Provider Test Date Status MOHIT CORONA 05/24/2024 12:54:12 Final Observation Date Value Abnormality Reference (Units ) Status TSH 05/24/2024 12:54:12 3.03 0.27-4.20 (uIU/mL) Final Performing Location LAB[facility]ATORY [facility] [place] - [address] [place] [address]
--- OUTSIDE RECORDS SUMMARY | 2024-05-27 07:11 | External Medical Summary ---
Author Name Unknown Address Unknown Organization [id number]:[facility] [place] [facility] [place] [address] [place] [address] Laboratory Report Ordering Provider Test Date Status MOHIT CORONA 05/24/2024 12:54:12 Final Observation Date Value Abnormality Reference (Units ) Status HbA1C 05/24/2024 12:54:12 5.5 4.0-5.6 (% ) Final The use of HbA1c to monitor glycemic status is based on normal hemoglobin and HbA composition. This test should not be used in patients with abnormal hemoglobin that affects the half life of the red blood cell or the in vivo glycation rates. Glucose, estimated average 05/24/2024 12:54:12 111 <126 (mg/dL) Final Performing Location [facility] [place] [address] [place] [address]
--- OUTSIDE RECORDS SUMMARY | 2024-05-27 07:11 | External Medical Summary ---
Author Name Unknown Address Unknown Organization [id number]:LAB[facility]ATORY [facility] - [address] [place] [address] Laboratory Report Ordering Provider Test Date Status CJELODIAVIJAYA 05/24/2024 12:54:12 Final Observation Date Value Abnormality Reference (Units ) Status Vitamin B12 05/24/2024 12:54:12 [id number] (pg/mL) Final Performing Location [facility] - [address] [place] [address]
--- OUTSIDE RECORDS SUMMARY | 2024-05-27 07:11 | External Medical Summary ---
Author Name Unknown Address Unknown Organization [id number]:[facility] [place] - [address] [place] [address] Laboratory Report Ordering Provider Test Date Status MOHIT CORONA 05/24/2024 12:54:12 Final Observation Date Value Abnormality Reference (Units ) Status [place] [Moles/volume] in Blood 05/24/2024 12:54:12 0.5 Below low normal 0.6-1.2 (mmol/L) Final Performing Location [facility] - [address] [place] [address]
--- OUTSIDE RECORDS SUMMARY | 2024-05-27 07:11 | External Medical Summary ---
Author Name Unknown Address Unknown Organization [id number] [address] [place] [address] Laboratory Report Ordering Provider Test Date Status MOHIT CORONA 05/24/2024 12:54:12 Final Observation Date Value Abnormality Reference (Units ) Status BUN 05/24/2024 12:54:12 13 6-20 (mg/dL) Final Creatinine 05/24/2024 12:54:12 1.0 0.6-1.2 (mg/dL) Final Glomerular filtration rate/1.73 sq M.predicted [Volume Rate/Area] in Serum, Plasma or Blood by Creatinine-based formula (CKD-EPI) 05/24/2024 12:54:12 84 >=60 (mL/min) Final eGFR is calculated based on the CKD-EPI 2020 equation. Sodium 05/24/2024 12:54:12 144 135-146 (m mol/L) Final Potassium 05/24/2024 12:54:12 5.0 3.5-5.1 (m mol/L) Final Cl 05/24/2024 12:54:12 107 98-107 (mm ol/L) Final CO2 05/24/2024 12:54:12 28 22-32 (mmo l/L) Final Anion gap 05/24/2024 12:54:12 9 7-15 (mmol /L) Final Glucose 05/24/2024 12:54:12 103 70-120 (mg /dL) Final Albumin 05/24/2024 12:54:12 4.0 3.8-5.0 (g /dL) Final AST (Aspartate aminotransferase) 05/24/2024 12:54:12 28 10-50 (U/L) Final Alk Phos 05/24/2024 12:54:12 84 35-130 (U/ L) Final Bilirubin, Total 05/24/2024 12:54:12 1.0 <=1 .2 (mg/dL) Final Calcium 05/24/2024 12:54:12 10.0 8.4-10.2 ( mg/dL) Final Protein 05/24/2024 12:54:12 6.0 6.0-8.3 (g /dL) Final ALT (Alanine aminotransferase) 05/24/2024 12:54:12 39 10-50 (U/L) Final Performing Location [facility] [address] [place] [address]
--- OUTSIDE RECORDS SUMMARY | 2024-05-27 07:11 | External Medical Summary | Summary of Care ---
Author Name Unknown Organization [facility] Address [address] [place] [address] Phone [phone] Care Team Providers Care Clinical Manager Home Care Name Role Phone Fadumo CASILLAS MD, Akil Soriano Primary Care Provider [phone] Reason for Visit * Reason Comments Acute Shakiness, Not Feeli ng Well Encounter Details Date Type Department Care Team (Latest Contact Info) Description 05/24/2024 11:40 AM EDT Office Visit General Internal Medicine [facility] [address] [place] [address] Amado Moreno, [address] [place] [address] Malaise and fatigue*; Shakiness; Type 2 diabetes mellitus with hemoglobin A1c goal of less than 7.0% ([facility]); Acquired hypothyroidism; Senile dementia, uncomplicated ([facility]); SIMPLE SCHIZOPHREN-CHR Allergies Active Allergy Reactions Criticality Noted Date Comments Povidone Iodine Low 08/06/2023 Clozapine Unknown 11/29/2020 Benztropine Unknown 11/29/2020 Povidone Iodine Unknown 04/14/2000 Pseudoephedrine Unknown 04/14/2000 Terfenadine Unknown 04/14/2000 documented as of this encounter (statuses as of 05/24/2024) Medications ACETAMINOPHEN 325 MG PO TABS take two tablets by mouth every 4 hours as needed 09/06/19 12 Active NEOSPORIN BRADLEY TO GO 1 % EX OINT for scrapes and abrasions Active SAPHRIS 10 MG SL SUBL dissolve 1 tab under tongue at bedtime Active SAPHRIS 5 MG SL SUBL dissolve 1 tab under tongue in am Active lithium carbonate (ESKALITH) 300 MG CapsuleIndications :in evening Take 2 Capsules by mouth at [...] Active QC Fish Oil 1000 MG Oral CapsuleIndications :Mixed dyslipidemia TAKE 1 CAPSULE BY MOUTH THREE TIMES DAILY *LOWER CHOLESTEROL* 84 Capsule 5 04/06/19 22 Active MEDICAL INSTRUCTIONSIndica tions:Cerumen impaction Ok to administer Debrox ear drops [...] Active Hydrocortisone (Perianal) 2.5 % External Cream (Anusol-HC)Indicat ions:Hemorrhoids, external without complications Administer into the rectum 2 times a day. For one week 28 g 05/26/19 23 Active Gold Anderson Ultimate External LotionIndications: Xerosis cutis Apply to skin daily as previously 155 g 2 09/25/19 23 Active White Petrolatum External OintmentIndication s:Wound of skin Apply to biopsy lesions two times a day for 1 week 30 g 04/17/19 24 Active Olopatadine HCl 0.2 % Ophthalmic Solution (Pataday) Instill 1 Drop into both eyes in the morning. Active Bzpdtxg-Gywgxoxh-T imethicone 200-200-20 MG/5ML Oral Suspension (Alum & Mag Hydroxide-Simeth) Take by mouth every 6 hours as needed for Indigestion. Active Loperamide HCl 2 MG Oral Capsule (Imodium A-D) Take 1 Capsule by mouth 4 times a day as needed for Diarrhea. Active Levothyroxine Sodium 88 MCG Oral Tablet (Levoxyl)Indicatio ns:Acquired hypothyroidism TAKE ONE TABLET BY MOUTH DAILY *HYPOTHYROIDISM * 28 Tablet 11 01/06/20 24 Active Fiber-Lax 625 MG Oral Tablet (Calcium Polycarbophil) TAKE 2 TABLETS BY MOUTH DAILY WITH 8OZ OF WATER*CONSTIPAT ION* 56 Tablet 01/07/20 24 Active Docusate Sodium 100 MG Oral Capsule (Colace)Indication s:Hemorrhoids, external without complications TAKE 1 CAPSULE BY MOUTH TWICE DAILY FOR CONSTIPATION 56 Capsule 01/07/20 24 Active D3-1000 25 MCG (1000 UT) Oral Capsule (Cholecalciferol) TAKE ONE CAPSULE BY MOUTH DAILY (SUPPLEMENT) 28 Capsule 01/30/20 24 Active Omeprazole 20 MG Oral Capsule Delayed Release (PriLOSEC) TAKE ONE CAP BY MOUTH DAILY 1HR BEFORE EVENING MEAL*C/O UPSET STOMACHE* 28 Capsule 4 02/28/19 25 Active Levocetirizine Dihydrochloride 5 MG Oral TabletIndications: Allergic rhinitis, unspecified seasonality, unspecified trigger TAKE 1/2 TABLET (2.5 MG) BY MOUTH EVERY EVENING *ANTIHISTAMINE* 14 Tablet 02/28/19 25 Active Magnesium Hydroxide 400 MG/5ML Oral Suspension (Milk of Magnesia) TAKE 30ML BY MOUTH ONCE DAILY NEEDED FOR CONSTIPATION 473 mL 03/23/19 25 Active Polyethylene Glycol 3350 17 GM/SCOOP Oral Powder (Miralax) MIX 1 CAPFUL (17GM) WITH 8OZ OF WATER OR JUICE AND DRINK ONCE DAILY IN THE MORNING FOR CONSTIPATION 510 g 4 03/22/19 25 Active CertaVite/Antioxid ants Oral TabletIndications: Mixed dyslipidemia TAKE 1 TABLET BY MOUTH DAILY (SUPPLEMENT) 30 Tablet 4 03/26/19 25 Active Atorvastatin Calcium 40 MG Oral Tablet (Lipitor) TAKE 1 TABLET BY MOUTH ONCE DAILY FOR CHLOESTROL 28 Tablet 4 04/23/19 25 Active metFORMIN HCl ER 500 MG Oral Tablet Extended Release 24 Hour (Glucophage XR)Indications:Typ e 2 diabetes mellitus with hemoglobin A1c goal of less than 7.0% (HCC) TAKE 2 TABLETS (1000MG) BY MOUTH ONCE DAILY WITH BREAKFAST FOR DM 56 Tablet 4 05/21/19 25 Active Amoxicillin 500 MG Oral Capsule (Amoxil) 05/21/19 25 Active Arexvy 120 MCG/0.5ML Intramuscular Suspension Reconstituted (RSV PreF3 Vac Recomb Adjuvanted)Indicat ions:Need for prophylactic vaccination and inoculation against respiratory syncytial virus (RSV) Inject 0.5 mL into a large muscle once for 1 dose. 1 Each 04/06/19 25 025 Discontin ued(Patie nt preferenc e/discont inuation) documented as of this encounter (statuses as of 05/24/2024) Active Problems Problem Noted Date Diagnosed Date [...] Severe obstructive sleep apnea 07/15/2014 Overview (09/01/2014): 7/9/15 -- APAP 10-16 cwp (new device 07/25/14) 2008 PSG -- AHI 44.4 DHC Dermatitis 03/20/2010 OBESITY, BMI 30-34 (SEE ACTUAL BMI) 05/18/2009 Overview (05/18/2009): Per Obesity Taxonomy Dyslipidemia, goal LDL below 100 02/06/2009 Overview (02/06/2009): Per Lipid Taxonomy. Hemorrhoids, external without complications 02/25 MOD MENTAL RETARDATION SIMPLE SCHIZOPHREN-CHR documented as of this encounter (statuses as of 05/24/2024) Resolved Problems Problem Noted Date Diagnosed Date [...] as of this encounter (statuses as of 05/24/2024) Immunizations Name Administration Dates Next Due COVID-19 mRNA, LNP-s, No Pre serve, 2-Dose Series ([employer] Vaccines) 01/10/2021,04/20/2020,03/30/2020 H1N1 2009 Influenza, IM 12/30/2008 Hepatitis B, 20+ yrs 06/11/1995 PPD 10/30/2022, 1,10/23/2018,2016,11/25/2014,06/08/2013,12/09/2011,0 04/11/2010,03/30/2008,12/17/2007, 007 Pneumococcal Conjugate Vacci ne, 20-valent ([id number]) 02/28/2022 RSV Vac., Recomb, Adjuvant, PF,0.5 Ml [...] Cigarettes Q uit: 03/05/1997 Smokeless Tobacco: Never Tobacco Cessation:Counseling Given: Not Answered Alcohol Use Standard Drinks/Week Comments No 0 [...] on file documented as of this encounter Last Filed Vital Signs Vital Sign Reading Time Taken Comments Blood Pressure 102/58 05/24/2024 12:08 PM EDT Pulse 97 05/24/2024 12:08 PM EDT Temperature 36.8 °C (98.2 °F) 05/24/2024 12:08 PM E DT Respiratory Rate - - Oxygen Saturation 97% 05/24/2024 12:08 PM EDT Inhaled Oxygen Concentration - - Weight - - Height - - Body Mass Index - - documented in this encounter Progress Notes * Amado Moreno, DO - 05/24/2024 12:05 PM EDT Subjective Estuardo Mueller is a 63 year old male. Chief Complaint Patient presents with Acute Shakiness, Not Feeling Well HPI: Patient presents to office for evaluation of shakiness. His caregiver. Has not been feeling well since this morning. Caregiver reports that night staff seem to note patient was at baseline. Whenasked he did not feel well. Feels tired. Caregiver notes has been more wobbly, unsteady on his feet. Sometimes this can be a sign that has not infection such as COVID-19. Rapid COVID test negative. Patient's shakes his head yes when asked about upset stomach. Has sounded congested. No obvious coughor shortness of breath. No rashes noted. No vomiting. No obvious urinary symptoms such as painful urination or hematuria noted. Patient does have history of dementia. Also has history of simple schizophrenia. Has been followed by Psychiatry in the past. Is on medications including Haldol, lithium, Depakote for this. Last lithium, Depakote levels were low end of normal range. Caregiver states he is currently on amoxicillin from his dentist after recent dental work. They have not noted any facial swelling. No trouble swallow ing. 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 risperiDONE 3 MG Oral Tablet Take 2 Tablets by mouth every night at bedtime. Escitalopram Oxalate 20 MG Oral Tablet Take 1 Tablet by mouth in the morning. Polyethyl Glycol-Propyl Glycol (SYSTANE) 0.4-0.3 % ophthalmic solution Instill 1 Drop into both eyes 4 times a day as needed for Dry eyes. 1 Bottle 5 Divalproex Sodium ER 250 MG Oral Tablet Extended Release 24 Hour (DEPAKOTE ER) In addition to (3) 500mg tablets to total 1750 mg Divalproex Sodium ER 500 MG Oral Tablet Extended Release 24 Hour (DEPAKOTE ER) 3 tablets at bedtimein addition to 250mg to total 1750 mg Haloperidol 1 MG Oral Tablet (HALDOL) at bedtime. Hydrocortisone (Perianal) 2.5 % External Cream (Anusol-HC) Administer into the rectum 2 times a day. 28 g 3 QC Fish Oil 1000 MG Oral Capsule TAKE 1 CAPSULE BY MOUTH THREE TIMES DAILY *LOWER CHOLESTEROL* 84 Capsule 5 MEDICAL INSTRUCTIONS Ok to administer Debrox ear drops daily for 5 days in both ears as directed once a month to prevent cerumen impaction in ears. 1 Each 0 guaiFENesin-DM 100-10 MG/5ML Oral Syrup (Robitussin DM) Take by mouth 5 mL as needed in the morningAND 5 mL as needed at noon AND 5 mL as needed in the evening for Cough. 120 mL 0 Haloperidol 0.5 MG Oral Tablet (Haldol) Take 1 Tablet by mouth every morning. Triple Antibiotic External Ointment APPLY TOPICALLY TWICE DAILY NEEDED FOR SCRAPES OR ABRASIONS 28.35 Each 5 Hydrocortisone (Perianal) 2.5 % External Cream (Anusol-HC) Administer into the rectum 2 times a day. For one week 28 g 0 Gold Anderson Ultimate External Lotion Apply to skin daily as previously 155 g 2 White Petrolatum External Ointment Apply to biopsy lesions two times a day for 1 week 30 g 0 Olopatadine HCl 0.2 % Ophthalmic Solution (Ezekiel) Instill 1 Drop into both eyes in the morning. Mxphqgg-Dwpuipoi-Xlmxeutmshm 200-200-20 MG/5ML Oral Suspension (Alum & Mag Hydroxide-Simeth) Take by mouth every 6 hours as needed for Indigestion. Loperamide HCl 2 MG Oral Capsule (Imodium A-D) Take 1 Capsule by mouth 4 times a day as needed for Diarrhea. Levothyroxine Sodium 88 MCG Oral Tablet (Levoxyl) TAKE ONE TABLET BY MOUTH DAILY *HYPOTHYROIDISM* 28 Tablet 11 Fiber-Lax 625 MG Oral Tablet (Calcium Polycarbophil) TAKE 2 TABLETS BY MOUTH DAILY WITH 8OZ OF WATER*CONSTIPATION* 56 Tablet 4 Docusate Sodium 100 MG Oral Capsule (Colace) TAKE 1 CAPSULE BY MOUTH TWICE DAILY FOR CONSTIPATION 56 Capsule 4 D3-1000 25 MCG (1000 UT) Oral Capsule (Cholecalciferol) TAKE ONE CAPSULE BY MOUTH DAILY (SUPPLEMENT) 28 Capsule 4 Omeprazole 20 MG Oral Capsule Delayed Release (PriLOSEC) TAKE ONE CAP BY MOUTH DAILY 1HR BEFORE EVENING MEAL*C/O UPSET STOMACHE* 28 Capsule 4 Levocetirizine Dihydrochloride 5 MG Oral Tablet TAKE 1/2 TABLET (2.5 MG) BY MOUTH EVERY EVENING *ANTIHISTAMINE* 14 Tablet 4 Magnesium Hydroxide 400 MG/5ML Oral Suspension (Milk of Magnesia) TAKE 30ML BY MOUTH ONCE DAILY NEEDED FOR CONSTIPATION 473 mL 4 Polyethylene Glycol 3350 17 GM/SCOOP Oral Powder (Miralax) MIX 1 CAPFUL (17GM) WITH 8OZ OF WATER ORJUICE AND DRINK ONCE DAILY IN THE MORNING FOR CONSTIPATION 510 g 4 CertaVite/Antioxidants Oral Tablet TAKE 1 TABLET BY MOUTH DAILY (SUPPLEMENT) 30 Tablet 4 Atorvastatin Calcium 40 MG Oral Tablet (Lipitor) TAKE 1 TABLET BY MOUTH ONCE DAILY FOR CHLOESTROL 28 Tablet 4 metFORMIN HCl ER 500 MG Oral Tablet Extended Release 24 Hour (Glucophage XR) TAKE 2 TABLETS (1000MG) BY MOUTH ONCE DAILY WITH BREAKFAST FOR DM 56 Tablet 4 No current facility-administered medications for this visit. Past Medical History: Diagnosis Date Astigmatism Benign neoplasm of colon 02/01/10 POLYPS X2 --adenomatous tissue --repeat in 3 yrs Esophageal reflux Hypothyroidism Moderate intellectual disabilities Mental Retardation, Moderate Myopia Other mental problems Simple schizophrenia, chronic condition (HCC) Schizophrenia, Primary, paranoid, Dr Kishore Blank, [facility] Past Surgical History: Procedure Laterality Date COLONOSCOPY W/ LESION REMOVAL, SNARE 02/01/2010 POLYPS X2 --adenomatous tissue --repeat in 3 yrs COLONOSCOPY, DIAGNOSTIC (RECTUM) 02/03/2013 COLONOSCOPY FLEXIBLE PROXIMAL DIAGNOSTIC performed by Catarino Shine MD at END[facility]COPY [facility] COLONOSCOPY, DIAGNOSTIC (RECTUM) 01/10/2016 normal, repeat 5 yrs/[facility] COLONOSCOPY, DIAGNOSTIC (RECTUM) 01/10/2021 2- 4 to 5 mm in ascending, 2 - 3 to 5 descending, diverticulosis in sigmoid colon, internal hemorrhoids / biopsies benign adenomatous polyps / 1 year follow / COLONOSCOPY FLEXIBLE PROXIMAL DIAGNOSTICperformed by Saman Hinson MD at ENDOSCOPY [facility] COLONOSCOPY, DIAGNOSTIC (RECTUM) 04/02/2022 poor prep, diverticulosis, repeat 1 yr / COLONOSCOPY FLEXIBLE PROXIMAL DIAGNOSTIC performed by Saman Hinson MD at ENDOSCOPY [facility] COLONOSCOPY, DIAGNOSTIC (RECTUM) 08/27/2023 diverticulosis/hemorrhoids/biopsies show adenomatous polyps/recall 3 years/COLONOSCOPY FLEXIBLE PROXIMAL DIAGNOSTIC performed by Saman Hinson MD at ENDOSCOPY [facility] DENTAL SURGERY PROCEDURE NEC 12/31/1994 wisdom tooth extraction DENTAL SURGERY PROCEDURE NEC 07/01/1995 wisdom tooth extraction DIABETIC EYE EXAM 06/07/2013 Review of patient's allergies indicates: Allergen Reactions Clozaril [Clozapine] Unknown Cogentin [Benztropine] Unknown Povidone Iodine Unknown Pseudoephedrine Unknown Terfenadine Unknown Betadine [Povidone Iodine] Family History Problem Relation Name Age of Onset Eye Problems None patient denies hx AMD, glaucoma, retinal detachments or blindness Family Status Relation Status Mo Alive Fa NONE (Not Specified) Social History Socioeconomic History Marital status: Single Spouse name: Not on file Number of children: Not on file Years of education: Not on file Highest education level: Not on file Occupational History Occupation: disability Comment: Skills Tobacco Use Smoking status: Former Current packs/day: 0.00 Types: Cigarettes Quit date: 03/05/1997 Years since quittin.2 Smokeless tobacco: Never Vaping Use Vaping status: Never Used Substance and Sexual Activity Alcohol use: No Drug use: No Sexual activity: Not Currently Other Topics Concern Not on file Social History Narrative Not on file Social Needs Financial Resource Strain: Not on file Food Insecurity: Not on file Transportation Needs: Not on file Social Connections: Not on file Housing Stability: Not on file Review of Systems Constitutional: Positive for fatigue. Negative for chills, fever and unexpected weight change. HENT: Positive for congestion. Negative for ear pain, facial swelling, sore throat and trouble swallowing. Eyes: Negative for photophobia and pain. Respiratory: Negative for cough, shortness of breath and wheezing. Cardiovascular: Negative for chest pain, palpitations and leg swelling. Gastrointestinal: Negative for abdominal distention, abdominal pain, nausea and vomiting. Genitourinary: Negative for dysuria and frequency. Musculoskeletal: Negative for back pain and neck stiffness. Skin: Negative for pallor. Neurological: Negative for dizziness, light-headedness and headaches. Psychiatric/Behavioral: Negative for sleep disturbance. The patient is not nervous/anxious. Objective BP 102/58 (BP Site: Left Arm, BP Position: Sitting, BP Cuff Size: Regular) | Pulse 97 | Temp 98.2 °F (36.8 °C) (Tympanic) | SpO2 97% Physical Exam Constitutional: General: He is not in acute distress. Appearance: He is not ill-appearing. HENT: Head: Normocephalic and atraumatic. Right Ear: Tympanic membrane, ear canal and external ear normal. Left Ear: Tympanic membrane, ear canal and external ear normal. Nose: Nose normal. No congestion or rhinorrhea. Mouth/Throat: Mouth: Mucous membranes are moist. Pharynx: Oropharynx is clear. Eyes: General: No scleral icterus. Extraocular Movements: Extraocular movements intact. Conjunctiva/sclera: Conjunctivae normal. Pupils: Pupils are equal, round, and reactive to light. Neck: Vascular: No carotid bruit. Cardiovascular: Rate and Rhythm: Normal rate and regular rhythm. Pulses: Normal pulses. Heart sounds: Normal heart sounds. No murmur heard. No friction rub. No gallop. Pulmonary: Effort: Pulmonary effort is normal. Breath sounds: Normal breath sounds. No wheezing, rhonchi or rales. Abdominal: General: Bowel sounds are normal. There is no distension. Palpations: Abdomen is soft. There is no mass. Tenderness: There is no abdominal tenderness. There is no right CVA tenderness or left CVA tenderness. Musculoskeletal: General: No swelling or tenderness. Normal range of motion. Cervical back: Normal range of motion and neck supple. Right lower leg: No edema. Left lower leg: No edema. Skin: General: Skin is warm and dry. Coloration: Skin is not jaundiced. Findings: No rash. Neurological: General: No focal deficit present. Mental Status: He is oriented to person, place, and time. Cranial Nerves: No cranial nerve deficit. Sensory: No sensory deficit. Motor: No weakness. Comments: No resting or intention tremor at this time Psychiatric: Mood and Affect: Mood normal. Behavior: Behavior normal. ASSESSMENT/PLAN: Malaise and fatigue (Primary) - RESPIRATORY PATHOGEN PANEL, PCR; Future; Expected date: 05/24/2024 - URINALYSIS, REFLEX TO MICROSCOPIC; Future; Expected date: 05/24/2024 - CULTURE, URINE, QUANTITATIVE; Future; Expected date: 05/24/2024 - COMPREHENSIVE METABOLIC PANEL; Future; Expected date: 05/24/2024 - CBC WITH WBC DIFFERENTIAL; Future; Expected date: 05/24/2024 - HEMOGLOBIN A1C; Future; Expected date: 05/24/2024 - TSH WITH FREE T4 IF INDICATED; Future; Expected date: 05/24/2024 - VITAMIN B12; Future; Expected date: 05/24/2024 - MAGNESIUM; Future; Expected date: 05/24/2024 - LITHIUM LEVEL; Future; Expected date: 05/24/2024 - VALPROIC ACID LEVEL; Future; Expected date: 05/24/2024 - RESPIRATORY PATHOGEN PANEL, PCR - URINALYSIS, REFLEX TO MICROSCOPIC - CULTURE, URINE, QUANTITATIVE Shakiness - RESPIRATORY PATHOGEN PANEL, PCR; Future; Expected date: 05/24/2024 - URINALYSIS, REFLEX TO MICROSCOPIC; Future; Expected date: 05/24/2024 - CULTURE, URINE, QUANTITATIVE; Future; Expected date: 05/24/2024 - COMPREHENSIVE METABOLIC PANEL; Future; Expected date: 05/24/2024 - CBC WITH WBC DIFFERENTIAL; Future; Expected date: 05/24/2024 - HEMOGLOBIN A1C; Future; Expected date: 05/24/2024 - TSH WITH FREE T4 IF INDICATED; Future; Expected date: 05/24/2024 - VITAMIN B12; Future; Expected date: 05/24/2024 - MAGNESIUM; Future; Expected date: 05/24/2024 - LITHIUM LEVEL; Future; Expected date: 05/24/2024 - VALPROIC ACID LEVEL; Future; Expected date: 05/24/2024 - RESPIRATORY PATHOGEN PANEL, PCR - URINALYSIS, REFLEX TO MICROSCOPIC - CULTURE, URINE, QUANTITATIVE Type 2 diabetes mellitus with hemoglobin A1c goal of less than 7.0% (HCC) - HEMOGLOBIN A1C; Future; Expected date: 05/24/2024 Acquired hypothyroidism - TSH WITH FREE T4 IF INDICATED; Future; Expected date: 05/24/2024 Senile dementia, uncomplicated (HCC) - VITAMIN B12; Future; Expected date: 05/24/2024 SIMPLE SCHIZOPHREN-CHR - LITHIUM LEVEL; Future; Expected date: 05/24/2024 - VALPROIC ACID LEVEL; Future; Expected date: 05/24/2024 Plan: Patient presents with caregiver as not feeling well since this morning. Potentially since last night. Tired. Shaky, unsteady on his feet. Does have baseline schizophrenia as well as dementia which do add some difficulty to physical exam/history May have viral syndrome but would like to rule out other infectious etiology RVP obtained today by nasopharyngeal swab UA/urine culture obtained Will check labs including CMP, CBC, A1c, B12, TSH, lithium, Depakote levels Counseled caregiver to have staff offer regular hydration that patient Otherwise continue current medications for now. Currently on levothyroxine 88 micrograms daily for hypothyroidism Paperwork completed for caregiver to document visit Follow Up: Return if symptoms worsen or fail to improve, for Follow up next routine with PCP as scheduled. | For: Follow up next routine with PCP as scheduled | Check-out note: Follow pending test results Labs today I spent a total of 30-39 minutes (exact time 35 mins) on the date of service in preparation, delivery, and documentation of the care provided to Estuardo Mueller excluding any time spent in the performance of separately billed services or time spent by another provider/QHP. Amado Moreno DO documented in this encounter Nursing Notes * Joselin Hill CMA - 05/24/2024 12:05 PM EDT Patient presents today with complaints of shakiness and trouble with strength and balance. wind energy project manager states he is very weak, typically any time this happened the patient had COVID. Rapid covid test was negative. No cold symptoms, some congestion. No fever or chills. Patient is currently on amoxicillin due to having a tooth pulled. She states that patient is not passing out or fainting, the lack of balance seems to be related to his shakiness. She denies any concerns regarding blood sugar that they are aware of, A1C order is active from March. documented in this encounter Plan of Treatment Upcoming Encounters Date Type Department Care Team (Late st Contact Info) Description 05/26/2024 12:20 PM EDT Office Visit [facility] [address] [facility] [place] [address] Sharona Castro PA-C [address] [facility] [place] [address] 10/04/2024 9:00 AM EDT Office Visit [facility] [address] [facility] [place] [address] Marlyn Gómez PA-C [address] [facility] [place] [address] 11/05/2024 12:00 PM EDT Office Visit [facility] [address] [facility] [place] [address] Akil Thorne III, MD [address] [facility] [place] [address] Pending Results Name Type Priority Associated Diagnoses Date /Time CULTURE, URINE, QUANTITATIVE Lab Routine Malaise and fatigue Shakiness 05/24/2024 12:34 PM EDT HEMOGLOBIN A1C Lab Routine Malaise and fatigue Shakiness Type 2 diabetes mellitus with hemoglobin A1c goal of less than 7.0% (HCC) 05/24/2024 12:54 PM EDT TSH WITH FREE T4 IF INDICATED Lab Routine Malaise and fatigue Shakiness Acquired hypothyroidism 05/24/2024 12:54 PM EDT VITAMIN B12 Lab Routine Malaise and fatigue Shakiness Senile dementia, uncomplicated (HCC) 05/24/2024 12:54 PM EDT LITHIUM LEVEL Lab Routine Malaise and fatigue Shakiness SIMPLE SCHIZOPHREN-CHR 05/24/2024 12:54 PM EDT VALPROIC ACID LEVEL Lab Routine Malaise and fatigue Shakiness SIMPLE SCHIZOPHREN-CHR 05/24/2024 12:54 PM EDT Scheduled Orders Name Type Priority Associated Diagnoses Orde r Schedule CULTURE, URINE, QUANTITATIVE Lab Routine Malaise and fatigue Shakiness Expected: 05/24/2024, Expires: 05/24/2025 HEMOGLOBIN A1C Lab Routine Malaise and fatigue Shakiness Type 2 diabetes mellitus with hemoglobin A1c goal of less than 7.0% (HCC) Expected: 05/24/2024 (Approximate), Expires: 05/24/2025 TSH WITH FREE T4 IF INDICATED Lab Routine Malaise and fatigue Shakiness Acquired hypothyroidism Expected: 05/24/2024 (Approximate), Expires: 05/24/2025 VITAMIN B12 Lab Routine Malaise and fatigue Shakiness Senile dementia, uncomplicated (HCC) Expected: 05/24/2024 (Approximate), Expires: 05/24/2025 LITHIUM LEVEL Lab Routine Malaise and fatigue Shakiness SIMPLE SCHIZOPHREN-CHR Expected: 05/24/2024 (Approximate), Expires: 05/24/2025 VALPROIC ACID LEVEL Lab Routine Malaise and fatigue Shakiness SIMPLE SCHIZOPHREN-CHR Expected: 05/24/2024 (Approximate), Expires: 05/24/2025 Scheduled Procedures Name Priority Associated Diagnoses Date/Ti me COLONOSCOPY FLEXIBLE PROXIMA L DIAGNOSTIC Recall History of colonic polyps Health Maintenance Due Date Last Done Comments Cologuard 12/27/2004 Fecal Occult Blood Test 12/27/2004 Sigmoidoscopy 12/27/2004 COVID-19 Vaccine ( season) 2023 01/02/2023, 01/10/2021, 04/20/2020, Additional history exists B-12 05/01/2024 05/02/2023, 08/25, 01/24/2021, Additional history exists HbA1c 05/03/2024 11/04/2023, 0309/2023, 10/29/2022, Additional history exists Albumin/Creatinine Ratio 11/03/2024 024, 10/29/2022, 11/08/2021, Additional history exists Diabetic Foot Exam 11/03/2024 11/04/2023, 1 , 04/26/2019, Additional history exists TSH 11/03/2024 11/04/2023, 06/24, 01/28/2022, Additional history exists Diabetic Eye Exam 12/09/2024 12/10/2023, , 10/09/2022, Additional history exists Depression Screening 04/06/2025 04/06/2024 GFR 05/24/2025 05/24/2024, 10/25, 05/02/2023, Additional history exists DTap/Tdap Vaccines (3 - Td or Tdap) 11/12/2025 11/13/2015, 08/29/2006, 09/24/1996, Additional history exists Colonoscopy 08/26/2026 08/27/2023, 0 04/2023, 04/02/2022, Additional history exists Colorectal Cancer Screening 08/26/2026 Lipid Panel 11/03/2028 11/04/2023, 0 09/2023, 07/05/2022, Additional history exists Hepatitis B [...] Not on filedocumented as of this encounter Procedures Procedure Name Priority Date/Time Associated Diagnosis Comments RESPIRATORY PATHOGEN PANEL, PCR Routine 05/24/2024 12:34 PM EDT Malaise and fatigue Shakiness URINALYSIS, REFLEX TO MICROSCOPIC Routine 05/24/2024 12:34 PM EDT Malaise and fatigue Shakiness documented in this encounter Results * MAGNESIUM (05/24/2024 12:54 PM EDT) Pathologist [facility] Magnesium 2.1 1.5 - 2.6 mg/dL 05/24/2024 1:50 PM EDT [facility] 56- Blood Venous blood specimen / Unknown Venipuncture / Unknown 05/24/2024 12:54 PM EDT 05/24/2024 12:55 PM EDT Amado Moreno DO LAB BLOOD ORDERABLES Final Result [facility] 56- [address] [place] [address] * COMPREHENSIVE METABOLIC PANEL (05/24/2024 12:54 PM EDT) [facility] BUN 13 6 - 20 mg/dL 05/24/2024 1:50 PM EDT [facility] 56 CREATININE 1.0 0.6 - 1.2 mg/dL 05/24/2024 1:50 PM EDT [facility] 56- EGFR 84 >=60 mL/min 05/24/2024 1:50 PM EDT [facility] 56- Comment:eGFR is calculated b ased on the CKD-EPI 2020 equation. SODIUM 144 135 - 146 mmol/L 05/24/2024 1:50 PM EDT [facility] 56- POTASSIUM 5.0 3.5 - 5.1 mmol/L 05/24/2024 1:50 PM EDT [facility] 56- CHLORIDE 107 98 - 107 mmol/L 05/24/2024 1:50 PM EDT [facility] 56 CO2 28 22 - 32 mmol/L 05/24/2024 1:50 PM EDT [facility] 56- ANION GAP 9 7 - 15 mmol/L 05/24/2024 1:50 PM EDT [facility] 56- GLUCOSE 103 70 - 120 mg/dL 05/24/2024 1:50 PM EDT [facility] 56 Albumin 4.0 3.8 - 5.0 g/dL 05/24/2024 1:50 PM EDT [facility] 56 AST 28 10 - 50 U/L 05/24/2024 1:50 PM EDT [facility] 56 Alkaline Phosphatase 84 35 - 130 U/L 05/24/2024 1:50 PM EDT [facility] 56 Bilirubin, Total 1.0 <=1.2 mg/dL 05/24/2024 1:50 PM EDT [facility] 56 CALCIUM 10.0 8.4 - 10.2 mg/dL 05/24/2024 1:50 PM EDT [facility] 56 Protein 6.0 6.0 - 8.3 g/dL 05/24/2024 1:50 PM EDT [facility] 56 ALT 39 10 - 50 U/L 05/24/2024 1:50 PM EDT [facility] 56 Blood Venous blood specimen / Unknown Venipuncture / Unknown 05/24/2024 12:54 PM EDT 05/24/2024 12:55 PM EDT Amado Moreno DO LAB BLOOD ORDERABLES Final Result [facility] [address] [place] [address] * URINALYSIS, REFLEX TO MICROSCOPIC (05/24/2024 12:34 PM EDT) Color, Urine Yellow Light Yellow, Yellow, Dark Yellow 05/24/2024 12:45 PM EDT [facility] 56- Clarity, Urine Clear Clear 05/24/2024 12:45 PM EDT [facility] 56- Glucose, Urine Negative Negative mg/dL 05/24/2024 12:45 PM EDT [facility] 56- Bilirubin, Urine Negative Negative 05/24/2024 12:45 PM EDT [facility] Ketone, Urine Negative Negative mg/dL 05/24/2024 12:45 PM EDT [address] Specific [place], Urine 1.015 1.003 - 1.030 05/24/2024 12:45 PM EDT [place] [id number] Blood, Urine Negative Negative 05/24/2024 12:45 PM EDT [address] pH, Urine 7.0 5.0 - 7.5 Units 05/24/2024 12:45 PM EDT [address] Protein, Urine Negative Negative mg/dL 05/24/2024 12:45 PM EDT [address] Urobilinogen, Urine 1.0 0.2, 1.0 mg/dL 05/24/2024 12:45 PM EDT [address] Nitrite, Urine Negative Negative 05/24/2024 12:45 PM EDT [facility] Esterase, Urine Negative Negative 12:45 PM EDT [address] Comment, Urine 05/24/2024 12:45 PM EDT [address] Comment:Screen negative - Mi croscopic not performed. Urine Urine specimen obtained by clean catch procedure / Unknown Non-blood Collection / Unknown 05/24/2024 12:34 PM EDT 05/24/2024 12:42 PM EDT Amado Moreno DO LAB URINE ORDERABLES Final Result [facility] [address] [place] [address] * RESPIRATORY PATHOGEN PANEL, PCR (05/24/2024 12:34 PM EDT) Adenovirus Negative Negative 05/24/2024 5:40 PM EDT [facility] [place] Coronavirus 229E Negative Negative 05/25/19 5:40 PM EDT [facility] [place] Coronavirus HKU1 Negative Negative 05/25/19 5:40 PM EDT [facility] [place] Coronavirus NL63 Negative Negative 05/25/19 5:40 PM EDT [facility] [place] Coronavirus OC43 Negative Negative 05/25/19 5:40 PM EDT [facility] [place] Coronavirus SARS-CoV-2 Negative Negative 05/24/2024 5:40 PM EDT [facility] [place] Human Metapneumovirus Negative Negative 05/24/2024 5:40 PM EDT [facility] [place] Rhinovirus/Enterovi zuhair Negative Negative 05/24/2024 5:40 PM EDT [facility] [place] Influenza A Negative Negative 05/24/2024 5:40 PM EDT [facility] [place] Influenza B Negative Negative 05/24/2024 5:40 PM EDT [facility] [place] Parainfluenza Virus 1 Negative Negative 05/24/2024 5:40 PM EDT [facility] [place] Parainfluenza Virus 2 Negative Negative 05/24/2024 5:40 PM EDT [facility] [place] Parainfluenza Virus 3 Negative Negative 05/24/2024 5:40 PM EDT [facility] [place] Parainfluenza Virus 4 Negative Negative 05/24/2024 5:40 PM EDT [facility] [place] Respiratory Syncytial Virus Negative Negative 05/24/2024 5:40 PM EDT [facility] [place] Bordetella pertussis Negative Negative 05/24/2024 5:40 PM EDT [facility] [place] Chlamydia pneumoniae Negative Negative 05/24/2024 5:40 PM EDT [facility] [place] Mycoplasma pneumoniae Negative Negative 05/24/2024 5:40 PM EDT [facility] [place] Bordetella parapertussis Negative Negative 05/24/2024 5:40 PM EDT [facility] [place] Comment: The primers that detect Rhinovirus may cross react with some Enterorviruses. The validation of bronchial specimens, tracheal aspirates, and throats for this assay was developed and performance characteristics determined by [employer]. The validation of alternate specimen types has not been cleared or approved by the U.S. Food and Drug Administration (FDA). It has been determined that such clearance or approval is not necessary. Upper Respiratory Nasopharyngeal swab / Unknown Non-blood Collection / Unknown 05/24/2024 12:34 PM EDT 05/24/2024 12:42 PM EDT Amado Moreno DO LAB MICRO - GENERAL ORDERABLES Final Result [facility] [place] [address] [place] [address] documented in this encounter Visit Diagnoses Diagnosis Malaise and fatigue- Primary Other malaise and fatigue Shakiness Abnormal involuntary movements Type 2 diabetes mellitus with hemoglobin A1c goal of less than 7.0% (HCC) Acquired hypothyroidism Unspecified hypothyroidism Senile dementia, uncomplicated (HCC) Senile dementia, uncomplicated SIMPLE SCHIZOPHREN-CHR Simple schizophrenia, chronic condition documented in this encounter Additional Health Concerns Infection Onset Date Last Indicated Resolved Time Respiratory Rule-Out 05/24/2024 05/24/2024 025 5:40 PM EDT documented as of this encounter Care Teams Clinical Manager Home Care Relationship Specialty Start Date End Date Akil Thorne III, MD [address] [facility] [place] [address] PCP - General 05/24/02 documented as of this encounter"
--- OUTSIDE RECORDS SUMMARY | 2024-05-27 07:11 | External Medical Summary ---
Author Name Unknown Address Unknown Organization [id number]:[facility] [place] [address] Laboratory Report Ordering Provider Test Date Status MOHIT CORONA 05/24/2024 12:54:12 Final Observation Date Value Abnormality Reference (Units ) Status SYNC LEUKOCYTES IN BLOOD BY AUTOMATED COUNT 05/24/2024 12:54:12 5.23 4.00-10.80 (K/uL) Final Segs 05/24/2024 12:54:12 68.8 40.0-75.0 (%) Final Lymphs % 05/24/2024 12:54:12 20.7 18.0-42.0 (%) Final Monos 05/24/2024 12:54:12 8.8 1.0-11.0 (%) Final Eosinophils 05/24/2024 12:54:12 1.5 0.0-6.0 (%) Final Basos 05/24/2024 12:54:12 0.2 0.0-2.0 (%) Final Absolute Segs 05/24/2024 12:54:12 3.60 1.80-7.70 (K/uL) Final Lymphs, absolute 05/24/2024 12:54:12 1.08 1.00-4.80 (K/ul) Final Monos, Abs 05/24/2024 12:54:12 0.46 0.00-1.10 (K/uL) Final Eos, Abs 05/24/2024 12:54:12 0.08 0.00-0.70 (K/uL) Final Basos, Abs 05/24/2024 12:54:12 0.01 0.00-0.20 (K/uL) Final Performing Location [facility] [place] [address]
--- OUTSIDE RECORDS SUMMARY | 2024-05-27 07:11 | External Medical Summary | Summary of Care ---
Author Name Unknown Organization [facility] Address [address] [place] [address] Phone [phone] Care Team Providers Care Medical Records Library Professor Name Role Phone Fadumo CASILLAS MD, Sonia Soriano Primary Care Provider [phone] Reason for Visit * Reason Comments eRx-Medication Refill Encounter Details Date Type Department Care Team ([facility] st Contact Info) Description 05/19/2024 Refill Family Practice [facility] [address] [facility] [place] [address] Sonia Owens III, MD [address] [place] [address] Type 2 diabetes mellitus with hemoglobin A1c goal of less than 7.0% ([facility]) Allergies Active Allergy Reactions Criticality Noted Date Comments Povidone Iodine Low 08/06/2023 Clozapine Unknown 11/29/2020 Benztropine Unknown 11/29/2020 Povidone Iodine Unknown 04/14/2000 Pseudoephedrine Unknown 04/14/2000 Terfenadine Unknown 04/14/2000 documented as of this encounter (statuses as of 05/20/2024) Medications ACETAMINOPHEN 325 MG PO TABS take two tablets by mouth every 4 hours as needed 012 Active NEOSPORIN BRADLEY TO GO 1 % EX OINT for scrapes and abrasions Active SAPHRIS 10 MG SL SUBL dissolve 1 tab under tongue at bedtime Active SAPHRIS 5 MG SL SUBL dissolve 1 tab under tongue in am Active lithium carbonate (ESKALITH) 300 MG CapsuleIndications :in evening Take 2 Capsules by mouth at bedtime. 015 Active risperiDONE 3 MG Oral Tablet Take 2 Tablets by mouth every night at bedtime. Active Escitalopram Oxalate 20 MG Oral Tablet Take 1 Tablet by mouth in the morning. Active Polyethyl Glycol-Propyl Glycol (SYSTANE) 0.4-0.3 % ophthalmic solution Instill 1 Drop into both eyes 4 times a day as needed for Dry eyes. 1 Bottle 5 Active Divalproex Sodium ER 250 MG Oral Tablet Extended Release 24 Hour (DEPAKOTE ER) In addition to (3) 500mg tablets to total 1750 mg Active Divalproex Sodium ER 500 MG Oral Tablet Extended Release 24 Hour (DEPAKOTE ER) 3 tablets at bedtime in addition to 250mg to total 1750 mg Active Haloperidol 1 MG Oral Tablet (HALDOL) at bedtime. Active Hydrocortisone (Perianal) 2.5 % External Cream (Anusol-HC) Administer into the rectum 2 times a day. 28 g 3 021 Active QC Fish Oil 1000 MG Oral CapsuleIndications :Mixed dyslipidemia TAKE 1 CAPSULE BY MOUTH THREE TIMES DAILY *LOWER CHOLESTEROL* 84 Capsule 5 Active MEDICAL INSTRUCTIONSIndica tions:Cerumen impaction Ok to administer Debrox ear drops daily for 5 days in both ears as directed once a month to prevent cerumen impaction in ears. 1 Each 022 Active guaiFENesin-DM 100-10 MG/5ML Oral Syrup (Robitussin DM)Indications:2 teaspoons by mouth as needed Take by mouth 5 mL as needed in the morning AND 5 mL as needed at noon AND 5 mL as needed in the evening for Cough. 120 mL 022 Active Haloperidol 0.5 MG Oral Tablet (Haldol) Take 1 Tablet by mouth every morning. 022 Active Triple Antibiotic External Ointment APPLY TOPICALLY TWICE DAILY NEEDED FOR SCRAPES OR ABRASIONS 28.35 Each 5 022 Active Hydrocortisone (Perianal) 2.5 % External Cream (Anusol-HC)Indicat ions:Hemorrhoids, external without complications Administer into the rectum 2 times a day. For one week 28 g 023 Active Gold Anderson Ultimate External LotionIndications: Xerosis cutis Apply to skin daily as previously 155 g 2 023 Active White Petrolatum External OintmentIndication s:Wound of skin Apply to biopsy lesions two times a day for 1 week 30 g 024 Active Olopatadine HCl 0.2 % Ophthalmic Solution (Pataday) Instill 1 Drop into both eyes in the morning. Active Puctuhy-Nsvlqrbg-O imethicone 200-200-20 MG/5ML Oral Suspension (Alum & Mag Hydroxide-Simeth) Take by mouth every 6 hours as needed for Indigestion. Active Loperamide HCl 2 MG Oral Capsule (Imodium A-D) Take 1 Capsule by mouth 4 times a day as needed for Diarrhea. Active Levothyroxine Sodium 88 MCG Oral Tablet (Levoxyl)Indicatio ns:Acquired hypothyroidism TAKE ONE TABLET BY MOUTH DAILY *HYPOTHYROIDISM * 28 Tablet 11 024 Active Fiber-Lax 625 MG Oral Tablet (Calcium Polycarbophil) TAKE 2 TABLETS BY MOUTH DAILY WITH 8OZ OF WATER*CONSTIPAT ION* 56 Tablet 4 024 Active Docusate Sodium 100 MG Oral Capsule (Colace)Indication s:Hemorrhoids, external without complications TAKE 1 CAPSULE BY MOUTH TWICE DAILY FOR CONSTIPATION 56 Capsule 4 024 Active D3-1000 25 MCG (1000 UT) Oral Capsule (Cholecalciferol) TAKE ONE CAPSULE BY MOUTH DAILY (SUPPLEMENT) 28 Capsule 4 024 Active Omeprazole 20 MG Oral Capsule Delayed Release (PriLOSEC) TAKE ONE CAP BY MOUTH DAILY 1HR BEFORE EVENING MEAL*C/O UPSET STOMACHE* 28 Capsule 4 025 Active Levocetirizine Dihydrochloride 5 MG Oral TabletIndications: Allergic rhinitis, unspecified seasonality, unspecified trigger TAKE 1/2 TABLET (2.5 MG) BY MOUTH EVERY EVENING *ANTIHISTAMINE* 14 Tablet 4 025 Active Magnesium Hydroxide 400 MG/5ML Oral Suspension (Milk of Magnesia) TAKE 30ML BY MOUTH ONCE DAILY NEEDED FOR CONSTIPATION 473 mL 4 025 Active Polyethylene Glycol 3350 17 GM/SCOOP Oral Powder (Miralax) MIX 1 CAPFUL (17GM) WITH 8OZ OF WATER OR JUICE AND DRINK ONCE DAILY IN THE MORNING FOR CONSTIPATION 510 g 4 025 Active CertaVite/Antioxid ants Oral TabletIndications: Mixed dyslipidemia TAKE 1 TABLET BY MOUTH DAILY (SUPPLEMENT) 30 Tablet 4 025 Active Atorvastatin Calcium 40 MG Oral Tablet (Lipitor) TAKE 1 TABLET BY MOUTH ONCE DAILY FOR CHLOESTROL 28 Tablet 4 025 Active metFORMIN HCl ER 500 MG Oral Tablet Extended Release 24 Hour (Glucophage XR)Indications:Typ e 2 diabetes mellitus with hemoglobin A1c goal of less than 7.0% (HCC) TAKE 2 TABLETS (1000MG) BY MOUTH ONCE DAILY WITH BREAKFAST FOR DM 56 Tablet 4 025 Active metFORMIN HCl ER 500 MG Oral Tablet Extended Release 24 Hour (Glucophage XR)Indications:Typ e 2 diabetes mellitus with hemoglobin A1c goal of less than 7.0% (HCC) TAKE 2 TABLETS (1000MG) BY MOUTH ONCE DAILY WITH BREAKFAST FOR DM 56 Tablet 5 024 2024 Discontinued documented as of this encounter (statuses as of 05/20/2024) Active Problems Problem Noted Date Diagnosed Date [...] as of this encounter (statuses as of 05/20/2024) Resolved Problems Problem Noted Date Diagnosed Date [...] as of this encounter (statuses as of 05/20/2024) Immunizations Name Administration Dates Next Due COVID-19 mRNA, LNP-s, No Pre serve, 2-Dose Series ([employer]) 01/10/2021,04/20/2020,03/30/2020 H1N1 2009 Influenza, IM 12/30/2008 Hepatitis B, 20+ yrs 06/11/1995 PPD 10/30/2022, 1,10/23/2018,2016,11/25/2014,06/08/2013,12/09/2011,0 04/11/2010,03/30/2008,12/17/2007, 007 Pneumococcal Conjugate Vacci ne, 20-valent ([id number]) 02/28/2022 RSV Vac., Recomb, Adjuvant, PF,0.5 Ml [...] encounter Miscellaneous Notes * Telephone Encounter - Margret Burnett, [facility] - 05/20/2024 1:23 PM EDTSigned Prescriptions: Disp Refills metFORMIN HCl ER 500 MG Oral Tablet Extend*56 Tab*4 Sig: TAKE 2 TABLETS (1000MG) BY MOUTH ONCE DAILY WITH BREAKFAST FOR DMAuthorizing Provider: SONIA OWENS III User: MARGRET BURNETT documented in this encounter Plan of Treatment Upcoming Encounters Date Type Department Care Team (Late st Contact Info) Description 05/26/2024 12:20 PM EDT Office Visit [facility] [place] [address] [place], [place] [address] Sharona Castro PA-C [address] [place], [place] [address] 10/04/2024 9:00 AM EDT Office Visit [facility] [address] [place], [place] [address] Marlyn Gómez PA-C [address] [facility] [place] [place] [address] 11/05/2024 12:00 PM EDT Office Visit [facility] [address] [place], [place] [address] Sonia Owens III, MD [address] [place] [address] [place] [address] Scheduled Procedures Name Priority Associated Diagnoses Date/Ti me COLONOSCOPY FLEXIBLE PROXIMA L DIAGNOSTIC Recall History of colonic polyps Health Maintenance Due Date Last Done Comments Cologuard 12/27/2004 Fecal Occult Blood Test 12/27/2004 Sigmoidoscopy 12/27/2004 COVID-19 Vaccine ( season) 2023 01/02/2023, 01/10/2021, 04/20/2020, Additional history exists B-12 05/01/2024 05/02/2023, 08/25, 01/24/2021, Additional history exists HbA1c 05/03/2024 11/04/2023, 030 09/2023, 10/29/2022, Additional history exists Albumin/Creatinine Ratio [...] 09/24/1996, Additional history exists Colonoscopy 08/26/2026 08/27/2023, 070 04/2023, 04/02/2022, Additional history exists Colorectal Cancer [...] Not on filedocumented as of this encounter Visit Diagnoses Diagnosis Type 2 diabetes mellitus with hemoglobin A1c goal of less than 7.0% (HCC) documented in this encounter Care Teams Medical Records Library Professor Relationship Specialty Start Date End Date Sonia Owens III, MD [address] [facility] [place] [address] PCP - General 05/24/02 documented as of this encounter
--- OUTSIDE RECORDS SUMMARY | 2024-05-27 07:11 | External Medical Summary | Summary of Care ---
Author Name Unknown Organization [facility] Address [address] [place] [address] Phone [phone] Care Team Providers Care Documentation Engineer Name Role Phone Fadumo CASILLAS MD, Sonia Soriano Primary Care Provider [phone] Reason for Visit * Reason Comments eRx-Medication Refill Encounter Details Date Type Department Care Team ([facility] st Contact Info) Description 04/21/[address] [facility] [address] [place] [address] Sonia Owens III, MD [address] [place] [address] Allergies Active Allergy Reactions Criticality Noted Date Comments Povidone Iodine Low 08/06/2023 Clozapine Unknown 11/29/2020 Benztropine Unknown 11/29/2020 Povidone Iodine Unknown 04/14/2000 Pseudoephedrine Unknown 04/14/2000 Terfenadine Unknown 04/14/2000 documented as of this encounter (statuses as of 04/23/2024) Medications ACETAMINOPHEN 325 MG PO TABS take [...] 2 times a day. 28 g 3 Active QC Fish Oil 1000 MG Oral [...] in the evening for Cough. 120 mL Active Haloperidol 0.5 MG Oral Tablet (Haldol) [...] into both eyes in the morning. Active Qzaeqmv-Gicapweh-F imethicone 200-200-20 MG/5ML Oral Suspension (Alum & [...] BREAKFAST FOR DM 56 Tablet 5 024 Active Levothyroxine Sodium 88 MCG Oral Tablet [...] FOR CHLOESTROL 28 Tablet 4 025 Active Atorvastatin Calcium 40 MG Oral Tablet (Lipitor) TAKE 1 TABLET BY MOUTH ONCE DAILY FOR CHLOESTROL 28 Tablet 7 024 2024 Discontinued documented as of this encounter (statuses as of 04/23/2024) Active Problems Problem Noted Date Diagnosed Date [...] as of this encounter (statuses as of 04/23/2024) Resolved Problems Problem Noted Date Diagnosed Date [...] as of this encounter (statuses as of 04/23/2024) Immunizations Name Administration Dates Next Due COVID-19 mRNA, LNP-s, No Pre serve, 2-Dose Series ([employer]) 01/10/2021,04/20/2020,03/30/2020 H1N1 2009 Influenza, IM 12/30/2008 Hepatitis B, 20+ yrs 06/11/1995 PPD 10/30/2022,,10/23/2018,2016,11/25/2014,06/08/2013,12/09/2011,0 04/11/2010,03/30/2008,12/17/2007, 007 Pneumococcal Conjugate Vacci ne, 20-valent ([id number]) 02/28/2022 RSV Vac., Recomb, Adjuvant, PF,0.5 Ml [...] Miscellaneous Notes * Telephone Encounter - Margret Burnett [facility] - 04/23/2024 10:54 AM ESTSigned Prescriptions: Disp Refills Atorvastatin Calcium 40 MG Oral Tablet (Li*28 Tab*4 Sig: TAKE 1TABLET BY MOUTH ONCE DAILY FOR CHLOESTROLAuthorizing Provider: SONIA OWENS III User: MARGRET BURNETT documented in this encounter Plan of Treatment Upcoming Encounters Date Type Department Care Team (Late st Contact Info) Description 05/26/2024 12:20 PM EDT Office Visit Dermatology [facility] [address] [facility] [place] [address] Sharona Castro PA-C [address] [facility] [place] [address] 10/04/2024 9:00 AM EDT Office Visit [facility] [address] [facility] [place] [address] Marlyn Gómez PA-C [address] [place] [address] [place] [address] 11/05/2024 12:00 PM EDT Office Visit [facility] [address] [facility] [place] [address] Sonia Owens III, MD [address] [facility] [place] [address] Scheduled Procedures Name Priority Associated Diagnoses Date/Ti [...] 04/26/2019, Additional history exists GFR 11/03/2024 11/04/2023, 030 09/2023, 10/29/2022, Additional history exists TSH 11/03/2024 11/04/2023, 06/24, 01/28/2022, Additional history exists Diabetic Eye Exam 12/09/2024 12/10/2023, , 10/09/2022, Additional history exists Depression Screening 04/06/2025 04/06/2024 DTap/Tdap Vaccines (3 - Td or Tdap) 11/12/2025 11/13/2015, 08/29/2006, 09/24/1996, Additional history exists Colonoscopy 08/26/2026 08/27/2023, 04/2023, 04/02/2022, Additional history exists Colorectal Cancer [...] filedocumented as of this encounter Care Teams Documentation Engineer Relationship Specialty Start Date End Date Sonia Owens III, MD [address] [facility] [place] [address] PCP - General 05/24/02 documented as of this encounter
--- OUTSIDE RECORDS SUMMARY | 2024-05-27 07:11 | External Medical Summary | Summary of Care ---
Author Name Unknown Organization [facility] Address [address] [place] [address] Phone [phone] Care Team Providers Care Knuckle Bender Name Role Phone Fadumo CASILLAS MD, Akil Soriano Primary Care Provider [phone] Reason for Visit * Reason Comments Outpatient Testing Encounter Details Date Type Department Care Team (Late st Contact Info) Description 05/24/2024 12:50 PM EDT Laboratory Laboratory [facility] [address] [place] [address] [facility] [address] [place] [address] Malaise and fatigue; Shakiness; Type 2 diabetes mellitus with hemoglobin A1c goal of less than 7.0% ([facility]); Acquired hypothyroidism; Senile dementia, uncomplicated ([facility]); SIMPLE SCHIZOPHREN-CHR Allergies Active Allergy Reactions Criticality [...] into both eyes in the morning. Active Hrpxwdp-Sdkvxaut-Mx methicone 200-200-20 MG/5ML Oral Suspension (Alum & [...] BREAKFAST FOR DM 56 Tablet 4 05/21/19 Active Amoxicillin 500 MG Oral Capsule (Amoxil) 05/21/19 Active documented as of this encounter (statuses [...] mRNA, LNP-s, No Pre serve, 2-Dose Series (Front Flip) 01/10/2021,04/20/2020,03/30/2020 H1N1 2009 Influenza, IM 12/30/2008 Hepatitis B, 20+ yrs 06/11/1995 PPD 10/30/2022,,10/23/2018,2016,11/25/2014,06/08/2013,12/09/2011,0 04/11/2010,03/30/2008,12/17/2007, 007 Pneumococcal Conjugate Vacci ne, 20-valent ([id number]) 02/28/2022 RSV Vac., Recomb, Adjuvant, PF,0.5 Ml [...] on file documented as of this encounter Plan of Treatment Upcoming Encounters Date Type Department Care Team (Late st Contact Info) Description 05/26/2024 12:20 PM EDT Office Visit Dermatology [facility] [place] [address] [place] [address] Sharona Castro PA-C [address] [place] [address] 10/04/2024 9:00 AM EDT Office Visit Family Practice [facility] [place] [address] Marlyn Gómez PA-C [address] [place] [address] 11/05/2024 12:00 PM EDT Office Visit Family Practice [facility] [place] [address] [facility] [place] [address] Akil Thorne III, MD [address] [facility] [place] [address] Pending Results Name Type Priority Associated Diagnoses Date /Time HEMOGLOBIN A1C Lab Routine Malaise and fatigue Shakiness Type 2 diabetes mellitus with hemoglobin A1c goal of less than 7.0% ([facility]) 05/24/2024 12:54 PM EDT TSH WITH FREE [...] SIMPLE SCHIZOPHREN-CHR 05/24/2024 12:54 PM EDT Scheduled Procedures Name Priority Associated Diagnoses Date/Ti [...] Procedure Name Priority Date/Time Associated Diagnosis Comments DIFFERENTIAL, AUTOMATED Routine 05/24/2024 12:54 PM EDT Malaise and fatigue Shakiness COMPREHENSIVE METABOLIC PANEL Routine 05/24/2024 12:54 PM EDT Malaise and fatigue Shakiness CBC Routine 05/24/2024 12:54 PM EDT Malaise and fatigue Shakiness CBC Routine 05/24/2024 12:54 PM EDT Malaise and fatigue Shakiness MAGNESIUM Routine 05/24/2024 12:54 PM EDT Malaise and fatigue Shakiness documented in this encounter Results * DIFFERENTIAL, AUTOMATED (05/24/2024 12:54 PM EDT) WBC 5.23 4.00 - 10.80 K/uL 05/24/2024 1:02 PM EDT [facility]02 Neutrophils % 68.8 40.0 - 75.0 % 05/24/2024 1:02 PM EDT [facility] 56-02 Lymphocytes % 20.7 18.0 - 42.0 % 05/24/2024 1:02 PM EDT [facility] 56-02 Monocytes % 8.8 1.0 - 11.0 % 05/24/2024 1:02 PM EDT [facility] 56-02 Eosinophils % 1.5 0.0 - 6.0 % 05/24/2024 1:02 PM EDT [facility] 56-02 Basophils % 0.2 0.0 - 2.0 % 05/24/2024 1:02 PM EDT [facility] 56-02 Absolute Neutrophils 3.60 1.80 - 7.70 K/uL 05/24/2024 1:02 PM EDT [facility] 56-02 Absolute Lymphocytes 1.08 1.00 - 4.80 K/ul 05/24/2024 1:02 PM EDT [facility] 56-02 Absolute Monocytes 0.46 0.00 - 1.10 K/uL 05/24/2024 1:02 PM EDT [facility] 56-02 Absolute Eosinophils 0.08 0.00 - 0.70 K/uL 05/24/2024 1:02 PM EDT [facility] 56-02 Absolute Basophils 0.01 0.00 - 0.20 K/uL 05/24/2024 1:02 PM EDT [facility] 56- Blood Venous blood specimen / Unknown Venipuncture / Unknown 05/24/2024 12:54 PM EDT 05/24/2024 12:55 PM EDT Amado Danialcarolyn Moreno DO LAB BLOOD ORDERABLES Final Result [facility] 56- [address] [place] [address] * CBC (05/24/2024 12:54 PM EDT) WBC 5.23 4.00 - 10.80 K/uL 05/24/2024 1:02 PM EDT [facility] 56- RBC 4.44 4.50 - 5.25 M/uL 05/24/2024 1:02 PM EDT [facility] 56- HGB 14.6 14.0 - 16.8 g/dL 05/24/2024 1:02 PM EDT [facility] 56- HCT 45.5 40.0 - 48.4 % 05/24/2024 1:02 PM EDT [facility] 56- MCV 102.5 82.0 - 99.5 fL 05/24/2024 1:02 PM EDT [facility] 56- MCH 32.9 27.0 - 34.0 pg 05/24/2024 1:02 PM EDT [facility] 56- MCHC 32.1 32.0 - 36.0 g/dL 05/24/2024 1:02 PM EDT [facility] 56- RDW 12.6 11.5 - 15.5 % 05/24/2024 1:02 PM EDT [facility] 56- PLT 154 140 - 400 K/uL 05/24/2024 1:02 PM EDT [facility] 56- MPV 9.8 6.6 - 11.1 fL 05/24/2024 1:02 PM EDT [facility] 56 Blood Venous blood specimen / Unknown Venipuncture / Unknown 05/24/2024 12:54 PM EDT 05/24/2024 12:55 PM EDT Amado Smithjosé miguel LAB BLOOD ORDERABLES Final Result Performing Organization Address City/[facility]/ZIP Co de Phone Number [facility] 56 [address] [place] [address] * MAGNESIUM (05/24/2024 12:54 PM EDT) Pathologist [facility] Magnesium 2.1 1.5 - 2.6 mg/dL 05/24/2024 1:50 PM EDT [facility] 56 Blood Venous blood specimen / Unknown Venipuncture / Unknown 05/24/2024 12:54 PM EDT 05/24/2024 12:55 PM EDT Amado Smithjosé miguel LAB BLOOD ORDERABLES Final Result [facility] 56 [address] [place] [address] * COMPREHENSIVE METABOLIC PANEL (05/24/2024 12:54 PM EDT) BUN 13 6 - 20 mg/dL 05/24/2024 1:50 PM EDT [facility] 56- CREATININE 1.0 0.6 - 1.2 mg/dL 05/24/2024 1:50 PM EDT [facility] 56- EGFR 84 >=60 mL/min 05/24/2024 1:50 PM EDT [facility] 56 Comment:eGFR is calculated b ased on the CKD-EPI 2020 equation. SODIUM 144 135 - 146 mmol/L 05/24/2024 1:50 PM EDT [facility] 56- POTASSIUM 5.0 3.5 - 5.1 mmol/L 05/24/2024 1:50 PM EDT [facility] 56- CHLORIDE 107 98 - 107 mmol/L 05/24/2024 1:50 PM EDT [facility] 56- CO2 28 22 - 32 mmol/L 05/24/2024 1:50 PM EDT [facility] 56 ANION GAP 9 7 - 15 mmol/L 05/24/2024 1:[address]T [address] GLUCOSE 103 70 - 120 mg/dL 05/24/2024 1:50 PM EDT [facility] 56 Albumin 4.0 3.8 - 5.0 g/dL 05/24/2024 1:[address]T [address] AST 28 10 - 50 U/L 05/24/2024 1:50 [address] EDT [address] Alkaline Phosphatase 84 35 - 130 U/L 05/24/2024 1:[address] EDT [address] Bilirubin, Total 1.0 <=1.2 mg/dL 05/24/2024 1:[address] EDT [address] CALCIUM 10.0 8.4 - 10.2 mg/dL 05/24/2024 1:[address]T [address] Protein 6.0 6.0 - 8.3 g/dL 05/24/2024 1:[address] EDT [address] ALT 39 10 - 50 U/L 05/24/2024 1:50 PM EDT [facility] 56 Blood Venous blood specimen / Unknown Venipuncture / Unknown 05/24/2024 12:54 PM EDT 05/24/2024 12:55 PM EDT Amado Moreno DO LAB BLOOD ORDERABLES Final Result [facility] 56- [address] [place] [address] documented in this encounter Visit Diagnoses Diagnosis Malaise and fatigue Other malaise and fatigue Shakiness Abnormal involuntary [...] documented as of this encounter Care Teams Knuckle Bender Relationship Specialty Start Date End Date Akil Thorne III, MD [address] [place] [address] PCP - General 05/24/02 documented as of this encounter
--- OUTSIDE RECORDS SUMMARY | 2024-05-27 07:12 | External Medical Summary | Summary of Care ---
Author Name Unknown Organization [facility] Address [address] [place] [address] Phone [phone] Care Team Providers Care Inset Cutter Name Role Phone Fadumo CASILLAS MD, Akil Soriano Primary Care Provider [phone] Reason for Visit * Reason Comments Re-Check Encounter Details Date Type Department Care Team (Latest Contact Info) Description 04/06/2024 9:00 AM EST Office Visit Family [facility] [address] [place] [address] Marlyn Gómez PA-C [address] [place] [address] Type 2 diabetes mellitus with hemoglobin A1c goal of less than 7.0% ([facility])*; Severe obstructive sleep apnea; Senile dementia, uncomplicated ([facility]); MOD MENTAL RETARDATION; Metabolic syndrome; Acquired hypothyroidism; Screening for depression; Need for prophylactic vaccination and inoculation against respiratory syncytial virus (RSV); Simple schizophrenia, chronic condition ([facility]); Type 2 diabetes mellitus with diabetic dermatitis, without long-term current use of insulin ([facility]) Allergies Active Allergy Reactions Criticality Noted Date Comments Povidone Iodine Low 08/06/2023 Clozapine Unknown 11/29/2020 Benztropine Unknown 11/29/2020 Povidone Iodine Unknown 04/14/2000 Pseudoephedrine Unknown 04/14/2000 Terfenadine Unknown 04/14/2000 documented as of this encounter (statuses as of 04/06/2024) Medications ACETAMINOPHEN 325 MG PO TABS take two tablets by mouth every 4 hours as needed 07/13/20 12 Active NEOSPORIN BRADLEY TO GO 1 [...] into both eyes in the morning. Active Nztahcm-Wvxzietn-J imethicone 200-200-20 MG/5ML Oral Suspension (Alum & Mag Hydroxide-Simeth) Take by mouth every 6 hours as needed for Indigestion. Active Loperamide HCl 2 MG Oral Capsule (Imodium A-D) Take 1 Capsule by mouth 4 times a day as needed for Diarrhea. Active Atorvastatin Calcium 40 MG Oral Tablet (Lipitor) TAKE 1 TABLET BY MOUTH ONCE DAILY FOR CHLOESTROL 28 Tablet 7 11/07/19 24 Active metFORMIN HCl ER 500 MG Oral [...] 8OZ OF WATER*CONSTIPAT ION* 56 Tablet 4 01/07/20 24 Active Docusate [...] (SUPPLEMENT) 30 Tablet 4 03/26/19 25 Active Arexvy 120 MCG/0.5ML Intramuscular Suspension Reconstituted (RSV PreF3 Vac Recomb Adjuvanted)Indicat ions:Need for prophylactic vaccination and inoculation against respiratory syncytial virus (RSV) Inject 0.5 mL into a large muscle once for 1 dose. 1 Each 04/06/19 25 025 Active Polyethylene Glycol 3350 17 GM/SCOOP Oral Powder (MiraLax)Indicatio ns:Pre-operative exam,History of colonic polyps,Constipatio n, unspecified constipation type Dispense 2- 238g bottles. Use as directed in colonoscopy directions 2 g 08/20/19 24 025 Discontin ued(Medic ation List Clean Up) Polyethylene Glycol 3350 17 GM/SCOOP Oral Powder (Miralax)Indicatio ns:Constipation, unspecified constipation type Take 17 g by mouth in the morning. Dissolve one heaping tablespoon in 8 ounces of water or juice. 510 g 5 08/20/19 24 025 Discontin ued(Medic ation List Clean Up) Amoxicillin 500 MG Oral Capsule (Amoxil) 03/24/19 25 025 Discontin ued(End of Procedure ) documented as of this encounter (statuses as of 04/06/2024) Active Problems Problem Noted Date Diagnosed Date [...] as of this encounter (statuses as of 04/06/2024) Resolved Problems Problem Noted Date Diagnosed Date [...] as of this encounter (statuses as of 04/06/2024) Immunizations Name Administration Dates Next Due COVID-19 mRNA, LNP-s, No Pre serve, 2-Dose Series (Liquid Bronze) 01/10/2021,04/20/2020,03/30/2020 H1N1 2009 Influenza, IM 12/30/2008 Hepatitis B, 20+ yrs 06/11/1995,01/11/1995,12/11 PPD 10/30/2022,,10/23/2018,10/30,11/25/2014,06/08/2013,12/09/2011 ,04/11/2010,03/30/2008,12/17/2007,06/2006,06/27/2004,06/29/2002, 1,10/04/1998,10/12/1997,10/15/1993, Pneumococcal Conjugate Vacci ne, 20-valent ([id number]) 02/28/2022 Pneumococcal Polysaccharide PPV23 (Pneumovax) 01/22/2005 RSV Vac., Recomb, Adjuvant, PF,0.5 Ml (Arexvy) 04/06/2024 Seasonal Influenza Vac., MDV , IM, 0.5 mL (Fluzone) 12/03/2013,12/08/2012,11/12/2011,12/06,12/26/2009,12/26/2009,12/20/2008 ,02/17/2008,12/11/2006,12/11/2005,02/2004,02/04/2001 Seasonal Influenza, PF, 6 M & above, IM , (FluLaval or Fluzone) 10/30/2022,01/28/2022,11/29/2020,10/23,12/17/2017,12/03/2016 Seasonal Influenza, Quadriva lent, No Preserve, IM 12/07/2019,11/13/2015,11/25/2014 Seasonal Influenza, Trivalen t, (IIV3), PF, (Fluzone) 11/04/2023 TB Tricia Test 08/25/1987 TD - Tetanus/Diptheria (ADULT) 09/24/1996,1986 TDAP (age 10 and older)(Boostrix) 11/13/2015 TDAP, [...] Sign Reading Time Taken Comments Blood Pressure 120/76 04/06/2024 9:13 AM EST Pulse 90 04/06/2024 9:13 AM EST Temperature 35.4 °C (95.8 °F) 04/06/2024 9:13 AM ES T Respiratory Rate 16 04/06/2024 9:13 AM EST Oxygen Saturation 98% 04/06/2024 9:13 AM EST Inhaled Oxygen Concentration - - Weight 82.4 kg (181 lb 12 oz) 04/06/2024 9:13 AM EST Height - - Body Mass Index 30.24 03/29/2024 5:34 PM EST documented in this encounter Progress Notes * Marlyn Gómez PA-C - 04/06/2024 9:22 AM EST Images from the original note were not included. History of Present Illness Estuardo Mueller is a 63 year old male that presents for Re-Check Patient is a 63 year old male who presents with a caregiver for a follow up after a head injry a week. Door fell on his head. Was seen at urgent care. No loss of consciousness. No headaches, vomittiong, vision, cognitive change, Appetite good Activity normal Sleep good Urination/ bowel movements good. Denies chest pain, sob, edema, headache, dizzy Physical Exam Vitals: 04/06/24 0913 Temp: 95.8 °F (35.4 °C) Pulse: 90 Resp: 16 SpO2: 98% BP: 120/76 BP Readings from Last 3 Encounters: 04/06/24 120/76 03/29/24 122/76 11/04/23 110/70 Wt Readings from Last 3 Encounters: 04/06/24 181 lb 12 oz (82.4 kg) 03/29/24 181 lb 3.2 oz (82.2 kg) 11/04/23 182 lb (82.6 kg) General: alert, healthy, no distress, well nourished, well developed, comfortable, and cooperative Head: Normocephalic, No masses, lesions, tenderness or abnormalities Eye Exam: PERRLA, extraocular movements intact, conjunctiva are pink and non- injected, sclera clear Ears: External ears normal, Canals clear, TM's Normal Nose: no mucosal erythema, no mucosal edema, no purulent discharge Oropharynx: no exudate, no erythema, lips, buccal mucosa, and tongue normal, and mucous membranes are moist Neck: supple, no adenopathy, no bruits, thyroid normal size, non-tender, without nodularity Heart: regular rate & rhythm, no murmur, and no gallops Lungs: chest symmetric with normal AP diameter, no chest deformities noted, normal respiratory rateand rhythm, no chest wall tenderness, diaphragmatic excursion normal, lungs clear to auscultation Extremities: less than 2 second capillary refill, no joint deformities, effusion, or inflammation, no edema, no skin discoloration, no clubbing, no cyanosis I have reviewed the following results: None Assessment and Plan Type 2 diabetes mellitus with hemoglobin A1c goal of less than 7.0% ([facility]) (Primary) - HEMOGLOBIN A1C; Future; Expected date: 04/06/2024 - VITAMIN B12; Future; Expected date: 04/06/2024 - BASIC METABOLIC PANEL; Future; Expected date: 04/06/2024 - ALBUMIN / CREATININE RATIO, URINE; Future; Expected date: 04/06/2024 Severe obstructive sleep apnea Senile dementia, uncomplicated (HCC) MOD MENTAL RETARDATION Metabolic syndrome Acquired hypothyroidism 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 - RSV VAC., RECOMB, ADJUVANT, PF,0.5 ML (AREXVY); Future; Expected date: 04/06/2024 Simple schizophrenia, chronic condition (HCC) Type 2 diabetes mellitus with diabetic dermatitis, without long-term current use of insulin (HCC) Follow Up: Return in about 6 months (around 10/04/2024) for Clinic Visit. | For: Clinic Visit Wrap-Up Time: I spent a total of 30-39 minutes (exact time 33 mins) on the date of service in preparation, delivery, and documentation of the care provided to Estuardo Mueller excluding any time spent in the performance of separately billed services. documented in this encounter Nursing Notes * Anjana Cornelius NA - 04/06/2024 10:04 AM EST Pre-Administration Time Out Procedure Performed: Yes Patient Identified (Ask Name/Date of ): Yes Does the patient have a fever greater than 101 degrees today? No Patient allergic to latex? No Has the patient ever fainted after receiving an injection? No VFC Stock: No Immunization(s) verified: Yes, Immunization Name: RSV Arexvy, VIS Sheet(s) given: Yes Verified Side and Site: Yes Verified Shot(s) with Parent(s)/Patient: Yes * Anjana Cornelius NA - 04/06/2024 8:57 AM EST Estuardo Mueller presents for 6 month recheck. Patient is interested in an RSV vaccine. He had an incident with getting hit in the head by a door last Friday and went to urgent care to get checked out. Just following up today. Medications & HM reviewed. documented in this encounter Plan of Treatment Upcoming Encounters Date Type Department Care Team (Late st Contact Info) Description 05/26/2024 12:20 PM EDT Office Visit Dermatology [facility] [place] [address] [facility] [place], [place] [address] Sharona Castro PA-C [address] [place] [address] 10/04/2024 9:00 AM EDT Office Visit [facility] [place] [address] [facility] [place], [place] [address] Marlyn Gómez PA-C [address] [facility] [place], [place] [address] 11/05/2024 12:00 PM EDT Office Visit [facility] [address] [facility] [place], [place] [address] Akil Thorne III, MD [address] [place] [address] Scheduled Orders Name Type Priority Associated Diagnoses Orde r Schedule HEMOGLOBIN A1C Lab Routine Type 2 diabetes mellitus with hemoglobin A1c goal of less than 7.0% (HCC) Expected: 04/06/2024 (Approximate), Expires: 05/04/2025 VITAMIN B12 Lab Routine Type 2 diabetes mellitus with hemoglobin A1c goal of less than 7.0% (HCC) Expected: 04/06/2024 (Approximate), Expires: 04/06/2025 BASIC METABOLIC PANEL Lab Routine Type 2 diabetes mellitus with hemoglobin A1c goal of less than 7.0% (HCC) Expected: 04/06/2024 (Approximate), Expires: 04/06/2025 ALBUMIN / CREATININE RATIO, URINE Lab Routine Type 2 diabetes mellitus with hemoglobin A1c goal of less than 7.0% (HCC) Expected: 04/06/2024 (Approximate), Expires: 04/06/2025 Scheduled Procedures Name Priority Associated Diagnoses Date/Ti me COLONOSCOPY FLEXIBLE PROXIMA L DIAGNOSTIC Recall History of colonic polyps Health Maintenance Due Date Last Done Comments Cologuard 12/27/2004 Fecal Occult Blood Test 12/27/2004 Sigmoidoscopy 12/27/2004 COVID-19 Vaccine ( season) 2023 01/02/2023, 01/10/2021, 04/20/2020, Additional history exists B-12 05/01/2024 05/02/2023, 07/2 , 01/24/2021, Additional history exists HbA1c 05/03/2024 11/04/2023, 03/0 09/2023, 10/29/2022, Additional history exists Albumin/Creatinine Ratio 11/03/2024 024, 10/29/2022, 11/08/2021, Additional history exists Diabetic Foot Exam 11/03/2024 11/04/2023, 1 , 04/26/2019, Additional history exists GFR 11/03/2024 11/04/2023, 03/0 09/2023, 10/29/2022, Additional history exists TSH 11/03/2024 11/04/2023, 051 03/2022, 01/28/2022, Additional history exists Diabetic Eye Exam [...] hemoglobin A1c goal of less than 7.0% (HCC)- Primary Severe obstructive sleep apnea Obstructive sleep apnea (adult) (pediatric) Senile dementia, uncomplicated (HCC) Senile dementia, uncomplicated MOD MENTAL RETARDATION Moderate intellectual disabilities Metabolic syndrome Dysmetabolic Syndrome X Acquired hypothyroidism Unspecified hypothyroidism Screening for depression Need for prophylactic vaccination and inoculation against respiratory syncytial virus (RSV) Simple schizophrenia, chronic condition (HCC) Simple schizophrenia, chronic condition Type 2 diabetes mellitus with diabetic dermatitis, without long-term current use of insulin (HCC) documented in this encounter Care Teams Inset Cutter Relationship Specialty Start Date End Date Akil Thorne III, MD [address] [place] [address] PCP - General 05/24/02 documented as of this encounter"
--- OUTSIDE RECORDS SUMMARY | 2024-05-27 07:12 | External Medical Summary | Summary of Care ---
Author Name Unknown Organization [facility] Address [address] [place] [address] Phone [phone] Care Team Providers Care Eligibility Technician Name Role Phone Fadumo CASILLAS MD, Akil Soriano Primary Care Provider [phone] Reason for Visit * Reason Comments Re-Check Encounter Details Date Type Department Care Team (Latest Contact Info) Description 04/06/2024 9:00 AM EST Office Visit Family [facility] [address] [facility] [place] [address] Marlyn Gómez PA-C [address] [facility] [place] [address] Type 2 diabetes mellitus with hemoglobin A1c goal of less than 7.0% ([facility])*; Severe obstructive sleep apnea; Senile dementia, uncomplicated ([facility]); MOD MENTAL RETARDATION; Metabolic syndrome; Acquired hypothyroidism; Screening for depression; Need for prophylactic vaccination and inoculation against respiratory syncytial virus (RSV); Simple schizophrenia, chronic condition ([facility]); Type 2 diabetes mellitus with diabetic dermatitis, without long-term current use of insulin ([facility]) Allergies Active Allergy Reactions Criticality Noted [...] into both eyes in the morning. Active Ctnyoew-Hamdxvbv-F imethicone 200-200-20 MG/5ML Oral Suspension (Alum & [...] mRNA, LNP-s, No Pre serve, 2-Dose Series (Orad) 01/10/2021,04/20/2020,03/30/2020 H1N1 2009 Influenza, IM 12/30/2008 Hepatitis B, 20+ yrs 06/11/1995,01/11/1995,12/11 PPD 10/30/2022,,10/23/2018,10/30,11/25/2014,06/08/2013,12/09/2011 ,04/11/2010,03/30/2008,12/17/2007,06/2006,06/27/2004,06/29/2002, 1,10/04/1998,10/12/1997,10/15/1993, Pneumococcal Conjugate Vacci ne, 20-valent ([id number]) 02/28/2022 Pneumococcal Polysaccharide PPV23 (Pneumovax) 01/22/2005 RSV [...] hemoglobin A1c goal of less than 7.0% ([facility]) (Primary) - HEMOGLOBIN A1C; Future; Expected date: [...] Visit Dermatology [facility] [place] [address] [facility] [place], [place] [address] Sharona Castro PA-C [address] [facility] [place] [place] [address] 10/04/2024 9:00 AM EDT Office Visit [facility] [place] [address] [facility] [place], [place] [address] Marlyn Gómez PA-C [address] [facility] [place], [place] [address] 11/05/2024 12:00 PM EDT Office Visit [facility] [address] [facility] [place], [place] [address] Akil Thorne III, MD [address] [facility] [place] [address] Scheduled Orders Name Type Priority Associated Diagnoses [...] (HCC) documented in this encounter Care Teams Eligibility Technician Relationship Specialty Start Date End Date Akil Thorne III, MD [address] [facility] [place] [address] PCP - General 05/24/02 documented as of this encounter"
--- OUTSIDE RECORDS SUMMARY | 2024-05-27 07:12 | External Medical Summary | Summary of Care ---
Author Name Unknown Organization [facility] Address [address] [place] [address] Phone [phone] Care Team Providers Care Business Services Manager Name Role Phone Fadumo CASILLAS MD, Akil Soriano Primary Care Provider [phone] Encounter Details Date Type Department Care Team ([facility] st Contact Info) Description 04/13/2024 Orders Only PATIENT PORTAL DO NOT DELETE THIS DEPT USED BY [place] CARVAJAL [id number] Allergies Active Allergy Reactions Criticality Noted Date Comments Povidone Iodine Low 08/06/2023 Clozapine Unknown 11/29/2020 Benztropine Unknown 11/29/2020 Povidone Iodine Unknown 04/14/2000 Pseudoephedrine Unknown 04/14/2000 Terfenadine Unknown 04/14/2000 documented as of this encounter (statuses as of 04/13/2024) Medications ACETAMINOPHEN 325 MG PO TABS take [...] into both eyes in the morning. Active Gcxmdao-Upuythyn-Nt methicone 200-200-20 MG/5ML Oral Suspension (Alum & [...] (SUPPLEMENT) 30 Tablet 4 03/26/19 25 Active documented as of this encounter (statuses as of 04/13/2024) Active Problems Problem Noted Date Diagnosed Date [...] as of this encounter (statuses as of 04/13/2024) Resolved Problems Problem Noted Date Diagnosed Date [...] as of this encounter (statuses as of 04/13/2024) Immunizations Name Administration Dates Next Due COVID-19 mRNA, LNP-s, No Pre serve, 2-Dose Series (nubelo) 01/10/2021,04/20/2020,03/30/2020 H1N1 2009 Influenza, IM 12/30/2008 Hepatitis B, 20+ yrs 06/11/1995 PPD 10/30/2022,,10/23/2018,2016,11/25/2014,06/08/2013,12/09/2011,0 04/11/2010,03/30/2008,12/17/2007, 007 Pneumococcal Conjugate Vacci ne, 20-valent ([id number]) 02/28/2022 RSV Vac., Recomb, Adjuvant, PF,0.5 Ml [...] 05/26/2024 12:20 PM EDT [facility] [place] [address] [place] [address] Sharona Castro PA-C [address] [place] [place] [address] 10/04/2024 9:00 AM EDT [facility] [place] [address] [place] [address] Marlyn Gómez PA-C [address] [place] [address] 11/05/2024 12:00 PM EDT Office Visit [facility] [address] [place] [address] Akil Thorne III, MD [address] [place] [address] [address] Scheduled Procedures Name Priority Associated Diagnoses Date/Ti [...] filedocumented as of this encounter Care Teams Business Services Manager Relationship Specialty Start Date End Date Akil Thorne III, MD [address] [facility] [place] [address] PCP - General 05/24/02 documented as of this encounter
--- OUTSIDE RECORDS SUMMARY | 2024-05-27 07:12 | External Medical Summary | Summary of Care ---
Author Name Unknown Organization [facility] Address [address] [place] [address] Phone [phone] Care Team Providers Care Landscape Architecture Professor Name Role Phone Fadumo CASILLAS MD, Akil Soriano Primary Care Provider [phone] Reason for Visit * Reason Comments Re-Check Encounter Details Date Type Department Care Team (Latest Contact Info) Description 04/06/2024 9:00 AM EST Office Visit Family [facility] [address] [place] [address] Marlyn Gómez PA-C [address] [place] [address] Type 2 diabetes mellitus with hemoglobin A1c goal of less than 7.0% ([facility])*; Severe obstructive sleep apnea; Senile dementia, uncomplicated ([facility]); MOD MENTAL RETARDATION; Metabolic syndrome; Acquired hypothyroidism; Screening for depression; Need for prophylactic vaccination and inoculation against respiratory syncytial virus (RSV); Simple schizophrenia, chronic condition ([facility]); Type 2 diabetes mellitus with diabetic dermatitis, without long-term current use of insulin ([facility]) Allergies Active Allergy Reactions Criticality [...] into both eyes in the morning. Active Elxlqry-Lypmdcpr-I imethicone 200-200-20 MG/5ML Oral Suspension (Alum & [...] mRNA, LNP-s, No Pre serve, 2-Dose Series ([email or web address]) 01/10/2021,04/20/2020,03/30/2020 H1N1 2009 Influenza, IM 12/30/2008 Hepatitis B, 20+ yrs 06/11/1995,01/11/1995,12/11 PPD 10/30/2022,,10/23/2018,10/30,11/25/2014,06/08/2013,12/09/2011 ,04/11/2010,03/30/2008,12/17/2007,06/2006,06/27/2004,06/29/2002, 1,10/04/1998,10/12/1997,10/15/1993, Pneumococcal Conjugate Vacci ne, 20-valent ([id number]) 02/28/2022 Pneumococcal Polysaccharide PPV23 (Pneumovax) 01/22/2005 RSV [...] hemoglobin A1c goal of less than 7.0% ([facility]) (Primary) - HEMOGLOBIN A1C; Future; [...] 05/26/2024 12:20 PM EDT Office Visit Dermatology [facility] [place] [address] [place], [place] [address] Sharona Castro PA-C [address] [place] [address] 10/04/2024 9:00 AM EDT Office Visit [facility] [place] [address] [place], [place] [address] Marlyn Gómez PA-C [address] [place], [place] [address] 11/05/2024 12:00 PM EDT Office Visit [facility] [address] [place], [place] [address] Akil Thorne III, MD [address] [place] [address] Scheduled Orders Name Type Priority Associated Diagnoses [...] (HCC) documented in this encounter Care Teams Landscape Architecture Professor Relationship Specialty Start Date End Date Akil Thorne III, MD [address] [place] [address] PCP - General 05/24/02 documented as of this encounter"
--- OUTSIDE RECORDS SUMMARY | 2024-05-27 07:12 | External Medical Summary | Summary of Care ---
Author Name Unknown Organization [facility] Address [address] [place] [address] Phone [phone] Care Team Providers Care Home Demonstrator Name Role Phone Fadumo CASILLAS MD, Akil Soriano Primary Care Provider [phone] Reason for Visit * Reason Comments Re-Check Encounter Details Date Type Department Care Team (Latest Contact Info) Description 04/06/2024 9:00 AM EST Office Visit Family [facility] [address] [facility] [place] [address] Marlyn Gómez PA-C [address] [facility] [place] [address] Type 2 diabetes mellitus with hemoglobin A1c goal of less than 7.0% ([facility])*; Severe obstructive sleep apnea; Senile dementia, uncomplicated ([facility]); MOD MENTAL RETARDATION; Metabolic syndrome; Acquired hypothyroidism; Screening for depression; Need for prophylactic vaccination and inoculation against respiratory syncytial virus (RSV); Simple schizophrenia, chronic condition ([facility]); Type 2 diabetes mellitus with diabetic dermatitis, without long-term current use of insulin ([facility]) Allergies Active Allergy Reactions Criticality Noted [...] into both eyes in the morning. Active Seylzby-Tpeacjlf-K imethicone 200-200-20 MG/5ML Oral Suspension (Alum & [...] mRNA, LNP-s, No Pre serve, 2-Dose Series (Veracyte) 01/10/2021,04/20/2020,03/30/2020 H1N1 2009 Influenza, IM 12/30/2008 Hepatitis B, 20+ yrs 06/11/1995,01/11/1995,12/11 PPD 10/30/2022,,10/23/2018,10/30,11/25/2014,06/08/2013,12/09/2011 ,04/11/2010,03/30/2008,12/17/2007,06/2006,06/27/2004,06/29/2002, 1,10/04/1998,10/12/1997,10/15/1993, Pneumococcal Conjugate Vacci ne, 20-valent ([id number]) 02/28/2022 Pneumococcal Polysaccharide PPV23 (Pneumovax) 01/22/2005 RSV [...] hemoglobin A1c goal of less than 7.0% ([facility]) (Primary) - HEMOGLOBIN A1C; Future; Expected [...] 05/26/2024 12:20 PM EDT Office Visit Dermatology [facility] [place] [address] [facility] [place], [place] [address] Sharona Castro PA-C [address] [facility] [place] [address] 10/04/2024 9:00 AM EDT Office Visit [facility] [place] [address] [facility] [place], [place] [address] Marlyn Gómez PA-C [address] [facility] [place], [place] [address] 11/05/2024 12:00 PM EDT Office Visit [facility] [address] [facility] [place], [place] [address] Akil Thorne III, MD [address] [facility] [place] [address] Scheduled Orders Name Type Priority Associated Diagnoses [...] (HCC) documented in this encounter Care Teams Home Demonstrator Relationship Specialty Start Date End Date Akil Thorne III, MD [address] [facility] [place] [address] PCP - General 05/24/02 documented as of this encounter"
--- OUTSIDE RECORDS SUMMARY | 2024-05-27 07:12 | External Medical Summary | Summary of Care ---
Author Name Unknown Organization [facility] Address [address] [place] [address] Phone [phone] Care Team Providers Care Cutter And Paster Press Clippings Name Role Phone Fadumo CASILLAS MD, Akil Soriano Primary Care Provider [phone] Reason for Visit * Reason Comments Re-Check Encounter Details Date Type Department Care Team (Latest Contact Info) Description 04/06/2024 9:00 AM EST Office Visit Family [facility] 200 [facility] [place] [address] Marlyn Gómez PA-C [address] [facility] [place] [address] Type 2 diabetes mellitus with hemoglobin A1c goal of less than 7.0% ([facility])*; Severe obstructive sleep apnea; Senile dementia, uncomplicated ([facility]); MOD MENTAL RETARDATION; Metabolic syndrome; Acquired hypothyroidism; Screening for depression; Need for prophylactic vaccination and inoculation against respiratory syncytial virus (RSV); Simple schizophrenia, chronic condition ([facility]); Type 2 diabetes mellitus with diabetic dermatitis, without long-term current use of insulin ([facility]) Allergies Active Allergy Reactions Criticality Noted [...] into both eyes in the morning. Active Npnnbmm-Ycuvifdu-W imethicone 200-200-20 MG/5ML Oral Suspension (Alum & [...] mRNA, LNP-s, No Pre serve, 2-Dose Series (Itegria) 01/10/2021,04/20/2020,03/30/2020 H1N1 2009 Influenza, IM 12/30/2008 Hepatitis B, 20+ yrs 06/11/1995,01/11/1995,12/11 PPD 10/30/2022,,10/23/2018,10/30,11/25/2014,06/08/2013,12/09/2011 ,04/11/2010,03/30/2008,12/17/2007,06/2006,06/27/2004,06/29/2002, 1,10/04/1998,10/12/1997,10/15/1993, Pneumococcal Conjugate Vacci ne, 20-valent ([email or web address]) 02/28/2022 Pneumococcal Polysaccharide PPV23 (Pneumovax) 01/22/2005 RSV [...] goal of less than 7.0% ([facility]) (Primary) - HEMOGLOBIN A1C; Future; Expected [...] 05/26/2024 12:20 PM EDT Office Visit Dermatology [facility] [place] [address] [facility] [place], [place] [address] Sharona Castro PA-C [address] [facility] [place] [address] 10/04/2024 9:00 AM EDT Office Visit [facility] [place] [address] [facility] [place], [place] [address] Marlyn Gómez PA-C [address] [facility] [place], [place] [address] 11/05/2024 12:00 PM EDT Office Visit [facility] [address] [facility] [place], [place] [address] Akil Thorne III, MD [address] [facility] [place] [address] Scheduled Orders Name Type Priority Associated Diagnoses [...] (HCC) documented in this encounter Care Teams Cutter And Paster Press Clippings Relationship Specialty Start Date End Date Akil Thorne III, MD [address] [facility] [place] [address] PCP - General 05/24/02 documented as of this encounter"
--- OUTSIDE RECORDS SUMMARY | 2024-05-27 07:13 | External Medical Summary | Summary of Care ---
Author Name Unknown Organization [facility] Address [address] [place] [address] Phone [phone] Care Team Providers Care Vegetable I Farmworker Name Role Phone Fadumo CASILLAS MD, Sonia Soriano Primary Care Provider [phone] Reason for Visit * Reason Comments eRx-Medication Refill Encounter Details Date Type Department Care Team ([facility] st Contact Info) Description 03/25/2024 Refill Family Practice [facility] 200 [place] [address] Sonia Owens III, MD [address] [place] [address] Mixed dyslipidemia Allergies Active Allergy Reactions Criticality Noted Date Comments Povidone Iodine Low 08/06/2023 Clozapine Unknown 11/29/2020 Benztropine Unknown 11/29/2020 Povidone Iodine Unknown 04/14/2000 Pseudoephedrine Unknown 04/14/2000 Terfenadine Unknown 04/14/2000 documented as of this encounter (statuses as of 03/26/2024) Medications ACETAMINOPHEN 325 MG PO TABS take [...] Take 2 Capsules by mouth at bedtime. 04/10/2 015 Active risperiDONE 3 MG Oral Tablet [...] times a day. 28 g 3 Active Additional Information Patient not taking.Reported on 11/04/2023 QC Fish Oil 1000 MG Oral CapsuleIndications :Mixed dyslipidemia TAKE 1 CAPSULE BY MOUTH THREE TIMES DAILY *LOWER CHOLESTEROL* 84 Capsule 5 Active MEDICAL INSTRUCTIONSIndica tions:Cerumen impaction Ok to administer Debrox ear drops daily for 5 days in both ears as directed once a month to prevent cerumen impaction in ears. 1 Each Active Additional Information Patient not taking.Reported on 08/20/2023 guaiFENesin-DM 100-10 MG/5ML Oral Syrup (Robitussin DM)Indications:2 teaspoons by mouth as needed Take by mouth 5 mL as needed in the morning AND 5 mL as needed at noon AND 5 mL as needed in the evening for Cough. 120 mL Active Haloperidol 0.5 MG Oral Tablet (Haldol) Take 1 Tablet by mouth every morning. Active Triple Antibiotic External Ointment APPLY TOPICALLY TWICE DAILY NEEDED FOR SCRAPES OR ABRASIONS 28.35 Each 5 Active Hydrocortisone (Perianal) 2.5 % External Cream (Anusol-HC)Indicat ions:Hemorrhoids, external without complications Administer into the rectum 2 times a day. For one week 28 g 023 Active Additional Information Patient not taking.Reported on 08/20/2023 Gold Anderson Ultimate External LotionIndications: Xerosis cutis Apply to skin daily as previously 155 g 2 023 Active White Petrolatum External OintmentIndication s:Wound of skin Apply to biopsy lesions two times a day for 1 week 30 g 024 Active Olopatadine HCl 0.2 % Ophthalmic Solution (Pataday) Instill 1 Drop into both eyes in the morning. Active Polyethylene Glycol 3350 17 GM/SCOOP Oral Powder (MiraLax)Indicatio ns:Pre-operative exam,History of colonic polyps,Constipatio n, unspecified constipation type Dispense 2- 238g bottles. Use as directed in colonoscopy directions 2 g 024 Active Polyethylene Glycol 3350 17 GM/SCOOP Oral Powder (Miralax)Indicatio ns:Constipation, unspecified constipation type Take 17 g by mouth in the morning. Dissolve one heaping tablespoon in 8 ounces of water or juice. 510 g 5 024 Active Qgetgvl-Gkvnoprs-V imethicone 200-200-20 MG/5ML Oral Suspension (Alum & Mag Hydroxide-Simeth) Take by mouth every 6 hours as needed for Indigestion. Active Loperamide HCl 2 MG Oral Capsule (Imodium A-D) Take 1 Capsule by mouth 4 times a day as needed for Diarrhea. Active Atorvastatin Calcium 40 MG Oral Tablet (Lipitor) TAKE 1 TABLET BY MOUTH ONCE DAILY FOR CHLOESTROL 28 Tablet 7 024 Active metFORMIN HCl ER 500 MG Oral [...] DAILY (SUPPLEMENT) 30 Tablet 4 025 Active CertaVite/Antioxid ants Oral TabletIndications: Mixed dyslipidemia TAKE 1 TABLET BY MOUTH DAILY (SUPPLEMENT) 30 Tablet 4 024 2024 Discontinued documented as of this encounter (statuses as of 03/26/2024) Active Problems Problem Noted Date Diagnosed Date [...] as of this encounter (statuses as of 03/26/2024) Resolved Problems Problem Noted Date Diagnosed Date [...] as of this encounter (statuses as of 03/26/2024) Immunizations Name Administration Dates Next Due COVID-19 mRNA, LNP-s, No Pre serve, 2-Dose Series (Fund[employer] Bases) 01/10/2021,04/20/2020,03/30/2020 H1N1 2009 Influenza, IM 12/30/2008 Hepatitis B, 20+ yrs 06/11/1995 PPD 10/30/2022,,10/23/2018,2016,11/25/2014,06/08/2013,12/09/2011,0 04/11/2010,03/30/2008,12/17/2007, 007 Pneumococcal Conjugate Vacci ne, 20-valent ([email or web address]) 02/28/2022 Seasonal Influenza Vac., MDV , IM, 0.5 [...] pur e alcohol) PHQ-2 Answer Date Recorded PHQ-2 Score -1 11/14/2019 Sex and Gender Information Value Date Recorded Sex Assigned at Not on file Legal Sex Male 5:03 AM EST Gender Identity Not on file Sexual Orientation Not on file Occupation Industry Job Start Date Job End Date disability Not on file Not on file Not on file documented as of this encounter Miscellaneous Notes * Telephone Encounter - Sonia Owens III, MD - 03/26/2024 10:00 AM ESTSigned Prescriptions: Disp Refills CertaVite/Antioxidants Oral Tablet 30 Tab*4 Sig: TAKE 1 TABLET BY MOUTH DAILY (SUPPLEMENT)Authorizing Provider: SONIA OWENS III * Telephone Encounter - Nixon Vargas RP - 03/26/2024 8:57 AM EST Pending Prescriptions: Disp Refills CertaVite/Antioxidants Oral Tablet [Pharma*30 Tab*4 Sig: TAKE 1TABLET BY MOUTH DAILY (SUPPLEMENT) - Electronically signed by Nixon Vargas [facility] at 03/26/2024 8:57 AM EST documented in this encounter Plan of Treatment Upcoming Encounters Date Type Department Care Team (Late st Contact Info) Description 05/26/2024 12:20 PM EDT Office Visit Dermatology [facility] [address] [place] [address] Sharona Castro PA-C [address] [place] [address] 11/05/2024 12:00 PM EDT Office Visit Family Practice [facility] [place] [address] [place] [address] Sonia Owens III, MD [address] [place], [place] [address] Scheduled Procedures Name Priority Associated Diagnoses Date/Ti me COLONOSCOPY FLEXIBLE PROXIMA L DIAGNOSTIC Recall History of colonic polyps Health Maintenance Due Date Last Done Comments Cologuard 12/27/2004 Fecal Occult Blood Test 12/27/2004 Sigmoidoscopy 12/27/2004 Depression Screening 10/10/2020 10/11/2019 COVID-19 Vaccine ( season) 2023 01/02/2023, 01/10/2021, 04/20/2020, Additional history exists B-12 05/01/2024 05/02/2023, 07/, 01/24/2021, Additional history exists HbA1c 05/03/2024 11/04/2023, 03/0 09/2023, 10/29/2022, Additional history exists Albumin/Creatinine Ratio 11/03/2024 024, 10/29/2022, 11/08/2021, Additional history exists Diabetic Foot Exam 11/03/2024 11/04/2023, 1 , 04/26/2019, Additional history exists GFR 11/03/2024 11/04/2023, 03/0 09/2023, 10/29/2022, Additional history exists TSH 11/03/2024 11/04/2023, 051 03/2022, 01/28/2022, Additional history exists Diabetic Eye Exam 12/09/2024 12/10/2023, , 10/09/2022, Additional history exists DTap/Tdap Vaccines (3 - [...] as of this encounter Visit Diagnoses Diagnosis Mixed dyslipidemia Mixed hyperlipidemia documented in this encounter Care Teams Vegetable I Farmworker Relationship Specialty Start Date End Date Sonia Owens III, MD [address] [place] [address] PCP - General 05/24/02 documented as of this encounter
--- OUTSIDE RECORDS SUMMARY | 2024-05-27 07:13 | External Medical Summary | Summary of Care ---
Author Name Unknown Organization [facility] Address [address] [place] [address] Phone [phone] Care Team Providers Care Nursing Clinical Director Name Role Phone Fadumo CASILLAS MD, Akil Soriano Primary Care Provider [phone] Encounter Details Date Type Department Care Team ([facility] st Contact Info) Description 03/18/2024 Population Health External Data Unspecified Department Allergies Active Allergy Reactions Criticality Noted Date Comments Povidone Iodine Low 08/06/2023 Clozapine Unknown 11/29/2020 Benztropine Unknown 11/29/2020 Povidone Iodine Unknown 04/14/2000 Pseudoephedrine Unknown 04/14/2000 Terfenadine Unknown 04/14/2000 documented as of this encounter (statuses as of 03/18/2024) Medications ACETAMINOPHEN 325 MG PO TABS take [...] needed for Dry eyes. 1 Bottle 5 10/28/20 16 Active Divalproex Sodium ER 250 MG [...] day. 28 g 3 10/04/19 21 Active Additional Information Patient not taking.Reported on 11/04/2023 QC Fish Oil 1000 MG Oral CapsuleIndications: Mixed dyslipidemia TAKE 1 CAPSULE BY MOUTH THREE TIMES DAILY *LOWER CHOLESTEROL* 84 Capsule 5 04/06/19 22 Active MEDICAL INSTRUCTIONSIndicat ions:Cerumen impaction Ok to administer Debrox ear drops daily for 5 days in both ears as directed once a month to prevent cerumen impaction in ears. 1 Each 08/21/19 22 Active Additional Information Patient not taking.Reported on [...] one week 28 g 05/26/19 23 Active Additional Information Patient not taking.Reported on 08/20/2023 Magnesium Hydroxide 400 MG/5ML Oral Suspension (Milk of Magnesia) take 30 ml by mouth daily as needed 360 mL 11 07/31/19 23 Active Gold Anderson Ultimate External LotionIndications:X [...] Polyethylene Glycol 3350 17 GM/SCOOP Oral Powder (MiraLax)Indication s:Pre-operative exam,History of colonic polyps,Constipation , unspecified constipation type Dispense 2- 238g bottles. Use as directed in colonoscopy directions 2 g 08/20/19 24 Active Polyethylene Glycol 3350 17 GM/SCOOP Oral Powder (Miralax)Indication s:Constipation, unspecified constipation type Take 17 g by mouth in the morning. Dissolve one heaping tablespoon in 8 ounces of water or juice. 510 g 5 08/20/19 24 Active CertaVite/Antioxida nts Oral TabletIndications:M ixed dyslipidemia TAKE 1 TABLET BY MOUTH DAILY (SUPPLEMENT) 30 Tablet 4 10/10/19 24 Active Gserqmn-Rawnicxz-Yb methicone 200-200-20 MG/5ML Oral Suspension (Alum & [...] *ANTIHISTAMINE* 14 Tablet 4 02/28/19 25 Active documented as of this encounter (statuses as of 03/18/2024) Active Problems Problem Noted Date Diagnosed Date [...] as of this encounter (statuses as of 03/18/2024) Resolved Problems Problem Noted Date Diagnosed Date [...] as of this encounter (statuses as of 03/18/2024) Immunizations Name Administration Dates Next Due COVID-19 mRNA, LNP-s, No Pre serve, 2-Dose Series (Skadoit) 01/10/2021,04/20/2020,03/30/2020 H1N1 2009 Influenza, IM 12/30/2008 Hepatitis B, 20+ yrs 06/11/1995 PPD 10/30/2022,,10/23/2018,2016,11/25/2014,06/08/2013,12/09/2011,0 04/11/2010,03/30/2008,12/17/2007, 007 Pneumococcal Conjugate Vacci ne, 20-valent ([id number]) 02/28/2022 Seasonal Influenza Vac., MDV , IM, [...] Dermatology [facility] [place] [address] [place] [address] [address] Sharona Castro PA-C [address] [place] [address] 11/05/2024 12:00 PM EDT [facility] [place] [address] [place] [address] Akil Thorne III, MD [address] [place] [address] Scheduled Procedures Name Priority Associated Diagnoses Date/Ti me COLONOSCOPY FLEXIBLE PROXIMA L DIAGNOSTIC Recall History of colonic polyps Health Maintenance Due Date Last Done Comments Cologuard 12/27/2004 Fecal Occult Blood Test 12/27/2004 Sigmoidoscopy 12/27/2004 Depression Screening 10/10/2020 10/11/2019 COVID-19 Vaccine ( season) 2023 01/02/2023, 01/10/2021, 04/20/2020, Additional history exists B-12 05/01/2024 05/02/2023, 07, 01/24/2021, Additional history exists HbA1c 05/03/2024 11/04/2023, 03/0 09/2023, 10/29/2022, Additional history exists Albumin/Creatinine Ratio 11/03/2024 024, 10/29/2022, 11/08/2021, Additional history exists Diabetic Foot Exam 11/03/2024 11/04/2023, 1 , 04/26/2019, Additional history exists GFR 11/03/2024 11/04/2023, 03/0 09/2023, 10/29/2022, Additional history exists TSH 11/03/2024 11/04/2023, 0503/2022, 01/28/2022, Additional history exists Diabetic Eye Exam [...] filedocumented as of this encounter Care Teams Nursing Clinical Director Relationship Specialty Start Date End Date Akil Thorne III, MD [address] [facility] [place] [address] PCP - General 05/24/02 documented as of this encounter
--- OUTSIDE RECORDS SUMMARY | 2024-05-27 07:13 | External Medical Summary | Summary of Care ---
Author Name Unknown Organization [facility] Address [address] [place] [address] Phone [phone] Care Team Providers Care Fixed Income Director Name Role Phone Fadumo CASILLAS MD, Akil Soriano Primary Care Provider [phone] Reason for Visit * Reason Onset Date Comments Advice 12/30/2023 Encounter Details Date Type Department Care Team (Late st Contact Info) Description 12/30/2023 Telephone Family Practice [facility] 200 [facility] [place] [address] Akil Thorne III, MD [address] [place] [address] Advice Allergies Active Allergy Reactions Criticality Noted Date Comments Povidone Iodine Low 08/06/2023 Clozapine Unknown 11/29/2020 Benztropine Unknown 11/29/2020 Povidone Iodine Unknown 04/14/2000 Pseudoephedrine Unknown 04/14/2000 Terfenadine Unknown 04/14/2000 documented as of this encounter (statuses as of 03/31/2024) Medications ACETAMINOPHEN 325 MG PO TABS take two tablets by mouth every 4 hours as needed 2 Active NEOSPORIN BRADLEY TO GO 1 % EX OINT for scrapes and abrasions Active SAPHRIS 10 MG SL SUBL dissolve 1 tab under tongue at bedtime Active SAPHRIS 5 MG SL SUBL dissolve 1 tab under tongue in am Active lithium carbonate (ESKALITH) 300 MG CapsuleIndication s:in evening Take 2 Capsules by mouth at bedtime. 5 Active risperiDONE 3 MG Oral Tablet Take 2 Tablets by mouth every night at bedtime. Active Escitalopram Oxalate 20 MG Oral Tablet Take 1 Tablet by mouth in the morning. Active Polyethyl Glycol-Propyl Glycol (SYSTANE) 0.4-0.3 % ophthalmic solution Instill 1 Drop into both eyes 4 times a day as needed for Dry eyes. 1 Bottle 5 6 Active Divalproex Sodium ER 250 MG Oral Tablet Extended Release 24 Hour (DEPAKOTE ER) In addition to (3) 500mg tablets to total 1750 mg 0 Active Divalproex Sodium ER 500 MG Oral Tablet Extended Release 24 Hour (DEPAKOTE ER) 3 tablets at bedtime in addition to 250mg to total 1750 mg 0 Active Haloperidol 1 MG Oral Tablet (HALDOL) at bedtime. 0 Active Hydrocortisone (Perianal) 2.5 % External Cream (Anusol-HC) Administer into the rectum 2 times a day. 28 g 3 1 Active Additional Information Patient not taking.Reported on 03/29/2024 QC Fish Oil 1000 MG Oral CapsuleIndication s:Mixed dyslipidemia TAKE 1 CAPSULE BY MOUTH THREE TIMES DAILY *LOWER CHOLESTEROL* 84 Capsule 5 2 Active MEDICAL INSTRUCTIONSIndic ations:Cerumen impaction Ok to administer Debrox ear drops daily for 5 days in both ears as directed once a month to prevent cerumen impaction in ears. 1 Each 2 Active Additional Information Patient not taking.Reported on 08/20/2023 guaiFENesin-DM 100-10 MG/5ML Oral Syrup (Robitussin DM)Indications:2 teaspoons by mouth as needed Take by mouth 5 mL as needed in the morning AND 5 mL as needed at noon AND 5 mL as needed in the evening for Cough. 120 mL 2 Active Haloperidol 0.5 MG Oral Tablet (Haldol) Take 1 Tablet by mouth every morning. 2 Active Triple Antibiotic External Ointment APPLY TOPICALLY TWICE DAILY NEEDED FOR SCRAPES OR ABRASIONS 28.35 Each 5 2 Active Hydrocortisone (Perianal) 2.5 % External Cream (Anusol-HC)Indica tions:Hemorrhoids , external without complications Administer into the rectum 2 times a day. For one week 28 g 3 Active Additional Information Patient not taking.Reported on 03/29/2024 Gold Anderson Ultimate External LotionIndications :Xerosis cutis Apply to skin daily as previously 155 g 2 3 Active White Petrolatum External OintmentIndicatio ns:Wound of skin Apply to biopsy lesions two times a day for 1 week 30 g 4 Active Olopatadine HCl 0.2 % Ophthalmic Solution (Pataday) Instill 1 Drop into both eyes in the morning. Active Polyethylene Glycol 3350 17 GM/SCOOP Oral Powder (MiraLax)Indicati ons:Pre-operative exam,History of colonic polyps,Constipati on, unspecified constipation type Dispense 2- 238g bottles. Use as directed in colonoscopy directions 2 g 4 Active Polyethylene Glycol 3350 17 GM/SCOOP Oral Powder (Miralax)Indicati ons:Constipation, unspecified constipation type Take 17 g by mouth in the morning. Dissolve one heaping tablespoon in 8 ounces of water or juice. 510 g 5 4 Active Additional Information Patient not taking.Reported on 03/29/2024 Alumina-Magnesia- Simethicone 200-200-20 MG/5ML Oral Suspension (Alum & Mag Hydroxide-Simeth) Take by mouth every 6 hours as needed for Indigestion. Active Loperamide HCl 2 MG Oral Capsule (Imodium A-D) Take 1 Capsule by mouth 4 times a day as needed for Diarrhea. Active Atorvastatin Calcium 40 MG Oral Tablet (Lipitor) TAKE 1 TABLET BY MOUTH ONCE DAILY FOR CHLOESTROL 28 Tablet 7 4 Active metFORMIN HCl ER 500 MG Oral Tablet Extended Release 24 Hour (Glucophage XR)Indications:Ty pe 2 diabetes mellitus with hemoglobin A1c goal of less than 7.0% (HCC) TAKE 2 TABLETS (1000MG) BY MOUTH ONCE DAILY WITH BREAKFAST FOR DM 56 Tablet 5 4 Active documented as of this encounter (statuses as of 03/31/2024) Active Problems Problem Noted Date Diagnosed Date [...] apnea 07/15/2014 Overview (09/01/2014): 09/01/14 -- APAP 10- cwp (new device 07/25/14) 2008 PSG -- AHI 44.4 DHC Dermatitis 03/20/2010 OBESITY, BMI 30-34 (SEE ACTUAL BMI) 05/18/2009 Overview (05/18/2009): Per Obesity Taxonomy Dyslipidemia, goal LDL below 100 02/06/2009 Overview (02/06/2009): Per Lipid Taxonomy. Hemorrhoids, external without complications 02/25 MOD MENTAL RETARDATION SIMPLE SCHIZOPHREN-CHR documented as of this encounter (statuses as of 03/31/2024) Resolved Problems Problem Noted Date Diagnosed Date [...] as of this encounter (statuses as of 03/31/2024) Immunizations Name Administration Dates Next Due COVID-19 mRNA, LNP-s, No Pre serve, 2-Dose Series ([employer]) 01/10/2021,04/20/2020,03/30/2020 H1N1 2009 Influenza, IM 12/30/2008 Hepatitis B, 20+ yrs 06/11/1995 PPD 10/30/2022,,10/23/2018,2016,11/25/2014,06/08/2013,12/09/2011,0 04/11/2010,03/30/2008,12/17/2007, 007 Pneumococcal Conjugate Vacci ne, 20-valent ([id number]) 02/28/2022 Seasonal Influenza Vac., MDV , IM, [...] encounter Miscellaneous Notes * Telephone Encounter - Marianne Dubois OSA - 12/30/2023 11:01 AM EST Carolynn calling from [facility]. Transferred to nurse. documented in this encounter Plan of Treatment Upcoming Encounters Date Type Department Care Team (Late st Contact Info) Description 04/06/2024 9:00 AM EST Office Visit [facility] [place] [address] Marlyn Gómez PA-C [address] [facility] [place] [address] 05/26/2024 12:20 PM EDT Office Visit Dermatology [facility] [place] [address] [place] [address] Sharona Castro PA-C [address] [place] [address] 11/05/2024 12:00 PM EDT Office Visit [facility] [address] [place] [address] [address] Akil Thorne III, MD [address] [facility] [place] [address] Scheduled Procedures Name Priority Associated Diagnoses Date/Ti [...] filedocumented as of this encounter Care Teams Fixed Income Director Relationship Specialty Start Date End Date Akil Thorne III, MD 200 [facility] [place] [address] PCP - General 05/24/02 documented as of this encounter
--- OUTSIDE RECORDS SUMMARY | 2024-05-27 07:13 | External Medical Summary | Summary of Care ---
Author Name Unknown Organization [facility] Address [address] [place] [address] Phone [phone] Care Team Providers Care Social Media Sr Strategy Manager Name Role Phone Fadumo CASILLAS MD, Akil Soriano Primary Care Provider [phone] Reason for Visit * Reason Comments eRx-Medication Refill Encounter Details Date Type Department Care Team ([facility] st Contact Info) Description 03/20/2024 Refill Gastroenterology, [facility] [address] [place] [address] Abhinav Hinson MD [address] [place] [address] Allergies Active Allergy Reactions Criticality Noted Date Comments Povidone Iodine Low 08/06/2023 Clozapine Unknown 11/29/2020 Benztropine Unknown 11/29/2020 Povidone Iodine Unknown 04/14/2000 Pseudoephedrine Unknown 04/14/2000 Terfenadine Unknown 04/14/2000 documented as of this encounter (statuses as of 03/22/2024) Medications ACETAMINOPHEN 325 MG PO TABS take [...] (SUPPLEMENT) 30 Tablet 4 10/10/19 24 Active Zirorbf-Wxaadxyr-Lj methicone 200-200-20 MG/5ML Oral Suspension (Alum & [...] *ANTIHISTAMINE* 14 Tablet 4 02/28/19 25 Active Polyethylene Glycol 3350 17 GM/SCOOP Oral Powder (Miralax) MIX 1 CAPFUL (17GM) WITH 8OZ OF WATER OR JUICE AND DRINK ONCE DAILY IN THE MORNING FOR CONSTIPATION 510 g 4 03/22/19 25 Active documented as of this encounter (statuses as of 03/22/2024) Active Problems Problem Noted Date Diagnosed Date [...] as of this encounter (statuses as of 03/22/2024) Resolved Problems Problem Noted Date Diagnosed Date [...] as of this encounter (statuses as of 03/22/2024) Immunizations Name Administration Dates Next Due COVID-19 mRNA, LNP-s, No Pre serve, 2-Dose Series ([employer]) 01/10/2021,04/20/2020,03/30/2020 H1N1 2009 Influenza, IM 12/30/2008 Hepatitis B, 20+ yrs 06/11/1995 PPD 10/30/2022,,10/23/2018,2016,11/25/2014,06/08/2013,12/09/2011,0 04/11/2010,03/30/2008,12/17/2007, 007 Pneumococcal Conjugate Vacci ne, 20-valent ([id number]) 02/28/2022 Seasonal Influenza Vac., MDV , IM, [...] encounter Miscellaneous Notes * Telephone Encounter - Abhinav Hinson MD - 03/22/2024 1:01 PM ESTSigned Prescriptions: Disp Refills Polyethylene Glycol 3350 17 GM/SCOOP Oral *510 g 4 Sig: MIX 1 CAPFUL (17GM) WITH 8OZ OF WATER OR JUICE AND DRINK ONCE DAILY IN THE MORNING FOR CONSTIPATION Authorizing Provider: ABHINAV HINSON * Telephone Encounter - Alexander Sheikh [facility] - 03/22/2024 12:56 PM EST Pending Prescriptions: Disp Refills Polyethylene Glycol 3350 17 GM/SCOOP Oral *510 g 4 Sig: MIX 1 CAPFUL (17GM) WITH 8OZ OF WATER OR JUICE AND DRINK ONCE DAILY IN THE MORNING FOR CONSTIPATION * Telephone Encounter - Alexander Sheikh [facility] - 03/22/2024 12:52 PM EST Miralax last ordered on 08/20/23 for colonoscopy prep. Please approve if appropriate. Thanks, Alexander Sheihk, PharmD Clinical Pharmacist [facility] [phone] 03/22/2024, 12:55 PM documented in this encounter Plan of Treatment Upcoming Encounters Date Type Department Care Team (Late st Contact Info) Description 05/26/2024 12:20 PM EDT Office Visit Dermatology [place] [facility] [address] [id number] Sharona aCstro PA-C [address] [place] [address] [place] [address] 11/05/2024 12:00 PM EDT Office Visit Family Practice [facility] [place] [address] [place] [address] Akil Thorne III, MD [address] [place] [address] Scheduled Procedures Name Priority Associated Diagnoses Date/Ti [...] 10/29/2022, Additional history exists TSH 11/03/2024 11/04/2023, 05/1 03/2022, 01/28/2022, Additional history exists Diabetic Eye [...] filedocumented as of this encounter Care Teams Social Media Sr Strategy Manager Relationship Specialty Start Date End Date [place] Akil CASILLAS MD [address] [place], [place] [address] PCP - General 05/24/02 documented as of this encounter
--- OUTSIDE RECORDS SUMMARY | 2024-05-27 07:13 | External Medical Summary | Summary of Care ---
Author Name Unknown Organization [facility] Address [address] [place] [address] Phone [phone] Care Team Providers Care Recessing Machine Operator Name Role Phone Fadumo CASILLAS MD, Akil Soriano Primary Care Provider [phone] Reason for Visit * Reason Onset Date Comments FYI 02/10/2024 Encounter Details Date Type Department Care Team (Late st Contact Info) Description 02/10/2024 Telephone Family Practice [facility] 200 [facility] [place] [address] Akil Thorne III, MD 200 [place] [address] FYI Allergies Active Allergy Reactions Criticality Noted Date Comments Povidone Iodine Low 08/06/2023 Clozapine Unknown 11/29/2020 Benztropine Unknown 11/29/2020 Povidone Iodine Unknown 04/14/2000 Pseudoephedrine Unknown 04/14/2000 Terfenadine Unknown 04/14/2000 documented as of this encounter (statuses as of 02/10/2024) Medications ACETAMINOPHEN 325 MG PO TABS take [...] ounces of water or juice. 510 g 08/20/19 24 Active Omeprazole 20 MG Oral Capsule Delayed Release (PriLOSEC) TAKE ONE CAP BY MOUTH DAILY 1HR BEFORE EVENING MEAL*C/O UPSET STOMACHE* 28 Capsule 09/14/19 24 Active Levocetirizine Dihydrochloride 5 MG Oral TabletIndications:A llergic rhinitis, unspecified seasonality, unspecified trigger TAKE 1/2 TABLET (2.5 MG) BY MOUTH EVERY EVENING *ANTIHISTAMINE* 14 Tablet 09/14/19 24 Active CertaVite/Antioxida nts Oral TabletIndications:M ixed dyslipidemia TAKE 1 TABLET BY MOUTH DAILY (SUPPLEMENT) 30 Tablet 4 10/10/19 24 Active Tmgtutl-Qnxnbsgu-Ab methicone 200-200-20 MG/5ML Oral Suspension (Alum & [...] (SUPPLEMENT) 28 Capsule 4 01/30/20 24 Active documented as of this encounter (statuses as of 02/10/2024) Active Problems Problem Noted Date Diagnosed Date [...] as of this encounter (statuses as of 02/10/2024) Resolved Problems Problem Noted Date Diagnosed Date [...] as of this encounter (statuses as of 02/10/2024) Immunizations Name Administration Dates Next Due COVID-19 mRNA, LNP-s, No Pre serve, 2-Dose Series ([employer]) 01/10/2021,04/20/2020,03/30/2020 H1N1 2009 Influenza, IM 12/30/2008 Hepatitis B, 20+ yrs 06/11/1995 PPD 10/30/2022, 1,10/23/2018,2016,11/25/2014,06/08/2013,12/09/2011,0 04/11/2010,03/30/2008,12/17/2007, 007 Pneumococcal Conjugate Vacci ne, 20-valent ([id number]) 02/28/2022 Seasonal Influenza Vac., MDV , IM, [...] encounter Miscellaneous Notes * Telephone Encounter - Fabienne Puri OSA - 02/10/2024 2:39 PM EST Pt nurse calling to check pt last appt documented in this encounter Plan of Treatment Upcoming Encounters Date Type Department Care Team (Late st Contact Info) Description 05/26/2024 12:20 PM EDT Office Visit Dermatology [address] [place] [address] Sharona Castro PA-C [address] [place] [address] Scheduled Procedures Name Priority Associated Diagnoses Date/Ti [...] Cancer Screening 08/26/2026 Lipid Panel 11/03/2028 11/04/2023, 09/2023, 07/05/2022, Additional history exists Hepatitis B Vaccine Completed 06/11/1995, 01/11/1995, 12/11/1994, Additional history exists Zoster Vaccines Completed 03/02/2020, 12/07/2019 Pneumococcal Vaccine: Pediatrics (0 to 5 Years) and At-Risk Patients (6 to 64 Years) Completed 02/28/2022, 01/22/2005 RETIRED - COLONOSCOPY-ANNUAL AGES [...] filedocumented as of this encounter Care Teams Recessing Machine Operator Relationship Specialty Start Date End Date Akil Thorne III, MD 200 [facility] [place] [address] PCP - General 05/24/02 documented as of this encounter
--- OUTSIDE RECORDS SUMMARY | 2024-05-27 07:13 | External Medical Summary | Summary of Care ---
Author Name Unknown Organization [facility] Address [address] [place] [address] Phone [phone] Care Team Providers Care Twine Winder Name Role Phone Fadumo CASILLAS MD, Sonia Soriano Primary Care Provider [phone] Reason for Visit * Reason Comments eRx-Medication Refill Encounter Details Date Type Department Care Team ([facility] st Contact Info) Description 01/28/2024 Refill Family Practice [facility] 200 [facility] [place] [address] Marlyn Gómez PA-C 200 [place] [address] Allergies Active Allergy Reactions Criticality Noted Date Comments Povidone Iodine Low 08/06/2023 Clozapine Unknown 11/29/2020 Benztropine Unknown 11/29/2020 Povidone Iodine Unknown 04/14/2000 Pseudoephedrine Unknown 04/14/2000 Terfenadine Unknown 04/14/2000 documented as of this encounter (statuses as of 01/30/2024) Medications ACETAMINOPHEN 325 MG PO TABS take [...] mouth daily as needed 360 mL 11 023 Active Gold Anderson Ultimate External LotionIndications: [...] ounces of water or juice. 510 g 024 Active Omeprazole 20 MG Oral Capsule Delayed Release (PriLOSEC) TAKE ONE CAP BY MOUTH DAILY 1HR BEFORE EVENING MEAL*C/O UPSET STOMACHE* 28 Capsule 024 Active Levocetirizine Dihydrochloride 5 MG Oral TabletIndications: Allergic rhinitis, unspecified seasonality, unspecified trigger TAKE 1/2 TABLET (2.5 MG) BY MOUTH EVERY EVENING *ANTIHISTAMINE* 14 Tablet 024 Active CertaVite/Antioxid ants Oral TabletIndications: Mixed dyslipidemia TAKE 1 TABLET BY MOUTH DAILY (SUPPLEMENT) 30 Tablet 4 024 Active Elpqjza-Vxqmqdxg-D imethicone 200-200-20 MG/5ML Oral Suspension (Alum & [...] DAILY (SUPPLEMENT) 28 Capsule 4 024 Active D3-1000 25 MCG (1000 UT) Oral Capsule (Cholecalciferol) TAKE ONE CAPSULE BY MOUTH DAILY (SUPPLEMENT) 28 Capsule 4 024 2023 Discontinued documented as of this encounter (statuses as of 01/30/2024) Active Problems Problem Noted Date Diagnosed Date [...] as of this encounter (statuses as of 01/30/2024) Resolved Problems Problem Noted Date Diagnosed Date [...] as of this encounter (statuses as of 01/30/2024) Immunizations Name Administration Dates Next Due COVID-19 mRNA, LNP-s, No Pre serve, 2-Dose Series ([employer] 01/10/2021,04/20/2020,03/30/2020 H1N1 2009 Influenza, IM 12/30/2008 Hepatitis B, 20+ yrs 06/11/1995 PPD 10/30/2022, 1,10/23/2018,2016,11/25/2014,06/08/2013,12/09/2011,0 04/11/2010,03/30/2008,12/17/2007, 007 Pneumococcal Conjugate Vacci ne, 20-valent ([id number]) 02/28/2022 Seasonal Influenza Vac., MDV , IM, [...] Encounter - Sonia Owens III, MD - 01/30/2024 7:52 AM ESTSigned Prescriptions: Disp Refills D3-1000 25 MCG (1000 UT) Oral Capsule (Cho*28 Cap*4 Sig: TAKE ONE CAPSULE BY MOUTH DAILY (SUPPLEMENT)Authorizing Provider: SONIA OWENS III * Telephone Encounter - Debbie May [facility] - 01/30/2024 7:06 AM ESTPending Prescriptions: Disp Refills D3-1000 25 MCG (1000 UT) Oral Capsule [Pha*28 Cap*4 Sig: TAKE ONE CAPSULE BY MOUTH DAILY (SUPPLEMENT) * Telephone Encounter - Debbie May [facility] - 01/30/2024 7:06 AM EST Did you pend patient's preferred pharmacy and medication before forwarding?yes Pharmacy: [facility] [address] Pending Prescriptions: Disp Refills D3-1000 25 MCG (1000 UT) Oral Capsule (Ch*28 Cap*4 Sig: TAKE ONE CAPSULE BY MOUTH DAILY (SUPPLEMENT) Last Visit: 11/04/2023 (in office), 09/08/2023 (telemedicine) Next Visit: Visit date not found If no future appointments scheduled, and last appointment is greater than a year ago, please schedule patient for a follow-up appointment Last date the medication was ordered: 08/18/23 Is this request for a controlled substance?No Urine Drug Screen:No results found. However, due to the size of the patient record, not all encounters were searched. Please check Results Review for a complete set of results. Patient Phone Numbers Labs: Lab Results Component Value Date/Time CREAT 1.0 11/04/2023 12:47 PM CREAT 0.87 10/29/2022 12:00 AM CREAT 0.9 10/21/2019 08:35 AM POTASSIUM 4.9 11/04/2023 12:47 PM POTASSIUM 4.0 10/29/2022 12:00 AM POTASSIUM 5.0 10/21/2019 08:35 AM TSH 2.02 11/04/2023 12:47 PM TSH 3.84 10/23/2018 10:43 AM LDL 69 11/04/2023 12:47 PM LDL 63 07/05/2022 12:04 PM LDL 42 10/23/2018 10:43 AM LDL NOT APPLICABLE 10/23/2018 10:43 AM LDLCALC 37 10/08/2017 12:00 AM ALT 30 11/04/2023 12:47 PM ALT 56 (H) 10/21/2019 08:35 AM HGBA1C 5.3 11/04/2023 12:47 PM HGBA1C 5.6 10/29/2022 12:00 AM HGBA1C 5.2 10/11/2019 09:06 AM documented in this encounter Plan of Treatment Upcoming Encounters Date Type Department Care Team (Late st Contact Info) Description 05/26/2024 12:20 PM EDT Office Visit Dermatology [facility] [place] [address] [place] [place] [address] Sharona Castro PA-C [address] [facility] [place] [address] Scheduled Procedures Name Priority Associated Diagnoses Date/Ti [...] filedocumented as of this encounter Care Teams Twine Winder Relationship Specialty Start Date End Date Sonia Owens III, MD 200 [facility] [place] [address] PCP - General 05/24/02 documented as of this encounter
--- OUTSIDE RECORDS SUMMARY | 2024-05-27 07:13 | External Medical Summary | Summary of Care ---
Author Name Unknown Organization [facility] Address [address] [place] [address] Phone [phone] Care Team Providers Care Make Up Arranger Name Role Phone Fadumo CASILLAS MD, Sonia Soriano Primary Care Provider [phone] Reason for Visit * Reason Comments eRx-Medication Refill Encounter Details Date Type Department Care Team ([facility] st Contact Info) Description 02/27/2024 Refill Family Practice [facility] 200 [place] [address] Sonia Owens III, MD 200 [place] [address] Allergic rhinitis, unspecified seasonality, unspecified trigger Allergies Active Allergy Reactions Criticality Noted Date Comments Povidone Iodine Low 08/06/2023 Clozapine Unknown 11/29/2020 Benztropine Unknown 11/29/2020 Povidone Iodine Unknown 04/14/2000 Pseudoephedrine Unknown 04/14/2000 Terfenadine Unknown 04/14/2000 documented as of this encounter (statuses as of 02/29/2024) Medications ACETAMINOPHEN 325 MG PO TABS take [...] Take 2 Capsules by mouth at bedtime. Active risperiDONE 3 MG Oral Tablet Take [...] or juice. 510 g 5 024 Active CertaVite/Antioxid ants Oral TabletIndications: Mixed dyslipidemia TAKE 1 TABLET BY MOUTH DAILY (SUPPLEMENT) 30 Tablet 4 024 Active Hpfldrp-Mggvgcij-E imethicone 200-200-20 MG/5ML Oral Suspension (Alum & [...] EVENING *ANTIHISTAMINE* 14 Tablet 4 025 Active Omeprazole 20 MG Oral Capsule Delayed Release (PriLOSEC) TAKE ONE CAP BY MOUTH DAILY 1HR BEFORE EVENING MEAL*C/O UPSET STOMACHE* 28 Capsule 5 024 2024 Discontinued Levocetirizine Dihydrochloride 5 MG Oral TabletIndications: Allergic rhinitis, unspecified seasonality, unspecified trigger TAKE 1/2 TABLET (2.5 MG) BY MOUTH EVERY EVENING *ANTIHISTAMINE* 14 Tablet 5 024 2024 Discontinued documented as of this encounter (statuses as of 02/29/2024) Active Problems Problem Noted Date Diagnosed Date [...] as of this encounter (statuses as of 02/29/2024) Resolved Problems Problem Noted Date Diagnosed Date [...] as of this encounter (statuses as of 02/29/2024) Immunizations Name Administration Dates Next Due COVID-19 mRNA, LNP-s, No Pre serve, 2-Dose Series ([employer]) 01/10/2021,04/20/2020,03/30/2020 H1N1 2009 Influenza, IM 12/30/2008 Hepatitis B, 20+ yrs 06/11/1995 PPD 10/30/2022,,10/23/2018,2016,11/25/2014,06/08/2013,12/09/2011,0 04/11/2010,03/30/2008,12/17/2007, 007 Pneumococcal Conjugate Vacci ne, 20-valent ([id number]) 02/28/2022 Seasonal Influenza Vac., MDV , IM, [...] encounter Miscellaneous Notes * Telephone Encounter - Savanna Stephenson [facility] - 02/29/2024 6:08 PM EST Signed Prescriptions: Disp Refills Omeprazole 20 MG Oral Capsule Delayed Rele*28 Cap*4 Sig: TAKE ONE CAP BY MOUTH DAILY 1HR BEFORE EVENING MEAL*C/O UPSET STOMACHE*Authorizing Provider: SONIA OWENS III User: SAVANNA STEPHENSON Levocetirizine Dihydrochloride 5 MG Oral T*14 Tab*4 Sig: TAKE 1/2 TABLET (2.5 MG) BY MOUTH EVERY EVENING *ANTIHISTAMINE*Authorizing Provider: SONIA COLUNGA User: SAVANNA STEPHENSON documented in this encounter Plan of Treatment Upcoming Encounters Date Type Department Care Team (Late st Contact Info) Description 05/26/2024 12:20 PM EDT Office Visit Dermatology [facility] [place] 200 [facility] [address] Sharona Castro PA-C [address] [place] [address] Scheduled Procedures Name Priority Associated Diagnoses Date/Ti [...] as of this encounter Visit Diagnoses Diagnosis Allergic rhinitis, unspecified seasonality, unspecified trigger documented in this encounter Care Teams Make Up Arranger Relationship Specialty Start Date End Date Sonia Owens III, MD [address] [place] [address] PCP - General 05/24/02 documented as of this encounter
--- OUTSIDE RECORDS SUMMARY | 2024-05-27 07:13 | External Medical Summary | Summary of Care ---
Author Name Unknown Organization [facility] Address [address] [place] [address] Phone [phone] Care Team Providers Care Rhinestone Setter Name Role Phone Fadumo CASILLAS MD, Akil Soriano Primary Care Provider [phone] Reason for Visit * Reason Comments Other Hit head on a oak cl oset door - today 3:30 Encounter Details Date Type Department Care Team (Latest Contact Info) Description 03/29/2024 4:30 PM EST Convenient Care Visit [facility] [address] [place] [address] Anna Delgadillo PA-C [address] [place] [address] Contusion of other part of head, initial encounter* Allergies Active Allergy Reactions Criticality Noted Date [...] 03/29/2024 QC Fish Oil 1000 MG Oral CapsuleIndications: [...] taking.Reported on 03/29/2024 Gold Anderson Ultimate External LotionIndications:X erosis cutis [...] juice. 510 g 5 08/20/19 24 Active Additional Information Patient not taking.Reported on 03/29/2024 Duesiyr-Apozrleu-Cs methicone 200-200-20 MG/5ML Oral Suspension (Alum & [...] CONSTIPATION 510 g 4 03/22/19 25 Active Additional Information Patient not taking.Reported on 03/29/2024 CertaVite/Antioxida nts Oral TabletIndications:M ixed dyslipidemia TAKE 1 TABLET BY MOUTH DAILY (SUPPLEMENT) 30 Tablet 4 03/26/19 25 Active Amoxicillin 500 MG Oral Capsule (Amoxil) 03/24/19 25 Active documented as of this encounter [...] mRNA, LNP-s, No Pre serve, 2-Dose Series ([employer]) 01/10/2021,04/20/2020,03/30/2020 H1N1 2009 Influenza, IM 12/30/2008 Hepatitis B, 20+ yrs 06/11/1995 PPD 10/30/2022,,10/23/2018,2016,11/25/2014,06/08/2013,12/09/2011,0 04/11/2010,03/30/2008,12/17/2007, 007 Pneumococcal Conjugate Vacci ne, 20-valent ([id number]) 02/28/2022 Seasonal Influenza Vac., MDV , IM, [...] Sign Reading Time Taken Comments Blood Pressure 122/76 03/29/2024 5:34 PM EST Pulse 75 03/29/2024 5:34 PM EST Temperature 36.9 °C (98.4 °F) 03/29/2024 5:34 PM ES T Respiratory Rate 18 03/29/2024 5:34 PM EST Oxygen Saturation 94% 03/29/2024 5:34 PM EST Inhaled Oxygen Concentration - - Weight 82.2 kg (181 lb 3.2 oz) 03/29/2024 5:34 P M EST Height 165.1 cm (5' 5") 03/29/2024 5:34 PM EST Body Mass Index 30.15 03/29/2024 5:34 PM EST documented in this encounter Patient Instructions * Patient Instructions* Anna Delgadillo PA-C - 03/29/2024 5:47 PM EST Discussed signs to watch for: N/V, LOC, change in behavior See form completed for Skills documented in this encounter Progress Notes * Anna Delgadillo PA-C - 03/29/2024 4:25 PM EST Subjective: Nursing Notes: Vicky Middleton, MED ASSIST 03/29/24 8305 Signed Estuardo Bliss Ervin is a 63 year old male who presents to walk-in clinic today complaining of Chief Complaint Patient presents with Other Hit head on a oak closet door - today 3:30 Brief history:pt is here today - he hit his head on a closet door that is oak around 3:30 pm. No complaint of headache and did not lose consciousness Pt resides in a skilled nursing Onset/duration: today . Patient is accompanied by Don - Staff member for today's visit. Sx are bump on the left anterior superior head when a door fell on head that was not attached to hinges during some routing maintenance in a skilled nursing where he lives. Pt states he head hurts where it hit his head but not complaining it is very painful. Had no LOC, denies N/V, vision care associate who was with him denies any change in behavior, gait, speech, etc. No other complaints no sick contacts at home. Sig med hx/risk factors: Moderate retardation, senile dementia, Type II diabetes had flu shot this year. PMH: Patient Active Problem List Diagnosis Hemorrhoids, [...] Current Outpatient Medications Medication Sig Dispense Refill ACETAMINOPHEN 325 MG PO TABS take two [...] 1 MG Oral Tablet (HALDOL) at bedtime. QC Fish Oil 1000 MG Oral Capsule TAKE 1 CAPSULE BY MOUTH THREE TIMES DAILY *LOWER CHOLESTEROL* 84 Capsule 5 guaiFENesin-DM 100-10 MG/5ML Oral Syrup (Robitussin DM) [...] FOR SCRAPES OR ABRASIONS 28.35 Each 5 Gold Anderson Ultimate External Lotion Apply to skin daily as previously 155 g 2 White Petrolatum External Ointment Apply to biopsy lesions two times a day for 1 week 30 g 0 Olopatadine HCl 0.2 % Ophthalmic Solution (Pataday) Instill 1 Drop into both eyes in the morning. Polyethylene Glycol 3350 17 GM/SCOOP Oral Powder (MiraLax) Dispense 2- 238g bottles. Use as directed in colonoscopy directions 2 g 0 Pfzonvx-Gkpmttdm-Wpybtqynmvw 200-200-20 MG/5ML Oral Suspension (Alum & Mag Hydroxide-Simeth) Take by mouth every 6 hours as needed for Indigestion. Loperamide HCl 2 MG Oral Capsule (Imodium A-D) Take 1 Capsule by mouth 4 times a day as needed for Diarrhea. Atorvastatin Calcium 40 MG Oral Tablet (Lipitor) TAKE 1 TABLET BY MOUTH ONCE DAILY FOR CHLOESTROL 28 Tablet 7 metFORMIN HCl ER 500 MG Oral Tablet Extended Release 24 Hour (Glucophage XR) TAKE 2 TABLETS (1000MG) BY MOUTH ONCE DAILY WITH BREAKFAST FOR DM 56 Tablet 5 Levothyroxine Sodium 88 MCG Oral Tablet (Levoxyl) [...] DAILY NEEDED FOR CONSTIPATION 473 mL 4 CertaVite/Antioxidants Oral Tablet TAKE 1 TABLET BY MOUTH DAILY (SUPPLEMENT) 30 Tablet 4 Amoxicillin 500 MG Oral Capsule (Amoxil) Hydrocortisone (Perianal) 2.5 % External Cream (Anusol-HC) Administer into the rectum 2 times a day. (Patient not taking: Reported on 03/29/2024) 28 g 3 MEDICAL INSTRUCTIONS Ok to administer Debrox ear drops daily for 5 days in both ears as directed once a month to prevent cerumen impaction in ears. (Patient not taking: Reported on 08/20/2023) 1 Each 0 Hydrocortisone (Perianal) 2.5 % External Cream (Anusol-HC) Administer into the rectum 2 times a day. For one week (Patient not taking: Reported on 03/29/2024) 28 g 0 Polyethylene Glycol 3350 17 GM/SCOOP Oral Powder (Miralax) Take 17 g by mouth in the morning. Dissolve one heaping tablespoon in 8 ounces of water or juice. (Patient not taking: Reported on 03/29/2024)510 g 5 Polyethylene Glycol 3350 17 GM/SCOOP Oral Powder (Miralax) MIX 1 CAPFUL (17GM) WITH 8OZ OF WATER ORJUICE AND DRINK ONCE DAILY IN THE MORNING FOR CONSTIPATION (Patient not taking: Reported on 03/29/2024) 510 g 4 No current facility-administered medications for this visit. Past Medical History: Diagnosis Date Astigmatism Benign neoplasm of colon 02/01/10 POLYPS X2 --adenomatous tissue --repeat in 3 yrs Esophageal reflux Hypothyroidism Moderate intellectual disabilities Mental Retardation, Moderate Myopia Other mental problems Simple schizophrenia, chronic condition (HCC) Schizophrenia, Primary, paranoid, Dr Kishore Blank, [facility] Past Surgical History: Procedure Laterality Date COLONOSCOPY W/ LESION REMOVAL, SNARE 02/01/2010 POLYPS X2 --adenomatous tissue --repeat in 3 yrs COLONOSCOPY, DIAGNOSTIC (RECTUM) 02/03/2013 COLONOSCOPY FLEXIBLE PROXIMAL DIAGNOSTIC performed by Catarino Shine MD at ENDOSCOPY [facility] COLONOSCOPY, DIAGNOSTIC (RECTUM) 01/10/2016 normal, repeat 5 yrs/[facility] COLONOSCOPY, DIAGNOSTIC (RECTUM) 01/10/2021 2- 4 to 5 mm in ascending, 2 - 3 to 5 descending, diverticulosis in sigmoid colon, internal hemorrhoids / biopsies benign adenomatous polyps / 1 year follow / COLONOSCOPY FLEXIBLE PROXIMAL DIAGNOSTICperformed by Saman Hinson MD at ENDOSCOPY [facility] COLONOSCOPY, DIAGNOSTIC (RECTUM) 04/02/2022 poor prep, diverticulosis, repeat 1 yr / COLONOSCOPY FLEXIBLE PROXIMAL DIAGNOSTIC performed by Saman Hinson MD at ENDOSCOPY [facility] COLONOSCOPY, DIAGNOSTIC (RECTUM) 08/27/2023 diverticulosis/hemorrhoids/biopsies show adenomatous polyps/recall 3 years/COLONOSCOPY FLEXIBLE PROXIMAL DIAGNOSTIC performed by Saman Hinson MD at ENDOSCOPY [facility] DENTAL SURGERY PROCEDURE NEC 12/31/1994 wisdom tooth extraction DENTAL SURGERY PROCEDURE NEC 07/01/1995 wisdom tooth extraction DIABETIC EYE EXAM 06/07/2013 Review of patient's allergies indicates: Allergen Reactions Clozaril [Clozapine] Unknown Cogentin [Benztropine] Unknown Povidone Iodine Unknown Pseudoephedrine Unknown Terfenadine Unknown Betadine [Povidone Iodine] Objective: BP 122/76 | Pulse 75 | Temp 36.9 °C (98.4 °F) (Tympanic) | Resp 18 | Ht 1.651 m (5' 5") | Wt 82.2kg (181 lb 3.2 oz) | SpO2 94% | BMI 30.15 kg/m² | BSA 1.94 m² Physical Exam Constitutional: General: He is not in acute distress. Appearance: Normal appearance. He is normal weight. He is not ill-appearing. Comments: Pt is obviously developmentally delayed, but answered questions appropriately. HENT: Head: Normocephalic. Comments: Very mild abrasion on head where hairline should be (he is bald) left catholic, with minimal swelling, no specific bump. Right Ear: Tympanic membrane, ear canal and external ear normal. Left Ear: Tympanic membrane, ear canal and external ear normal. Nose: No congestion or rhinorrhea. Mouth/Throat: Pharynx: No oropharyngeal exudate or posterior oropharyngeal erythema. Eyes: Extraocular Movements: Extraocular movements intact. Conjunctiva/sclera: Conjunctivae normal. Cardiovascular: Rate and Rhythm: Normal rate and regular rhythm. Heart sounds: Normal heart sounds. Pulmonary: Effort: Pulmonary effort is normal. Breath sounds: Normal breath sounds. No wheezing or rhonchi. Musculoskeletal: General: Normal range of motion. Cervical back: Normal range of motion. No rigidity or tenderness. No muscular tenderness. Lymphadenopathy: Cervical: No cervical adenopathy. Skin: Findings: No rash. Neurological: Mental Status: He is alert and oriented to person, place, and time. Mental status is at baseline. Gait: Gait normal. Deep Tendon Reflexes: Reflexes normal. Psychiatric: Mood and Affect: Mood normal. Thought Content: Thought content normal. Judgment: Judgment normal. ASSESSMENT/PLAN: Contusion of other part of head, initial encounter (Primary) Patient Instructions Discussed signs to watch for: N/V, LOC, change in behavior See form completed for Skills Completed forms for Skills, his residential provider/skilled nursing. Over 30 minutes spent with patient exam, counseling, review of previous medical records and with documenting. Return instruction reviewed with pt in detail. Reasons to report to the ED were also reviewed. Voiced understanding Advised to follow up if no improvement in 3-5days. Anna Delgadillo PA-C documented in this encounter Nursing Notes * Vicky Middleton MED ASSIST - 03/29/2024 5:32 PM EST Estuardo Mueller is a 63 year old male who presents to walk-in clinic today complaining of Chief Complaint Patient presents with Other Hit head on a oak closet door - today 3:30 Brief history:pt is here today - he hit his head on a closet door that is oak around 3:30 pm. No complaint of headache and did not lose consciousness Pt resides in a skilled nursing Onset/duration: today . Patient is accompanied by Don - Staff member for today's visit. documented in this encounter Plan of Treatment Upcoming Encounters Date Type Department Care Team (Late st Contact Info) Description 04/06/2024 9:00 AM EST Office Visit [facility] [employer] [address] [place] [address] Marlyn Gómez PA-C [address] [place] [address] 05/26/2024 12:20 PM EDT Office Visit [facility] [address] [place] [address] Sharona Castro PA-C [address] [facility] [place] [address] 11/05/2024 12:00 PM EDT Office Visit Family Practice [facility] [address] [facility] [place] [address] Akil Thorne III, MD [address] [facility] [place], [place] [address] Scheduled Procedures Name Priority Associated Diagnoses Date/Ti [...] as of this encounter Visit Diagnoses Diagnosis Contusion of other part of head, initial encounter- Primary documented in this encounter Care Teams Rhinestone Setter Relationship Specialty Start Date End Date Akil Thorne III, MD [address] [place] [address] PCP - General 05/24/02 documented as of this encounter
--- OUTSIDE RECORDS SUMMARY | 2024-05-27 07:14 | External Medical Summary | Summary of Care ---
Author Name Unknown Organization [facility] Address [address] [place] [address] Phone [phone] Care Team Providers Care Server Cashier Name Role Phone Fadumo CASILLAS MD, Akil Soriano Primary Care Provider [phone] Reason for Visit * Reason Onset Date Comments Test Results Lab 01/01/2024 Encounter Details Date Type Department Care Team (Late st Contact Info) Description 01/01/2024 Telephone Family Practice [facility] [address] [place] [address] Akil Thorne III, MD [address] [place] [address] Test Results Lab Allergies Active Allergy Reactions Criticality Noted Date Comments Povidone Iodine Low 08/06/2023 Clozapine Unknown 11/29/2020 Benztropine Unknown 11/29/2020 Povidone Iodine Unknown 04/14/2000 Pseudoephedrine Unknown 04/14/2000 Terfenadine Unknown 04/14/2000 documented as of this encounter (statuses as of 01/28/2024) Medications ACETAMINOPHEN 325 MG PO TABS take [...] 1 week 30 g 04/17/19 24 Active D3-1000 25 MCG (1000 UT) Oral Capsule (Cholecalciferol) TAKE ONE CAPSULE BY MOUTH DAILY (SUPPLEMENT) 28 Capsule 4 08/18/19 24 Active Olopatadine HCl 0.2 % Ophthalmic [...] juice. 510 g 5 08/20/19 24 Active Omeprazole 20 MG Oral Capsule Delayed Release (PriLOSEC) TAKE ONE CAP BY MOUTH DAILY 1HR BEFORE EVENING MEAL*C/O UPSET STOMACHE* 28 Capsule 5 09/14/19 24 Active Levocetirizine Dihydrochloride 5 MG Oral TabletIndications:A llergic rhinitis, unspecified seasonality, unspecified trigger TAKE 1/2 TABLET (2.5 MG) BY MOUTH EVERY EVENING *ANTIHISTAMINE* 14 Tablet 09/14/19 24 Active CertaVite/Antioxida nts Oral TabletIndications:M ixed dyslipidemia TAKE 1 TABLET BY MOUTH DAILY (SUPPLEMENT) 30 Tablet 4 10/10/19 24 Active Wzaxvka-Ifjfrijw-Go methicone 200-200-20 MG/5ML Oral Suspension (Alum & [...] DM 56 Tablet 5 12/12/19 24 Active documented as of this encounter (statuses as of 01/28/2024) Active Problems Problem Noted Date Diagnosed Date [...] as of this encounter (statuses as of 01/28/2024) Resolved Problems Problem Noted Date Diagnosed Date [...] as of this encounter (statuses as of 01/28/2024) Immunizations Name Administration Dates Next Due COVID-19 mRNA, LNP-s, No Pre serve, 2-Dose Series ([employer]) 01/10/2021,04/20/2020,03/30/2020 H1N1 2009 Influenza, IM 12/30/2008 Hepatitis B, 20+ yrs 06/11/1995,01/11/1995,12/11 PPD 10/30/2022,,10/23/2018,10/30,11/25/2014,06/08/2013,12/09/2011 ,04/11/2010,03/30/2008,12/17/2007,02/06/2006,06/27/2004,06/29/2002, 1,10/04/1998,10/12/1997,10/15/1993, Pneumococcal Conjugate Vacci ne, 20-valent ([id number]) 02/28/2022 Pneumococcal Polysaccharide PPV23 (Pneumovax) 01/22/2005 Seasonal Influenza Vac., MDV , IM, 0.5 mL (Fluzone) 12/03/2013,12/08/2012,11/12/2011,12/06,12/26/2009,12/26/2009,12/20/2008 ,02/17/2008,12/11/2006,12/11/2005,11/02/2004,02/04/2001 Seasonal Influenza, PF, 6 M & above, [...] encounter Miscellaneous Notes * Telephone Encounter - Edna Carr LPN - 01/28/2024 2:21 PM EST Tomy aware and verbalized understanding. Tomy states he is no longer having urinary incontinence or urgency. [facility] is at [facility] and [facility]omy[facility] states the staff was not pulling back penis foreskin to cleanse genital area. He is circumcised. Tomy states when staff is properly bathing/washing genital areas they have noissues with yeast growth. Tomy did educated staff on retracting the skin and bathing/care to genital areas. She states the discharge around the penis is white and has a yeast smell. Asking for PRN yeast infection cream- can call Tomy on work mobile # at [phone] with new orders. * Telephone Encounter - Skyla Mcnally LPN - 01/28/2024 1:12 PM EST Attempted to call patient, there was no answer, left voicemail. When patient returns call, ok for WILVER to relay message, please refer to below documentation. If needed, can transfer to dedicated nurse line. Letter sent * Telephone Encounter - Camilo Siu CMA - 01/21/2024 1:30 PM EST Attempted to call patient, there was no answer, no available voicemail. When patient returns call, ok for WILVER to relay message, please refer to below documentation. If needed, can transfer to dedicated nurse line. * Telephone Encounter - Joselin Hill CMA - 01/01/2024 2:35 PM EST Attempted to call, LVM for return call. Please transfer to DNL. * Telephone Encounter - Joselin Hill CMA - 01/01/2024 2:35 PM EST ----- Message from Akil Thorne MD sent at 2023 8:07 AM EST ----- Call please culture no significant growth how doing documented in this encounter Plan of Treatment Upcoming Encounters Date Type Department Care Team (Late st Contact Info) Description 05/26/2024 12:20 PM EDT Office Visit [facility] [address] [place] [address] Sharona Castro PA-C [address] [place] [address] Scheduled Procedures Name Priority Associated Diagnoses Date/Ti [...] filedocumented as of this encounter Care Teams Server Cashier Relationship Specialty Start Date End Date Akil Thorne III, MD [address] [place] [address] PCP - General 05/24/02 documented as of this encounter
--- OUTSIDE RECORDS SUMMARY | 2024-05-27 07:14 | External Medical Summary | Summary of Care ---
Author Name Unknown Organization [facility] Address [address] [place] [address] Phone [phone] Care Team Providers Care Planer Mill Grader Name Role Phone Fadumo CASILLAS MD, Akil Soriano Primary Care Provider [phone] Reason for Visit * Reason Onset Date Comments Appointment 12/22/2023 Encounter Details Date Type Department Care Team ([facility] st Contact Info) Description 12/22/2023 Telephone Family Practice [facility] [address] [facility] [place] [address] Akil Thorne III, MD [address] [place] [address] Appointment Allergies Active Allergy Reactions Criticality Noted Date Comments Povidone Iodine Low 08/06/2023 Clozapine Unknown 11/29/2020 Benztropine Unknown 11/29/2020 Povidone Iodine Unknown 04/14/2000 Pseudoephedrine Unknown 04/14/2000 Terfenadine Unknown 04/14/2000 documented as of this encounter (statuses as of 12/29/2023) Medications Medication Sig Dispensed Refills Start Date End Date Status ACETAMINOPHEN 325 MG PO TABS take two tablets by mouth every 4 hours as needed 09/06/2011 Active NEOSPORIN BRADLEY TO GO 1 % EX OINT for scrapes and abrasions Active SAPHRIS 10 MG SL SUBL dissolve 1 tab under tongue at bedtime Active SAPHRIS 5 MG SL SUBL dissolve 1 tab under tongue in am Active lithium carbonate (ESKALITH) 300 MG CapsuleIndications:in evening Take 2 Capsules by mouth at bedtime. 06/03/2014 Active risperiDONE 3 MG Oral Tablet Take 2 Tablets by mouth every night at bedtime. Active Escitalopram Oxalate 20 MG Oral Tablet Take 1 Tablet by mouth in the morning. Active Polyethyl Glycol-Propyl Glycol (SYSTANE) 0.4-0.3 % ophthalmic solution Instill 1 Drop into both eyes 4 times a day as needed for Dry eyes. 1 Bottle 5 12/22/2015 Active Divalproex Sodium ER 250 MG Oral Tablet Extended Release 24 Hour (DEPAKOTE ER) In addition to (3) 500mg tablets to total 1750 mg 12/27/2019 Active Divalproex Sodium ER 500 MG Oral Tablet Extended Release 24 Hour (DEPAKOTE ER) 3 tablets at bedtime in addition to 250mg to total 1750 mg 12/29/2019 Active Haloperidol 1 MG Oral Tablet (HALDOL) at bedtime. 12/27/2019 Active Hydrocortisone (Perianal) 2.5 % External Cream (Anusol-HC) Administer into the rectum 2 times a day. 28 g 3 10/03/2020 Active Additional Information Patient not taking.Reported on 11/04/2023 QC Fish Oil 1000 MG Oral CapsuleIndications:Mi xed dyslipidemia TAKE 1 CAPSULE BY MOUTH THREE TIMES DAILY *LOWER CHOLESTEROL* 84 Capsule 5 04/06/2021 Active MEDICAL INSTRUCTIONSIndicatio ns:Cerumen impaction Ok to administer Debrox ear drops daily for 5 days in both ears as directed once a month to prevent cerumen impaction in ears. 1 Each 08/20/2021 Active Additional Information Patient not taking.Reported on 08/20/2023 guaiFENesin-DM 100-10 MG/5ML Oral Syrup (Robitussin DM)Indications:2 teaspoons by mouth as needed Take by mouth 5 mL as needed in the morning AND 5 mL as needed at noon AND 5 mL as needed in the evening for Cough. 120 mL 08/26/2021 Active Haloperidol 0.5 MG Oral Tablet (Haldol) Take 1 Tablet by mouth every morning. 10/29/2021 Active Triple Antibiotic External Ointment APPLY TOPICALLY TWICE DAILY NEEDED FOR SCRAPES OR ABRASIONS 28.35 Each 5 01/30/2022 Active Hydrocortisone (Perianal) 2.5 % External Cream (Anusol-HC)Indication s:Hemorrhoids, external without complications Administer into the rectum 2 times a day. For one week 28 g 05/25/2022 Active Additional Information Patient not taking.Reported on 08/20/2023 Magnesium Hydroxide 400 MG/5ML Oral Suspension (Milk of Magnesia) take 30 ml by mouth daily as needed 360 mL 11 07/30/2022 Active Gold Anderson Ultimate External LotionIndications:Xer osis cutis Apply to skin daily as previously 155 g 2 09/24/2022 Active White Petrolatum External OintmentIndications:W ound of skin Apply to biopsy lesions two times a day for 1 week 30 g 04/17/2023 Active Levothyroxine Sodium 88 MCG Oral Tablet (Levoxyl)Indications: Acquired hypothyroidism TAKE ONE TABLET BY MOUTH DAILY *HYPOTHYROIDISM* 28 Tablet 5 06/23/2023 Active Fiber-Lax 625 MG Oral Tablet (Calcium Polycarbophil) TAKE 2 TABLETS BY MOUTH DAILY WITH 8OZ OF WATER*CONSTIPATIO N* 56 Tablet 4 07/16/2023 Active Docusate Sodium 100 MG Oral Capsule (Colace)Indications:H emorrhoids, external without complications TAKE 1 CAPSULE BY MOUTH TWICE DAILY FOR CONSTIPATION 56 Capsule 4 07/16/2023 Active D3-1000 25 MCG (1000 UT) Oral Capsule (Cholecalciferol) TAKE ONE CAPSULE BY MOUTH DAILY (SUPPLEMENT) 28 Capsule 4 08/18/2023 Active Olopatadine HCl 0.2 % Ophthalmic Solution (Pataday) Instill 1 Drop into both eyes in the morning. Active Polyethylene Glycol 3350 17 GM/SCOOP Oral Powder (MiraLax)Indications: Pre-operative exam,History of colonic polyps,Constipation, unspecified constipation type Dispense 2- 238g bottles. Use as directed in colonoscopy directions 2 g 08/20/2023 Active Polyethylene Glycol 3350 17 GM/SCOOP Oral Powder (Miralax)Indications: Constipation, unspecified constipation type Take 17 g by mouth in the morning. Dissolve one heaping tablespoon in 8 ounces of water or juice. 510 g 5 08/20/2023 Active Omeprazole 20 MG Oral Capsule Delayed Release (PriLOSEC) TAKE ONE CAP BY MOUTH DAILY 1HR BEFORE EVENING MEAL*C/O UPSET STOMACHE* 28 Capsule 5 09/14/2023 Active Levocetirizine Dihydrochloride 5 MG Oral TabletIndications:All ergic rhinitis, unspecified seasonality, unspecified trigger TAKE 1/2 TABLET (2.5 MG) BY MOUTH EVERY EVENING *ANTIHISTAMINE* 14 Tablet 5 09/14/2023 Active CertaVite/Antioxidant s Oral TabletIndications:Mix ed dyslipidemia TAKE 1 TABLET BY MOUTH DAILY (SUPPLEMENT) 30 Tablet 4 10/10/2023 Active Gtxlhyw-Jgeumnth-Qylg thicone 200-200-20 MG/5ML Oral Suspension (Alum & Mag Hydroxide-Simeth) Take by mouth every 6 hours as needed for Indigestion. Active Loperamide HCl 2 MG Oral Capsule (Imodium A-D) Take 1 Capsule by mouth 4 times a day as needed for Diarrhea. Active Atorvastatin Calcium 40 MG Oral Tablet (Lipitor) TAKE 1 TABLET BY MOUTH ONCE DAILY FOR CHLOESTROL 28 Tablet 7 11/07/2023 Active metFORMIN HCl ER 500 MG Oral Tablet Extended Release 24 Hour (Glucophage XR)Indications:Type 2 diabetes mellitus with hemoglobin A1c goal of less than 7.0% (HCC) TAKE 2 TABLETS (1000MG) BY MOUTH ONCE DAILY WITH BREAKFAST FOR DM 56 Tablet 5 12/12/2023 Active documented as of this encounter (statuses as of 12/29/2023) Active Problems Problem Noted Date Diagnosed Date Pre-operative exam 08/20/2023 History of colonic polyps 08/20/2023 History of nonmelanoma skin cancer 04/12/2022 Overview: 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, SCCIS L frontal scalp 2020, s/p curettage Senile dementia, uncomplicated 04/25/2021 Type 2 diabetes mellitus with diabetic dermatiti s 04/13/2020 Diabetes mellitus without complication 8 Type 2 diabetes mellitus wit h hemoglobin A1c goal of less than 7.0% 10/23/2017 History of pulmonary embolism 10/30/2016 Acquired hypothyroidism 11/13/2015 Metabolic syndrome 07/25/2014 Severe obstructive sleep apnea 07/15/2014 Overview: 09/01/14 -- APAP 10-16 cwp (new device 07/25/14) 2008 PSG -- AHI 44.4 DHC Dermatitis 03/20/2010 OBESITY, BMI 30-34 (SEE ACTUAL BMI) 05/18/2009 Overview: Per Obesity Taxonomy Dyslipidemia, goal LDL below 100 02/06/2009 Overview: Per Lipid Taxonomy. ADVANCE DIRECTIVE INFORMATION 10/17/2004 Overview: No, Advance Directive brochure offered , patient declined. Hemorrhoids, external without complications 02/25 MOD MENTAL RETARDATION SIMPLE SCHIZOPHREN-CHR documented as of this encounter (statuses as of 12/29/2023) Resolved Problems Problem Noted Date Diagnosed Date Resolved Date Type 2 diabetes mellitus wit h hemoglobin A1c goal of less than 7.0% 11/06/2010 07/25/2014 Overview: ICD-10 update of inactive term Cellulitis of leg 03/20/2010 01/28/2022 METABOLIC SYNDROME 03/09/2004 2 HYPOTHYROIDISM NOS 12/08/2001 6 Mixed dyslipidemia 07/28/2000 9 Overview: Per Lipid Taxonomy. OBESITY, UNSPECIFIED 010 Overview: Per Obesity Taxonomy documented as of this encounter (statuses as of 12/29/2023) Immunizations Name Administration Dates Next Due COVID-19 mRNA, LNP-s, No Pre serve, 2-Dose Series ([employer]) 01/10/2021,04/20/2020,03/30/2020 H1N1 2009 Influenza, IM 12/30/2008 Hepatitis B, 20+ yrs 06/11/1995 PPD 10/30/2022,,10/23/2018,2016,11/25/2014,06/08/2013,12/09/2011,0 04/11/2010,03/30/2008,12/17/2007, 007 Pneumococcal Conjugate Vacci ne, 20-valent ([id number]) 02/28/2022 Seasonal Influenza Vac., MDV , IM, [...] Recorded Sex Assigned at Not on file Gender Identity Not on file Sexual Orientation Not on file Job Start Date Occupation Industry Not on file Not on file Not on file documented as of this encounter Miscellaneous Notes * Telephone Encounter - Skyla Mcnally LPN - 12/29/2023 11:55 AM EST See TE from 12/25 * Telephone Encounter - Rivka Villarreal OSA - 12/25/2023 4:10 PM EDT No Appointments Available Patient declined appointments?: Yes What Visit Type is needed? Acute If Acute Visit Type is needed, were surrounding clinics offered to patient (Yes/No)? Yes Was patient offered appointments with other available providers (Yes/No)? N/A See Call Details? (Yes or No): Yes * Telephone Encounter - Brianna Moran LPN - 12/23/2023 3:34 PM EDT Left message for patient to return call. I was able to get patient scheduled with Bharti Kang on Friday12/24/23 at 10:40 am. Please transfer him to a phone nurse to get additional information regarding symptoms to determine if an appointment tomorrow is appropriate or if he needs to be seen sooner. * Telephone Encounter - Marianne Dubois OSA - 12/22/2023 5:43 PM EDT No Appointments Available Patient declined appointments?: No What Visit Type is needed? Acute If Acute Visit Type is needed, were surrounding clinics offered to patient (Yes/No)? Yes Was patient offered appointments with other available providers (Yes/No)? Yes See Call Details? (Yes or No): Yes documented in this encounter Plan of Treatment Upcoming Encounters Date Type Department Care Team (Late st Contact Info) Description 05/26/2024 12:20 PM EDT [facility] [place] [address] [facility] [place] [address] Sharona Castro PA-C [address] [facility] [place] [address] Scheduled Procedures Name Priority Associated Diagnoses Date/Ti [...] filedocumented as of this encounter Care Teams Planer Mill Grader Relationship Specialty Start Date End Date Akil Thorne III, MD [address] [place] [address] PCP - General 05/24/02 documented as of this encounter
--- OUTSIDE RECORDS SUMMARY | 2024-05-27 07:14 | External Medical Summary | Summary of Care ---
Author Name Unknown Organization [facility] Address [address] [place] [address] Phone [phone] Care Team Providers Care Bricklayer Paving Brick Name Role Phone Fadumo CASILLAS MD, Akil Soriano Primary Care Provider [phone] Reason for Visit * Reason Onset Date Comments Test Results Lab 01/01/2024 Encounter Details Date Type Department Care Team (Late st Contact Info) Description 01/01/2024 [facility]phone [facility] [address] [place] [address] Akil Thorne III, MD [address] [place] [address] Test Results Lab Allergies Active Allergy Reactions [...] (SUPPLEMENT) 30 Tablet 4 10/10/19 24 Active Kkdgqwx-Lnnvoikj-Hl methicone 200-200-20 MG/5ML Oral Suspension (Alum & [...] mRNA, LNP-s, No Pre serve, 2-Dose Series ([employer]) 01/10/2021,04/20/2020,03/30/2020 H1N1 2009 Influenza, IM 12/30/2008 Hepatitis B, 20+ yrs 06/11/1995 PPD 10/30/2022,,10/23/2018,2016,11/25/2014,06/08/2013,12/09/2011,0 04/11/2010,03/30/2008,12/17/2007, 007 Pneumococcal Conjugate Vacci ne, 20-valent ([id number]) 02/28/2022 Seasonal Influenza Vac., MDV , IM, [...] 05/26/2024 12:20 PM EDT [facility] [address] [place] [address] Sharona Castro PA-C [address] [facility] [place] [address] Scheduled Procedures Name Priority Associated Diagnoses Date/Ti me COLONOSCOPY FLEXIBLE PROXIMA L DIAGNOSTIC Recall History of colonic polyps Health Maintenance Due Date Last Done Comments Cologuard 12/27/2004 Fecal Occult Blood Test 12/27/2004 Sigmoidoscopy 12/27/2004 Depression Screening 10/10/2020 10/11/2019 COVID-19 Vaccine ( season) 2023 01/02/2023, 01/10/2021, 04/20/2020, Additional history exists B-12 05/01/2024 05/02/2023, 08/25, 01/24/2021, Additional history exists HbA1c 05/03/2024 11/04/2023, 09/2023, 10/29/2022, Additional history exists Albumin/Creatinine Ratio 11/03/2024 024, 10/29/2022, 11/08/2021, Additional history exists Diabetic Foot Exam 11/03/2024 11/04/2023, 1 , 04/26/2019, Additional history exists GFR 11/03/2024 11/04/2023, 0 09/2023, 10/29/2022, Additional history exists TSH 11/03/2024 [...] filedocumented as of this encounter Care Teams Bricklayer Paving Brick Relationship Specialty Start Date End Date Akil Thorne III, MD [address] [place] [address] PCP - General 05/24/02 documented as of this encounter
--- OUTSIDE RECORDS SUMMARY | 2024-05-27 07:14 | External Medical Summary | Summary of Care ---
Author Name Unknown Organization [facility] Address [address] [place] [address] Phone [phone] Care Team Providers Care Manager Filter Name Role Phone Fadumo CASILLAS MD, Akil Soriano Primary Care Provider [phone] Reason for Visit * Reason Comments Outpatient Testing Encounter Details Date Type Department Care Team (Late st Contact Info) Description 12/26/2023 2:00 PM EDT Laboratory Laboratory, [address] [address] St, Specimen Drop Off [address] [address] Dysuria Allergies Active Allergy Reactions Criticality Noted Date Comments Povidone Iodine Low 08/06/2023 Clozapine Unknown 11/29/2020 Benztropine Unknown 11/29/2020 Povidone Iodine Unknown 04/14/2000 Pseudoephedrine Unknown 04/14/2000 Terfenadine Unknown 04/14/2000 documented as of this encounter (statuses as of 12/26/2023) Medications Medication Sig Dispensed Refills Start Date [...] DAILY (SUPPLEMENT) 30 Tablet 4 10/10/2023 Active Vpavsce-Mxzhqbyh-Vxzg thicone 200-200-20 MG/5ML Oral Suspension (Alum & [...] as of this encounter (statuses as of 12/26/2023) Active Problems Problem Noted Date Diagnosed Date [...] as of this encounter (statuses as of 12/26/2023) Resolved Problems Problem Noted Date Diagnosed Date [...] as of this encounter (statuses as of 12/26/2023) Immunizations Name Administration Dates Next Due COVID-19 mRNA, LNP-s, No Pre serve, 2-Dose Series ([employer]) 01/10/2021,04/20/2020,03/30/2020 H1N1 2009 Influenza, IM 12/30/2008 Hepatitis B, 20+ yrs 06/11/1995 PPD 10/30/2022,,10/23/2018,2016,11/25/2014,06/08/2013,12/09/2011,0 04/11/2010,03/30/2008,12/17/2007, 007 Pneumococcal Conjugate Vacci ne, 20-valent ([id number]) 02/28/2022 Seasonal Influenza Vac., MDV , IM, [...] PM EDT Office Visit Dermatology [facility] [place] [address] [facility] [place] [address] Sharona Castro PA-C 200 [facility] [place] [address] Pending Results Name Type Priority Associated Diagnoses Date /Time URINALYSIS, REFLEX TO MICROSCOPIC Lab Routine Dysuria 12/26/2023 2:31 PM EDT CULTURE, URINE, QUANTITATIVE Lab Routine Dysuria 12/26/2023 2:31 PM EDT Scheduled Procedures Name Priority Associated [...] as of this encounter Visit Diagnoses Diagnosis Dysuria documented in this encounter Care Teams Manager Filter Relationship Specialty Start Date End Date Akil Thorne III, MD [address] [facility] [place] [address] PCP - General 05/24/02 documented as of this encounter
--- OUTSIDE RECORDS SUMMARY | 2024-05-27 07:14 | External Medical Summary | Summary of Care ---
Author Name Unknown Organization [facility] Address [address] [place] [address] Phone [phone] Care Team Providers Care Rope Silica Machine Operator Name Role Phone Fadumo CASILLAS MD, Akil Soriano Primary Care Provider [phone] Reason for Visit * Reason Comments Outpatient Testing Encounter Details Date Type Department Care Team (Late st Contact Info) Description 12/26/2023 2:00 PM EDT Laboratory Laboratory, [address] [address] [address], Specimen Drop Off [address] [address] Dysuria Allergies Active Allergy Reactions [...] DAILY (SUPPLEMENT) 30 Tablet 4 10/10/2023 Active Yfuviru-Gsvvohcd-Zbai thicone 200-200-20 MG/5ML Oral Suspension (Alum & [...] mRNA, LNP-s, No Pre serve, 2-Dose Series ([employer]) 01/10/2021,04/20/2020,03/30/2020 H1N1 2009 Influenza, IM 12/30/2008 Hepatitis B, 20+ yrs 06/11/1995 PPD 10/30/2022,,10/23/2018,2016,11/25/2014,06/08/2013,12/09/2011,0 04/11/2010,03/30/2008,12/17/2007, 007 Pneumococcal Conjugate Vacci ne, 20-valent ([id number]) 02/28/2022 Seasonal Influenza Vac., MDV , IM, [...] PM EDT Office Visit Dermatology Dorothy Genao [place] 200 [facility] [place] [address] Sharona Castro PA-C [address] [facility] [place] [address] Pending Results Name Type Priority Associated Diagnoses [...] Dysuria documented in this encounter Care Teams Rope Silica Machine Operator Relationship Specialty Start Date End Date Akil Thorne III, MD [address] [facility] [place] [address] PCP - General 05/24/02 documented as of this encounter
--- OUTSIDE RECORDS SUMMARY | 2024-05-27 07:14 | External Medical Summary | Summary of Care ---
Author Name Unknown Organization [facility] Address [address] [place] [address] Phone [phone] Care Team Providers Care Karate Black Belt Name Role Phone Fadumo CASILLAS MD, Sonia Soriano Primary Care Provider [phone] Reason for Visit * Reason Comments eRx-Medication Refill Encounter Details Date Type Department Care Team ([facility] st Contact Info) Description 01/05/2024 Refill Family Practice [facility] [address] [place] [address] Sonia Owens III, MD [address] [place] [address] Acquired hypothyroidism Allergies Active Allergy Reactions Criticality Noted Date Comments Povidone Iodine Low 08/06/2023 Clozapine Unknown 11/29/2020 Benztropine Unknown 11/29/2020 Povidone Iodine Unknown 04/14/2000 Pseudoephedrine Unknown 04/14/2000 Terfenadine Unknown 04/14/2000 documented as of this encounter (statuses as of 01/06/2024) Medications ACETAMINOPHEN 325 MG PO TABS take [...] for 1 week 30 g 024 Active Fiber-Lax 625 MG Oral Tablet (Calcium Polycarbophil) TAKE 2 TABLETS BY MOUTH DAILY WITH 8OZ OF WATER*CONSTIPAT ION* 56 Tablet 024 Active Docusate Sodium 100 MG Oral Capsule (Colace)Indication s:Hemorrhoids, external without complications TAKE 1 CAPSULE BY MOUTH TWICE DAILY FOR CONSTIPATION 56 Capsule 024 Active D3-1000 25 MCG (1000 UT) Oral Capsule (Cholecalciferol) TAKE ONE CAPSULE BY MOUTH DAILY (SUPPLEMENT) 28 Capsule 4 024 Active Olopatadine HCl 0.2 % Ophthalmic [...] DAILY (SUPPLEMENT) 30 Tablet 4 024 Active Xazjtnc-Ecsbvvbz-Q imethicone 200-200-20 MG/5ML Oral Suspension (Alum & [...] *HYPOTHYROIDISM * 28 Tablet 11 024 Active Levothyroxine Sodium 88 MCG Oral Tablet (Levoxyl)Indicatio ns:Acquired hypothyroidism TAKE ONE TABLET BY MOUTH DAILY *HYPOTHYROIDISM * 28 Tablet 5 024 2023 Discontinued documented as of this encounter (statuses as of 01/06/2024) Active Problems Problem Noted Date Diagnosed Date [...] as of this encounter (statuses as of 01/06/2024) Resolved Problems Problem Noted Date Diagnosed Date [...] as of this encounter (statuses as of 01/06/2024) Immunizations Name Administration Dates Next Due COVID-19 mRNA, LNP-s, No Pre serve, 2-Dose Series ([employer]) 01/10/2021,04/20/2020,03/30/2020 H1N1 2009 Influenza, IM 12/30/2008 Hepatitis B, 20+ yrs 06/11/1995 PPD 10/30/2022,,10/23/2018,2016,11/25/2014,06/08/2013,12/09/2011,0 04/11/2010,03/30/2008,12/17/2007, 007 Pneumococcal Conjugate Vacci ne, 20-valent ([id number]) 02/28/2022 Seasonal Influenza Vac., MDV , IM, [...] encounter Miscellaneous Notes * Telephone Encounter - Serjio Diaz [facility] - 01/06/2024 3:15 PM ESTSigned Prescriptions: Disp Refills Levothyroxine Sodium 88 MCG Oral Tablet (L*28 Tab*11 Sig: TAKE ONE TABLET BY MOUTH DAILY *HYPOTHYROIDISM*Authorizing Provider: SONIA OWENS III User: SERJIO DIAZ documented in this encounter Plan of Treatment Upcoming Encounters Date Type Department Care Team (Late st Contact Info) Description 05/26/2024 12:20 PM EDT Office Visit Dermatology [facility] [place] [address] [facility] [place] [address] Sharona Castro PA-C [address] [facility] [place] [address] Scheduled Procedures Name Priority Associated Diagnoses Date/Ti [...] as of this encounter Visit Diagnoses Diagnosis Acquired hypothyroidism Unspecified hypothyroidism documented in this encounter Care Teams Karate Black Belt Relationship Specialty Start Date End Date Sonia Owens III, MD [address] [place] [address] PCP - General 05/24/02 documented as of this encounter
--- OUTSIDE RECORDS SUMMARY | 2024-05-27 07:14 | External Medical Summary | Summary of Care ---
Author Name Unknown Organization [facility] Address [address] [place] [address] Phone [phone] Care Team Providers Care Oyster Sorter Name Role Phone Fadumo CASILLAS MD, Akil Soriano Primary Care Provider [phone] Reason for Visit * Reason Onset Date Comments No Show 2023 [facility] No Show Auto mation Encounter Details Date Type Department Care Team (Late st Contact Info) Description 2023 Telephone Family Practice [facility] [address] [place] [address] Marlyn Gómez PA-C [address] [facility] [place] [address] No Show ([facility] No Show Automation) Allergies Active Allergy Reactions Criticality Noted Date Comments Povidone Iodine Low 08/06/2023 Clozapine Unknown 11/29/2020 Benztropine Unknown 11/29/2020 Povidone Iodine Unknown 04/14/2000 Pseudoephedrine Unknown 04/14/2000 Terfenadine Unknown 04/14/2000 documented as of this encounter (statuses as of 2023) Medications Medication Sig Dispensed Refills Start Date [...] DAILY (SUPPLEMENT) 30 Tablet 4 10/10/2023 Active Prxohpm-Ynjrzufl-Iwiu thicone 200-200-20 MG/5ML Oral Suspension (Alum & [...] as of this encounter (statuses as of 2023) Active Problems Problem Noted Date Diagnosed Date [...] as of this encounter (statuses as of 2023) Resolved Problems Problem Noted Date Diagnosed Date [...] as of this encounter (statuses as of 2023) Immunizations Name Administration Dates Next Due COVID-19 mRNA, LNP-s, No Pre serve, 2-Dose Series ([employer]) 01/10/2021,04/20/2020,03/30/2020 H1N1 2009 Influenza, IM 12/30/2008 Hepatitis B, 20+ yrs 06/11/1995 PPD 10/30/2022,,10/23/2018,2016,11/25/2014,06/08/2013,12/09/2011,0 04/11/2010,03/30/2008,12/17/2007, 007 Pneumococcal Conjugate Vacci ne, 20-valent ([id number]) 02/28/2022 Seasonal Influenza Vac., MDV , IM, [...] encounter Miscellaneous Notes * Telephone Encounter - Gertrudis [facility] - 2023 5:31 AM EST Dear Estuardo Mueller, Looks like you missed an appointment with MARLYN GÓMEZ on 12/25/2023 at 02:40 PM. If you haven't already rescheduled, you have a couple of options: Reschedule in [email or web address] Call us at [phone] Can't make a future appointment? Cancel and let someone else have your spot! It's easy to do via [employer] or by calling us. Thanks for trusting [facility] with your care. We hope to see you back in our office soon. Sincerely, MARLYN A RINE documented in this encounter Plan of Treatment Upcoming Encounters Date Type Department Care Team (Late st Contact Info) Description 05/26/2024 12:20 PM EDT Office Visit Dermatology [facility] [place] 200 [place] [address] Sharona Castro PA-C 200 [facility] [place] [address] Scheduled Procedures Name Priority Associated Diagnoses Date/Ti [...] filedocumented as of this encounter Care Teams Oyster Sorter Relationship Specialty Start Date End Date Akil Thorne III, MD 200 [place] [address] PCP - General 05/24/02 documented as of this encounter
--- OUTSIDE RECORDS SUMMARY | 2024-05-27 07:14 | External Medical Summary | Summary of Care ---
Author Name Unknown Organization [facility] Address [address] [place] [address] Phone [phone] Care Team Providers Care Planned Giving Officer Name Role Phone Fadumo CASILLAS MD, Sonia Soriano Primary Care Provider [phone] Reason for Visit * Reason Comments eRx-Medication Refill Encounter Details Date Type Department Care Team ([facility] st Contact Info) Description 01/05/2024 Refill Family Practice [facility] [address] [facility] [place] [address] Marlyn Gómez PA-C [address] [facility] [place] [address] HEMORRHOIDS, EXTERNAL W/O COMPLICATIONS Allergies Active Allergy Reactions Criticality Noted Date Comments Povidone Iodine Low 08/06/2023 Clozapine Unknown 11/29/2020 Benztropine Unknown 11/29/2020 Povidone Iodine Unknown 04/14/2000 Pseudoephedrine Unknown 04/14/2000 Terfenadine Unknown 04/14/2000 documented as of this encounter (statuses as of 01/07/2024) Medications ACETAMINOPHEN 325 MG PO TABS take [...] for 1 week 30 g 024 Active D3-1000 25 MCG (1000 UT) [...] MEAL*C/O UPSET STOMACHE* 28 Capsule 5 024 Active Levocetirizine Dihydrochloride 5 MG Oral TabletIndications: Allergic rhinitis, unspecified seasonality, unspecified trigger TAKE 1/2 TABLET (2.5 MG) BY MOUTH EVERY EVENING *ANTIHISTAMINE* 14 Tablet 024 Active CertaVite/Antioxid ants Oral TabletIndications: Mixed dyslipidemia TAKE 1 TABLET BY MOUTH DAILY (SUPPLEMENT) 30 Tablet 4 024 Active Ybwyiby-Goinngxz-N imethicone 200-200-20 MG/5ML Oral Suspension (Alum & Mag Hydroxide-Simeth) Take by mouth every 6 hours as needed for Indigestion. Active Loperamide HCl 2 MG Oral Capsule (Imodium A-D) Take 1 Capsule by mouth 4 times a day as needed for Diarrhea. Active Atorvastatin Calcium 40 MG Oral Tablet (Lipitor) TAKE 1 TABLET BY MOUTH ONCE DAILY FOR CHLOESTROL 28 Tablet 7 Active metFORMIN HCl ER 500 MG Oral Tablet Extended Release 24 Hour (Glucophage XR)Indications:Typ e 2 diabetes mellitus with hemoglobin A1c goal of less than 7.0% (HCC) TAKE 2 TABLETS (1000MG) BY MOUTH ONCE DAILY WITH BREAKFAST FOR DM 56 Tablet 5 Active Fiber-Lax 625 MG Oral Tablet (Calcium Polycarbophil) TAKE 2 TABLETS BY MOUTH DAILY WITH 8OZ OF WATER*CONSTIPAT ION* 56 Tablet 4 Active Docusate Sodium 100 MG Oral Capsule (Colace)Indication s:Hemorrhoids, external without complications TAKE 1 CAPSULE BY MOUTH TWICE DAILY FOR CONSTIPATION 56 Capsule 4 Active Levothyroxine Sodium 88 MCG Oral Tablet (Levoxyl)Indicatio ns:Acquired hypothyroidism TAKE ONE TABLET BY MOUTH DAILY *HYPOTHYROIDISM * 28 Tablet 5 024 2023 Discontinued Fiber-Lax 625 MG Oral Tablet (Calcium Polycarbophil) TAKE 2 TABLETS BY MOUTH DAILY WITH 8OZ OF WATER*CONSTIPAT ION* 56 Tablet 4 024 2023 Discontinued Docusate Sodium 100 MG Oral Capsule (Colace)Indication s:Hemorrhoids, external without complications TAKE 1 CAPSULE BY MOUTH TWICE DAILY FOR CONSTIPATION 56 Capsule 4 024 2023 Discontinued documented as of this encounter (statuses as of 01/07/2024) Active Problems Problem Noted Date Diagnosed Date [...] as of this encounter (statuses as of 01/07/2024) Resolved Problems Problem Noted Date Diagnosed Date [...] as of this encounter (statuses as of 01/07/2024) Immunizations Name Administration Dates Next Due COVID-19 mRNA, LNP-s, No Pre serve, 2-Dose Series ([employer]) 01/10/2021,04/20/2020,03/30/2020 H1N1 2009 Influenza, IM 12/30/2008 Hepatitis B, 20+ yrs 06/11/1995 PPD 10/30/2022,,10/23/2018,2016,11/25/2014,06/08/2013,12/09/2011,0 04/11/2010,03/30/2008,12/17/2007, 007 Pneumococcal Conjugate Vacci ne, 20-valent ([id number]) 02/28/2022 Seasonal Influenza Vac., MDV , IM, [...] encounter Miscellaneous Notes * Telephone Encounter - Fadumo III, Sonia E, MD - 01/07/2024 8:38 AM ESTSigned Prescriptions: Disp Refills Fiber-Lax 625 MG Oral Tablet (Calcium Poly*56 Tab*4 Sig: TAKE 2 TABLETS BY MOUTH DAILY WITH 8OZ OF WATER*CONSTIPATION*Authorizing Provider: SONIA OWENS III Docusate Sodium 100 MG Oral Capsule (Colac*56 Cap*4 Sig: TAKE 1 CAPSULE BY MOUTH TWICE DAILY FOR CONSTIPATIONAuthorizing Provider: SONIA OWENS III * Telephone Encounter - Padmini Diaz RPh - 01/06/2024 3:11 PM ESTPending Prescriptions: Disp Refills Fiber-Lax 625 MG Oral Tablet (Calcium Poly*56 Tab*4 Sig: TAKE 2 TABLETS BY MOUTH DAILY WITH 8OZ OF WATER*CONSTIPATION* Docusate Sodium 100 MG Oral Capsule (Colac*56 Cap*4 Sig: TAKE 1 CAPSULE BY MOUTH TWICE DAILY FOR CONSTIPATION * Telephone Encounter - Padmini Diaz RP - 01/06/2024 3:11 PM EST [facility] is currently not authorized to approve refills for the pended medication(s) per refill protocol. Please approve if appropriate. Thanks, Padmini Diaz, PharmD Clinical Pharmacist Centralized Clinical Pharmacy Services ([facility]) [phone] 01/06/2024 3:11 PM * Telephone Encounter - Vito DiazESDRAS amaral - 01/06/2024 3:11 PM EST Pending Prescriptions: Disp Refills Fiber-Lax 625 MG Oral Tablet (Calcium Krzysztof*56 Tab 4 Sig: TAKE 2 TABLETS BY MOUTH DAILY WITH 8OZ OF WATER*CONSTIPATION* Docusate Sodium 100 MG Oral Capsule (Cola*56 Cap*4 Sig: TAKE 1 CAPSULE BY MOUTH TWICE DAILY FOR CONSTIPATION Last Visit: 11/04/2023 (in office), 09/08/2023 (telemedicine) Next Visit: Visit date not found If no future appointments scheduled, and last appointment is greater than a year ago, please schedule patient for a follow-up appointment Last date the medication was ordered: 07/15 Pharmacy: [facility] [address] Is this request for a controlled substance? No Urine Drug Screen:No results found. However, due [...] PM EDT Office Visit Dermatology [facility] [place] [address] [facility] [place] [address] Sharona Castro PA-C [address] [facility] [place] [address] Scheduled Procedures Name Priority Associated Diagnoses Date/Ti [...] as of this encounter Visit Diagnoses Diagnosis HEMORRHOIDS, EXTERNAL W/O COMPLICATIONS External hemorrhoids without mention of complication documented in this encounter Care Teams Planned Giving Officer Relationship Specialty Start Date End Date Sonia Owens III, MD [address] [facility] [place] [address] PCP - General 05/24/02 documented as of this encounter
--- OUTSIDE RECORDS SUMMARY | 2024-05-27 07:15 | External Medical Summary ---
Author Name Unknown Address Unknown Organization K01:[facility] [place] [address] [facility] [address] Laboratory Report Ordering Provider Test Date Status GRACIELA SCOTT III 12/26/2023 14:31:52 Final Observation Date Value Abnormality Reference (Units) Status Bacteria identified in Specimen by Culture 12/26/2023 14:31:52 No significant growth Final Test: Culture, Urine, Quanti tative
Specimen Source: Urine, Clean Catch
Specimen Type: Urine
Specimen Date: 12/26/2023 1431
Result Date: 12/27/2023 1757
Result Status: Final result
Resulting Lab: [facility]
[address]
[facility] [address]

CULTURE

No significant growth

null Performing Location [facility] [address] [facility] [address]
--- OUTSIDE RECORDS SUMMARY | 2024-05-27 07:15 | External Medical Summary | Summary of Care ---
Author Name Unknown Organization [facility] Address [address] [place] [address] Phone [phone] Care Team Providers Care Program Proposals Coordinator Name Role Phone Fadumo CASILLAS MD, Sonia Soriano Primary Care Provider [phone] Reason for Visit * Reason Comments eRx-Medication Refill Encounter Details Date Type Department Care Team ([facility] st Contact Info) Description 12/11/2023 Refill Family Practice [facility] [address] [place] [address] Sonia Owens III, MD [address] [place] [address] Type 2 diabetes mellitus with hemoglobin A1c goal of less than 7.0% ([facility]) Allergies Active Allergy Reactions Criticality Noted Date Comments Povidone Iodine Low 08/06/2023 Clozapine Unknown 11/29/2020 Benztropine Unknown 11/29/2020 Povidone Iodine Unknown 04/14/2000 Pseudoephedrine Unknown 04/14/2000 Terfenadine Unknown 04/14/2000 documented as of this encounter (statuses as of 12/12/2023) Medications Medication Sig Dispensed Refills Start Date [...] CHOLESTEROL* 84 Capsule 5 2 Active MEDICAL INSTRUCTIONSIndicat ions:Cerumen impaction Ok to [...] mouth daily as needed 360 mL 11 3 Active Gold Anderson Ultimate External LotionIndications:X erosis cutis Apply to skin daily as previously 155 g 2 3 Active White Petrolatum External OintmentIndications :Wound of skin Apply to biopsy lesions two times a day for 1 week 30 g 4 Active Levothyroxine Sodium 88 MCG Oral Tablet (Levoxyl)Indication s:Acquired hypothyroidism TAKE ONE TABLET BY MOUTH DAILY *HYPOTHYROIDISM* 28 Tablet 5 4 Active Fiber-Lax 625 MG Oral Tablet (Calcium Polycarbophil) TAKE 2 TABLETS BY MOUTH DAILY WITH 8OZ OF WATER*CONSTIPATI ON* 56 Tablet 4 4 Active Docusate Sodium 100 MG Oral Capsule (Colace)Indications :Hemorrhoids, external without complications TAKE 1 CAPSULE BY MOUTH TWICE DAILY FOR CONSTIPATION 56 Capsule 4 4 Active D3-1000 25 MCG (1000 UT) Oral Capsule (Cholecalciferol) TAKE ONE CAPSULE BY MOUTH DAILY (SUPPLEMENT) 28 Capsule 4 4 Active Olopatadine HCl 0.2 % Ophthalmic [...] or juice. 510 g 5 4 Active Omeprazole 20 MG Oral Capsule Delayed Release (PriLOSEC) TAKE ONE CAP BY MOUTH DAILY 1HR BEFORE EVENING MEAL*C/O UPSET STOMACHE* 28 Capsule 5 4 Active Levocetirizine Dihydrochloride 5 MG Oral TabletIndications:A llergic rhinitis, unspecified seasonality, unspecified trigger TAKE 1/2 TABLET (2.5 MG) BY MOUTH EVERY EVENING *ANTIHISTAMINE* 14 Tablet 5 4 Active CertaVite/Antioxida nts Oral TabletIndications:M ixed dyslipidemia TAKE 1 TABLET BY MOUTH DAILY (SUPPLEMENT) 30 Tablet 4 4 Active Bxwnwes-Mvgvhdal-Io methicone 200-200-20 MG/5ML Oral Suspension (Alum & [...] FOR DM 56 Tablet 5 4 Active metFORMIN HCl ER 500 MG Oral Tablet Extended Release 24 Hour (Glucophage XR)Indications:Type 2 diabetes mellitus with hemoglobin A1c goal of less than 7.0% (HCC) TAKE 2 TABLETS (1000MG) BY MOUTH ONCE DAILY WITH BREAKFAST FOR DM 56 Tablet 5 4 024 Discontinued documented as of this encounter (statuses as of 12/12/2023) Active Problems Problem Noted Date Diagnosed Date [...] -- APAP 10-16 cwp (new device 07/25/14) 2009 PSG -- AHI 44.4 DHC Dermatitis 03/20/2010 OBESITY, BMI 30-34 (SEE ACTUAL BMI) 05/18/2009 Overview: Per Obesity Taxonomy Dyslipidemia, goal LDL below 100 02/06/2009 Overview: Per Lipid Taxonomy. ADVANCE DIRECTIVE INFORMATION 10/17/2004 Overview: No, Advance Directive brochure offered , patient declined. Hemorrhoids, external without complications 02/25 MOD MENTAL RETARDATION SIMPLE SCHIZOPHREN-CHR documented as of this encounter (statuses as of 12/12/2023) Resolved Problems Problem Noted Date Diagnosed Date [...] as of this encounter (statuses as of 12/12/2023) Immunizations Name Administration Dates Next Due COVID-19 mRNA, LNP-s, No Pre serve, 2-Dose Series ([employer]) 01/10/2021,04/20/2020,03/30/2020 H1N1 2009 Influenza, IM 12/30/2008 Hepatitis B, 20+ yrs 06/11/1995 PPD 10/30/2022, 1,10/23/2018,2016,11/25/2014,06/08/2013,12/09/2011,0 04/11/2010,03/30/2008,12/17/2007, 007 Pneumococcal Conjugate Vacci ne, 20-valent ([id number]) 02/28/2022 Seasonal Influenza Vac., MDV , IM, [...] encounter Miscellaneous Notes * Telephone Encounter - Luisa Rosa [facility] - 12/12/2023 4:09 PM EDT Signed Prescriptions: Disp Refills metFORMIN HCl ER 500 MG Oral Tablet Extend*56 Tab*5 Sig: TAKE 2TABLETS (1000MG) BY MOUTH ONCE DAILY WITH BREAKFAST FOR DMAuthorizing Provider: SONIA OWENS III User: LUISA ROSA documented in this encounter Plan of Treatment Upcoming Encounters Date Type Department Care Team (Late st Contact Info) Description 05/26/2024 12:20 PM EDT Office Visit Dermatology [facility] [place] [address] [place] [address] Sharona Castro PA-C [address] [place] [address] Scheduled Procedures Name Priority Associated Diagnoses Date/Ti [...] (HCC) documented in this encounter Care Teams Program Proposals Coordinator Relationship Specialty Start Date End Date Fadumo CASILLAS, Sonia Soriano [facility] [address] PCP - General 05/24/02 documented as of this encounter
--- OUTSIDE RECORDS SUMMARY | 2024-05-27 07:15 | External Medical Summary | Summary of Care ---
Author Name Unknown Organization [facility] Address [address] [place] [address] Phone [phone] Care Team Providers Care Gps Field Data Collector Name Role Phone Fadumo CASILLAS MD, Akil Soriano Primary Care Provider [phone] Reason for Visit * Reason Comments Wound Recheck S/P Mohs crown of sc alp w/ purse string and curettage L frontal scalp 08/06/23 Encounter Details Date Type Department Care Team (Late st Contact Info) Description 12/09/2023 1:15 PM EDT Office Visit [facility] [address] [place] [address] Allison Maldonado MD [address] [place] [address] Visit for wound check* Allergies Active Allergy Reactions Criticality Noted Date [...] DAILY *HYPOTHYROIDISM* 28 Tablet 5 06/23/2023 Active metFORMIN HCl ER 500 MG Oral Tablet Extended Release 24 Hour (Glucophage XR)Indications:Type 2 diabetes mellitus with hemoglobin A1c goal of less than 7.0% (HCC) TAKE 2 TABLETS (1000MG) BY MOUTH ONCE DAILY WITH BREAKFAST FOR DM 56 Tablet 5 06/23/2023 Active Fiber-Lax 625 MG Oral Tablet (Calcium Polycarbophil) TAKE 2 TABLETS BY MOUTH DAILY WITH 8OZ OF WATER*CONSTIPATIO N* 56 Tablet 07/16/2023 Active Docusate Sodium 100 MG Oral [...] DAILY (SUPPLEMENT) 30 Tablet 4 10/10/2023 Active Dedhnfj-Wikamcog-Xlkp thicone 200-200-20 MG/5ML Oral Suspension (Alum & Mag Hydroxide-Simeth) Take by mouth every 6 hours as needed for Indigestion. Active Loperamide HCl 2 MG Oral Capsule (Imodium A-D) Take 1 Capsule by mouth 4 times a day as needed for Diarrhea. Active Atorvastatin Calcium 40 MG Oral Tablet (Lipitor) TAKE 1 TABLET BY MOUTH ONCE DAILY FOR CHLOESTROL 28 Tablet 7 11/07/2023 Active documented as of this encounter (statuses [...] mRNA, LNP-s, No Pre serve, 2-Dose Series ([employer]) 01/10/2021,04/20/2020,03/30/2020 H1N1 2009 Influenza, IM 12/30/2008 Hepatitis B, 20+ yrs 06/11/1995 PPD 10/30/2022, 1,10/23/2018,2016,11/25/2014,06/08/2013,12/09/2011,0 04/11/2010,03/30/2008,12/17/2007, 007 Pneumococcal Conjugate Vacci ne, 20-valent ([id number]) 02/28/2022 Seasonal Influenza Vac., MDV , IM, [...] on file documented as of this encounter Progress Notes * Allison Maldonado MD - 12/09/2023 1:15 PM EDT SUBJECTIVE: HPI: Estuardo Mueller is a 62 year old male s/p 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 Patient has no concerns/complaints. EXAM Well healed pink scars on scalp, no evidence of recurrence PLAN No further wound care needed. No evidence of residual/recurrent squamous cell carcinoma in situ on exam today. Continue to monitor for recurrence. Follow-up: as needed in Mohs surgery, follow-up in general dermatology at least annually The patient was encouraged to contact me with any further questions or concerns. Allison Maldonado MD Associate, Mohs Micrographic Surgery & Dermatologic Surgery documented in this encounter Nursing Notes * Lidia Desouza LPN - 12/09/2023 1:18 PM EDT Chief Complaint Patient presents with Wound Recheck S/P Mohs crown of scalp w/ purse string and curettage L frontal scalp 08/06/23 Accompanied by Nathan with [facility] [place]. documented in this encounter Plan of Treatment Scheduled Procedures Name Priority Associated Diagnoses Date/Ti [...] as of this encounter Visit Diagnoses Diagnosis Visit for wound check- Primary Encounter for other specified aftercare documented in this encounter Care Teams Gps Field Data Collector Relationship Specialty Start Date End Date Fadumo CASILLAS, Akil Soriano MD [address] [facility] [place] [address] PCP - General 05/24/02 documented as of this encounter
--- OUTSIDE RECORDS SUMMARY | 2024-05-27 07:15 | External Medical Summary | Summary of Care ---
Author Name Unknown Organization [facility] Address [address] [place] [address] Phone [phone] Care Team Providers Care Vacuum Technician Name Role Phone Fadumo CASILLAS MD, Akil Soriano Primary Care Provider [phone] Reason for Visit * Reason Onset Date Comments Fax 12/17/2023 Encounter Details Date Type Department Care Team (Late st Contact Info) Description 12/17/2023 Telephone Family Practice [facility] 200 [facility] [place] [address] Akil Thorne III, MD 200 [place] [address] Fax Allergies Active Allergy Reactions Criticality Noted Date Comments Povidone Iodine Low 08/06/2023 Clozapine Unknown 11/29/2020 Benztropine Unknown 11/29/2020 Povidone Iodine Unknown 04/14/2000 Pseudoephedrine Unknown 04/14/2000 Terfenadine Unknown 04/14/2000 documented as of this encounter (statuses as of 12/17/2023) Medications Medication Sig Dispensed Refills Start Date [...] DAILY (SUPPLEMENT) 30 Tablet 4 10/10/2023 Active Unsznju-Axdhahjg-Nics thicone 200-200-20 MG/5ML Oral Suspension (Alum & [...] as of this encounter (statuses as of 12/17/2023) Active Problems Problem Noted Date Diagnosed Date [...] as of this encounter (statuses as of 12/17/2023) Resolved Problems Problem Noted Date Diagnosed Date [...] as of this encounter (statuses as of 12/17/2023) Immunizations Name Administration Dates Next Due COVID-19 mRNA, LNP-s, No Pre serve, 2-Dose Series ([employer]) 01/10/2021,04/20/2020,03/30/2020 H1N1 2009 Influenza, IM 12/30/2008 Hepatitis B, 20+ yrs 06/11/1995 PPD 10/30/2022,,10/23/2018,2016,11/25/2014,06/08/2013,12/09/2011,0 04/11/2010,03/30/2008,12/17/2007, 007 Pneumococcal Conjugate Vacci ne, 20-valent ([id number]) 02/28/2022 Seasonal Influenza Vac., MDV , IM, [...] encounter Miscellaneous Notes * Telephone Encounter - Brianna Moran LPN - 12/17/2023 1:53 PM EDT Problem list printed and faxed, confirmation received. * Telephone Encounter - Peyton Telles OSA - 12/17/2023 1:34 PM EDT [facility] ([facility]) calling for a copy of the pt's Diagnosis list. Please fax to [phone] larissa Mccormack Thanks documented in this encounter Plan of Treatment Upcoming Encounters Date Type Department Care Team (Late st Contact Info) Description 05/26/2024 12:20 PM EDT Office Visit [facility] [address] [place] [address] Sharona Castro PA-C [address] [place] [address] Scheduled Procedures Name Priority Associated Diagnoses Date/Ti [...] filedocumented as of this encounter Care Teams Vacuum Technician Relationship Specialty Start Date End Date Akil Thorne III, MD 200 [place] [address] PCP - General 05/24/02 documented as of this encounter
--- OUTSIDE RECORDS SUMMARY | 2024-05-27 07:15 | External Medical Summary | Summary of Care ---
Author Name Unknown Organization [facility] Address [address] [place] [address] Phone [phone] Care Team Providers Care Store Consultant Name Role Phone Fadumo CASILLAS MD, Akil Soriano Primary Care Provider [phone] Reason for Visit * Reason Onset Date Comments Urinary Tract Infection Symptoms 12/26/2023 Encounter Details Date Type Department Care Team ([facility] st Contact Info) Description 12/26/2023 Telephone Family Practice [facility] [address] [place] [address] Akil Thorne III, MD 200 [place] [address] Urinary Tract Infection Symptoms Allergies Active Allergy Reactions Criticality Noted Date [...] DAILY (SUPPLEMENT) 30 Tablet 4 10/10/2023 Active Bqqwfzh-Siwcjhxw-Nvrn thicone 200-200-20 MG/5ML Oral Suspension (Alum & [...] mRNA, LNP-s, No Pre serve, 2-Dose Series ([employer]) 01/10/2021,04/20/2020,03/30/2020 H1N1 2009 Influenza, IM 12/30/2008 Hepatitis B, 20+ yrs 06/11/1995,01/11/1995,12/11 PPD 10/30/2022,,10/23/2018,10/30,11/25/2014,06/08/2013,12/09/2011 ,04/11/2010,03/30/2008,12/17/2007,06/2006,06/27/2004,06/29/2002, 1,10/04/1998,10/12/1997,10/15/1993, Pneumococcal Conjugate Vacci ne, 20-valent ([id number]) 02/28/2022 Pneumococcal Polysaccharide PPV23 (Pneumovax) 01/22/2005 Seasonal [...] encounter Miscellaneous Notes * Telephone Encounter - Mary Ashford OSA - 12/26/2023 1:20 PM EDT [facility] called back and was told about order. Scheduling lab appt. * Telephone Encounter - Mojgan Maurer LPN - 12/26/2023 12:06 PM EDT Carolynn calling from residential [facility]. She had called in earlier this week. Patient has had 2 incontinence episodes, urgency, No fever. According to state rules, has to have his urine tested. Apparently he was made 2 appts and they didn't know anything about them. All they are asking is for a urine, urine c and s before the weekend. Please advise. * Telephone Encounter - Neda Gaffney OSA - 12/26/2023 11:58 AM EDT Reason for patient's call: uti testing Caller was transferred to Mojgan at the nurse line. documented in this encounter Plan of Treatment Upcoming Encounters Date Type Department Care Team (Late st Contact Info) Description 05/26/2024 12:20 PM EDT Office Visit Dermatology [facility] 200 [facility] [place] [address] Sharona Castro PA-C [address] [facility] [place] [address] Scheduled Orders Name Type Priority Associated Diagnoses Orde r Schedule URINALYSIS, REFLEX TO MICROSCOPIC Lab Routine Dysuria Expected: 12/26/2023, Expires: 12/25/2024 CULTURE, URINE, QUANTITATIVE Lab Routine Dysuria Expected: 12/26/2023, Expires: 12/25/2024 Scheduled Procedures Name Priority Associated Diagnoses Date/Ti [...] as of this encounter Visit Diagnoses Diagnosis Dysuria- Primary documented in this encounter Care Teams Store Consultant Relationship Specialty Start Date End Date Akil Thorne III, MD 200 [facility] [address] PCP - General 05/24/02 documented as of this encounter
--- OUTSIDE RECORDS SUMMARY | 2024-05-27 07:15 | External Medical Summary | Summary of Care ---
Author Name Unknown Organization [facility] Address [address] [place] [address] Phone [phone] Care Team Providers Care Auto Radio Mechanic Name Role Phone Fadumo CASILLAS MD, Akil Soriano Primary Care Provider [phone] Reason for Visit * Reason Onset Date Comments Appointment 12/10/2023 Encounter Details Date Type Department Care Team (Late st Contact Info) Description 12/10/2023 Telephone MO[facility] Surgery [facility] [address] [place] [address] Allison Maldonado MD [address] [place] [address] Appointment Allergies Active Allergy Reactions Criticality Noted [...] DAILY WITH BREAKFAST FOR DM 56 Tablet 06/23/2023 Active Fiber-Lax 625 MG Oral Tablet (Calcium Polycarbophil) TAKE 2 TABLETS BY MOUTH DAILY WITH 8OZ OF WATER*CONSTIPATIO N* 56 Tablet 07/16/2023 Active Docusate Sodium 100 MG Oral Capsule (Colace)Indications:H emorrhoids, external without complications TAKE 1 CAPSULE BY MOUTH TWICE DAILY FOR CONSTIPATION 56 Capsule 07/16/2023 Active D3-1000 25 MCG (1000 UT) Oral Capsule (Cholecalciferol) TAKE ONE CAPSULE BY MOUTH DAILY (SUPPLEMENT) 28 Capsule 08/18/2023 Active Olopatadine HCl 0.2 % Ophthalmic [...] DAILY (SUPPLEMENT) 30 Tablet 4 10/10/2023 Active Kpaatrp-Yyeelssi-Lrtv thicone 200-200-20 MG/5ML Oral Suspension (Alum & [...] mRNA, LNP-s, No Pre serve, 2-Dose Series ([employer]) 01/10/2021,04/20/2020,03/30/2020 H1N1 2009 Influenza, IM 12/30/2008 Hepatitis B, 20+ yrs 06/11/1995 PPD 10/30/2022,,10/23/2018,2016,11/25/2014,06/08/2013,12/09/2011,0 04/11/2010,03/30/2008,12/17/2007, 007 Pneumococcal Conjugate Vacci ne, 20-valent ([id number]) 02/28/2022 Seasonal Influenza Vac., MDV , IM, [...] encounter Miscellaneous Notes * Telephone Encounter - Gwen Ricketts OSA - 12/12/2023 12:40 PM EDT Called home #, was given another name and # to call to schedule appointment. Don at [phone]. Called Don, no answer and voicemail is not set up yet. I scheduled patient an appointment and mailed a letter to home. * Telephone Encounter - Gwen Ricketts OSA - 12/10/2023 9:35 AM EDT Called patient (Carolynn), left message to return call to schedule a yearly skin check appt. * Telephone Encounter - Gwen Ricketts OSA - 12/10/2023 9:35 AM EDT ----- Message from Allison Maldonado MD sent at 12/09/2023 1:25 PM EDT ----- Schedule for 1 year follow-up/skin check (pt previously saw Sharona) documented in this encounter Plan of Treatment Upcoming Encounters Date Type Department Care Team (Late st Contact Info) Description 05/26/2024 12:20 PM EDT [place] [facility] [place] [address] [place] [address] Sharona Castro PA-C [address] [place] [address] Scheduled Procedures Name Priority Associated Diagnoses Date/Ti [...] filedocumented as of this encounter Care Teams Auto Radio Mechanic Relationship Specialty Start Date End Date Akil Thorne III, MD [address] [place] [address] PCP - General 05/24/02 documented as of this encounter
--- OUTSIDE RECORDS SUMMARY | 2024-05-27 07:15 | External Medical Summary ---
Author Name Unknown Address Unknown Organization [id number]:[facility] [place] [address] [facility] [address] Laboratory Report Ordering Provider Test Date Status GRACIELA SCOTT III 12/26/2023 14:31:52 Final Observation Date Value Abnormality Reference (Units) Status Color of Urine by Auto 12/26/2023 14:31:52 Light Yellow Colorless, Light Yellow, Yellow, Dark Yellow Final Clarity, Urine 12/26/2023 14:31:52 Clear Clear Final Glucose [Mass/volume] in Urine by Automated test strip 12/26/2023 14:31:52 Negative Negative (mg/dL) Final Bilirubin.total [Presence] in Urine by Automated test strip 12/26/2023 14:31:52 Negative Negative Final Ketones [Mass/volume] in Urine by Automated test strip 12/26/2023 14:31:52 Negative Negative (mg/dL) Final Specific gravity, Urine 12/26/2023 14:31:52 1.017 1.003-1.030 Final Hemoglobin [Presence] in Urine by Automated test strip 12/26/2023 14:31:52 Negative Negative Final pH, Urine 12/26/2023 14:31:52 8.0 Above high normal 5.0-7.5 (Units) Final Protein [Mass/volume] in Urine by Automated test strip 12/26/2023 14:31:52 Trace Abnormal Negative (mg/dL) Final Urobilinogen [Mass/volume] in Urine by Automated test strip 12/26/2023 14:31:52 Normal Normal (mg/dL) Final Nitrite [Presence] in Urine by Automated test strip 12/26/2023 14:31:52 Negative Negative Final Leukocyte esterase [Presence] in Urine by Automated test strip 12/26/2023 14:31:52 Negative Negative Final Annotation Comment 12/26/2023 14:31:52 Final Screen negative - Microscopi c not performed. Performing Location [facility] [place] [address] [facility] [address]
--- OUTSIDE RECORDS SUMMARY | 2024-05-27 07:15 | External Medical Summary | Summary of Care ---
Author Name Unknown Organization [facility] Address [address] [place] [address] Phone [phone] Care Team Providers Care Concreting Supervisor Name Role Phone Fadumo CASILLAS MD, Akil Soriano Primary Care Provider [phone] Reason for Visit * Reason Onset Date Comments Urinary Tract Infection Symptoms 12/26/2023 Encounter Details Date Type Department Care Team ([facility] st Contact Info) Description 12/26/2023 Telephone Family Practice [facility] [address] [place] [address] Akil Thorne III, MD [address] [place] [address] Urinary Tract Infection Symptoms Allergies Active Allergy [...] DAILY (SUPPLEMENT) 30 Tablet 4 10/10/2023 Active Zgyjcbe-Fookaqgx-Pupu thicone 200-200-20 MG/5ML Oral Suspension (Alum & [...] mRNA, LNP-s, No Pre serve, 2-Dose Series ([employer]) 01/10/2021,04/20/2020,03/30/2020 H1N1 2009 Influenza, IM 12/30/2008 Hepatitis B, 20+ yrs 06/11/1995 PPD 10/30/2022,,10/23/2018,2016,11/25/2014,06/08/2013,12/09/2011,0 04/11/2010,03/30/2008,12/17/2007, 007 Pneumococcal Conjugate Vacci ne, 20-valent ([id number]) 02/28/2022 Seasonal Influenza Vac., MDV , IM, [...] encounter Miscellaneous Notes * Telephone Encounter - Mojgan Maurer LPN - 12/26/2023 12:06 PM EDT Carolynn calling from residential [facility]. She had called in earlier this week. [...] call: uti testing Caller was transferred to [facility] at the nurse line. documented in this encounter Plan of Treatment Upcoming Encounters Date Type Department Care Team (Late st Contact Info) Description 05/26/2024 12:20 PM EDT Office Visit Dermatology [facility] [place] [address] [facility] [place] [address] Sharona Castro PA-C [address] [facility] [place] [address] Scheduled Orders Name Type Priority Associated Diagnoses [...] Primary documented in this encounter Care Teams Concreting Supervisor Relationship Specialty Start Date End Date Akil Thorne III, MD [address] [place] [address] PCP - General 05/24/02 documented as of this encounter
--- OUTSIDE RECORDS SUMMARY | 2024-05-27 07:16 | External Medical Summary | Summary of Care ---
Author Name Unknown Organization [facility] Address [address] [place] [address] Phone [phone] Care Team Providers Care Porcelain Technician Name Role Phone Fadumo CASILLAS MD, Akil Soriano Primary Care Provider [phone] Encounter Details Date Type Department Care Team (Late st Contact Info) Description 12/12/2023 Orders Only Family Practice [facility] [address] [facility] [place] [address] Akil Thorne III, MD [address] [place] [address] Allergies Active Allergy Reactions Criticality Noted Date [...] DAILY (SUPPLEMENT) 30 Tablet 4 10/10/2023 Active Caoxlqo-Newyijfs-Btoe thicone 200-200-20 MG/5ML Oral Suspension (Alum & [...] mRNA, LNP-s, No Pre serve, 2-Dose Series ([employer]) 01/10/2021,04/20/2020,03/30/2020 H1N1 2009 Influenza, IM 12/30/2008 Hepatitis B, 20+ yrs 06/11/1995 PPD 10/30/2022,,10/23/2018,2016,11/25/2014,06/08/2013,12/09/2011,0 04/11/2010,03/30/2008,12/17/2007, 007 Pneumococcal Conjugate Vacci ne, 20-valent ([id number]) 02/28/2022 Seasonal Influenza Vac., MDV , IM, [...] as of this encounter Plan of Treatment Scheduled Procedures [...] Cancer Screening 08/26/2026 Lipid Panel 11/03/2028 11/04/2023, 030 09/2023, 07/05/2022, Additional history exists Hepatitis B [...] Procedure Name Priority Date/Time Associated Diagnosis Comments DIABETIC EYE EXAM Routine 12/10/2023 documented in this encounter Results * DIABETIC EYE EXAM (12/10/2023) 12/10/2023 Tom Colon MD OTHER OUTSIDE LAB (SEE SCANNED REPORT) documented in this encounter Care Teams Porcelain Technician Relationship Specialty Start Date End Date Akil Thorne III, MD [address] [facility] [place] [address] PCP - General 05/24/02 documented as of this encounter
[2024-05-27 08:03] LABS: Hematocrit (blood only) 37.5 % (42.0-52.0); Hemoglobin 12.2 g/dl (14.0-18.0); Mean Corpuscular Hemoglobin 32.5 pg (25.0-34.0); Mean Corpuscular Hgb Conc 32.5 g/dL (32.0-36.0); Mean Platelet Volume 9.9 fL (9.4-12.4); Platelet Count 150 K/uL (130-400); RDW Coefficient of Variation 12.2 % (11.5-14.5); RDW Standard Deviation 45.1 fL (36.4-46.3); Red Blood Count 3.75 M/uL (4.70-6.10); White Blood Count 5.16 K/ul (4.8-10.8)
[2024-05-27] MEDS: ATORVASTATIN 40 MG TAB PO SCH (08:13)
[2024-05-27] MEDS: haloperidoL 0.5 MG TAB PO SCH (08:13)
[2024-05-27] MEDS: CALCIUM POLYCARBOPHIL 625MG TAB PO SCH (08:14)
[2024-05-27] MEDS: ESCITALOPRAM OXALATE 20 MG TAB PO SCH (08:14)
[2024-05-27] MEDS: CHOLECALCIFEROL 25 MCG (1000 UNITS) TAB PO SCH (08:14)
[2024-05-27 08:18] LABS: BUN Creatinine Ratio 14.9 (10-20); Calcium 8.6 mg/dl (8.6-10.3); Creatinine Clr Calc Pharmacy 87.9 ml/min; Magnesium 1.7 mg/dl (1.7-2.4); Potassium 4.2 mmol/L (3.5-5.1)
[2024-05-27] MEDS: FAMOTIDINE 20 MG TAB PO PRN (08:18)
[2024-05-27] MEDS: POLYETHYLENE (MIRALAX) 17 GM PACK PO SCH (08:18)
[2024-05-27] MEDS: MECLIZINE HCL 25 MG TAB PO PRN (12:50)
--- NOTE | 2024-05-27 13:46 | Hospitalist Progress Note ---
Date of Service May 27, 2024 Assessment & Plan (1) Dizziness: (2) Unsteady gait: (3) Intellectual disability: (4) DM2 (diabetes mellitus, type 2): (5) Schizophrenia: Plan Patient is a 63-year-old male who has significant past medical history of intellectual disability and resides at [facility], Schizophrenia, T2DM, history of PE, HLD, hypothyroidism, WILVER and dementia who presents to ED secondary to unsteadiness. Dizziness Unsteady Gait Ambulatory dysfunction DD: BPPV Vs due to Impacted Cerumen Impacted cerumen --MRI Brain: No evidence of acute intracranial pathology. -- No rhythm issues on monitor -- Normal orthostatics Evaluated by PT OT Meclizine 25mg as needed Discussed with patient's sister to consider neurology follow-up as outpatient May need ENT evaluation as outpatient as well Continue Debrox for impacted cerumen Intellectual disability Schizophrenia mood stable Normal lithium levels continue depakote, haldol and lithium T2DM well controlled on 1g metformin daily a1c 2 days ago was 5.5 place on diabetic diet and monitor FBS WILVER: unable to tolerate Cpap Hypothyroidism: continue levothyroxine DVT ppx: SQ Lovenox CODE STATUS FULL CODE Disposition Long Term Admission and Anticipated Discharge Date Admission Date: May 26, 2024 Subjective Patient is seen and examined at bedside History unreliable given intellectual disability States having dizziness Denies any chest pain, dyspnea, nausea, vomiting, abdominal pain Updated patient's sister over the phone No rhythm issues on monitor Normal orthostatics Review of Systems Review of Systems: Unobtainable due to cognitive status Physical Exam Physical Exam: Physical Exam: Vitals signs as noted above General Appearance:Moderately built and nourished, no apparent distress Head: normocephalic, Atraumatic Eyes: normal inspection, EOMI Neck: supple, Trachea midline Respiratory/Chest: Normal breath sounds, CTA, No accessory muscle use Cardiovascular: S1, S2, No murmur Abdomen/GI:Soft, Non tender, Bowel sounds present Extremities/Musculoskeletal:normal inspection, Trace edema Neurologic/Psych:AAOX2, grossly no focal neurological deficits Skin: normal color, warm Results & Data Results & Data Vital Signs (Past 12 Hours) Vital Signs Temp Pulse Pulse Resp BP BP Pulse Ox 05/27/24 11:41 36.7 C 57 L 20 123/79 93 05/27/24 08:04 36.5 C 59 L 20 117/76 93 04/03/25 05:46 56 L 05/27/24 03:37 36.6 C 50 L 18 99/63 L 95 O2 Del Method 05/27/24 11:41 Room Air 05/27/24 08:04 Room Air 05/27/24 05:46 05/27/24 03:37 Room Air Laboratory Results Short CBC 05/27/24 Range/Units 07:00 WBC 5.16 (4.8-10.8) K/ul Hgb 12.2 L (14.0-18.0) g/dl Hct 37.5 L (42.0-52.0) % Plt Count 150 (130-400) K/uL BMP 05/27/24 07:00 Sodium 141 Potassium 4.2 Chloride 109 H Carbon Dioxide 30 BUN 13 Creatinine 0.87 Glucose 95 Calcium 8.6
--- NOTE | 2024-05-27 14:04 | Discharge Summary ---
Date of Service May 27, 2024 Admission HPI Per Admitting Provider This is a 63-year-old male who has significant past medical history of intellectual disability and resides at [facility], Schizophrenia, T2DM, history of PE, HLD, hypothyroidism, WILVER and dementia who presents to ED secondary to unsteadiness. History obtained from patient and care provider at bedside. Outpatient chart review was also performed. Caregiver at bedside states over the last 2 days he has been very unsteady. He has had to hold onto surroundings to prevent him from falling. Typically he is very active and is able to ambulate without assist device. Patient history is slightly unreliable per caregiver. When asking patient how he is feeling he does describe being, "dizzy and on a boat." Caregiver denies any recent illness and states that everybody in their facility has been relatively healthy. He denies any recent upper respiratory infections. He denies any focal weakness, slurred speech, change in hearing or vision. Denies fever, chills, sweats, presyncope, chest pain, nausea, vomiting or abdominal pain. Caregiver states patient has a very good appetite. He is moving bowels and passing urine without difficulty. He was seen and evaluated in clinic yesterday due to similar symptoms. His outpatient lab work was personally reviewed and interpreted by myself and his CBC, A1c, CMP, B12, lithium, Depakote and urinalysis was completely unremarkable. His respiratory viral panel was also negative. Due to persistent symptoms and concern for patient's safety he was brought to ED for further evaluation. In ED again patient's lab workup was completely unremarkable except for a mildly el evated troponin at 24.9. His 2-hour troponin already down trended to 21.0. He received IV fluids in the ED. He underwent a CT head which revealed light asymmetric prominence of the sulci in the left frontotemporal region could represent a developmental anomaly or evidence of an old vascular insult. Admission Exam Per Admitting Provider Constitutional: WD/WN, vitals as above, NAD, sitting up in bed, pleasant, answers questions appropriately Head: Normocephalic, Atraumatic Eyes: PERRL, conjunctivae normal, anicteric sclerae ENMT: external ear and nose normal, EAC impacted with cerumen b/l, oropharynx normal Neck: trachea midline, no thyromegaly normal visual inspection Respiratory: normal respiratory effort, lungs clear to auscultation, no wheeze, rales, rhonchi. Normal insp/exp effort, no accessory muscle use Cardiovascular: RRR, no murmur, no edema Vessels: no JVD or carotid bruit Chest: normal inspection of chest Abdomen: normal bowel sounds, soft, nontender, no hepatosplenomegaly Musculoskeletal: no cyanosis or clubbing, extremities motor strength 5/5 Skin: no rashes, warm and dry normal turgor Neurologic: PERRL, EOMI, accommodation nl, no face palsy, no dysarthria CN's II-XI intact bilaterally and moves all extremities Psychiatric: A+Ox3, euthymic affect Lymphatic: no cervical or axillary lymphadenopathy : deferred Principal Diagnosis Dizziness Impacted cerumen Discharge Data Allergies Allergy/AdvReac Type Severity Reaction Status Date / Time clozapine Allergy Intermediate ON SKILLS Verified 02/07/23 12:02 MED LIST benztropine Allergy Unknown CONTRAINDICATED Verified 03/22/22 18:10 PER MD Beta-Adrenergic Agents Allergy Unknown ON SKILLS Verified 05/26/24 14:18 MED LIST Iodinated Contrast Media Allergy Unknown ON SKILLS Verified 05/26/24 14:18 MED LIST iodine Allergy Unknown ON SKILLS Verified 05/26/24 14:18 MED LIST povidone-iodine Allergy Unknown ON SKILLS Verified 05/26/24 14:18 MED LIST pseudoephedrine Allergy Unknown PER MD Verified 05/26/24 14:18 soap [From Betadine] Allergy Unknown ON SKILLS Verified 05/26/24 14:18 MED LIST terfenadine Allergy Unknown PER MD Verified 02/07/23 12:01 valproic acid Allergy Unknown ON SKILLS Verified 05/26/24 14:18 MED LIST SYMPATHOMIMETIC AGENTS Allergy Unknown ON SKILLS Uncoded 05/26/24 14:18 MED LIST Consultations 05/26/24 13:44 ED Decision to Admit Stat Procedures Performed Laboratory Results WBC 5.16 K/ul (4.8-10.8) 05/27/24 07:00 RBC 3.75 M/uL (4.70-6.10) L 05/27/24 07:00 Hgb 12.2 g/dl (14.0-18.0) L 05/27/24 07:00 Hct 37.5 % (42.0-52.0) L 05/27/24 07:00 MCV 100.0 fL (80.0-100.0) 05/27/24 07:00 MCH 32.5 pg (25.0-34.0) 05/27/24 07:00 MCHC 32.5 g/dL (32.0-36.0) 05/27/24 07:00 RDW Std Deviation 45.1 fL (36.4-46.3) 05/27/24 07:00 RDW Coeff of Jose 12.2 % (11.5-14.5) 05/27/24 07:00 Plt Count 150 K/uL (130-400) 05/27/24 07:00 MPV 9.9 fL (9.4-12.4) 05/27/24 07:00 Immature Gran % (Auto) 0.4 % 05/26/24 10:23 Neut % (Auto) 69.0 % 05/26/24 10:23 Lymph % (Auto) 20.6 % 05/26/24 10:23 [place] % (Auto) 8.0 % 05/26/24 10:23 Eos % (Auto) 1.8 % 05/26/24 10:23 Baso % (Auto) 0.2 % 05/26/24 10:23 Neut # (Auto) 3.79 K/uL (1.40-6.50) 05/26/24 10:23 Lymph # (Auto) 1.13 K/uL (1.20-3.40) L 05/26/24 10:23 [place] # (Auto) 0.44 K/uL (0.11-0.59) 05/26/24 10:23 Eos # (Auto) 0.10 K/uL (0.00-0.50) 05/26/24 10:23 Baso # (Auto) 0.01 K/uL (0.00-0.20) 05/26/24 10:23 Immature Gran # (Auto) 0.02 K/uL (0.01-0.20) 05/26/24 10:23 VBG pH 7.40 (7.36-7.41) 05/26/24 10:38 VBG pCO2 45 mmHg (38-50) 05/26/24 10:38 VBG pO2 44 mmHg 05/26/24 10:38 VBG HCO3 28 mmol/L 05/26/24 10:38 VBG O2 Saturation 75.8 % 05/26/24 10:38 VBG Base Excess 2.5 mEq/L 05/26/24 10:38 Sodium 141 mmol/L (136-145) 05/27/24 07:00 Potassium 4.2 mmol/L (3.5-5.1) 05/27/24 07:00 Chloride 109 mmol/L (98-107) H 05/27/24 07:00 Carbon Dioxide 30 mmol/L (21-32) 05/27/24 07:00 Anion Gap 2 (3-11) L 05/27/24 07:00 BUN 13 mg/dl (6-23) 05/27/24 07:00 Creatinine 0.87 mg/dl (0.6-1.4) 05/27/24 07:00 Est Cr Clr Drug Dosing 87.9 ml/min 05/27/24 07:00 eGFR 96.35 05/27/24 07:00 BUN/Creatinine Ratio 14.9 (10-20) 05/27/24 07:00 Glucose 95 mg/dl (70-99(Fasting)) 05/27/24 07:00 Calcium 8.6 mg/dl (8.6-10.3) 05/27/24 07:00 Magnesium 1.7 mg/dl (1.7-2.4) 05/27/24 07:00 Total Bilirubin 1.0 mg/dl (0.2-1.0) 05/26/24 10:23 AST 20 U/L (13-39) 05/26/24 10:23 ALT 28 U/L (7-52) 05/26/24 10:23 Alkaline Phosphatase 66 U/L (34-104) 05/26/24 10:23 Ammonia 30.0 umol/L (18-72) 05/26/24 10:38 Troponin I High Sens 21.0 pg/ml (0-20) H 05/26/24 12:14 Total Protein 6.2 gm/dl (6.0-8.3) 05/26/24 10:23 Albumin 3.9 gm/dl (3.4-5.0) 05/26/24 10:23 Globulin 2.3 gm/dl (2.5-4.0) L 05/26/24 10:23 Albumin/Globulin Ratio 1.7 (0.9-2) 05/26/24 10:23 TSH 3.920 uIu/ml (0.300-4.500) 05/26/24 10:23 Urine Color Yellow 05/26/24 Unknown Urine Appearance Clear (Clear) 05/26/24 Unknown Urine pH 7.0 (4.5-7.5) 05/26/24 Unknown Ur Specific [place] 1.011 (1.000-1.030) 05/26/24 Unknown Urine Protein Negative (Negative) 05/26/24 Unknown Urine Glucose (UA) Negative (Negative) 05/26/24 Unknown Urine Ketones Trace (Negative) H 05/26/24 Unknown Urine Blood Negative (Negative) 05/26/24 Unknown Urine Nitrite Negative (Negative) 05/26/24 Unknown Urine Bilirubin Negative (Negative) 05/26/24 Unknown Urine Urobilinogen Negative (Negative) 05/26/24 Unknown Ur Leukocyte Esterase Negative (Negative) 05/26/24 Unknown Valproic Acid 71 mcg/ml (50-100) 05/26/24 10:23 [employer] 0.6 mmol/L (0.6-1.2) 05/27/24 07:00 SARS-CoV-2 (PCR) NEGATIVE (Negative) 05/26/24 10:59 Influenza Type A (PCR) Negative (Neg) 05/26/24 10:59 Influenza Type B (PCR) Negative (Neg) 05/26/24 10:59 RSV (RT-PCR) Negative (Neg) 05/26/24 10:59 Impressions Chest X-Ray 05/26/24 10:11 XR chest 1V portable CLINICAL HISTORY: weakness COMPARISON STUDY: Chest CT August 22, 2021. Chest radiograph February 07, 2023. FINDINGS: Lung volumes are mildly diminished. This is unchanged. No pneumothorax or pleural effusion is present. There is no consolidation or evidence for pulmonary edema. IMPRESSION: No acute cardiopulmonary findings. No change in appearance of the chest. ACT 112: Negative or not required by law. Electronically signed by: Leandro Quevedo M.D. 05/26/2024 11:[address] 05/26/24 10:11 CT head/brain wo con CLINICAL HISTORY: weak. TECHNIQUE: Multiple axial CT images of the head were obtained without contrast. Sagittal and coronal reconstructions were done. A dose lowering technique was utilized adhering to the principles of ALARA. CT DOSE: 625.8 mGy.cm COMPARISON: None FINDINGS: There is no intra-axial or extra-axial fluid collection, hemorrhage, or mass. There is a generalized atrophy with some focal prominence of the atrophy in the left frontal temporal region which may be developmental. There is no midline shift. There are dystrophic calcifications in the basal ganglia. The bone windows are negative. IMPRESSION: No acute intracranial process. Atrophy is noted. Slight asymmetric prominence of the sulci in the left frontotemporal region could represent a developmental anomaly or evidence of an old vascular insult. ACT 112: Negative or not required by law. The above report was generated using voice recognition software. It may contain grammatical, syntax or spelling errors. Electronically signed by: Catarina Herrera M.D. 05/26/2024 11:00 AM Brain MRI 05/26/24 14:11 Exam(s): MRI HEAD W/WO Contrast IV Amt: 8mL Gadavist EXAM: MR Head Without and With Intravenous Contrast CLINICAL HISTORY: Reason for exam: r/o cva. spec post given dizziness. TECHNIQUE: Magnetic resonance images of the head/brain without and with intravenous contrast in multiple planes. CONTRAST: Patient received 8mL Gadavist of IV contrast COMPARISON: Prior head CT from May 26, 2024. FINDINGS: Brain: Minimal nonspecific white matter changes.. No mass. No hemorrhage. No acute infarct. The flow voids at the base of the brain are intact. No evidence of abnormal enhancement. The dural venous sinuses are patent. Ventricles: Unremarkable. No ventriculomegaly. Bones/joints: Unremarkable. No acute fracture. Sinuses: Chronic ethmoid sinusitis. No acute sinusitis. Mastoid air cells: Unremarkable as visualized. No mastoid effusion. Orbits: Bilateral lens replacements. IMPRESSION: No evidence of acute intracranial pathology. Electronically signed by: Sridevi Hernandez MD 05/27/24 00:24 AM Ordered Studies 05/26/24 10:11 CT head/brain wo con Stat 05/26/24 14:11 MR brain wo/w con Routine Hospital Course (1) Dizziness: (2) Unsteady gait: (3) Intellectual disability: (4) DM2 (diabetes mellitus, type 2): (5) Schizophrenia: Plan Patient is a 63-year-old male who has significant past medical history of intellectual disability and resides at [facility], Schizophrenia, T2DM, history of PE, HLD, hypothyroidism, WILVER and dementia who presents to ED secondary to unsteadiness. Dizziness Unsteady Gait Ambulatory dysfunction DD: BPPV Vs due to Impacted Cerumen Impacted cerumen --MRI Brain: No evidence of acute intracranial pathology. -- No rhythm issues on monitor -- Normal orthostatics Evaluated by PT OT Meclizine 25mg as needed Discussed with patient's sister to consider neurology follow-up as outpatient May need ENT evaluation as outpatient as well Continue Debrox for impacted cerumen Intellectual disability Schizophrenia mood stable Normal lithium levels continue depakote, haldol and lithium T2DM well controlled on 1g metformin daily a1c 2 days ago was 5.5 place on diabetic diet and monitor FBS WILVER: unable to tolerate Cpap Hypothyroidism: continue levothyroxine DVT ppx: SQ Lovenox CODE STATUS FULL CODE Disposition Assisted Total Time Total Time Spent Total Time Spent (In Minutes): 54 minutes Discharge Plan Discharge Items Patient Disposition: Home - Self-Care Reason For Visit: OFF BALANCE, DIFFICULTY WALKING Discharge Diagnosis: Dizziness Impacted cerumen Condition on Discharge: Fair Activity: Per Instructions section Exercise/Sports: Gradually increase as tolerated Non-emergency contact: Primary Care Provider Call non-emergency contact if: you have any medication questions, your symptoms worsen, your pain is concerning for you and you have a fever Follow-up/Referrals: Akil Thorne MD [Primary Care Provider] - Diet: Carb Consistent or DM2 Diet Texture: Easy to Chew Addtl Attending Provider Instructions: Follow-up with your primary care physician in 1 week Consider following with ENT physician for evaluation of impacted cerumen -- Continue Debrox drops as prescribed Seek immediate medical attention if your symptoms reoccur or worsen Please review medication list provided on discharge for any medication changes as instructed. Please call if you have any questions or problems. You can reach a [facility] hospitalist on duty at [facility] 24 hours a day by calling [phone] Pending Studies at Discharge: No Stand-Alone Forms: My [facility] [employer], Smoking Cessation Medications and DC Order Prescriptions: New Ear Drops (carbamide peroxide) 6.5 % Drops 4 drp otic (ear) BID 10 Days Qty: 15 0RF meclizine 25 mg Tablet 25 mg PO Q8H PRN (Reason: dizziness) Qty: 30 0RF Continued atorvastatin 40 mg Tablet 40 mg PO QAM calcium polycarbophil [Fiber-Lax] 625 mg Tablet 1,250 mg PO DAILY docusate sodium [Colace] 100 mg Capsule 100 mg PO BID omeprazole magnesium [Prilosec OTC] 20 mg Tablet,Delayed Release (Dr/Ec) 20 mg PO PM Rx Instructions: TAKES AT 1600 acetaminophen 325 mg Tablet 650 mg PO Q6H MDD 3 GRAMS/24 HOURS PRN (Reason: Pain) divalproex [Depakote] 250 mg Tablet,Delayed Release (Dr/Ec) 250 mg PO HS Rx Instructions: WITH THREE 500MG TABS FOR TOTAL OF 1750MG divalproex [Depakote] 500 mg Tablet,Delayed Release (Dr/Ec) 1,500 mg PO HS Rx Instructions: TAKE WITH 250MG DOSE FOR TOTAL OF 1750MG risperidone [Risperdal] 3 mg Tablet 6 mg PO HS magnesium hydroxide [Milk of Magnesia] 400 mg/5 mL Suspension 30 ml PO DAILY PRN (Reason: Constipation) lithium carbonate 300 mg Capsule 600 mg PO HS escitalopram oxalate 20 mg Tablet 20 mg PO QAM cholecalciferol (vitamin D3) [Vitamin D3] 25 mcg (1,000 unit) Tablet,Chewable 1,000 unit PO QAM haloperidol 1 mg tablet 1 mg PO HS levothyroxine 88 mcg tablet 88 mcg PO QAM haloperidol 0.5 mg Tablet 0.5 mg PO QAM omega-3 fatty acids 1,000 mg Capsule 1,000 mg PO TID Rx Instructions: 0800, 1600, & 2000 dextromethorphan-guaifenesin [Tussin DM] 10-100 mg/5 mL Liquid 5 ml PO TID PRN (Reason: Cough) olopatadine 0.2 % Drops 1 drp OPB BID PRN (Reason: Eye Irritation) levocetirizine [Xyzal] 5 mg Tablet 2.5 mg PO PM Certavite-Antioxidant 18-400 mg-mcg Tablet 1 tab PO QAM Systane Balance 0.6 % Drops 1 drp OPB QID PRN (Reason: Dry Eyes) metformin 500 mg tablet extended release 24 hr 1,000 mg PO QDB asenapine maleate [Saphris] 5 mg tablet, sublingual 5 mg SUBLINGUAL QAM asenapine maleate [Saphris] 10 mg tablet, sublingual 10 mg SUBLINGUAL HS alum-mag hydroxide-simeth [Antacid Anti-Gas] 200-200-20 mg/5 mL Suspension 15 ml PO BID PRN (Reason: UPSET STOMACH/VOMITING) polyethylene glycol 3350 [Miralax] 17 gram/dose Powder 17 g PO QAM amoxicillin 500 mg Capsule 500 mg PO TID Rx Instructions: Start Date 05/20/24 x7 day supply Gold Anderson Ultimate Liquid 1 ea topical QAM Discharge Orders: Discharge Order (Routine); Ordered 05/27/24 Ordered By: Nathaniel Guadarrama Admission Data Admit Date/Time: 05/26/24 13:39 Attending Provider: Nathaniel Guadarrama Admit Provider: Loree Streeter Primary Care Provider: Akil Thorne Other Providers: Loree Streeter; [facility] Fax
--- NOTE | 2024-05-27 15:59 | Communication Note ---
Date of Service: May 27, 2024 Patient could not be discharged today as assisted will not be able to take him back until tomorrow morning
[2024-05-27] MEDS: MELATONIN 3 MG TAB PO PRN (20:32)
[2024-05-27] MEDS: ASENAPINE 10 MG SL SCH (20:39)
[2024-05-28 07:37] VITALS: BP 124/88; PULSE 65; RESP 14; TEMP 98.1; O2SAT 93
[2024-05-28 07:43] LABS: Hematocrit (blood only) 38.9 % (42.0-52.0); Hemoglobin 12.7 g/dl (14.0-18.0); Mean Corpuscular Hemoglobin 32.5 pg (25.0-34.0); Mean Corpuscular Hgb Conc 32.6 g/dL (32.0-36.0); Mean Corpuscular Volume 99.5 fL (80.0-100.0); Mean Platelet Volume 9.7 fL (9.4-12.4); Platelet Count 158 K/uL (130-400); RDW Coefficient of Variation 12.1 % (11.5-14.5); RDW Standard Deviation 44.2 fL (36.4-46.3); Red Blood Count 3.91 M/uL (4.70-6.10); White Blood Count 6.04 K/ul (4.8-10.8)
[2024-05-28 07:57] LABS: BUN Creatinine Ratio 16.2 (10-20); Creatinine Clr Calc Pharmacy 72.9 ml/min; Magnesium 1.8 mg/dl (1.7-2.4); Potassium 4.4 mmol/L (3.5-5.1)
[2024-05-28] MEDS: ASENAPINE 5 MG SL SCH (08:16)
--- NOTE | 2024-05-28 09:39 | Hospitalist Progress Note ---
Date of Service May 28, 2024 Assessment & Plan (1) Dizziness: (2) Unsteady gait: (3) Intellectual disability: (4) DM2 (diabetes mellitus, type 2): (5) Schizophrenia: Plan Patient is a 63-year-old male who has significant past medical history of intellectual disability and resides at [facility], Schizophrenia, T2DM, history of PE, HLD, hypothyroidism, WILVER and dementia who presents to ED secondary to unsteadiness. Dizziness Unsteady Gait Ambulatory dysfunction DD: BPPV Vs due to Impacted Cerumen Impacted cerumen --MRI Brain: No evidence of acute intracranial pathology. -- No rhythm issues on monitor -- Normal orthostatics Evaluated by PT OT Meclizine 25mg as needed Discussed with patient's sister to consider neurology follow-up as outpatient May need ENT evaluation as outpatient as well Continue Debrox for impacted cerumen Dizziness resolved Plan to remain discharged back to retirement today Intellectual disability Schizophrenia mood stable Normal lithium levels continue depakote, haldol and lithium T2DM well controlled on 1g metformin daily a1c 2 days ago was 5.5 place on diabetic diet and monitor FBS WILVER: unable to tolerate Cpap Hypothyroidism: continue levothyroxine DVT ppx: SQ Lovenox CODE STATUS FULL CODE Disposition [facility] Admission and Anticipated Discharge Date Admission Date: May 26, 2024 Subjective Patient is seen and examined at bedside History unreliable given intellectual disability States feeling well today Dizziness resolved Denies any chest pain, dyspnea, nausea, vomiting, abdominal pain No distress on exam Plan to be discharged home today Review of Systems Review of Systems: Other Physical Exam Physical Exam: Physical Exam: Vitals signs as noted above General Appearance:Moderately built and nourished, no apparent distress Head: normocephalic, Atraumatic Eyes: normal inspection, EOMI Neck: supple, Trachea midline Respiratory/Chest: Normal breath sounds, CTA, No accessory muscle use Cardiovascular: S1, S2, No murmur Abdomen/GI:Soft, Non tender, Bowel sounds present Extremities/Musculoskeletal:normal inspection, Trace edema Neurologic/Psych:AAOX2, grossly no focal neurological deficits Skin: normal color, warm Results & Data Results & Data Vital Signs (Past 12 Hours) Vital Signs Temp Pulse Pulse Pulse Resp BP BP 05/28/24 07:34 36.7 C 65 14 124/88 05/28/24 05:43 58 L 05/28/24 03:10 05/28/24 03:09 37.3 C 59 L 16 128/78 05/27/24 23:08 36.8 C 57 L 18 117/75 05/27/24 21:46 59 L Pulse Ox O2 Del Method O2 Flow Rate 05/28/24 07:34 93 Room Air 05/28/24 05:43 05/28/24 03:10 92 Nasal Cannula 2 05/28/24 03:09 88 L Room Air 05/27/24 23:08 92 Room Air 05/27/24 21:46 Laboratory Results Short CBC 05/28/24 Range/Units 07:20 WBC 6.04 (4.8-10.8) K/ul Hgb 12.7 L (14.0-18.0) g/dl Hct 38.9 L (42.0-52.0) % Plt Count 158 (130-400) K/uL BMP 05/28/24 07:20 Sodium 141 Potassium 4.4 Chloride 108 H Carbon Dioxide 32 BUN 17 Creatinine 1.05 Glucose 107 H Calcium 9.0
== END 2024-05-28 11:47 | disposition home or self-care (01) ==
LOC: 2W 09:54 → ED 09:54 → SUATTDRO 13:39 → 2W 15:00

== ENCOUNTER 2024-11-07 08:50 | Inpatient (IN) ==
[2024-11-07 09:24] LABS: Hematocrit (blood only) 42.6 % (42.0-52.0); Hemoglobin 13.5 g/dl (14.0-18.0); Immature Granulocytes # (auto) 0.01 K/uL (0.01-0.20); Immature Granulocytes % (auto) 0.3 %; Mean Corpuscular Hemoglobin 31.4 pg (25.0-34.0); Mean Corpuscular Volume 99.1 fL (80.0-100.0); Platelet Count 117 K/uL (130-400); RDW Standard Deviation 45.9 fL (36.4-46.3); Red Blood Count 4.30 M/uL (4.70-6.10); White Blood Count 3.50 K/ul (4.8-10.8)
--- NOTE | 2024-11-07 09:24 | Emergency Department Note ---
Impression & Plan Altered mental status, Intellectual disability, Weakness, Ambulatory dysfunction, Fall ED Provider Note NAME: JOELLEN CANADA AGE: 63 SEX: M : 1960 ARRIVES VIA: Ambulance INFORMANT: [Patient][staff member] ED PROVIDER(S): [Magan Damon MD] CHIEF COMPLAINT: Lethargic HISTORY OF PRESENT ILLNESS: The patient is a 63-year-old male who in the last 24 hours has developed fatigue and lethargy. The patient did actually fall onto his buttock 1 time because of weakness. No loss of consciousness. He typically walks on his own but is now in a wheelchair. He did receive a flu and COVID-vaccine just 2 days ago, otherwise, there has been no real change in his typical routine. No medication changes. There has been no fever, no vomiting. No reports of fever. At the present time, the patient is a very poor historian and does not have any real complaints. PMHx/PSHx/Social Hx: See Below PHYSICAL EXAM: GENERAL: Patient is in no acute distress. HEENT: No acute trauma, normocephalic atraumatic, mucous membranes moist, no nasal congestion. NECK: No stridor, no adenopathy, no meningismus, trachea is midline. LUNGS: Clear to auscultation bilaterally, no wheeze, no rhonchi, breath sounds equal. HEART: Without murmurs gallops or rubs, regular rate and rhythm. ABDOMEN: Soft, very mildly diffusely tender, no distention. EXTREMITIES: No cyanosis, full range of motion of all the joints without pain or difficulty. NEUROLOGIC: Awake, moving all extremities, does seem somewhat sleepy. SKIN: No jaundice, no diaphoresis. DIFFERENTIAL DIAGNOSIS: Vaccine reaction, sepsis or bacteremia, intracranial bleeding, stroke, electrolyte imbalance, dehydration, UTI, among others. EMERGENCY DEPARTMENT PROCEDURES: MEDICAL DECISION MAKING: There is no leukocytosis, in fact, the white count is somewhat low suggesting a possible viral infection. There was a very mild anemia. Platelet count was low at 117. No bandemia. No coagulopathy. VBG did not show acidosis or CO2 retention. There was no renal failure or significant electrolyte abnormality. No concerning liver enzyme elevation. Lactic acid level was not elevated making sepsis unlikely. Ammonia level was not elevated. Urinalysis did not show infection. Babesia and anaplasmosis smears were negative. Lyme disease testing was negative. Respiratory bio fire was negative. ECG showed a sinus rhythm, no ischemia. Cardiac enzyme testing x 1 was not consistent with acute cardiac injury. Chest x-ray did not show pneumonia or CHF. Brain CT showed no acute bleed or mass effect. On exam, patient was not toxic or febrile. He seemed diffusely weak. The patient was given IV saline, 1.5 L. He received IV cefepime as antibiotic coverage. The patient was reassessed, he stated he felt better although, when attempts were made at ambulation, he was very weak and off balance. He was not felt safe for discharge. At this point, the cause for his weakness and balance issues is unclear. Possibly, he is having a vaccine reaction as he began having symptoms the day after his COVID and influenza vaccinations. Given the circumstances, I do think a hospital stay, observation and further care is warranted. I did speak with the patient, his staff worker as well as case management. The on-call hospitalist was consulted. Prior/Outside records/notes reviewed: Today's EMS notes describing his presentation and transport at this hospital. ECG per my interpretation: Indication was weakness. The ECG shows a normal sinus rhythm with a rate of 73. There is a right bundle branch block. There is no acute ST elevation, no PVCs. The QTc is 451. Continuous Cardiac Monitoring per my interpretation: An order was placed for continuous cardiac monitoring. The monitor shows a rate of 68 with normal sinus rhythm. Imaging/x-ray results per my interpretation: Chest x-ray does not show pneumonia or CHF. Chronic Medical/Social conditions affecting care: History of intellectual disability. Care/Management discussed with: The patient's staff worker, case management and the on-call hospitalist. Level of care consideration(s): After review of the information above and other included data: --I believe the patient requires escalation of care to admission DISPOSITION: Admission Past Med/Surg History Problem List Fall (Acute) Ambulatory dysfunction (Acute) Weakness (Acute) Intellectual disability (Acute) Altered mental status (Acute) Elevated troponin (Acute) Balance problem (Acute) Ambulatory dysfunction (Acute) Weakness (Acute) Unsteady gait Dizziness Acute hypoxemic respiratory failure (Acute) Generalized weakness (Acute) COVID-19 (Acute) Intellectual disability Hypoxia (Acute) Influenza A (Acute) Sepsis (Acute) COVID-19 (Acute) Schizophrenia (Chronic) Anxiety (Chronic) Tachycardia Elevated d-dimer Mental retardation (Chronic) GERD (gastroesophageal reflux disease) (Chronic) Hypothyroidism (Chronic) HLD (hyperlipidemia) (Chronic) DM2 (diabetes mellitus, type 2) (Chronic) [place] teeth extracted (Chronic) Choking episode (Acute) Encounter for pre-operative examination Medical History Esophageal reflux Myopia Moderate intellectual disabilities Diabetes mellitus Hx pulmonary embolism NO OTHER DETAILS PROVIDED Hypothyroidism Metabolic syndrome WILVER (obstructive sleep apnea) SEVERE> NO DEVICE PER RECORDS Dermatitis Cellulitis of leg Obesity (BMI 30.0-34.9) Dyslipidemia Schizophrenia Mental and behavioral problem in adult Hemorrhoid WITHOUT COMPLICATION Surgical History (Updated 06/28/24 @ 00:07 by Rhiannon Nj) History of right cataract surgery History of tooth extraction WISDOM TEETH History of colonoscopy Family History Other Family history non-contributory Social History Smoking Status: Never smoker Second Hand Exposure: No; Do You Dip or Chew Tobacco: No; Hx Alcohol Use: No Hx Substance Use: No Preferred Language: Wolof Communication Ability: Impaired Communication Ability Comment: intellectual Oiler And Greaser Required: No Beliefs That Will Affect Care: None marital status: Single Current Living Situation: Other Current Living Situation Comment: assisted Other Information That Helps Us Care for You: No Feels Safe at Home: Yes Safety Concerns: Feels Safe At This Time Assistive Devices: Wheelchair Allergies Allergies Allergy/AdvReac Type Severity Reaction Status Date / Time clozapine Allergy Intermediate ON SKILLS Verified 11/07/24 12:19 MED LIST benztropine Allergy Unknown CONTRAINDICATED Verified 11/07/24 12:19 PER MD Beta-Adrenergic Agents Allergy Unknown ON SKILLS Verified 11/07/24 12:19 MED LIST Iodinated Contrast Media Allergy Unknown ON SKILLS Verified 11/07/24 12:19 MED LIST iodine Allergy Unknown ON SKILLS Verified 11/07/24 12:19 MED LIST povidone-iodine Allergy Unknown ON SKILLS Verified 11/07/24 12:19 MED LIST pseudoephedrine Allergy Unknown PER MD Verified 11/07/24 12:19 soap [From Betadine] Allergy Unknown ON SKILLS Verified 11/07/24 12:19 MED LIST terfenadine Allergy Unknown PER MD Verified 11/07/24 12:19 valproic acid Allergy Unknown ON SKILLS Verified 11/07/24 12:19 MED LIST SYMPATHOMIMETIC AGENTS Allergy Unknown ON SKILLS Uncoded 11/07/24 12:19 MED LIST Home Meds Home Medications Medication Instructions Recorded Confirmed acetaminophen 325 mg tablet 650 mg PO Q6H PRN Pain 05/05/19 11/07/24 atorvastatin 40 mg tablet 40 mg PO QAM 05/05/19 11/07/24 calcium polycarbophil 625 mg 1,250 mg PO DAILY 05/05/19 11/07/24 tablet (Fiber-Lax) cholecalciferol (vitamin D3) 25 1,000 unit PO QAM 05/05/19 11/07/24 mcg (1,000 unit) chewable tablet (Vitamin D3) divalproex 250 mg tablet,delayed 250 mg PO HS 05/05/19 11/07/24 release (Depakote) divalproex 500 mg tablet,delayed 1,500 mg PO HS 05/05/19 11/07/24 release (Depakote) docusate sodium 100 mg capsule 100 mg PO BID 05/05/19 11/07/24 (Colace) escitalopram oxalate 20 mg tablet 20 mg PO QAM 05/05/19 11/07/24 lithium carbonate 300 mg capsule 600 mg PO HS 05/05/19 11/07/24 magnesium hydroxide 400 mg/5 mL 30 ml PO DAILY PRN Constipation 05/05/19 11/07/24 oral suspension (Milk of Magnesia) omeprazole magnesium 20 mg 20 mg PO PM 05/05/19 11/07/24 tablet,delayed release (Prilosec OTC) risperidone 3 mg tablet (Risperdal) 6 mg PO HS 05/05/19 11/07/24 haloperidol 1 mg tablet 1 mg PO HS 08/22/21 11/07/24 levothyroxine 88 mcg tablet 88 mcg PO QAM 08/22/21 11/07/24 dextromethorphan-guaifenesin 10 5 ml PO TID PRN Cough 01/16/22 11/07/24 mg-100 mg/5 mL oral liquid (Tussin DM) haloperidol 0.5 mg tablet 0.5 mg PO QAM 01/16/22 11/07/24 levocetirizine 5 mg tablet (Xyzal) 2.5 mg PO PM 01/16/22 11/07/24 multivitamin-ferrous 1 tab PO QAM 01/16/22 11/07/24 fumarate-folic acid 18 mg-400 mcg tablet (Certavite-Antioxidant) olopatadine 0.2 % eye drops 1 drp OPB BID PRN Eye Irritation 01/16/22 11/07/24 omega-3 fatty acids 1,000 mg 1,000 mg PO TID 01/16/22 11/07/24 capsule propylene glycol 0.6 % eye drops 1 drp OPB QID PRN Dry Eyes 01/16/22 11/07/24 (Systane Balance) asenapine maleate 10 mg sublingual 10 mg sublingual HS 03/22/22 11/07/24 tablet (Saphris) asenapine maleate 5 mg sublingual 5 mg sublingual QAM 03/22/22 11/07/24 tablet (Saphris) metformin 500 mg tablet,extended 1,000 mg PO QDB 03/22/22 11/07/24 release 24 hr aluminum-mag hydroxide-simethicone 15 ml PO BID PRN UPSET 02/07/23 11/07/24 200 mg-200 mg-20 mg/5 mL oral susp STOMACH/VOMITING (Antacid Anti-Gas) polyethylene glycol 3350 17 17 g PO QAM 02/07/23 11/07/24 gram/dose oral powder (Miralax) emollient combination no.31 (Gold 1 ea topical QAM 05/26/24 11/07/24 Anderson Ultimate topical liquid) erythromycin 5 mg/gram (0.5 %) eye 0.25 inch ophthalmic (eye) HS PRN 11/07/24 11/07/24 ointment red eye loperamide 2 mg capsule 2 mg PO QID PRN Diarrhea 11/07/24 11/07/24 Previous Rx's Medication Instructions Recorded meclizine 25 mg tablet 25 mg PO Q8H PRN dizziness #30 tabs 05/27/24 Results & Data (ED) Vital Signs Vital Signs - 24 hr 11/07/24 08:57 11/07/24 08:57 11/07/24 08:57 Temperature 36.9 C 36.9 C Temperature Source Oral Oral Pulse Rate 69 Pulse Rate [Apical] 69 Pulse Rate from SpO2 Sensor Pulse Rhythm [Apical] Regular Pulse Strength [Apical] Normal Respiratory Rate 19 17 Respiratory Effort / Characteristics Non-Labored Spontaneous Non-Labored Spontaneous Respiratory Depth Normal Normal Respiratory Pattern Regular Blood Pressure 130/80 Blood Pressure [Right Arm] 130/80 Blood Pressure Mean 96 Blood Pressure Mean [Right Arm] 96 Blood Pressure Position Semi-fowlers Blood Pressure Position [Right Arm] Semi-fowlers Pulse Oximetry 93 93 Oxygen Delivery Method Room Air Room Air Room Air Sepsis Recent Fever Within 48 Hours No Sepsis New/Unexplained Change in Mental Status N/A Sepsis Action Taken by Nursing No Action Required 11/07/24 09:19 11/07/24 09:31 11/07/24 10:00 Temperature Temperature Source Pulse Rate 68 Pulse Rate [Apical] 66 Pulse Rate from SpO2 Sensor Pulse Rhythm [Apical] Pulse Strength [Apical] Respiratory Rate 18 Respiratory Effort / Characteristics Non-Labored Spontaneous Respiratory Depth Normal Respiratory Pattern Regular Blood Pressure Blood Pressure [Right Arm] 135/81 Blood Pressure Mean Blood Pressure Mean [Right Arm] 99 Blood Pressure Position Blood Pressure Position [Right Arm] Semi-fowlers Pulse Oximetry 94 93 Oxygen Delivery Method Room Air Room Air Sepsis Recent Fever Within 48 Hours Sepsis New/Unexplained Change in Mental Status Sepsis Action Taken by Nursing 11/07/24 11:06 11/07/24 11:15 11/07/24 11:36 Temperature Temperature Source Pulse Rate 67 68 65 Pulse Rate [Apical] Pulse Rate from SpO2 Sensor 69 68 65 Pulse Rhythm [Apical] Pulse Strength [Apical] Respiratory Rate 18 18 22 Respiratory Effort / Characteristics Respiratory Depth Respiratory Pattern Blood Pressure 134/77 Blood Pressure [Right Arm] Blood Pressure Mean 96 Blood Pressure Mean [Right Arm] Blood Pressure Position Blood Pressure Position [Right Arm] Pulse Oximetry 95 94 97 Oxygen Delivery Method Sepsis Recent Fever Within 48 Hours Sepsis New/Unexplained Change in Mental Status Sepsis Action Taken by Nursing 11/07/24 11:45 11/07/24 11:45 11/07/24 12:00 Temperature Temperature Source Pulse Rate 64 Pulse Rate [Apical] 69 Pulse Rate from SpO2 Sensor 64 Pulse Rhythm [Apical] Pulse Strength [Apical] Respiratory Rate 14 19 Respiratory Effort / Characteristics Non-Labored Spontaneous Respiratory Depth Normal Respiratory Pattern Regular Blood Pressure 123/72 121/61 Blood Pressure [Right Arm] 123/72 Blood Pressure Mean 89 83 Blood Pressure Mean [Right Arm] 89 Blood Pressure Position Blood Pressure Position [Right Arm] Lying Pulse Oximetry 96 96 Oxygen Delivery Method Room Air Sepsis Recent Fever Within 48 Hours Sepsis New/Unexplained Change in Mental Status Sepsis Action Taken by Nursing 11/07/24 12:12 11/07/24 12:18 11/07/24 12:36 Temperature Temperature Source Pulse Rate 66 68 70 Pulse Rate [Apical] Pulse Rate from SpO2 Sensor 64 66 69 Pulse Rhythm [Apical] Pulse Strength [Apical] Respiratory Rate 19 14 17 Respiratory Effort / Characteristics Respiratory Depth Respiratory Pattern Blood Pressure 127/71 Blood Pressure [Right Arm] Blood Pressure Mean 89 Blood Pressure Mean [Right Arm] Blood Pressure Position Blood Pressure Position [Right Arm] Pulse Oximetry 96 97 97 Oxygen Delivery Method Sepsis Recent Fever Within 48 Hours Sepsis New/Unexplained Change in Mental Status Sepsis Action Taken by Nursing 11/07/24 12:45 11/07/24 12:51 11/07/24 13:16 Temperature Temperature Source Pulse Rate 66 64 Pulse Rate [Apical] Pulse Rate from SpO2 Sensor 66 Pulse Rhythm [Apical] Pulse Strength [Apical] Respiratory Rate 21 Respiratory Effort / Characteristics Respiratory Depth Respiratory Pattern Blood Pressure 124/78 Blood Pressure [Right Arm] Blood Pressure Mean 88 Blood Pressure Mean [Right Arm] Blood Pressure Position Blood Pressure Position [Right Arm] Pulse Oximetry 95 Oxygen Delivery Method Sepsis Recent Fever Within 48 Hours Sepsis New/Unexplained Change in Mental Status Sepsis Action Taken by Nursing 11/07/24 13:33 11/07/24 13:38 11/07/24 13:39 Temperature Temperature Source Pulse Rate 69 71 Pulse Rate [Apical] Pulse Rate from SpO2 Sensor 69 72 Pulse Rhythm [Apical] Pulse Strength [Apical] Respiratory Rate 22 23 Respiratory Effort / Characteristics Respiratory Depth Respiratory Pattern Blood Pressure 124/74 140/78 Blood Pressure [Right Arm] Blood Pressure Mean 90 93 Blood Pressure Mean [Right Arm] Blood Pressure Position Blood Pressure Position [Right Arm] Pulse Oximetry 97 96 Oxygen Delivery Method Sepsis Recent Fever Within 48 Hours Sepsis New/Unexplained Change in Mental Status Sepsis Action Taken by Nursing 11/07/24 14:03 Temperature Temperature Source Pulse Rate 65 Pulse Rate [Apical] Pulse Rate from SpO2 Sensor 65 Pulse Rhythm [Apical] Pulse Strength [Apical] Respiratory Rate 15 Respiratory Effort / Characteristics Respiratory Depth Respiratory Pattern Blood Pressure 120/75 Blood Pressure [Right Arm] Blood Pressure Mean 90 Blood Pressure Mean [Right Arm] Blood Pressure Position Blood Pressure Position [Right Arm] Pulse Oximetry 95 Oxygen Delivery Method Sepsis Recent Fever Within 48 Hours Sepsis New/Unexplained Change in Mental Status Sepsis Action Taken by Custodial Medications Current Medication List: was personally reviewed by me Laboratory Data Attestation: I reviewed the patient's lab results. 11/08/24 09:15 11/08/24 09:15 Lab Results 11/07/24 11/07/24 11/07/24 Range/Units 09:00 09:26 09:27 WBC 3.50 L (4.8-10.8) K/ul RBC 4.30 L (4.70-6.10) M/uL Hgb 13.5 L (14.0-18.0) g/dl Hct 42.6 (42.0-52.0) % MCV 99.1 (80.0-100.0) fL MCH 31.4 (25.0-34.0) pg MCHC 31.7 L (32.0-36.0) g/dL RDW Std Deviation 45.9 (36.4-46.3) fL RDW Coeff of Jose 12.7 (11.5-14.5) % Plt Count 117 L (130-400) K/uL MPV 9.6 (9.4-12.4) fL Immature Gran % (Auto) 0.3 % Neut % (Auto) 68.3 % Lymph % (Auto) 19.1 % [place] % (Auto) 12.0 % Eos % (Auto) 0.3 % Baso % (Auto) 0.0 % Neut # (Auto) 2.39 (1.40-6.50) K/uL Lymph # (Auto) 0.67 L (1.20-3.40) K/uL [place] # (Auto) 0.42 (0.11-0.59) K/uL Eos # (Auto) 0.01 (0.00-0.50) K/uL Baso # (Auto) 0.00 (0.00-0.20) K/uL Immature Gran # (Auto) 0.01 (0.01-0.20) K/uL PT 11.1 (9.0-12.0) Seconds INR 1.0 (0.9-1.1) APTT 27 (21-31) Seconds PTT Ratio 1.0 VBG pH (7.36-7.41) VBG pCO2 (38-50) mmHg VBG pO2 mmHg VBG HCO3 mmol/L VBG O2 Saturation % VBG Base Excess mEq/L Sodium 141 (136-145) mmol/L Potassium 4.3 (3.5-5.1) mmol/L Chloride 109 H (98-107) mmol/L Carbon Dioxide 30 (21-32) mmol/L Anion Gap 2 L (3-11) BUN 10 (6-23) mg/dl Creatinine 0.93 (0.6-1.4) mg/dl Est Cr Clr Drug Dosing 85.5 ml/min eGFR 91.69 BUN/Creatinine Ratio 10.8 (10-20) Glucose 105 H (70-99(Fasting)) mg/dl Lactate 0.7 (0.4-2.0) mmol/L Calcium 9.4 (8.6-10.3) mg/dl Magnesium 1.8 (1.7-2.4) mg/dl Total Bilirubin 1.0 (0.2-1.0) mg/dl Direct Bilirubin 0.1 (0-0.2) mg/dl AST 16 (13-39) U/L ALT 23 (7-52) U/L Alkaline Phosphatase 62 (34-104) U/L Ammonia 43.0 (18-72) umol/L Troponin I High Sens 9.6 (0-20) pg/ml Total Protein 5.6 L (6.0-8.3) gm/dl Albumin 3.5 (3.4-5.0) gm/dl Procalcitonin 0.14 (0-0.5) ng/ml Urine Color Urine Appearance (Clear) Urine pH (4.5-7.5) Ur Specific Morris (1.000-1.030) Urine Protein (Negative) Urine Glucose (UA) (Negative) Urine Ketones (Negative) Urine Blood (Negative) Urine Nitrite (Negative) Urine Bilirubin (Negative) Urine Urobilinogen (Negative) Ur Leukocyte Esterase (Negative) Urine Comment Adenovirus (PCR) Not Detected (NotDetected) Anaplasma Smear See Comment Babesia Smear See Comment B. pertussis DNA (PCR) Not Detected (NotDetected) B.parapertussis DNA PCR Not Detected (NotDetected) Lyme Disease Screen Negative (Negative) C. pneumoniae DNA (PCR) Not Detected (NotDetected) Coronavirus OC43 (PCR) Not Detected (NotDetected) Coronavirus HKU1 (PCR) Not Detected (NotDetected) Coronavirus 229E (PCR) Not Detected (NotDetected) SARS-CoV-2 (PCR) Not Detected (NotDetected) Coronavirus NL63 (PCR) Not Detected (NotDetected) Human Metapneumovir PCR Not Detected (NotDetected) Influenza Type A (PCR) Not Detected (NotDetected) Influenza Type B (PCR) Not Detected (NotDetected) M. pneumoniae (PCR) Not Detected (NotDetected) Parainfluenza 1 (PCR) Not Detected (NotDetected) Parainfluenza 2 (PCR) Not Detected (NotDetected) Parainfluenza 3 (PCR) Not Detected (NotDetected) Parainfluenza 4 (PCR) Not Detected (NotDetected) RSV (PCR) Not Detected (NotDetected) Entero/Rhino (PCR) Not Detected (NotDetected) 11/07/24 11/07/24 Range/Units 09:42 11:37 WBC (4.8-10.8) K/ul RBC (4.70-6.10) M/uL Hgb (14.0-18.0) g/dl Hct (42.0-52.0) % MCV (80.0-100.0) fL MCH (25.0-34.0) pg MCHC (32.0-36.0) g/dL RDW Std Deviation (36.4-46.3) fL RDW Coeff of Jose (11.5-14.5) % Plt Count (130-400) K/uL MPV (9.4-12.4) fL Immature Gran % (Auto) % Neut % (Auto) % Lymph % (Auto) % [place] % (Auto) % Eos % (Auto) % Baso % (Auto) % Neut # (Auto) (1.40-6.50) K/uL Lymph # (Auto) (1.20-3.40) K/uL [place] # (Auto) (0.11-0.59) K/uL Eos # (Auto) (0.00-0.50) K/uL Baso # (Auto) (0.00-0.20) K/uL Immature Gran # (Auto) (0.01-0.20) K/uL PT (9.0-12.0) Seconds INR (0.9-1.1) APTT (21-31) Seconds PTT Ratio VBG pH 7.40 (7.36-7.41) VBG pCO2 46 (38-50) mmHg VBG pO2 59 mmHg VBG HCO3 29 mmol/L VBG O2 Saturation 91.6 % VBG Base Excess 3.0 mEq/L Sodium (136-145) mmol/L Potassium (3.5-5.1) mmol/L Chloride (98-107) mmol/L Carbon Dioxide (21-32) mmol/L Anion Gap (3-11) BUN (6-23) mg/dl Creatinine (0.6-1.4) mg/dl Est Cr Clr Drug Dosing ml/min eGFR BUN/Creatinine Ratio (10-20) Glucose (70-99(Fasting)) mg/dl Lactate (0.4-2.0) mmol/L Calcium (8.6-10.3) mg/dl Magnesium (1.7-2.4) mg/dl Total Bilirubin (0.2-1.0) mg/dl Direct Bilirubin (0-0.2) mg/dl AST (13-39) U/L ALT (7-52) U/L Alkaline Phosphatase (34-104) U/L Ammonia (18-72) umol/L Troponin I High Sens (0-20) pg/ml Total Protein (6.0-8.3) gm/dl Albumin (3.4-5.0) gm/dl Procalcitonin (0-0.5) ng/ml Urine Color Yellow Urine Appearance Clear (Clear) Urine pH 7.5 (4.5-7.5) Ur Specific Morris 1.017 (1.000-1.030) Urine Protein Negative (Negative) Urine Glucose (UA) Negative (Negative) Urine Ketones Trace H (Negative) Urine Blood Negative (Negative) Urine Nitrite Negative (Negative) Urine Bilirubin Negative (Negative) Urine Urobilinogen Positive H (Negative) Ur Leukocyte Esterase Negative (Negative) Urine Comment Adenovirus (PCR) (NotDetected) Anaplasma Smear Babesia Smear B. pertussis DNA (PCR) (NotDetected) B.parapertussis DNA PCR (NotDetected) Lyme Disease Screen (Negative) C. pneumoniae DNA (PCR) (NotDetected) Coronavirus OC43 (PCR) (NotDetected) Coronavirus HKU1 (PCR) (NotDetected) Coronavirus 229E (PCR) (NotDetected) SARS-CoV-2 (PCR) (NotDetected) Coronavirus NL63 (PCR) (NotDetected) Human Metapneumovir PCR (NotDetected) Influenza Type A (PCR) (NotDetected) Influenza Type B (PCR) (NotDetected) M. pneumoniae (PCR) (NotDetected) Parainfluenza 1 (PCR) (NotDetected) Parainfluenza 2 (PCR) (NotDetected) Parainfluenza 3 (PCR) (NotDetected) Parainfluenza 4 (PCR) (NotDetected) RSV (PCR) (NotDetected) Entero/Rhino (PCR) (NotDetected) Administered Medications Discontinued Medications Acetaminophen (Acetaminophen 325 Mg Tab) 650 mg PO Q4H PRN PRN Reason: pain/fever Stop: 12/07/24 14:21 Last Admin: 11/07/24 21:38 Dose: 650 mg Documented By: KILEY Atorvastatin Calcium (Atorvastatin 40 Mg Tab) 40 mg PO QAM PENDING SALE TO [facility] Stop: 12/08/24 08:59 Last Admin: 11/09/24 08:34 Dose: 40 mg Documented By: Admin: 11/08/24 08:49 Dose: 40 mg Documented By: MARY Calcium Polycarbophil (Calcium Polycarbophil 625mg Tab) 1,250 mg PO DAILY SHERRY Stop: 12/08/24 08:59 Last Admin: 11/09/24 08:35 Dose: 1,250 mg Documented By: Admin: 11/08/24 08:48 Dose: 1,250 mg Documented By: MARY Cetirizine HCl (Cetirizine Hcl 10 Mg Tablet) 5 mg PO PM SHERRY Stop: 12/07/24 20:59 Last Admin: 11/08/24 22:18 Dose: 5 mg Documented By: Admin: 11/07/24 21:38 Dose: 5 mg Documented By: KILEY Divalproex Sodium (Divalproex Delay Release 250 Mg Tabec) 250 mg PO HS PENDING SALE TO [facility] Stop: 12/07/24 20:59 Last Admin: 11/08/24 22:19 Dose: 250 mg Documented By: Admin: 11/07/24 21:37 Dose: 250 mg Documented By: KILEY Divalproex Sodium (Divalproex Delay Release 500 Mg Tab) 1,500 mg PO HS PENDING SALE TO [facility] Stop: 12/07/24 20:59 Last Admin: 11/08/24 22:19 Dose: 1,500 mg Documented By: Admin: 11/07/24 21:37 Dose: 1,500 mg Documented By: KILEY Docusate Sodium (Docusate Sodium 100 Mg Cap) 100 mg PO BID PENDING SALE TO [facility] Stop: 12/07/24 20:59 Last Admin: 11/09/24 08:42 Dose: 100 mg Documented By: Admin: 11/08/24 22:21 Dose: 100 mg Documented By: Admin: 11/08/24 08:48 Dose: 100 mg Documented By: Admin: 11/07/24 21:38 Dose: 100 mg Documented By: KILEY Doxycycline Hyclate (Doxycycline Hyclate 100 Mg Cap) 100 mg PO BID PENDING SALE TO [facility] Stop: 11/09/24 20:59 Last Admin: 11/09/24 08:35 Dose: 100 mg Documented By: Admin: 11/08/24 22:20 Dose: 100 mg Documented By: Admin: 11/08/24 08:48 Dose: 100 mg Documented By: Admin: 11/07/24 21:38 Dose: 100 mg Documented By: KILEY Enoxaparin Sodium (Enoxaparin Inj 40 Mg/0.4 Ml Syr) 40 mg SQ QAM PENDING SALE TO [facility] Stop: 12/08/24 08:59 Last Admin: 11/09/24 08:46 Dose: 40 mg Documented By: Admin: 11/08/24 08:49 Dose: Not Given Documented By: MARY Escitalopram Oxalate (Escitalopram Oxalate 20 Mg Tab) 20 mg PO QAM PENDING SALE TO [facility] Stop: 12/08/24 08:59 Last Admin: 11/09/24 08:36 Dose: 20 mg Documented By: Admin: 11/08/24 08:49 Dose: 20 mg Documented By: MARY Haloperidol (Haloperidol 1 Mg Tab) 1 mg PO [facility] Stop: 12/07/24 20:59 Last Admin: 11/08/24 22:19 Dose: 1 mg Documented By: Admin: 11/07/24 21:37 Dose: 1 mg Documented By: KILEY Haloperidol (Haloperidol 0.5 Mg Tab) 0.5 mg PO QAM SHERRY Stop: 12/08/24 08:59 Last Admin: 11/09/24 08:36 Dose: 0.5 mg Documented By: Admin: 11/08/24 08:49 Dose: 0.5 mg Documented By: MARY Sodium Chloride (Nss) 1,000 mls @ 999 mls/hr IV .Q1H1M SHERRY Stop: 11/07/24 10:15 Last Infusion: 11/07/24 11:43 Dose: Infused Documented By: Admin: 11/07/24 09:53 Dose: 999 mls/hr Documented By: STEW Cefepime HCl (Maxipime 2000mg) 2,000 mg in 20 mls @ 5 mls/min IV NOW STA; Protocol Stop: 11/07/24 09:13 Last Admin: 11/07/24 09:48 Dose: 5 mls/min Documented By: STEW Sodium Chloride (Nss) 500 mls @ 999 mls/hr IV .Q31M ONE Stop: 11/07/24 12:42 Last Infusion: 11/07/24 13:43 Dose: Infused Documented By: Admin: 11/07/24 12:17 Dose: 999 mls/hr Documented By: ZULLY Sodium Chloride (Nss) 1,000 mls @ 999 mls/hr IV .Q1H1M SHERRY Stop: 11/07/24 16:30 Last Infusion: 11/07/24 17:10 Dose: Infused Documented By: Admin: 11/07/24 16:09 Dose: 999 mls/hr Documented By: Infusion: 11/07/24 15:50 Dose: Infused Documented By: Admin: 11/07/24 14:51 Dose: 999 mls/hr Documented By: ZULLY Ceftriaxone Sodium (Rocephin) 2,000 mg in 50 mls @ 100 mls/hr IV Q24H SHERRY Stop: 11/08/24 14:59 Last Infusion: 11/08/24 15:02 Dose: Infused Documented By: Admin: 11/08/24 13:55 Dose: 100 mls/hr Documented By: MARY Ceftriaxone Sodium (Rocephin) 2,000 mg in 50 mls @ 100 mls/hr IV NOW STA Stop: 11/07/24 15:02 Last Infusion: 11/07/24 15:50 Dose: Infused Documented By: Admin: 11/07/24 14:52 Dose: 100 mls/hr Documented By: ZULLY Sodium Chloride (Nss) 1,000 mls @ 999 mls/hr IV .Q1H1M ONE Stop: 11/08/24 12:00 Last Infusion: 11/08/24 13:59 Dose: Infused Documented By: Admin: 11/08/24 11:27 Dose: 999 mls/hr Documented By: MARY Levothyroxine Sodium (Levothyroxine Sodium 88 Mcg Tablet) 88 mcg PO DAILYBB SHERRY Stop: 12/08/24 06:29 Last Admin: 11/09/24 06:00 Dose: 88 mcg Documented By: Admin: 11/08/24 05:10 Dose: 88 mcg Documented By: KILEY [place] Carbonate ([place] Carbonate 300 Mg Tab) 600 mg PO HS PENDING SALE TO [facility] Stop: 12/07/24 20:59 Last Admin: 11/08/24 22:18 Dose: 600 mg Documented By: Admin: 11/07/24 21:37 Dose: 600 mg Documented By: KILEY aVrgas (Asenapine Maleate [Saphris] 5 Mg Order Awaiting Action) 1 each N/A QS SHERRY Stop: 12/08/24 00:00 Last Admin: 11/09/24 08:34 Dose: Not Given Documented By: Admin: 11/09/24 02:19 Dose: Not Given Documented By: Admin: 11/08/24 15:01 Dose: Not Given Documented By: Admin: 11/08/24 08:48 Dose: Not Given Documented By: Admin: 11/07/24 23:11 Dose: Not Given Documented By: KILEY Vargas (Asenapine Maleate [Saphris] 10 Mg Order Awaiting Action) 1 each N/A QS SHERRY Stop: 12/08/24 00:00 Last Admin: 11/09/24 08:34 Dose: Not Given Documented By: Admin: 11/09/24 02:19 Dose: Not Given Documented By: Admin: 11/08/24 15:01 Dose: Not Given Documented By: Admin: 11/08/24 08:48 Dose: Not Given Documented By: Admin: 11/07/24 23:11 Dose: Not Given Documented By: KILEY Pantoprazole Sodium (Pantoprazole 40 Mg Tab) 40 mg PO PM SHERRY Stop: 12/07/24 20:59 Last Admin: 11/08/24 22:21 Dose: 40 mg Documented By: Admin: 11/07/24 21:38 Dose: 40 mg Documented By: KILEY Polyethylene Glycol (Polyethylene (Miralax) 17 Gm Pack) 17 gm PO QAM SHERRY Stop: 12/08/24 08:59 Last Admin: 11/09/24 08:43 Dose: 17 gm Documented By: Admin: 11/08/24 08:48 Dose: 17 gm Documented By: MARY Risperidone (Risperidone 2 Mg Tablet) 6 mg PO HS SHERRY Stop: 12/07/24 20:59 Last Admin: 11/08/24 22:20 Dose: 6 mg Documented By: Admin: 11/07/24 21:37 Dose: 6 mg Documented By: KILEY Vitamin D (Cholecalciferol 25 Mcg (1000 Units) Tab) 25 mcg PO QAM SHERRY Stop: 12/08/24 08:59 Last Admin: 11/09/24 08:35 Dose: 25 mcg Documented By: Admin: 11/08/24 08:49 Dose: 25 mcg Documented By: MARY Imaging Data Radiologist's Impression: Head CT 11/07/24 09:10 CT head/brain wo con CLINICAL HISTORY: altered. TECHNIQUE: Multiple axial CT images of the head were obtained without contrast. A dose lowering technique was utilized adhering to the principles of ALARA. CT DOSE: 663.26 mGy.cm COMPARISON: 05/26/2024 FINDINGS: There is mild motion artifact. There are stable globus pallidus calcifications. No intracranial hemorrhage seen. No mass effect, midline shift, or hydrocephalus. Visualized paranasal sinuses and mastoid air cells are clear. No skull fracture seen. IMPRESSION: No acute findings. ACT 112: Negative or not required by law. The above report was generated using voice recognition software. It may contain grammatical, syntax or spelling errors. Electronically signed by: Jayme Baker M.D. 11/07/2024 10:37 AM Chest X-Ray 11/07/24 09:11 XR chest 1V portable CLINICAL HISTORY: Sepsis COMPARISON STUDY: 05/26/2024 FINDINGS: Heart size and pulmonary vasculature are normal. No consolidation or pleural effusion. No pneumothorax. IMPRESSION: No acute findings. ACT 112: Negative or not required by law. Electronically signed by: Jayme Baker M.D. 11/07/2024 9:40 AM Discharge Plan Visit Data Chief Complaint: Lethargic Stated Complaint: WEAK, LETHARGIC ED Provider: Magan Damon Discharge Problem: Altered mental status, Intellectual disability, Weakness, Ambulatory dysfunction, Fall Patient Disposition: Admitted As Inpatient Condition: Fair Discharge Instructions Interventions: ED Discharge Assessment Last Done: 11/07/24 16:44 Discharge Problem: Altered mental status Qualifiers: Altered mental status type: somnolence Qualified Code(s): R40.0 - Somnolence Fall Qualifiers: Encounter type: initial encounter Qualified Code(s): W19.XXXA - Unspecified fall, initial encounter
[2024-11-07 09:33] LABS: Alanine Aminotransferase 23.0 U/L (7-52); Alkaline Phosphatase 62.0 U/L (34-104); Anion Gap 2.0 (3-11); Bilirubin,Total 1.0 mg/dl (0.2-1.0); Blood Urea Nitrogen 10.0 mg/dl (6-23); Calcium 9.4 mg/dl (8.6-10.3); Carbon Dioxide 30.0 mmol/L (21-32); Chloride 109.0 mmol/L (98-107); Creatinine Clr Calc Pharmacy 85.5 ml/min; Glucose 105.0 mg/dl (70-99(Fasting)); Magnesium 1.8 mg/dl (1.7-2.4); Potassium 4.3 mmol/L (3.5-5.1); Sodium 141.0 mmol/L (136-145); Total Protein 5.6 gm/dl (6.0-8.3)
--- NOTE | 2024-11-07 09:41 | XRay Report ---
XR chest 1V portable CLINICAL HISTORY: Sepsis COMPARISON STUDY: 05/26/2024 FINDINGS: Heart size and pulmonary vasculature are normal. No consolidation or pleural effusion. No p neumothorax. IMPRESSION: No acute findings. ACT 112: Negative or not required by law. Electronically signed by: Jayme Baker M.D. 11/07/2024 9:40 AM
[2024-11-07] MEDS: CEFEPIME 2000MG 2,000 MG/20 ML SYR IV STA (09:48)
[2024-11-07 09:52] LABS: INR 1.0 (0.9-1.1); Partial Thromboplastin Time 27 Seconds (21-31); Prothrombin Time 11.1 Seconds (9.0-12.0)
[2024-11-07] MEDS: SODIUM CHLORIDE 0.9% 1,000 ML IV SCH ×2 (09:53→14:51)
[2024-11-07 09:54] LABS: Base Excess VBG 3.0 mEq/L; HCO3 VBG 29 mmol/L; Oxygen Saturation VBG 91.6 %; PCO2 VBG 46 mmHg (38-50); PO2 VBG 59 mmHg; pH VBG 7.40 (7.36-7.41)
--- NOTE | 2024-11-07 10:39 | CT Scan Report ---
CT head/brain wo con CLINICAL HISTORY: altered. TECHNIQUE: Multiple axial CT images of the head were obtained without contrast. A dose lowering tech nique was utilized adhering to the principles of ALARA. CT DOSE: 663.26 mGy.cm COMPARISON: 05/26/2024 FINDINGS: There is mild motion artifact. There are stable globus pallidus calcifications. No intracra nial hemorrhage seen. No mass effect, midline shift, or hydrocephalus. Visualized paranasal sinuses a nd mastoid air cells are clear. No skull fracture seen. IMPRESSION: No acute findings. ACT 112: Negative or not required by law. The above report was generated using voice recognition software. It may contain grammatical, syntax o r spelling errors. Electronically signed by: Jayme Baker M.D. 11/07/2024 10:37 AM
[2024-11-07 10:43] LABS: Chlamydia pneumoniae PCR Not Detected (NotDetected); Coronavirus 229E PCR Not Detected (NotDetected); Coronavirus CoV-2 (COVID19)PCR Not Detected (NotDetected); Coronavirus HKU1 PCR Not Detected (NotDetected); Coronavirus NL63 PCR Not Detected (NotDetected); Coronavirus OC43PCR Not Detected (NotDetected); Human Metapneumovirus PCR Not Detected (NotDetected); Parainfluenza Virus 1 PCR Not Detected (NotDetected); Parainfluenza Virus 2 PCR Not Detected (NotDetected); Parainfluenza Virus 3 PCR Not Detected (NotDetected); Parainfluenza Virus 4 PCR Not Detected (NotDetected); Respiratory Syncytial VirusPCR Not Detected (NotDetected); Rhinovirus/Enterovirus PCR Not Detected (NotDetected)
[2024-11-07 11:52] LABS: Appearance Urine Clear (Clear); Glucose Urine UA Negative (Negative)
[2024-11-07] MEDS: SODIUM CHLORIDE 0.9% 500 ML IV ONE (12:17)
[2024-11-07] MEDS ORDERED: ALUMINUM/MAGNESIUM SUSP 30 ML UDC PO PRN (14:22)
[2024-11-07] MEDS ORDERED: POLYETHYLENE (MIRALAX) 17 GM PACK PO PRN (14:22)
--- NOTE | 2024-11-07 14:43 | History & Physical Report ---
Date of Service November 07, 2024 Assessment & Plan (1) Generalized weakness: Plan Assessment/plan Generalized weakness Possible side effect of vaccine Acute metabolic encephalopathy Patient presents with generalized weakness, lethargy; received flu and COVID- vaccine a day prior to onset of symptoms No focal deficit on examination CT headno acute finding Chest x-rayno acute finding Plan to cover with empiric antibiotic with ceftriaxone, doxycycline Follow-up on blood cultures Plan to obtain valproic acid level as well as lithium level. Will provide 2 L of additional IV fluids Obtain TSH PT OT evaluation Bipolar disordercontinue on valproic acid, Depakote Hypothyroidismcontinue on levothyroxine. Obtain TSH in a.m. Schizophreniacontinue on Haldol, Risperdal Type 2 diabetes mellitusmonitor fasting blood glucose DVT prophylaxis Lovenox Full code; unable to reach patient's sister over the phone. Time spent evaluating patient, direct bedside care, chart review, placing orders, interpretation of diagnostic studies, discussion with consultants, patient, and family members, as well as other required patient management activities is 60 minutes Please note the above document was generated using voice recognition software. It may contain grammatical, syntax or spelling errors. Any formal questions or concerns about the content, text or information contained within the body of this dictation should be directly addressed to the provider for clarification History of Present Illness Chief Complaint: Generalized weakness for 2 days Lethargy for 2 days History obtained from chart review, interview with patient's caregiver, and discussion with the ED provider Past medical history of intellectual disability resides at the [facility], [facility] izophrenia, type 2 diabetes mellitus, history of PE, hyperlipidemia, hypothyroidism, WILVER unable to tolerate CPAP Patient was brought to the hospital by his caregiver after he was noticed to be lethargic and weak since last 2 days. He received COVID and flu vaccine all day prior to onset of symptoms No complaints of fever, chills, chest pain, shortness of breath, cough. He reports some abdominal pain. No complaint of urinary symptoms, change in bladder or bowel habit. He is oriented to self. He is able to answer simple questions and able to follow simple commands. Primary Care Provider: Akil Thorne MD Allergies Allergy/AdvReac Type Severity Reaction Status Date / Time clozapine Allergy Intermediate ON [facility] Verified 11/07/24 12:19 MED LIST benztropine Allergy Unknown CONTRAINDICATED Verified 11/07/24 12:19 PER MD Beta-Adrenergic Agents Allergy Unknown [facility] Verified 11/07/24 12:19 MED LIST Iodinated Contrast Media Allergy Unknown [facility] Verified 11/07/24 12:19 MED LIST iodine Allergy Unknown [facility] Verified 11/07/24 12:19 MED LIST povidone-iodine Allergy Unknown [facility] Verified 11/07/24 12:19 MED LIST pseudoephedrine Allergy Unknown PER MD Verified 11/07/24 12:19 soap [From Betadine] Allergy Unknown [facility] Verified 11/07/24 12:19 MED LIST terfenadine Allergy Unknown PER MD Verified 11/07/24 12:19 valproic acid Allergy Unknown [facility] Verified 11/07/24 12:19 MED LIST SYMPATHOMIMETIC AGENTS Allergy Unknown [facility] Uncoded 11/07/24 12:19 MED LIST Home Medications Medication Instructions Recorded Confirmed Type acetaminophen 325 mg tablet 650 mg PO Q6H PRN Pain 05/05/19 11/07/24 History atorvastatin 40 mg tablet 40 mg PO QAM 05/05/19 11/07/24 History calcium polycarbophil 625 mg 1,250 mg PO DAILY 05/05/19 11/07/24 History tablet (Fiber-Lax) cholecalciferol (vitamin D3) 25 1,000 unit PO QAM 05/05/19 11/07/24 History mcg (1,000 unit) chewable tablet (Vitamin D3) divalproex 250 mg tablet,delayed 250 mg PO HS 05/05/19 11/07/24 History release (Depakote) divalproex 500 mg tablet,delayed 1,500 mg PO HS 05/05/19 11/07/24 History release (Depakote) docusate sodium 100 mg capsule 100 mg PO BID 05/05/19 11/07/24 History (Colace) escitalopram oxalate 20 mg tablet 20 mg PO QAM 05/05/19 11/07/24 History lithium carbonate 300 mg capsule 600 mg PO HS 05/05/19 11/07/24 History magnesium hydroxide 400 mg/5 mL 30 ml PO DAILY PRN Constipation 05/05/19 11/07/24 History oral suspension (Milk of Magnesia) omeprazole magnesium 20 mg 20 mg PO PM 05/05/19 11/07/24 History tablet,delayed release (Prilosec OTC) risperidone 3 mg tablet (Risperdal) 6 mg PO HS 05/05/19 11/07/24 History haloperidol 1 mg tablet 1 mg PO HS 08/22/21 11/07/24 History levothyroxine 88 mcg tablet 88 mcg PO QAM 08/22/21 11/07/24 History dextromethorphan-guaifenesin 10 5 ml PO TID PRN Cough 01/16/22 11/07/24 History mg-100 mg/5 mL oral liquid (Tussin DM) haloperidol 0.5 mg tablet 0.5 mg PO QAM 01/16/22 11/07/24 History levocetirizine 5 mg tablet (Xyzal) 2.5 mg PO PM 01/16/22 11/07/24 History multivitamin-ferrous 1 tab PO QAM 01/16/22 11/07/24 History fumarate-folic acid 18 mg-400 mcg tablet (Certavite-Antioxidant) olopatadine 0.2 % eye drops 1 drp OPB BID PRN Eye Irritation 01/16/22 11/07/24 History omega-3 fatty acids 1,000 mg 1,000 mg PO TID 01/16/22 11/07/24 History capsule propylene glycol 0.6 % eye drops 1 drp OPB QID PRN Dry Eyes 01/16/22 11/07/24 History (Systane Balance) asenapine maleate 10 mg sublingual 10 mg sublingual HS 03/22/22 11/07/24 History tablet (Saphris) asenapine maleate 5 mg sublingual 5 mg sublingual QAM 03/22/22 11/07/24 History tablet (Saphris) metformin 500 mg tablet,extended 1,000 mg PO QDB 03/22/22 11/07/24 History release 24 hr aluminum-mag hydroxide-simethicone 15 ml PO BID PRN UPSET 02/07/23 11/07/24 History 200 mg-200 mg-20 mg/5 mL oral susp STOMACH/VOMITING (Antacid Anti-Gas) polyethylene glycol 3350 17 17 g PO QAM 02/07/23 11/07/24 History gram/dose oral powder (Miralax) emollient combination no.31 (Gold 1 ea topical QAM 05/26/24 11/07/24 History Anderson Ultimate topical liquid) meclizine 25 mg tablet 25 mg PO Q8H PRN dizziness #30 tabs 05/27/24 11/07/24 Rx erythromycin 5 mg/gram (0.5 %) eye 0.25 inch ophthalmic (eye) HS PRN 11/07/24 11/07/24 History ointment red eye loperamide 2 mg capsule 2 mg PO QID PRN Diarrhea 11/07/24 11/07/24 History Past Med/Surg History Problem List (Updated 06/28/24 @ 00:07 by Background Daemon) Elevated troponin (Acute) Balance problem (Acute) Ambulatory dysfunction (Acute) Weakness (Acute) Unsteady gait Dizziness Acute hypoxemic respiratory failure (Acute) Generalized weakness (Acute) COVID-19 (Acute) Intellectual disability Hypoxia (Acute) Influenza A (Acute) Sepsis (Acute) COVID-19 (Acute) Schizophrenia (Chronic) Anxiety (Chronic) Tachycardia Elevated d-dimer Mental retardation (Chronic) GERD (gastroesophageal reflux disease) (Chronic) Hypothyroidism (Chronic) HLD (hyperlipidemia) (Chronic) DM2 (diabetes mellitus, type 2) (Chronic) [place] teeth extracted (Chronic) Choking episode (Acute) Encounter for pre-operative examination Medical History (Updated 06/28/24 @ 00:07 by Background Daemon) Esophageal reflux Myopia Moderate intellectual disabilities Diabetes mellitus Hx pulmonary embolism NO OTHER DETAILS PROVIDED Hypothyroidism Metabolic syndrome WILVER (obstructive sleep apnea) SEVERE> NO DEVICE PER RECORDS Dermatitis Cellulitis of leg Obesity (BMI 30.0-34.9) Dyslipidemia Schizophrenia Mental and behavioral problem in adult Hemorrhoid WITHOUT COMPLICATION Surgical History (Updated 06/28/24 @ 00:07 by Background Daemon) History of right cataract surgery History of tooth extraction WISDOM TEETH History of colonoscopy Family History Other Family history non-contributory Social History Smoking Status: Former smoker Second Hand Exposure: No; Do You Dip or Chew Tobacco: No; Hx Alcohol Use: No Hx Substance Use: No Preferred Language: Macedonian Communication Ability: Effective Communication Ability Comment: sister to sign (verbal consent) through phone day of procedure Electric Track Switch Maintainer Required: No Beliefs That Will Affect Care: None marital status: Single Current Living Situation: Boarding Home Current Living Situation Comment: Lives at [facility] Feels Safe at Home: Yes Assistive Devices: Wheelchair Review of Systems Review of Systems: All systems reviewed & are unremarkable except as noted in Subjective Physical Exam Physical Exam: On physical examination; Constitutional: Alert, oriented to self. Appears tired Respiratory: Bilateral vesicular breath sound Cardiovascular: RRR, no murmur, no edema Vessels: no JVD or carotid bruit Chest: normal inspection of chest Abdomen: Soft, nontender. Musculoskeletal: no cyanosis or clubbing, extremities motor strength 5/5 Skin: no rashes, warm and dry normal turgor Neurologic: PERRL, EOMI, accommodation nl, no face palsy, no dysarthria CN's II- XI intact bilaterally and moves all extremities.. No focal deficit Results & Data Results & Data Vital Signs (Past 12 Hours) Vital Signs Temp Pulse Pulse Resp BP BP Pulse Ox 11/07/24 14:03 65 15 120/75 95 11/07/24 13:39 71 23 96 11/07/24 13:38 140/78 11/07/24 13:33 69 22 124/74 97 11/07/24 13:16 64 11/07/24 12:51 66 21 95 11/07/24 12:45 124/78 11/07/24 12:36 70 17 97 11/07/24 12:18 68 14 127/71 97 11/07/24 12:12 66 19 96 11/07/24 12:00 121/61 11/07/24 11:45 64 19 123/72 96 11/07/24 11:45 69 14 123/72 96 11/07/24 11:36 65 22 97 11/07/24 11:15 68 18 94 11/07/24 11:06 67 18 134/77 95 11/07/24 10:00 66 18 135/81 93 11/07/24 09:31 94 11/07/24 09:19 68 11/07/24 08:57 36.9 C 69 17 130/80 93 11/07/24 08:57 11/07/24 08:57 36.9 C 69 19 130/80 93 O2 Del Method 11/07/24 14:03 11/07/24 13:39 11/07/24 13:38 11/07/24 13:33 11/07/24 13:16 11/07/24 12:51 11/07/24 12:45 11/07/24 12:36 11/07/24 12:18 11/07/24 12:12 11/07/24 12:00 11/07/24 11:45 11/07/24 11:45 Room Air 11/07/24 11:36 11/07/24 11:15 11/07/24 11:06 11/07/24 10:00 Room Air 11/07/24 09:31 Room Air 11/07/24 09:19 11/07/24 08:57 Room Air 11/07/24 08:57 Room Air 11/07/24 08:57 Room Air
[2024-11-07] MEDS: cefTRIAXone SODIUM 2,000 MG/50 ML BAG IV STA (14:52)
[2024-11-07] MEDS ORDERED: MAGNESIUM HYDROXIDE SUSP 30 ML UDC PO PRN (16:43)
[2024-11-07] MEDS ORDERED: LOPERAMIDE HCL 2 MG CAP PO PRN (16:43)
[2024-11-07] MEDS: DIVALPROEX DELAY RELEASE 250 MG TABEC PO SCH (21:37)
[2024-11-07] MEDS: DIVALPROEX DELAY RELEASE 500 MG TAB PO SCH (21:37)
[2024-11-07] MEDS: LITHIUM CARBONATE 300 MG TAB PO SCH (21:37)
[2024-11-07] MEDS: ACETAMINOPHEN 325 MG TAB PO PRN (21:38)
[2024-11-07] MEDS: DOXYCYCLINE HYCLATE 100 MG CAP PO SCH (21:38)
[2024-11-07] MEDS: CETIRIZINE HCL 10 MG TABLET PO SCH (21:38)
[2024-11-07] MEDS: DOCUSATE SODIUM 100 MG CAP PO SCH (21:38)
[2024-11-08] MEDS: LEVOTHYROXINE SODIUM 88 MCG TABLET PO SCH (05:10)
[2024-11-08] MEDS: CALCIUM POLYCARBOPHIL 625MG TAB PO SCH (08:48)
[2024-11-08] MEDS: POLYETHYLENE (MIRALAX) 17 GM PACK PO SCH (08:48)
[2024-11-08] MEDS: ENOXAPARIN INJ 40 MG/0.4 ML SYR SQ SCH (08:49)
[2024-11-08] MEDS: ATORVASTATIN 40 MG TAB PO SCH (08:49)
[2024-11-08] MEDS: ESCITALOPRAM OXALATE 20 MG TAB PO SCH (08:49)
[2024-11-08] MEDS: CHOLECALCIFEROL 25 MCG (1000 UNITS) TAB PO SCH (08:49)
[2024-11-08 09:38] LABS: Hematocrit (blood only) 39.4 % (42.0-52.0); Hemoglobin 12.4 g/dl (14.0-18.0); Immature Granulocytes # (auto) 0.01 K/uL (0.01-0.20); Immature Granulocytes % (auto) 0.4 %; Mean Corpuscular Hemoglobin 31.7 pg (25.0-34.0); Mean Corpuscular Volume 100.8 fL (80.0-100.0); Platelet Count 111 K/uL (130-400); RDW Standard Deviation 46.9 fL (36.4-46.3); Red Blood Count 3.91 M/uL (4.70-6.10); White Blood Count 2.47 K/ul (4.8-10.8)
[2024-11-08 09:53] LABS: Anion Gap 5.0 (3-11); Blood Urea Nitrogen 13.0 mg/dl (6-23); Calcium 9.1 mg/dl (8.6-10.3); Carbon Dioxide 29.0 mmol/L (21-32); Chloride 109.0 mmol/L (98-107); Creatinine Clr Calc Pharmacy 94.6 ml/min; Glucose 132.0 mg/dl (70-99(Fasting)); Potassium 4.4 mmol/L (3.5-5.1); Sodium 143.0 mmol/L (136-145)
[2024-11-08] MEDS: SODIUM CHLORIDE 0.9% 1,000 ML IV ONE (11:27)
[2024-11-08] MEDS: cefTRIAXone SODIUM 2,000 MG/50 ML BAG IV SCH (13:55)
--- NOTE | 2024-11-08 14:47 | Hospitalist Progress Note ---
Date of Service November 08, 2024 Assessment & Plan (1) Generalized weakness: Plan Assessment/plan Generalized weakness Possible side effect of vaccine Acute metabolic encephalopathy Patient presents with generalized weakness, lethargy; received flu and COVID- vaccine a day prior to onset of symptoms No focal deficit on examination CT headno acute finding Chest x-rayno acute finding Serum valproic acid level and lithium level reviewed; within normal limits Continue with empiric antibiotic with ceftriaxone, doxycycline Found to be dizzy while standing up; ordered 1 L of IV fluid bolus. Continue PT OT Bipolar disordercontinue on valproic acid, Depakote Hypothyroidismcontinue on levothyroxine. Schizophreniacontinue on Haldol, Risperdal Type 2 diabetes mellitusmonitor fasting blood glucose DVT prophylaxis Lovenox Full code; Please note the above document was generated using voice recognition software. It may contain grammatical, syntax or spelling errors. Any formal questions or concerns about the content, text or information contained within the body of this dictation should be directly addressed to the provider for clarification Admission and Anticipated Discharge Date Admission Date: November 07, 2024 Subjective Patient seen and examined at bedside. He reports that he is feeling better compared to previous day. No significant issues overnight Review of Systems Review of Systems: All systems reviewed & are unremarkable except as noted in Subjective Physical Exam Physical Exam: On physical examination; Constitutional: Alert, oriented to self. Appears tired Respiratory: Bilateral vesicular breath sound Cardiovascular: RRR, no murmur, no edema Vessels: no JVD or carotid bruit Chest: normal inspection of chest Abdomen: Soft, nontender. Musculoskeletal: no cyanosis or clubbing, extremities motor strength 5/5 Skin: no rashes, warm and dry normal turgor Neurologic: PERRL, EOMI, accommodation nl, no face palsy, no dysarthria CN's II- XI intact bilaterally and moves all extremities.. No focal deficit Results & Data Results & Data Vital Signs (Past 12 Hours) Vital Signs Temp Pulse Resp BP Pulse Ox O2 Del Method 11/08/24 07:33 36.3 C L 64 18 130/83 93 Room Air
[2024-11-09 07:14] VITALS: BP 123/78; PULSE 59; RESP 18; TEMP 97.5; O2SAT 98
--- NOTE | 2024-11-09 15:58 | Discharge Summary ---
Date of Service November 09, 2024 Admission HPI Per Admitting Provider Generalized weakness for 2 days Lethargy for 2 days History obtained from chart review, interview with patient's caregiver, and discussion with the ED provider Past medical history of intellectual disability resides at the [facility], schizophrenia, type 2 diabetes mellitus, history of PE, hyperlipidemia, hypothyroidism, WILVER unable to tolerate CPAP Patient was brought to the hospital by his caregiver after he was noticed to be lethargic and weak since last 2 days. He received COVID and flu vaccine all day prior to onset of symptoms No complaints of fever, chills, chest pain, shortness of breath, cough. He re ports some abdominal pain. No complaint of urinary symptoms, change in bladder or bowel habit. He is oriented to self. He is able to answer simple questions and able to follow simple commands. Admission Exam Per Admitting Provider On physical examination; Constitutional: Alert, oriented to self. Appears tired Respiratory: Bilateral vesicular breath sound Cardiovascular: RRR, no murmur, no edema Vessels: no JVD or carotid bruit Chest: normal inspection of chest Abdomen: Soft, nontender. Musculoskeletal: no cyanosis or clubbing, extremities motor strength 5/5 Skin: no rashes, warm and dry normal turgor Neurologic: PERRL, EOMI, accommodation nl, no face palsy, no dysarthria CN's II- XI intact bilaterally and moves all extremities.. No focal deficit Principal Diagnosis Generalized weakness Possible side effect of vaccine Acute metabolic encephalopathy Discharge Exam On physical examination; Constitutional: Alert, oriented to self. comfortable Respiratory: Bilateral vesicular breath sound Cardiovascular: RRR, no murmur, no edema Vessels: no JVD or carotid bruit Chest: normal inspection of chest Abdomen: Soft, nontender. Musculoskeletal: no cyanosis or clubbing, extremities motor strength 5/5 Skin: no rashes, warm and dry normal turgor Neurologic: PERRL, EOMI, accommodation nl, no face palsy, no dysarthria CN's II- XI intact bilaterally and moves all extremities.. No focal deficit Discharge Data Allergies Allergy/AdvReac Type Severity Reaction Status Date / Time clozapine Allergy Intermediate ON SKILLS Verified 11/07/24 12:19 MED LIST benztropine Allergy Unknown CONTRAINDICATED Verified 11/07/24 12:19 PER Beta-Adrenergic Agents Allergy Unknown ON SKILLS Verified 11/07/24 12:19 MED LIST Iodinated Contrast Media Allergy Unknown ON SKILLS Verified 11/07/24 12:19 MED LIST iodine Allergy Unknown ON SKILLS Verified 11/07/24 12:19 MED LIST povidone-iodine Allergy Unknown ON SKILLS Verified 11/07/24 12:19 MED LIST pseudoephedrine Allergy Unknown PER MD Verified 11/07/24 12:19 soap [From Betadine] Allergy Unknown ON SKILLS Verified 11/07/24 12:19 MED LIST terfenadine Allergy Unknown PER MD Verified 11/07/24 12:19 valproic acid Allergy Unknown ON SKILLS Verified 11/07/24 12:19 MED LIST SYMPATHOMIMETIC AGENTS Allergy Unknown ON SKILLS Uncoded 11/07/24 12:19 MED LIST Consultations 11/07/24 13:57 ED Decision to Admit Stat 11/07/24 14:08 ED Decision to Admit Stat Ordered Studies 11/07/24 09:10 CT head/brain wo con Stat Hospital Course (1) Generalized weakness: Plan Assessment/plan Generalized weakness Possible side effect of vaccine Acute metabolic encephalopathy Pancytopenia Patient presents with generalized weakness, lethargy; received flu and COVID- vaccine a day prior to onset of symptoms No focal deficit on examination CT headno acute finding Chest x-rayno acute finding Serum valproic acid level and lithium level reviewed; within normal limits He was admitted to medical floor; was started on empiric antibiotic, IV fluids. Patient reported improvement in the symptoms gradually and his mentation was back to baseline. The likely reason for the weakness was the aftereffect of the vaccine. Patient was back to his baseline at the time of the discharge. He was given a prescription for a rolling walker at the time of discharge. Patient will need to CBC during follow-up with his primary care doctor to monitor for his pancytopenia. Please note the above document was generated using voice recognition software. It may contain grammatical, syntax or spelling errors. Any formal questions or concerns about the content, text or information contained within the body of this dictation should be directly addressed to the provider for clarification Total Time Total Time Spent Total Time Spent (In Minutes): 45 Total Time Includes: Examination of the Patient, Discharge Planning, Medication Reconciliation, Communication With Other Providers and Other Discharge Plan Discharge Items Patient Disposition: Home - Self-Care Reason For Visit: GENERALIZED WEAKNESS Discharge Diagnosis: Generalized weakness Possible side effect of vaccine Acute metabolic encephalopathy Condition on Discharge: Fair Activity: Resume your previous activity Non-emergency contact: Primary Care Provider Call non-emergency contact if: you have any medication questions and your symptoms worsen Follow-up/Referrals: Akil Thorne MD [Primary Care Provider] - 11/16/24 1:00 pm (Date & Time 11/16/2024 1:00 PM Provider: Marlyn Gómez PA-C [facility] ) Diet: Regular Addtl Attending Provider Instructions: You are admitted to the hospital due to generalized weakness. This is likely secondary to the vaccination he received couple of days prior to the hospitalization. No medication changes have been made. Please use the walker for ambulation. Pending Studies at Discharge: No Stand-Alone Forms: My [facility] uTest, Smoking Cessation Medications and DC Order Prescriptions: Continued atorvastatin 40 mg Tablet 40 mg PO QAM calcium polycarbophil [Fiber-Lax] 625 mg Tablet 1,250 mg PO DAILY docusate sodium [Colace] 100 mg Capsule 100 mg PO BID omeprazole magnesium [Prilosec OTC] 20 mg Tablet,Delayed Release (Dr/Ec) 20 mg PO PM Rx Instructions: TAKES AT 1600 acetaminophen 325 mg Tablet 650 mg PO Q6H MDD 3 GRAMS/24 HOURS PRN (Reason: Pain) divalproex [Depakote] 250 mg Tablet,Delayed Release (Dr/Ec) 250 mg PO HS Rx Instructions: WITH THREE 500MG TABS FOR TOTAL OF 1750MG divalproex [Depakote] 500 mg Tablet,Delayed Release (Dr/Ec) 1,500 mg PO HS Rx Instructions: TAKE WITH 250MG DOSE FOR TOTAL OF 1750MG risperidone [Risperdal] 3 mg Tablet 6 mg PO HS magnesium hydroxide [Milk of Magnesia] 400 mg/5 mL Suspension 30 ml PO DAILY PRN (Reason: Constipation) lithium carbonate 300 mg Capsule 600 mg PO HS escitalopram oxalate 20 mg Tablet 20 mg PO QAM cholecalciferol (vitamin D3) [Vitamin D3] 25 mcg (1,000 unit) Tablet,Chewable 1,000 unit PO QAM haloperidol 1 mg tablet 1 mg PO HS levothyroxine 88 mcg tablet 88 mcg PO QAM haloperidol 0.5 mg Tablet 0.5 mg PO QAM omega-3 fatty acids 1,000 mg Capsule 1,000 mg PO TID Rx Instructions: 0800, 1600, & 2000 dextromethorphan-guaifenesin [Tussin DM] 10-100 mg/5 mL Liquid 5 ml PO TID PRN (Reason: Cough) olopatadine 0.2 % Drops 1 drp OPB BID PRN (Reason: Eye Irritation) levocetirizine [Xyzal] 5 mg Tablet 2.5 mg PO PM Certavite-Antioxidant 18-400 mg-mcg Tablet 1 tab PO QAM Systane Balance 0.6 % Drops 1 drp OPB QID PRN (Reason: Dry Eyes) metformin 500 mg tablet extended release 24 hr 1,000 mg PO QDB asenapine maleate [Saphris] 5 mg tablet, sublingual 5 mg SUBLINGUAL QAM asenapine maleate [Saphris] 10 mg tablet, sublingual 10 mg SUBLINGUAL HS alum-mag hydroxide-simeth [Antacid Anti-Gas] 200-200-20 mg/5 mL Suspension 15 ml PO BID PRN (Reason: UPSET STOMACH/VOMITING) polyethylene glycol 3350 [Miralax] 17 gram/dose Powder 17 g PO QAM loperamide 2 mg Capsule 2 mg PO QID PRN (Reason: Diarrhea) erythromycin 5 mg/gram (0.5 %) ointment 0.25 inch ophthalmic (eye) HS PRN (Reason: red eye) Gold Anderson Ultimate Liquid 1 ea topical QAM meclizine 25 mg Tablet 25 mg PO Q8H PRN (Reason: dizziness) Qty: 30 0RF Discharge Orders: Discharge Order (Routine); Ordered 11/09/24 Ordered By: Kentrell Bush Admission Data Admit Date/Time: 11/07/24 14:22 Attending Provider: Kentrell Bush Admit Provider: Kentrell Bush Primary Care Provider: Akil Thorne Other Providers: Lele Olvera; Kentrell Bush Other Interventions: Discharge Summary Assessment (RN) Last Done: 11/09/24 12:28
--- NOTE | 2024-11-10 11:26 | Electrocardiogram Report ---
Test Reason : Blood Pressure : */* mmHG Vent. Rate : 73 BPM Atrial Rate : 73 BPM P-R Int : 144 ms QRS Dur : 116 ms QT Int : 410 ms P-R-T Axes : 74 -35 52 degrees QTcB Int : 451 ms Normal sinus rhythm Left axis deviation Low voltage QRS Right bundle branch block Abnormal ECG When compared with ECG of 26-May-2024 10:11, QRS axis Shifted left Confirmed by Ryan Leigh ([id number]) on 11/10/2024 11:25:57 AM Referred By: REFERRED SELF Confirmed By: Ryan Leigh
== END 2024-11-09 13:58 | disposition home or self-care (01) | DRG 71 ==
LOC: ED 08:50 → EDINP 14:22 → 3W 16:44